=== PATIENT | male | born 1955 | race Caucasian/White ===

== ENCOUNTER 2016-08-24 11:14 | Emergency (ER) | payer BC ==
[2016-08-24] MEDS ORDERED: Sodium Chloride 0.9% 10 ML Syringe FLUSH PRN (11:58)
--- NOTE | 2016-08-24 12:04 | EDM.PDOC ---
ED HPI GENERAL MEDICAL PROBLEM - General Chief Complaint: Neurological Problem Stated Complaint: WEAKNESS/CAN'T WALK Time Seen by Provider: 08/24/16 11:39 Source of Information: Reports: Patient History Limitations: Reports: No Limitations - History of Present Illness INITIAL COMMENTS - FREE TEXT/NARRATIVE: 61-year-old male presents for evaluation and treatment of weakness and difficulty walking. Patient reports that symptoms started last night. He currently complains of weakness, difficulty walking and malaise. He denies any falls, syncope, lightheadedness, dizziness, chest pain, chest quotations, shortness of breath, abdominal pain, fevers, earaches or pains, sinus pain or pressure, headaches or cough. Patient has past medical history of a CVA in October of 2012. He has deficits on the left side and chronic numbness and tingling from his previous stroke. He has not noticed any changes from his baseline. No numbness and tingling that is worse than normal. Patient is also concerned about muscle spasms. These have been going on for several years. He states that he has tried muscle relaxers but quit taking them as feeling made him drowsy. He states that the muscle spasms often occur when he is out doing things. States that nothing is found that will relieve muscle spasms this time and rest. - Related Data Allergies Allergy/AdvReac Type Severity Reaction Status Date / Time No Known Allergies Allergy Verified 08/24/16 11:26 Home Meds: Home Meds Allopurinol [Zyloprim] 100 mg PO DAILY 08/24/16 [History] Citalopram Hydrobromide [Celexa] 20 mg PO DAILY 08/24/16 [History] Clopidogrel [Plavix] 75 mg PO DAILY 08/24/16 [History] Docusate Sodium [Colace] 100 mg PO BEDTIME 08/24/16 [History] LORazepam [Ativan] 0.5 mg PO Q6HR #10 tablet 08/24/16 [Rx] Losartan [Cozaar] 50 mg PO DAILY 08/24/16 [History] [place]-3 Fatty Acids [Fish Oil] 1 tab PO TID 08/24/16 [History] Simvastatin [Zocor] 40 mg PO BEDTIME 08/24/16 [History] Warfarin [Coumadin] 5 mg PO DAILY #4 tablet 08/24/16 [Rx] amLODIPine [Norvasc] 2.5 mg PO DAILY 08/24/16 [History] traZODone HCl [Trazodone HCl] 100 mg PO BEDTIME 08/24/16 [History] Past Medical History Cardiovascular History: Reports: Hypertension Neurological History: Reports: Other (See Below) Other Neuro History: stroke - Past Surgical History HEENT Surgical History: Reports: Tonsillectomy Musculoskeletal Surgical History: Reports: Other (See Below) Other Musculoskeletal Surgeries/Procedures:: cyst on back removed Social & Family History - Tobacco Use Smoking Status *Q: Never Smoker - Caffeine Use Caffeine Use: Reports: None - Recreational Drug Use Recreational Drug Use: No ED ROS GENERAL - Review of Systems Review Of Systems: See Below Constitutional: Reports: Malaise, Weakness. Denies: Fever HEENT: Denies: Ear Pain, Sinus Problem, Throat Pain Respiratory: Denies: Shortness of Breath, Cough Cardiovascular: Denies: Chest Pain, Edema, Syncope GI/Abdominal: Denies: Abdominal Pain, Diarrhea, Hematochezia, Melena, Nausea, Vomiting : Reports: No Symptoms. Denies: Dysuria Musculoskeletal: Reports: Muscle Stiffness (muscle spasms) Neurological: Reports: Numbness (chronic, no changes), Pre-Existing Deficit ( left sided weakness from CVA in May 2012), Tingling (chronic, no changes), Difficulty Walking. Denies: Dizziness, Headache ED EXAM, NEURO - Physical Exam Exam: See Below Exam Limited By: No Limitations General Appearance: Alert, WD/WN, No Apparent Distress Eye Exam: Bilateral Eye: PERRL Ears: Normal External Exam, Normal Canal, Hearing Grossly Normal, Normal TMs Nose: Normal Inspection Throat/Mouth: Normal Inspection, Normal Lips, Normal Voice, No Airway Compromise Neck: Normal Inspection Respiratory/Chest: No Respiratory Distress, Lungs Clear, Normal Breath Sounds Cardiovascular: Normal Peripheral Pulses, No Murmur, Irregularly Irregular GI/Abdominal: Soft, Non-Tender Neurological: Alert, Normal Mood/Affect, Normal Dorsiflexion, CN II-XII Intact, Normal Plantar Flexion, Abnormal Finger to Nose (left sided due to previous CVA) , Difficulty Walking, Other (abnormal pronator drift on left, previous CVA). No : Straight Leg Raise (L), Straight Leg Raise (R) Psychiatric: Normal Affect, Normal Mood Skin Exam: Warm, Dry, Normal Color EKG INTERPRETATION EKG Date: 08/24/16 Time: 12:00 Rhythm: a-fib Rate (beats/min): 70 [place]: normal P-wave: present QRS: normal ST-T: normal QT: normal EKG Interpretation Comments: a.fib with a rate in the 70s. Reviewed by myself and Dr. Prince. Course - Vital Signs Last Recorded V/S: Last Vital Signs Temp 36.8 C 08/24/16 11:21 Pulse 68 08/24/16 15:45 Resp 18 08/24/16 15:45 BP 164/104 H 08/24/16 15:45 Pulse Ox 98 08/24/16 15:45 Orthostatic Blood Pressure [ 149/112 Standing] Orthostatic Blood Pressure [ 160/94 Sitting] Orthostatic Blood Pressure [ 148/76 Supine] - Orders/Labs/Meds Orders: Active Orders 24 hr Category Date Time Status Cardiac Monitoring [RC] . DIRECTED Care 08/24/16 11:58 Active EKG 12 Lead [EKG Documentation Completion] [RC] STAT Care 08/24/16 11:58 Active Orthostatic Vital Signs [RC] ASDIRECTED Care 08/24/16 11:58 Active Peripheral IV Care [RC] . DIRECTED Care 08/24/16 11:58 Active Peripheral IV Insertion Adult [OM.PC] Routine Oth 08/24/16 11:58 Ordered Labs: Laboratory Tests 08/24/16 08/24/16 08/24/16 Range/Units 12:07 12:07 12:07 WBC 5.36 (4.23-9.07) K/mm3 RBC 4.77 (4.63-6.08) M/mm3 Hgb 14.6 (13.7-17.5) gm/L Hct 43.9 (40.1-51.0) % MCV 92.0 (79.0-92.2) fl MCH 30.6 (25.7-32.2) pg MCHC 33.3 (32.2-35.5) g/dl RDW Std Deviation 44.0 H (35.1-43.9) fL Plt Count 169 (163-337) K/mm3 MPV 9.2 L (9.4-12.3) fl Neut % (Auto) 81.4 H (34.0-67.9) % Lymph % (Auto) 9.9 L (21.8-53.1) % [place] % (Auto) 7.5 (5.3-12.2) % Eos % (Auto) 0.4 L (0.8-7.0) Baso % (Auto) 0.4 (0.1-1.2) % Neut # (Auto) 4.37 (1.78-5.38) K/mm3 Lymph # (Auto) 0.53 L (1.32-3.57) K/mm3 [place] # (Auto) 0.40 (0.30-0.82) K/mm3 Eos # (Auto) 0.02 L (0.04-0.54) K/mm3 Baso # (Auto) 0.02 (0.01-0.08) K/mm3 Manual Slide Review Normal smear PT (8.0-13.0) SECONDS INR APTT 26 (22-36) SECONDS Sodium 141 (136-145) mEq/L Potassium 4.6 (3.5-5.1) mEq/L Chloride 105 (98-107) mEq/L Carbon Dioxide 24 (21-32) mEq/L Anion Gap 16.6 H (5-15) BUN 32 H (7-18) mg/dL Creatinine 1.9 H (0.7-1.3) mg/dL Est Cr Clr Drug Dosing 44.25 mL/min Estimated GFR (MDRD) 36 (>60) mL/min BUN/Creatinine Ratio 16.8 (14-18) Glucose 112 (80-115) mg/dL Calcium 9.3 (8.5-10.1) mg/dL Magnesium 1.9 (1.8-2.4) mg/dl Total Bilirubin 0.6 (0.2-1.0) mg/dL AST 18 (15-37) U/L ALT 25 (16-63) U/L Alkaline Phosphatase 96 (46-116) U/L Total Protein 7.8 (6.4-8.2) g/dl Albumin 3.8 (3.4-5.0) g/dl Globulin 4.0 gm/dL Albumin/Globulin Ratio 1.0 (1-2) TSH 3rd Generation 3.468 (0.358-3.74) uIU/mL 08/24/16 Range/Units 12:07 WBC (4.23-9.07) K/mm3 RBC (4.63-6.08) M/mm3 Hgb (13.7-17.5) gm/L Hct (40.1-51.0) % MCV (79.0-92.2) fl MCH (25.7-32.2) pg MCHC (32.2-35.5) g/dl RDW Std Deviation (35.1-43.9) fL Plt Count (163-337) K/mm3 MPV (9.4-12.3) fl Neut % (Auto) (34.0-67.9) % Lymph % (Auto) (21.8-53.1) % [place] % (Auto) (5.3-12.2) % Eos % (Auto) (0.8-7.0) Baso % (Auto) (0.1-1.2) % Neut # (Auto) (1.78-5.38) K/mm3 Lymph # (Auto) (1.32-3.57) K/mm3 [place] # (Auto) (0.30-0.82) K/mm3 Eos # (Auto) (0.04-0.54) K/mm3 Baso # (Auto) (0.01-0.08) K/mm3 Manual Slide Review PT 11.1 (8.0-13.0) SECONDS INR 1.02 APTT (22-36) SECONDS Sodium (136-145) mEq/L Potassium (3.5-5.1) mEq/L Chloride (98-107) mEq/L Carbon Dioxide (21-32) mEq/L Anion Gap (5-15) BUN (7-18) mg/dL Creatinine (0.7-1.3) mg/dL Est Cr Clr Drug Dosing mL/min Estimated GFR (MDRD) (>60) mL/min BUN/Creatinine Ratio (14-18) Glucose (80-115) mg/dL Calcium (8.5-10.1) mg/dL Magnesium (1.8-2.4) mg/dl Total Bilirubin (0.2-1.0) mg/dL AST (15-37) U/L ALT (16-63) U/L Alkaline Phosphatase (46-116) U/L Total Protein (6.4-8.2) g/dl Albumin (3.4-5.0) g/dl Globulin gm/dL Albumin/Globulin Ratio (1-2) TSH 3rd Generation (0.358-3.74) uIU/mL Meds: Medications Discontinued Medications Generic Name Dose Route Start Last Admin Trade Name Valentine PRN Reason Stop Dose Admin Sodium Chloride 1,000 mls @ 999 mls/hr 08/24/16 14:00 08/24/16 14:14 Normal Saline IV 08/24/16 15:00 999 mls/hr ONETIME ONE Administration Lorazepam 0.5 mg 08/24/16 12:52 08/24/16 13:16 Ativan IVPUSH 08/24/16 12:53 0.5 mg ONETIME ONE Administration Sodium Chloride 10 ml 08/24/16 11:58 08/24/16 12:09 Saline Flush FLUSH 10 ml ASDIRECTED PRN Administration Keep Vein Open Warfarin Sodium 5 mg 08/24/16 15:42 08/24/16 15:48 Coumadin PO 08/24/16 15:43 5 mg ONETIME ONE Administration - Radiology Interpretation Free Text/Narrative:: chest 1 view of the chest impression per Dr. Corbett: 1. Incidental findings. Nothing acute is identified on portable chest x-ray. Head CT without contrast impression per Dr. Corbett : 1. Senescent change as described above. Nothing acute is appreciated on noncontrast head Ct exam. - Re-Assessments/Exams Free Text/Narrative Re-Assessment/Exam: 08/24/16 15:05 I spoke with the patient's PCP Dr. Frost regarding the patient. Recommended finding out his CHADS2 score and anticoagulant based off that. Recommend stopping the plavix. Vandervoort muscle spasms treatment with ativan appropriate. Patient's CHADS2 score is 3 indicating the need for anticoagulation. Discussed with Dr. Prince. Will start coumadin 5mg PO tabs and have him check INR on Monday. Did not feel Labs have returned. WBC is 5.36, hgb is 14.6 and plts are 169 sodium is 141, potassium is 4.6 and chloride is 105. Anion gap is 16.6. Creatinine is 1.9. Glucose is 112. TSH is 3.468 08/24/16 15:45 Pt is 11.1, INR is 1.02 PTT is 26 Reports muscle spasms have improved after atvian administration. The patient normally uses a cane at home. He was able to get up and walk with a walker around the ER safely. He has a shuffling gait. Gave cuomadin 5mg tab in ER. Will discharge home. Discharge instructions as documented. Departure - Departure Time of Disposition: 15:42 Disposition: Home, Self-Care 01 Condition: fair Clinical Impression: Atrial fibrillation, Muscle spasm - Discharge Information Prescriptions: LORazepam [Ativan] 0.5 mg PO Q6HR #10 tablet Warfarin [Coumadin] 5 mg PO DAILY #4 tablet Instructions: Muscle Cramps and Spasms, Warfarin: What You Need to Know, Atrial Fibrillation, [id number] Referrals: Farhat Head MD [Primary Care Provider] - Forms: ED Department Discharge Additional Instructions: Stop the plavix. Start coumadin 1 5mg tab PO daily - have your INR checked Monday and receive further dosing and refills from Dr. Frost Ativan 0.5mg 1 tab PO every 6 hours prn muscle spams. Rest. Follow-up with Dr. Frost Monday. Please return to the ER should your symptoms change or worsen. - My Orders Last 24 Hours: My Active Orders 08/24/16 11:58 Cardiac Monitoring [RC] . DIRECTED EKG 12 Lead [EKG Documentation Completion] [RC] STAT Orthostatic Vital Signs [RC] ASDIRECTED Peripheral IV Care [RC] . DIRECTED Peripheral IV Insertion Adult [OM.PC] Routine - Assessment/Plan Last 24 Hours: My Active Orders 08/24/16 11:58 Cardiac Monitoring [RC] . DIRECTED EKG 12 Lead [EKG Documentation Completion] [RC] STAT Orthostatic Vital Signs [RC] ASDIRECTED Peripheral IV Care [RC] . DIRECTED Peripheral IV Insertion Adult [OM.PC] Routine
--- NOTE | 2016-08-24 12:37 | CT ---
Head CT Technique: Multiple axial sections through the brain were obtained. Intravenous contrast was not utilized. Comparison: No previous intracranial imaging. Findings: Ventricles along with basal cisterns and sulci over the convexities are mildly prominent. Old lacunar infarct is noted within the left basal ganglia. Diminished density is noted within the basal ganglia, periventricular white matter and subcortical white matter which is compatible with small vessel ischemic demyelination change. There are likely several small areas of old white matter infarcts also present. Atherosclerotic calcification is seen within the carotid siphon and within the vertebral vessels. No intracranial hemorrhage is seen. No midline shift or mass effect is seen. Bone window settings were reviewed which shows no discrete calvarial abnormality. Visualized sinuses are clear. Impression: 1. Senescent change as described above. Nothing acute is appreciated on noncontrast head CT exam. Diagnostic code #2
--- NOTE | 2016-08-24 12:41 | CR ---
Chest: Portable view of the chest was obtained. Comparison: No previous chest x-ray. Heart size at the upper limits of normal. Tortuous thoracic aorta is seen. Minimal atelectasis is noted within the right mid and lower lung. Lungs otherwise are clear. Bony structures are grossly intact. Impression: 1. Incidental findings. Nothing acute is identified on portable chest x-ray. Diagnostic code #2
[2016-08-24] MEDS ORDERED: LORazepam 2 MG/ML MDV IVPUSH ONE (12:52)
[2016-08-24] MEDS ORDERED: Sodium Chloride 0.9% 1,000 ML IV ONE (14:00)
[2016-08-24] MEDS ORDERED: Warfarin 5 MG Tab PO ONE (15:42)
[2016-08-24 16:57] VITALS: BP 164/104
== END 2016-08-24 16:05 | disposition home or self-care (01) ==
LOC: JD.ED 11:14
DX: I48.91 Unspecified atrial fibrillation (principal); M62.838 Other muscle spasm; I10 Essential (primary) hypertension; Z98.890 Other specified postprocedural states; Z79.01 Long term (current) use of anticoagulants; Z79.02 Long term (current) use of antithrombotics/antiplatelets; Z79.899 Other long term (current) drug therapy; Z86.73 Personal history of transient ischemic attack (TIA), and cerebral infarction without residual deficits
CPT/HCPCS: 36415; 70450; 71010; 80053; 83735; 84443; 85025; 85610; 85730; 93005; 96361; 96374; 99285; A9270; J2060; J7040; J7050; 99284

== ENCOUNTER 2016-08-25 11:10 | Emergency (ER) | payer BC ==
[2016-08-25 11:38] VITALS: BP 152/94
--- NOTE | 2016-08-25 12:29 | EDM.PDOC ---
ED HPI GENERAL MEDICAL PROBLEM - General Chief Complaint: Neuro Symptoms/Deficits Stated Complaint: WEAKNESS NOT BETTER Time Seen by Provider: 08/25/16 11:23 - History of Present Illness INITIAL COMMENTS - FREE TEXT/NARRATIVE: 61-year-old male comes in with continued weakness of his lower extremities. When asked in more detail he describes this as more of a "tightness when he tries to stand or walk. He has had this for a few days. He was evaluated here in the ED yesterday for that. He was found to be an atrophic fibrillation which appeared to be acute onset. See that record for more details of that visit. Nothing has really changed today. He just is concerned that when he does try to stand and walk his legs tighten up making it "more difficult to walk than usual ". He does have history of prior CVA affecting left side of his body about 4 years ago. There's been no recent fall or injury. He is not having chest pain nausea vomiting or diarrhea. - Related Data Allergies Allergy/AdvReac Type Severity Reaction Status Date / Time No Known Allergies Allergy Verified 08/24/16 11:26 Home Meds: Home Meds Allopurinol [Zyloprim] 100 mg PO DAILY 08/24/16 [History] Citalopram Hydrobromide [Celexa] 20 mg PO DAILY 08/24/16 [History] Clopidogrel [Plavix] 75 mg PO DAILY 08/24/16 [History] Docusate Sodium [Colace] 100 mg PO BEDTIME 08/24/16 [History] LORazepam [Ativan] 0.5 mg PO Q6HR #10 tablet 08/24/16 [Rx] Losartan [Cozaar] 50 mg PO DAILY 08/24/16 [History] [place]-3 Fatty Acids [Fish Oil] 1 tab PO TID 08/24/16 [History] Simvastatin [Zocor] 40 mg PO BEDTIME 08/24/16 [History] Warfarin [Coumadin] 5 mg PO DAILY #4 tablet 08/24/16 [Rx] amLODIPine [Norvasc] 2.5 mg PO DAILY 08/24/16 [History] traZODone HCl [Trazodone HCl] 100 mg PO BEDTIME 08/24/16 [History] LORazepam [Ativan] 0.5 mg PO Q6H #60 tablet 08/25/16 [Rx] Warfarin [Coumadin] 5 mg PO DAILY #14 tablet 08/25/16 [Rx] Past Medical History Cardiovascular History: Reports: Hypertension Neurological History: Reports: Other (See Below) Other Neuro History: stroke in 2013 - Past Surgical History HEENT Surgical History: Reports: Tonsillectomy Musculoskeletal Surgical History: Reports: Other (See Below) Other Musculoskeletal Surgeries/Procedures:: cyst on back removed Social & Family History - Family History Cardiac: Reports: [place] Oncologic: Reports: Colon, Liver - Tobacco Use Smoking Status *Q: Never Smoker Second Hand Smoke Exposure: No - Caffeine Use Caffeine Use: Reports: None - Recreational Drug Use Recreational Drug Use: No ED ROS GENERAL - Review of Systems Review Of Systems: See Below Constitutional: Denies: Fever, Chills, Diaphoresis HEENT: Denies: Throat Pain, Vertigo Respiratory: Denies: Shortness of Breath Cardiovascular: Denies: Chest Pain GI/Abdominal: Denies: Abdominal Pain, Nausea, Vomiting Musculoskeletal: Reports: Muscle Stiffness (Primarily lower legs when he tries to walk). Denies: Neck Pain, Shoulder Pain Skin: Reports: No Symptoms Neurological: Reports: Difficulty Walking, Weakness (Generalized), Gait Disturbance ED EXAM, NEURO - Physical Exam Exam: See Below General Appearance: Alert Eye Exam: Bilateral Eye: PERRL Throat/Mouth: Normal Inspection, Normal Oropharynx Head Exam: Atraumatic. No: Facial Swelling Neck: Supple Respiratory/Chest: No Respiratory Distress, Lungs Clear, Normal Breath Sounds Cardiovascular: Regular Rate, Rhythm GI/Abdominal: Soft, Non-Tender Neurological: Alert, Oriented x 3, Other (Patient does have slight weakness and ataxia left hand and arm compared to the right with finger to nose testing which is chronic from previous stroke, there is no discernible weakness of the lower extremities, sensation intact for upper and lower extremities, no facial droop) Extremities: Normal Inspection, Normal Range of Motion Skin Exam: Warm, Dry, Normal Color Course - Vital Signs Last Recorded V/S: Last Vital Signs Temp 99.1 F 08/25/16 11:24 Pulse 73 08/25/16 11:24 Resp 22 H 08/25/16 11:24 BP 152/94 H 08/25/16 11:24 Pulse Ox 97 08/25/16 11:24 Departure - Departure Time of Disposition: 12:26 Disposition: Home, Self-Care 01 Condition: fair Clinical Impression: Weakness, Dehydration, Renal insufficiency, Gait difficulty Atrial fibrillation Qualifiers: Atrial fibrillation type: unspecified Qualified Code(s): I48.91 - Unspecified atrial fibrillation - Discharge Information Prescriptions: LORazepam [Ativan] 0.5 mg PO Q6H #60 tablet Warfarin [Coumadin] 5 mg PO DAILY #14 tablet Instructions: Weakness, [id number] Referrals: Farhat Head MD [Primary Care Provider] - Forms: ED Department Discharge Additional Instructions: Try harder drink more water to maintain hydration as best you can, continue Ativan 0.5 mg 3-4 times daily as needed for muscle spasm and tightness, continue Coumadin 5 mg daily for now, [facility] INR checked Monday at the clinic as planned, see Dr. Frost in about 2 weeks as planned, return to ED as needed
== END 2016-08-25 12:54 | disposition home or self-care (01) ==
LOC: JD.ED 11:10
DX: E86.0 Dehydration (principal); N28.9 Disorder of kidney and ureter, unspecified; R26.9 Unspecified abnormalities of gait and mobility; I48.91 Unspecified atrial fibrillation; I10 Essential (primary) hypertension; Z98.890 Other specified postprocedural states; Z79.01 Long term (current) use of anticoagulants; Z79.899 Other long term (current) drug therapy; Z79.02 Long term (current) use of antithrombotics/antiplatelets; Z86.73 Personal history of transient ischemic attack (TIA), and cerebral infarction without residual deficits
CPT/HCPCS: 99283; 99284

== ENCOUNTER 2016-08-27 10:38 | Emergency (ER) | payer BC ==
[2016-08-27] MEDS ORDERED: Sodium Chloride 0.9% 10 ML Syringe FLUSH PRN (10:47)
[2016-08-27] MEDS ORDERED: Sodium Chloride 0.9% 1,000 ML IV SCH (11:00)
--- NOTE | 2016-08-27 12:41 | EDM.PDOC ---
ED HPI GENERAL MEDICAL PROBLEM - General Chief Complaint: Neuro Symptoms/Deficits Stated Complaint: [facility] Time Seen by Provider: 08/27/16 10:46 Source of Information: Reports: Patient, EMS History Limitations: Reports: No Limitations - History of Present Illness INITIAL COMMENTS - FREE TEXT/NARRATIVE: The patient presents with lower leg weakness and cramping. He has a history of stroke a few years ago that has affected the left side of his body. For a few days he has had cramps in his legs that will not let him move. He has no fever , chills, cough, headache, chest pain, shortness of breath, abdominal pain, nausea or vomiting. This is his 3rd evaluation in the ER over the past 4 days. He had a complete stroke work up on the and he was examined again a day later. Today he came in by ambulance. He was found to have new onset A-fib a couple days ago and was put on coumadin and also ativan for the muscle cramps. That has not been helping. Onset: Gradual Duration: Day(s): Location: Reports: Lower Extremity, Left, Lower Extremity, Right Quality: Reports: Other (cramping) Severity: Moderate Improves with: Reports: None Worsens with: Reports: None Associated Symptoms: Denies: Chest Pain, Diaphoresis, Headaches, Nausea/Vomiting , Shortness of Breath - Related Data Allergies Allergy/AdvReac Type Severity Reaction Status Date / Time No Known Allergies Allergy Verified 08/24/16 11:26 Home Meds: Home Meds Allopurinol [Zyloprim] 100 mg PO DAILY 08/24/16 [History] Citalopram Hydrobromide [Celexa] 20 mg PO DAILY 08/24/16 [History] Clopidogrel [Plavix] 75 mg PO DAILY 08/24/16 [History] Docusate Sodium [Colace] 100 mg PO BEDTIME 08/24/16 [History] LORazepam [Ativan] 0.5 mg PO Q6HR #10 tablet 08/24/16 [Rx] Losartan [Cozaar] 50 mg PO DAILY 08/24/16 [History] [place]-3 Fatty Acids [Fish Oil] 1 tab PO TID 08/24/16 [History] Simvastatin [Zocor] 40 mg PO BEDTIME 08/24/16 [History] Warfarin [Coumadin] 5 mg PO DAILY #4 tablet 08/24/16 [Rx] amLODIPine [Norvasc] 2.5 mg PO DAILY 08/24/16 [History] traZODone HCl [Trazodone HCl] 100 mg PO BEDTIME 08/24/16 [History] LORazepam [Ativan] 0.5 mg PO Q6H #60 tablet 08/25/16 [Rx] Warfarin [Coumadin] 5 mg PO DAILY #14 tablet 08/25/16 [Rx] Past Medical History Cardiovascular History: Reports: Hypertension Respiratory History: Reports: Asthma Genitourinary History: Reports: Chronic Renal Insuffiency Neurological History: Reports: CVA, Other (See Below) Other Neuro History: stroke in 2012 Hematologic History: Reports: Blood Transfusion(s) - Past Surgical History HEENT Surgical History: Reports: Cataract Surgery, Tonsillectomy Musculoskeletal Surgical History: Reports: Other (See Below) Other Musculoskeletal Surgeries/Procedures:: cyst on back removed Social & Family History - Family History Family Medical History: Noncontributory Cardiac: Reports: ME Oncologic: Reports: Colon, Liver - Tobacco Use Smoking Status *Q: Never Smoker Second Hand Smoke Exposure: No - Caffeine Use Caffeine Use: Reports: None - Recreational Drug Use Recreational Drug Use: No ED ROS GENERAL - Review of Systems Review Of Systems: See Below Constitutional: Reports: No Symptoms HEENT: Reports: No Symptoms Respiratory: Reports: No Symptoms Cardiovascular: Reports: No Symptoms Endocrine: Reports: No Symptoms GI/Abdominal: Reports: No Symptoms : Reports: No Symptoms Musculoskeletal: Reports: Leg Pain Skin: Reports: No Symptoms Neurological: Reports: No Symptoms ED EXAM, NEURO - Physical Exam Exam: See Below Exam Limited By: No Limitations General Appearance: Alert, No Apparent Distress Ears: Normal External Exam Nose: Normal Inspection Head Exam: Atraumatic, Normocephalic Neck: Normal Inspection Respiratory/Chest: No Respiratory Distress, Lungs Clear, Normal Breath Sounds Cardiovascular: Regular Rate, Rhythm, No Edema, No Murmur GI/Abdominal: Soft, Non-Tender, No Organomegaly, No Mass Neurological: Alert, Oriented x 3, Other (Mild to moderate weakness to his left arm and leg with some decreased sensation. That is chronic for him.) EKG INTERPRETATION EKG Date: 08/27/16 Time: 10:46 Rhythm: a-fib Rate (beats/min): 69 [place]: normal QRS: normal ST-T: normal QT: normal Course - Vital Signs Last Recorded V/S: Last Vital Signs Temp 99.5 F 08/27/16 10:44 Pulse 73 08/27/16 10:44 Resp 18 08/27/16 10:44 BP 170/88 H 08/27/16 10:44 Pulse Ox 97 08/27/16 10:44 - Orders/Labs/Meds Orders: Active Orders 24 hr Category Date Time Status Cardiac Monitoring [RC] . DIRECTED Care 08/27/16 10:47 Active EKG Documentation Completion [RC] STAT Care 08/27/16 10:48 Active Peripheral IV Care [RC] . DIRECTED Care 08/27/16 10:48 Active Head wo Cont [CT] Stat Exams 08/27/16 13:28 Taken Sodium Chloride 0.9% [Normal Saline] 1,000 ml Med 08/27/16 11:00 Active IV ASDIRECTED Sodium Chloride 0.9% [Saline Flush] Med 08/27/16 10:47 Active 10 ml FLUSH ASDIRECTED PRN Peripheral IV Insertion Adult [OM.PC] Stat Oth 08/27/16 10:47 Ordered Medication Orders Sodium Chloride (Normal Saline) 1,000 mls @ 125 mls/hr IV ASDIRECTED ILYA Last Admin: 08/27/16 11:06 Dose: 125 mls/hr Sodium Chloride (Saline Flush) 10 ml FLUSH ASDIRECTED PRN PRN Reason: Keep Vein Open Last Admin: 08/27/16 11:06 Dose: 10 ml Labs: Laboratory Tests 08/27/16 08/27/16 08/27/16 Range/Units 10:40 10:51 10:51 WBC 5.25 (4.23-9.07) K/mm3 RBC 4.52 L (4.63-6.08) M/mm3 Hgb 14.1 (13.7-17.5) gm/L Hct 41.0 (40.1-51.0) % MCV 90.7 (79.0-92.2) fl MCH 31.2 (25.7-32.2) pg MCHC 34.4 (32.2-35.5) g/dl RDW Std Deviation 42.5 (35.1-43.9) fL Plt Count 164 (163-337) K/mm3 MPV 8.9 L (9.4-12.3) fl Neut % (Auto) 81.3 H (34.0-67.9) % Lymph % (Auto) 9.5 L (21.8-53.1) % Patrick % (Auto) 8.0 (5.3-12.2) % Eos % (Auto) 0.6 L (0.8-7.0) Baso % (Auto) 0.6 (0.1-1.2) % Neut # (Auto) 4.27 (1.78-5.38) K/mm3 Lymph # (Auto) 0.50 L (1.32-3.57) K/mm3 Patrick # (Auto) 0.42 (0.30-0.82) K/mm3 Eos # (Auto) 0.03 L (0.04-0.54) K/mm3 Baso # (Auto) 0.03 (0.01-0.08) K/mm3 Manual Slide Review Normal smear ESR 12 (0-15) mm/hr PT (8.0-13.0) SECONDS INR Sodium 137 (136-145) mEq/L Potassium 4.3 (3.5-5.1) mEq/L Chloride 103 (98-107) mEq/L Carbon Dioxide 22 (21-32) mEq/L Anion Gap 16.3 H (5-15) BUN 27 H (7-18) mg/dL Creatinine 1.8 H (0.7-1.3) mg/dL Est Cr Clr Drug Dosing 49.47 mL/min Estimated GFR (MDRD) 38 (>60) mL/min BUN/Creatinine Ratio 15.0 (14-18) Glucose 124 H (80-115) mg/dL Calcium 8.8 (8.5-10.1) mg/dL Total Bilirubin 0.5 (0.2-1.0) mg/dL AST 23 (15-37) U/L ALT 31 (16-63) U/L Alkaline Phosphatase 95 (46-116) U/L Creatine Kinase 189 (39-308) U/L CK-MB (CK-2) 2.8 (0-3.6) ng/ml Troponin I (0.00-0.056) ng/mL C-Reactive Protein < 0.2 (<1.0) mg/dL Total Protein 7.5 (6.4-8.2) g/dl Albumin 3.6 (3.4-5.0) g/dl Globulin 3.9 gm/dL Albumin/Globulin Ratio 0.9 L (1-2) 08/27/16 08/27/16 Range/Units 10:51 12:00 WBC (4.23-9.07) K/mm3 RBC (4.63-6.08) M/mm3 Hgb (13.7-17.5) gm/L Hct (40.1-51.0) % MCV (79.0-92.2) fl MCH (25.7-32.2) pg MCHC (32.2-35.5) g/dl RDW Std Deviation (35.1-43.9) fL Plt Count (163-337) K/mm3 MPV (9.4-12.3) fl Neut % (Auto) (34.0-67.9) % Lymph % (Auto) (21.8-53.1) % Patrick % (Auto) (5.3-12.2) % Eos % (Auto) (0.8-7.0) Baso % (Auto) (0.1-1.2) % Neut # (Auto) (1.78-5.38) K/mm3 Lymph # (Auto) (1.32-3.57) K/mm3 Patrick # (Auto) (0.30-0.82) K/mm3 Eos # (Auto) (0.04-0.54) K/mm3 Baso # (Auto) (0.01-0.08) K/mm3 Manual Slide Review ESR (0-15) mm/hr PT 14.8 H (8.0-13.0) SECONDS INR 1.33 Sodium (136-145) mEq/L Potassium (3.5-5.1) mEq/L Chloride (98-107) mEq/L Carbon Dioxide (21-32) mEq/L Anion Gap (5-15) BUN (7-18) mg/dL Creatinine (0.7-1.3) mg/dL Est Cr Clr Drug Dosing mL/min Estimated GFR (MDRD) (>60) mL/min BUN/Creatinine Ratio (14-18) Glucose (80-115) mg/dL Calcium (8.5-10.1) mg/dL Total Bilirubin (0.2-1.0) mg/dL AST (15-37) U/L ALT (16-63) U/L Alkaline Phosphatase (46-116) U/L Creatine Kinase (39-308) U/L CK-MB (CK-2) (0-3.6) ng/ml Troponin I < 0.017 (0.00-0.056) ng/mL C-Reactive Protein (<1.0) mg/dL Total Protein (6.4-8.2) g/dl Albumin (3.4-5.0) g/dl Globulin gm/dL Albumin/Globulin Ratio (1-2) Meds: Medications Generic Name Dose Route Start Last Admin Trade Name Freq PRN Reason Stop Dose Admin Sodium Chloride 1,000 mls @ 125 mls/hr 08/27/16 11:00 08/27/16 11:06 Normal Saline IV 125 mls/hr ASDIRECTED ILYA Administration Sodium Chloride 10 ml 08/27/16 10:47 08/27/16 11:06 Saline Flush FLUSH 10 ml ASDIRECTED PRN Administration Keep Vein Open Discontinued Medications Generic Name Dose Route Start Last Admin Trade Name Freq PRN Reason Stop Dose Admin Carbidopa/Levodopa 1 tab 08/27/16 14:10 08/27/16 14:18 Sinemet 25-100 Mg PO 08/27/16 14:11 1 tab ONETIME ONE Administration - Re-Assessments/Exams Free Text/Narrative Re-Assessment/Exam: 08/27/16 12:41 I ordered an IV saline lock, EKG, and labs. 08/27/16 12:42 His EKG shows A-fib with no acute changes. His CBC looks good. His creatinine is elevated at 1.8. His troponin is negative. His CRP and sed rate are negative. 08/27/16 14:[address] Chang his primary care doctor and he remembers the patient had some contracture issues and he wanted to have him go for botox. The tremor is a new thing and the rigidity. I then asked in more detail how long this has been going on. He says since about April he has been having some trouble and for the past 4 days it is much worse. He says he has had a tremor in both arms but worse in the left. He also said the rigidity in his legs were present but not this bad. I was concerned this may be parkinsons. I talked with our hospitalist here and she wanted me to talk with the neurologist organizational consultant in [place]. I talked with Dr Clark at [facility] in [place] and she said this could be parkinson's but it could also be a new stroke or vascular parkinsons. She recommended giving sinimet 25mg/100mg. That may help and it would not hurt. She recommended more of a work up like MRI. Parkinson's is more of a diagnosis done on exam but I will have to rule out other possibilities. I called Dr Leo my hospitalist. She was not comfortable admitting him at this time because we cannot get an MRI until Monday. I called [facility] back and talked with the hospitalist Dr Metcalf and she accepted the patient. Departure - Departure Time of Disposition: 15:20 Disposition: DC/Tfer to Acute Hospital 02 Condition: fair Clinical Impression: Renal insufficiency, Muscle rigidity Atrial fibrillation Qualifiers: Atrial fibrillation type: unspecified Qualified Code(s): I48.91 - Unspecified atrial fibrillation - Discharge Information Forms: ED Department Discharge - My Orders Last 24 Hours: My Active Orders 08/27/16 10:47 Cardiac Monitoring [RC] . DIRECTED Sodium Chloride 0.9% [Saline Flush] 10 ml FLUSH ASDIRECTED PRN Peripheral IV Insertion Adult [OM.PC] Stat 08/27/16 10:48 EKG Documentation Completion [RC] STAT Peripheral IV Care [RC] . DIRECTED 08/27/16 11:00 Sodium Chloride 0.9% [Normal Saline] 1,000 ml IV ASDIRECTED 08/27/16 13:28 Head wo Cont [CT] Stat - Assessment/Plan Last 24 Hours: My Active Orders 08/27/16 10:47 Cardiac Monitoring [RC] . DIRECTED Sodium Chloride 0.9% [Saline Flush] 10 ml FLUSH ASDIRECTED PRN Peripheral IV Insertion Adult [OM.PC] Stat 08/27/16 10:48 EKG Documentation Completion [RC] STAT Peripheral IV Care [RC] . DIRECTED 08/27/16 11:00 Sodium Chloride 0.9% [Normal Saline] 1,000 ml IV ASDIRECTED 08/27/16 13:28 Head wo Cont [CT] Stat
[2016-08-27] MEDS ORDERED: Carbidopa/Levodopa 25-100 MG Tab PO ONE (14:10)
[2016-08-27 16:47] VITALS: BP 156/94
--- NOTE | 2016-08-29 07:18 | CT ---
Head CT Technique: Multiple axial sections through the brain were obtained. Intravenous contrast was not utilized. Comparison: Previous head CT study of 08/24/16. Findings: Ventricles along with basal cisterns and sulci over the convexities are mildly prominent. Diffuse diminished density is noted within portions of the basal ganglia, periventricular white matter and subcortical white matter which is compatible with small vessel ischemic demyelination change. Old lacunar infarct is noted within the left basal ganglia. Several small white matter infarcts are also seen mostly on the right side. No evidence of intracranial hemorrhage. No midline shift or mass effect is seen. Atherosclerotic change is noted within the carotid siphon and within the vertebral vessel. Bone window settings were reviewed which show the visualized sinuses to appear clear. No calvarial abnormality is seen. Impression: 1. Senescent change as described above. No acute intracranial abnormality is identified. No significant change is appreciated from prior head CT exam. Diagnostic code #2 I agree with preliminary report issued by [employer] ([facility] report finalized on 08/27/16, 3:06 PM Central Time)
== END 2016-08-27 16:10 ==
LOC: JD.ED 10:38
DX: N28.9 Disorder of kidney and ureter, unspecified (principal); R29.898 Other symptoms and signs involving the musculoskeletal system; I48.91 Unspecified atrial fibrillation; I12.9 Hypertensive chronic kidney disease with stage 1 through stage 4 chronic kidney disease, or unspecified chronic kidney disease; N18.9 Chronic kidney disease, unspecified; Z79.01 Long term (current) use of anticoagulants; Z79.899 Other long term (current) drug therapy; Z98.49 Cataract extraction status, unspecified eye; Z98.890 Other specified postprocedural states; Z86.73 Personal history of transient ischemic attack (TIA), and cerebral infarction without residual deficits
CPT/HCPCS: 36415; 70450; 80053; 82550; 82553; 84484; 85025; 85610; 85652; 86140; 93005; 96360; 96361; 99285; A9270; J7040; J7050; 99284

== ENCOUNTER 2017-03-22 10:32 | Inpatient (IN) | payer BC ==
[~2017-03-22 10:32] MED LIST: Sodium Chloride 0.9% 500 ML IV ONE
--- NOTE | 2017-03-22 10:44 | EDM.PDOC ---
ED HPI GENERAL MEDICAL PROBLEM - General Chief Complaint: Neuro Symptoms/Deficits Stated Complaint: STROKE SYMPTOMS Time Seen by Provider: 03/22/17 10:39 Source of Information: Reports: Patient History Limitations: Reports: No Limitations - History of Present Illness INITIAL COMMENTS - FREE TEXT/NARRATIVE: 62-year-old male presents the ED with increased left-sided weakness. He recognized a difference from his norm when he awoke at 5:00 this morning. Patient is at a previous CVA affecting the left side primarily his arm but also left leg weakness. This morning when he got up he found that his left leg seemed to be much weaker than normal and making him feel much more offkilter and off balance. Hard to appreciate any difference in the left upper extremity as he has limited range of motion of his fingers wrist etc. since the last stroke in 2012. Patient is in atrial fibrillation and is on Coumadin long-term. Last PT/INR was checked 2 weeks ago with no changes in doseage made. He denies any headache nausea or vomiting. Denies any change in his vision or speech. No recent falls or closed head injuries. Onset: Today Onset Date: 03/22/17 Onset Time: 05:00 (Recognized problems walking this morning when he got up at 5: 00. Increased weakness left leg and much more off balance than normal.) Duration: Hour(s): Location: Reports: Upper Extremity, Left, Lower Extremity, Left (Mild increased weakness in the left upper extremity much more aware of left lower extremity weakness.) Quality: Reports: Other Severity: Moderate (Weakness with some numbness and tingling) Improves with: Reports: None Worsens with: Reports: None Context: Reports: Other (Awoke with increased leg weakness and difficulty walking at 5:00 this morning.). Denies: Activity, Exercise, Lifting, Sick Contact, Trauma Associated Symptoms: Reports: Malaise, Weakness (2. His left leg.). 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.) - Related Data Allergies Allergy/AdvReac Type Severity Reaction Status Date / Time No Known Allergies Allergy Verified 03/22/17 10:37 Home Meds: Home Meds Allopurinol [Zyloprim] 100 mg PO DAILY 08/24/16 [History] Citalopram Hydrobromide [Celexa] 20 mg PO DAILY 08/24/16 [History] Docusate Sodium [Colace] 100 mg PO BEDTIME 08/24/16 [History] Losartan [Cozaar] 50 mg PO DAILY 08/24/16 [History] Simvastatin [Zocor] 40 mg PO BEDTIME 08/24/16 [History] amLODIPine [Norvasc] 2.5 mg PO DAILY 08/24/16 [History] traZODone HCl [Trazodone HCl] 100 mg PO BEDTIME 08/24/16 [History] Aspirin [Ecotrin] 162 mg PO DAILY 03/22/17 [History] Baclofen 10 mg PO BID 03/22/17 [History] Fish Oil/[place]-3 Fatty Acids [Fish Oil 1,000 MG] 1 tab PO TID 03/22/17 [History] Hydrocodone/Acetaminophen [Hydrocodon-Acetaminophn 10-325] 1 tab PO Q6HR PRN [History] LORazepam [Ativan] 0.5 mg PO Q6H PRN 03/22/17 [History] Warfarin [Coumadin] 5 mg PO MOFR 03/22/17 [History] Warfarin [Coumadin] 7.5 mg PO SUTUWETHSA 03/22/17 [History] hydrALAZINE [Apresoline] 25 mg PO TID 03/22/17 [History] Past Medical History Cardiovascular History: Reports: Hypertension Respiratory History: Reports: Asthma Genitourinary History: Reports: Chronic Renal Insuffiency Musculoskeletal History: Reports: Gout Neurological History: Reports: CVA, Other (See Below) Other Neuro History: stroke in 2013 Hematologic History: Reports: Blood Transfusion(s) - Past Surgical History HEENT Surgical History: Reports: Cataract Surgery, Tonsillectomy Musculoskeletal Surgical History: Reports: Other (See Below) Other Musculoskeletal Surgeries/Procedures:: cyst on back removed Social & Family History - Family History Family Medical History: Noncontributory Cardiac: Reports: [place] Oncologic: Reports: Colon, Liver - Tobacco Use Smoking Status *Q: Never Smoker Second Hand Smoke Exposure: No - Caffeine Use Caffeine Use: Reports: None - Recreational Drug Use Recreational Drug Use: No - Living Situation & Occupation Living situation: Reports: Single Occupation: Disabled ED ROS GENERAL - Review of Systems Review Of Systems: See Below Constitutional: Reports: Malaise, Weakness, Fatigue (Left lower extremity left arm). Denies: Fever, Chills, Night Sweats, Diaphoresis, Decreased Appetite, Weight Loss HEENT: Reports: No Symptoms Respiratory: Reports: No Symptoms Cardiovascular: Reports: Palpitations. Denies: No Symptoms, Chest Pain, Blood Pressure Problem, Claudication, Dyspnea on Exertion, Edema, Lightheadedness, Orthopnea Endocrine: Reports: Fatigue (Intermittently due to being atrial fibrillation.) GI/Abdominal: Reports: Constipation : Reports: Frequency Musculoskeletal: Reports: Arm Pain (Occasional left arm pain.) Skin: Reports: No Symptoms Neurological: Reports: Paresthesia (Increased numbness and tingling in his left lower extremity since awakening at 5:00 this morning.), Difficulty Walking, Weakness (He has a left hemiparesis post CVA from 2012. He has worse symptoms today involving the left leg and perhaps a little bit in his left arm.), Gait Disturbance (Increased difficulty walking today because of left leg weakness.) Psychiatric: Reports: No Symptoms Hematologic/Lymphatic: Reports: No Symptoms Immunologic: Reports: No Symptoms ED EXAM, NEURO - Physical Exam Exam: See Below Exam Limited By: No Limitations General Appearance: Alert, WD/WN, No Apparent Distress Eye Exam: Bilateral Eye: Normal Inspection, PERRL Throat/Mouth: Normal Inspection, Normal Lips, Other Head Exam: Atraumatic (Speech is normal.), Normocephalic Neck: Normal Inspection, Supple, Non-Tender, Full Range of Motion. No: Carotid Bruit, Lymphadenopathy (L), Lymphadenopathy (R) Respiratory/Chest: No Respiratory Distress, Lungs Clear, Normal Breath Sounds, No Accessory Muscle Use, Chest Non-Tender. No: Respiratory Distress Cardiovascular: Regular Rate, Rhythm, No Edema, No Gallop, No JVD, No Murmur, No Rub GI/Abdominal: Normal Bowel Sounds, Soft, Non-Tender, No Organomegaly Neurological: Alert, Normal Mood/Affect, Oriented x 3, Difficulty Walking, Other (Patient has obvious weakness in the left upper extremity graded as 1-2 out of 5. Left leg is graded as 2 out of 5. He is unable to plantar flex against my hand at all on the left side. He has absence of reflexes in). No: Normal Plantar Flexion, Normal Gait, Normal Reflexes, Straight Leg Raise (L) DTR: 0: Achilles (R), Achilles (L), 1+: Patella (R), Patella (L) Extremities: Non-Tender, No Pedal Edema. No: Normal Range of Motion (Decreased range of motion of the left upper extremity. He has inability to fully extend at the elbow and some mild flexion contractures of the shoulder as well.), Pedal Edema Psychiatric: Normal Affect, Normal Mood Skin Exam: Warm, Dry, Intact, Normal Color, No Rash EKG INTERPRETATION EKG Date: 03/22/17 Time: 10:45 Rhythm: Other (Regular rhythm with inverted P waves indicating an ectopic atrial rhythm.) Rate (Beats/Min): 66 Smilax: Other (Smilax is 0 meaning horizontal heart.) P-Wave: Variable (Inverted for the most part indicating ectopic origin.) QRS: Normal ST-T: Other (There is a delayed repolarization pattern.) QT: Prolonged (QT is markedly prolonged at greater than 600. Abnormal ECG) Course - Vital Signs Last Recorded V/S: Last Vital Signs Temp 36.9 C 03/22/17 10:37 Pulse 68 03/22/17 10:37 Resp 18 03/22/17 10:37 BP 144/88 H 03/22/17 10:37 Pulse Ox 96 03/22/17 10:37 - Orders/Labs/Meds Orders: Active Orders 24 hr Category Date Time Status EKG Documentation Completion [RC] STAT Care 03/22/17 10:40 Active Peripheral IV Care [RC] . DIRECTED Care 03/22/17 12:09 Active Brain wo Cont [MR] Stat Exams 03/22/17 12:18 Ordered Sodium Chloride 0.9% [Saline Flush] Med 03/22/17 12:09 Active 10 ml FLUSH ASDIRECTED PRN Peripheral IV Insertion Adult [OM.PC] Stat Oth 03/22/17 12:09 Ordered Medication Orders Sodium Chloride (Saline Flush) 10 ml FLUSH ASDIRECTED PRN PRN Reason: Keep Vein Open Labs: Laboratory Tests 03/22/17 03/22/17 03/22/17 Range/Units 10:45 10:45 10:45 WBC 5.80 (4.23-9.07) K/mm3 RBC 3.76 L (4.63-6.08) M/mm3 Hgb 11.6 L (13.7-17.5) gm/L Hct 36.1 L (40.1-51.0) % MCV 96.0 H (79.0-92.2) fl MCH 30.9 (25.7-32.2) pg MCHC 32.1 L (32.2-35.5) g/dl RDW Std Deviation 46.4 H (35.1-43.9) fL Plt Count 124 L (163-337) K/mm3 MPV 9.1 L (9.4-12.3) fl Neutrophils % (Manual) 79 H (40-60) % Band Neutrophils % 7 (0-10) % Lymphocytes % (Manual) 13 L (20-40) % Atypical Lymphs % 0 % Monocytes % (Manual) 1 L (2-10) % Eosinophils % (Manual) 0 L (0.8-7.0) % Basophils % (Manual) 0 L (0.2-1.2) Platelet Estimate Decreased Hypochromasia 1+ slight RBC Morph Comment Not Reportable PT 14.7 H (8.0-13.0) SECONDS INR 1.32 Sodium 144 (136-145) mEq/L Potassium 4.5 (3.5-5.1) mEq/L Chloride 110 H (98-107) mEq/L Carbon Dioxide 23 (21-32) mEq/L Anion Gap 15.5 H (5-15) BUN 33 H (7-18) mg/dL Creatinine 2.0 H (0.7-1.3) mg/dL Est Cr Clr Drug Dosing 41.49 mL/min Estimated GFR (MDRD) 34 (>60) mL/min BUN/Creatinine Ratio 16.5 (14-18) Glucose 104 (80-115) mg/dL POC Glucose (80-115) mg/dL Calcium 9.2 (8.5-10.1) mg/dL Magnesium 1.9 (1.8-2.4) mg/dl Total Bilirubin 0.6 (0.2-1.0) mg/dL AST 22 (15-37) U/L ALT 31 (16-63) U/L Alkaline Phosphatase 67 (46-116) U/L Troponin I < 0.017 (0.00-0.056) ng/mL C-Reactive Protein 1.4 H* (<1.0) mg/dL NT-Pro-B Natriuret Pep 3924 H (0-125) pg/mL Total Protein 7.4 (6.4-8.2) g/dl Albumin 3.7 (3.4-5.0) g/dl Globulin 3.7 gm/dL Albumin/Globulin Ratio 1.0 (1-2) 03/22/ Range/Units 10:47 WBC (4.23-9.07) K/mm3 RBC (4.63-6.08) M/mm3 Hgb (13.7-17.5) gm/L Hct (40.1-51.0) % MCV (79.0-92.2) fl MCH (25.7-32.2) pg MCHC (32.2-35.5) g/dl RDW Std Deviation (35.1-43.9) fL Plt Count (163-337) K/mm3 MPV (9.4-12.3) fl Neutrophils % (Manual) (40-60) % Band Neutrophils % (0-10) % Lymphocytes % (Manual) (20-40) % Atypical Lymphs % % Monocytes % (Manual) (2-10) % Eosinophils % (Manual) (0.8-7.0) % Basophils % (Manual) (0.2-1.2) Platelet Estimate Hypochromasia RBC Morph Comment PT (8.0-13.0) SECONDS INR Sodium (136-145) mEq/L Potassium (3.5-5.1) mEq/L Chloride (98-107) mEq/L Carbon Dioxide (21-32) mEq/L Anion Gap (5-15) BUN (7-18) mg/dL Creatinine (0.7-1.3) mg/dL Est Cr Clr Drug Dosing mL/min Estimated GFR (MDRD) (>60) mL/min BUN/Creatinine Ratio (14-18) Glucose (80-115) mg/dL POC Glucose 92 (80-115) mg/dL Calcium (8.5-10.1) mg/dL Magnesium (1.8-2.4) mg/dl Total Bilirubin (0.2-1.0) mg/dL AST (15-37) U/L ALT (16-63) U/L Alkaline Phosphatase (46-116) U/L Troponin I (0.00-0.056) ng/mL C-Reactive Protein (<1.0) mg/dL NT-Pro-B Natriuret Pep (0-125) pg/mL Total Protein (6.4-8.2) g/dl Albumin (3.4-5.0) g/dl Globulin gm/dL Albumin/Globulin Ratio (1-2) Meds: Medications Generic Name Dose Route Start Last Admin Trade Name Freq PRN Reason Stop Dose Admin Sodium Chloride 10 ml 03/22/17 12:09 Saline Flush FLUSH ASDIRECTED PRN Keep Vein Open Discontinued Medications Generic Name Dose Route Start Last Admin Trade Name Freq PRN Reason Stop Dose Admin Enoxaparin Sodium 80 mg 03/22/17 12:10 Lovenox SUBCUT 03/22/17 12:11 ONETIME ONE Furosemide 40 mg 03/22/17 12:09 Lasix IVPUSH 03/22/17 12:10 NOW ONE - Radiology Interpretation Free Text/Narrative:: 62-year-old male presents to the ED with increased left-sided weakness particularly noted in his left lower extremity since awakening at 5:00 this morning. Patient had previous left-sided CVA in 2012 affecting both his arm and leg. He just appreciates that there is increased weakness particularly in his left leg today which is disrupting his balance much more than normal and his ability to walk. Denies any change in visual acuity. Difficult to say that there is no change in left arm mobility as it is quite significantly impaired from the initial stroke. Patient is a history of atrial fibrillation and is on both Coumadin and Plavix. Therefore risk of the intracranial bleed. Plan CT head to be done immediately with than routine labs to be performed. He is outside of the therapeutic window for thrombolytics. - Re-Assessments/Exams Free Text/Narrative Re-Assessment/Exam: 03/22/17 11:03 CT of the brain reveals slightly dilated lateral ventricles with mild encephalomalacia of the anterior horns of the ventricles. There is no acute intracranial hemorrhage. Old white matter infarct noted on the right side which is stable from previous CT exam. There are old lacunar infarcts in the right basal ganglia as well. Diffuse small vessel ischemic changes noted within the periventricular white matter bilaterally.. Will await radiologist's report. 03/22/17 11:16 radiologist agrees with no new findings of the mentioned above. Chest x-ray reveals moderate cardiomegaly with diffuse mild vascular congestion pattern. 03/22/17 11:48 White count is 5.80 with 79% neutrophils and 7% bands. Hemoglobin is 11.6 hematocrit is 36.1. Lytic on 124,000. PT is 14.7 with a subtherapeutic INR 1.32. Sodium is 144 potassium is 4.5 chloride is 110 bicarbonate is 23. And a gap is 15.5. BUN is 33. Creatinine is 2.0. EGFR is only 34 i.e. stage III chronic kidney disease. Glucose is 104 calcium 9.2 magnesium 1.9. Bilirubin 0.6 AST 22 ALT 31. Troponin I is less than 0.017. C- reactive protein is 1.4. BNP is 3924. With normal being up to 125 in our lab. Therefore his subtherapeutic INR may well be contributing to recurrent thrombus causing further stroke symptoms. Also exhibiting signs and symptoms of worsening congestive heart failure. 03/22/17 11:50 discuss case with communications technician neurologist at [facility] in [place] and he suggested bridge therapy with Lovenox until we get his Coumadin therapeutic again to prevent a further stroke from occurring. Obviously an MRI of the brain would be very useful to identify that he's had another acute event. I will therefore give him Lovenox 1 mg/kg subcutaneous at this time. This will be 80 mg. We'll also be giving him his first dose of Lasix 40 mg IV due to congestive heart failure identified in the lab work. I will put in an order for MRI. Discussed with on-call hospitalist -- Dr. Bates and patient tentatively will be admitted to the [facility] floor on telemetry for observation status at this time until we can define for sure that he's had a new onset CVA. Departure - Departure Time of Disposition: 12:55 Disposition: Refer to Observation Condition: Fair Clinical Impression: Subtherapeutic international normalized ratio (INR), Chronic atrial flutter, Chronic renal insufficiency, stage III (moderate) CVA (cerebral vascular accident) Qualifiers: CVA mechanism: thrombosis Precerebral and cerebral artery: middle cerebral artery Laterality of affected vessel: right Qualified Code(s): I63.311 - Cerebral infarction due to thrombosis of right middle cerebral artery Congestive heart failure Qualifiers: Congestive heart failure type: unspecified congestive heart failure type Congestive heart failure chronicity: acute on chronic Qualified Code(s): I50.9 - Heart failure, unspecified - Discharge Information Referrals: Farhat Head MD [Primary Care Provider] - Forms: ED Department Discharge - My Orders Last 24 Hours: My Active Orders 03/22/17 10:40 EKG Documentation Completion [RC] STAT 03/22/17 12:09 Peripheral IV Care [RC] . DIRECTED Sodium Chloride 0.9% [Saline Flush] 10 ml FLUSH ASDIRECTED PRN Peripheral IV Insertion Adult [OM.PC] Stat 03/22/17 12:18 Brain wo Cont [MR] Stat - Assessment/Plan Last 24 Hours: My Active Orders 03/22/17 10:40 EKG Documentation Completion [RC] STAT 03/22/17 12:09 Peripheral IV Care [RC] . DIRECTED Sodium Chloride 0.9% [Saline Flush] 10 ml FLUSH ASDIRECTED PRN Peripheral IV Insertion Adult [OM.PC] Stat 03/22/17 12:18 Brain wo Cont [MR] Stat
--- NOTE | 2017-03-22 11:06 | CT ---
Head CT Technique: Multiple axial sections through the brain were obtained. Intravenous contrast was not utilized. Comparison: Prior head CT exam of 08/27/16. Findings: Ventricles along with basal cisterns and sulci over the convexities are mildly prominent. Diffuse diminished density is noted within the periventricular white matter compatible with small vessel ischemic demyelination change. Old white matter infarct is noted on the right side which is stable from previous exam. Old lacunar infarcts are noted within the basal ganglia. No other abnormal parenchymal densities are seen. No evidence of intracranial hemorrhage. No midline shift or mass effect is seen. Atherosclerotic calcification is seen within the carotid siphon. Atherosclerotic calcification is noted within the left vertebral vessel. Visualized sinuses are clear. No acute calvarial abnormality is seen. Impression: 1. Senescent change as noted above. No acute abnormality is identified on noncontrast head CT study. Diagnostic code #2
--- NOTE | 2017-03-22 11:35 | CR ---
Chest: Portable view of the chest was obtained. Comparison: Prior chest x-ray of 08/24/16. Heart size appears somewhat prominent but is accentuated from portable technique. Tortuous thoracic aorta is seen. Lungs are clear. Bony structures are grossly intact. Impression: 1. Nothing acute is identified on portable chest x-ray. Diagnostic code #1
[2017-03-22] MEDS ORDERED: Furosemide 40 MG/4 ML VIAL IVPUSH ONE (12:09)
[2017-03-22] MEDS ORDERED: Sodium Chloride 0.9% 10 ML Syringe FLUSH PRN (12:09)
[2017-03-22] MEDS ORDERED: Enoxaparin 80 MG/0.8 ML Syringe SUBCUT ONE (12:10)
--- NOTE | 2017-03-22 12:21 | PCM.HP ---
<Boaz Nj T - Last Filed: 03/22/17 12:17> H&P History of Present Illness - General Date of Service: 03/22/17 Admit Problem/Dx: Follow Up - Related Data Allergies/Adverse Reactions: Allergies Allergy/AdvReac Type Severity Reaction Status Date / Time No Known Allergies Allergy Verified 03/22/17 10:37 Home Medications: Home Meds Allopurinol [Zyloprim] 100 mg PO DAILY 08/24/16 [History] Citalopram Hydrobromide [Celexa] 20 mg PO DAILY 08/24/16 [History] Docusate Sodium [Colace] 100 mg PO BEDTIME 08/24/16 [History] Losartan [Cozaar] 50 mg PO DAILY 08/24/16 [History] amLODIPine [Norvasc] 2.5 mg PO DAILY 08/24/16 [History] traZODone HCl [Trazodone HCl] 100 mg PO BEDTIME 08/24/16 [History] Aspirin [Ecotrin] 162 mg PO DAILY 03/22/17 [History] Baclofen 20 mg PO QID 03/22/17 [History] Fish Oil/[place]-3 Fatty Acids [Fish Oil 1,000 MG] 1 tab PO TID 03/22/17 [History] LORazepam [Ativan] 0.5 mg PO Q6H PRN 03/22/17 [History] Rosuvastatin [Crestor] 40 mg PO DAILY 03/22/17 [History] Warfarin [Coumadin] 5 mg PO MOFR 03/22/17 [History] Warfarin [Coumadin] 7.5 mg PO SUTUWETHSA 03/22/17 [History] hydrALAZINE [Apresoline] 25 mg PO TID 03/22/17 [History] Past Medical History Cardiovascular History: Reports: Hypertension Respiratory History: Reports: Asthma Genitourinary History: Reports: Chronic Renal Insuffiency Musculoskeletal History: Reports: Gout Neurological History: Reports: CVA, Other (See Below) Other Neuro History: stroke in 2013 Endocrine/Metabolic History: Reports: Diabetes, Type II Hematologic History: Reports: Blood Transfusion(s) - Past Surgical History HEENT Surgical History: Reports: Cataract Surgery, Tonsillectomy Musculoskeletal Surgical History: Reports: Other (See Below) Other Musculoskeletal Surgeries/Procedures:: cyst on back removed Social & Family History - Family History Family Medical History: Noncontributory Cardiac: Reports: OR Oncologic: Reports: Colon, Liver - Tobacco Use Smoking Status *Q: Never Smoker Used Tobacco, but Quit: Yes Month Tobacco Last Used: 1 Second Hand Smoke Exposure: No - Caffeine Use Caffeine Use: Reports: None - Recreational Drug Use Recreational Drug Use: No - Living Situation & Occupation Living situation: Reports: Single Occupation: Disabled Exam - Vital Signs Vital Signs: Last Vital Signs Temp 36.9 C 03/22/17 10:37 Pulse 68 03/22/17 10:37 Resp 18 03/22/17 10:37 BP 144/88 H 03/22/17 10:37 Pulse Ox 96 03/22/17 10:37 Weight: 173 lb - Patient Data Lab Results Last 24 hrs: Laboratory Results - last 24 hr 03/22/17 03/22/17 03/22/17 Range/Units 10:45 10:45 10:45 WBC 5.80 (4.23-9.07) K/mm3 RBC 3.76 L (4.63-6.08) M/mm3 Hgb 11.6 L (13.7-17.5) gm/L Hct 36.1 L (40.1-51.0) % MCV 96.0 H (79.0-92.2) fl MCH 30.9 (25.7-32.2) pg MCHC 32.1 L (32.2-35.5) g/dl RDW Std Deviation 46.4 H (35.1-43.9) fL Plt Count 124 L (163-337) K/mm3 MPV 9.1 L (9.4-12.3) fl Neutrophils % (Manual) 79 H (40-60) % Band Neutrophils % 7 (0-10) % Lymphocytes % (Manual) 13 L (20-40) % Atypical Lymphs % 0 % Monocytes % (Manual) 1 L (2-10) % Eosinophils % (Manual) 0 L (0.8-7.0) % Basophils % (Manual) 0 L (0.2-1.2) Platelet Estimate Decreased Hypochromasia 1+ slight RBC Morph Comment Not Reportable PT 14.7 H (8.0-13.0) SECONDS INR 1.32 Sodium 144 (136-145) mEq/L Potassium 4.5 (3.5-5.1) mEq/L Chloride 110 H (98-107) mEq/L Carbon Dioxide 23 (21-32) mEq/L Anion Gap 15.5 H (5-15) BUN 33 H (7-18) mg/dL Creatinine 2.0 H (0.7-1.3) mg/dL Est Cr Clr Drug Dosing 41.49 mL/min Estimated GFR (MDRD) 34 (>60) mL/min BUN/Creatinine Ratio 16.5 (14-18) Glucose 104 (80-115) mg/dL POC Glucose (80-115) mg/dL Calcium 9.2 (8.5-10.1) mg/dL Magnesium 1.9 (1.8-2.4) mg/dl Total Bilirubin 0.6 (0.2-1.0) mg/dL AST 22 (15-37) U/L ALT 31 (16-63) U/L Alkaline Phosphatase 67 (46-116) U/L Troponin I < 0.017 (0.00-0.056) ng/mL C-Reactive Protein 1.4 H* (<1.0) mg/dL NT-Pro-B Natriuret Pep 3924 H (0-125) pg/mL Total Protein 7.4 (6.4-8.2) g/dl Albumin 3.7 (3.4-5.0) g/dl Globulin 3.7 gm/dL Albumin/Globulin Ratio 1.0 (1-2) 03/22/17 Range/Units 10:47 WBC (4.23-9.07) K/mm3 RBC (4.63-6.08) M/mm3 Hgb (13.7-17.5) gm/L Hct (40.1-51.0) % MCV (79.0-92.2) fl MCH (25.7-32.2) pg MCHC (32.2-35.5) g/dl RDW Std Deviation (35.1-43.9) fL Plt Count (163-337) K/mm3 MPV (9.4-12.3) fl Neutrophils % (Manual) (40-60) % Band Neutrophils % (0-10) % Lymphocytes % (Manual) (20-40) % Atypical Lymphs % % Monocytes % (Manual) (2-10) % Eosinophils % (Manual) (0.8-7.0) % Basophils % (Manual) (0.2-1.2) Platelet Estimate Hypochromasia RBC Morph Comment PT (8.0-13.0) SECONDS INR Sodium (136-145) mEq/L Potassium (3.5-5.1) mEq/L Chloride (98-107) mEq/L Carbon Dioxide (21-32) mEq/L Anion Gap (5-15) BUN (7-18) mg/dL Creatinine (0.7-1.3) mg/dL Est Cr Clr Drug Dosing mL/min Estimated GFR (MDRD) (>60) mL/min BUN/Creatinine Ratio (14-18) Glucose (80-115) mg/dL POC Glucose 92 (80-115) mg/dL Calcium (8.5-10.1) mg/dL Magnesium (1.8-2.4) mg/dl Total Bilirubin (0.2-1.0) mg/dL AST (15-37) U/L ALT (16-63) U/L Alkaline Phosphatase (46-116) U/L Troponin I (0.00-0.056) ng/mL C-Reactive Protein (<1.0) mg/dL NT-Pro-B Natriuret Pep (0-125) pg/mL Total Protein (6.4-8.2) g/dl Albumin (3.4-5.0) g/dl Globulin gm/dL Albumin/Globulin Ratio (1-2) Result Diagrams: 03/22/17 10:45 03/22/17 10:45 *Q Meaningful Use (ADM) - VTE *Q VTE Criteria *Q: - Stroke *Q Stroke Criteria *Q: - AMI *Q AMI Criteria *Q: Orders Last 24hrs: Active Orders 24 hr Category Date Time Status EKG Documentation Completion [RC] STAT Care 03/22/17 10:40 Active Peripheral IV Care [RC] . DIRECTED Care 03/22/17 12:09 Active Sodium Chloride 0.9% [Saline Flush] Med 03/22/17 12:09 Active 10 ml FLUSH ASDIRECTED PRN Peripheral IV Insertion Adult [OM.PC] Stat Oth 03/22/17 12:09 Ordered Medication Orders Sodium Chloride (Saline Flush) 10 ml FLUSH ASDIRECTED PRN PRN Reason: Keep Vein Open <Booke,Eddi - Last Filed: 03/22/17 22:51> H&P History of Present Illness - General Admit Problem/Dx: Admission Diagnosis/Problem Admission Diagnosis/Problem CVA, Cerebrovascular accident Source of Information: Patient, Old Records, Provider, RN, RN Notes Reviewed History Limitations: Reports: No Limitations - History of Present Illness Initial Comments - Free Text/Narative: Juan Jose Layton is a 62 yo male who presented to our ED today with increasing left- sided weakness. He normally has some deficit in his arm and also left leg due to prior CVA. He noticed a change from his norm when he awoke at 5 AM this morning. He reports being more off balance today with worsening left leg weakness. He really has limited range of motion in his fingers wrist etc. due to prior stroke in 2012. His history of A. fib and is on Coumadin long-term. Last PT/INR was 2 weeks prior and there was no medication changes. Denies any headache, nausea, or vomiting. Eyes any change in vision or speech. No recent falls or closed head injuries. In the ED temp was 36.9 Celsius. Pulse 68. Respiration 18. BP was slightly elevated at 144/88. Pulse ox 96%. Labs were obtained: WBC normal at 5.8. Hemoglobin low at 11.6. Hematocrit low at 36.1. He is macrocytic. Platelet lower 124,000. Neutrophils elevated at 79%. He does have 7% band neutrophils. PT is 14.7. INR 1.32. Sodium 144. Potassium 4.5. Chloride high at 110. Carbon dioxide 23 anion gap was high at 15.5. BUN 33. Creatinine high at 2.0. EGFR 34. Glucose 104. Calcium 9.2. Magnesium 1.9. Bilirubin 0.6. AST is 22 ALT is 31 and alkaline phosphatase 67. Troponin was negative at less than 0.017. CRP is slightly elevated at 1.4. BNP is high at 3924. Protein was 7.4. Albumin 3.7. Glucose was checked and found to be 92. CT of the brain was obtained and revealed slightly dilated lateral ventricles with mild encephalomalacia of the anterior horns of the ventricles. Old white matter infarct noted on the right side which is stable from previous CT exam. Old lacunar infarcts in the right basal ganglia as well as. Diffuse small vessel ischemic changes noted within the periventricular white matter bilaterally. Chest x-ray reveals moderate cardiomegaly with diffuse mild vascular congestion pattern. ED provider did contact the on-call neurologist at [facility] and he suggested bridge therapy with Lovenox until we get his Coumadin therapeutic again to prevent further strokes occurring. His given 1 mg/kg or 80 mg of Lovenox subcutaneous. His given 40 mg IV Lasix as well. He was sent for an MRI. 12-lead EKG is obtained and interpreted by the ED provider. Rhythm is regular with Chavez P waves indicating an ectopic atrial rhythm at 66 bpm. There is a delayed repolarization pattern. QT is markedly prolonged at greater than 600. 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 fib, essential hypertension, cervical disc disorder with myelopathy of the cervicothoracic region, gout, HLD, bilateral carotid artery disease, chronic renal impairment- stage III, anxiety, depression, social phobia with difficulty leaving house, and mitral valve sclerosis. He is a former smoker. He is subsequently admitted to the medical floor on observation status with telemetry. He is a full code. His PCP is Dr. Chang at [facility] here in [place] H&P Review of Systems - Review of Systems: Review Of Systems: See Below Free Text/Narrative: In to see Juan Jose after he returns from MRI. He still reports left-sided weakness. As noted he does have prior deficit from previous CVA. I went over his test results up to this point. His MRI looked good, however as noted by Dr. Corbett it is "difficult to exclude an aneurysm at the origin of the middle cerebral artery on the left side. MR angiogram would be needed to exclude or confirm." I discussed this with the patient and he would like an MRA. Reports receiving contrast in the past while hospitalized with his prior MRA. He reports his kidney function with similar than to how it is now and he fared very well. I did advise the patient that this could worsen his kidney function even more and we had to use caution as his BNP is elevated and appears he may have some heart failure. Discussed this with Dr. Nj and he suggested 250 mL bolus before and after MRA. His carotid ultrasound did show some blockage, which was also noted in prior [place] reports. I discussed the plan of care with the patient and he agrees to this treatment plan. He is still reporting some increased weakness to his left side, however does appear his leg weakness may have improved. General: Reports: Weakness (left arm and leg ). Denies: Chills, Malaise, Fatigue, Night Sweats, Diaphoresis HEENT: Reports: No Symptoms. Denies: Ear Pain, Eye Pain, Headaches, Rhinitis, Post Nasal Drip, Sore Throat, Vertigo, Visual Changes Pulmonary: Reports: No Symptoms. Denies: Shortness of Breath, Wheezing, Pleuritic Chest Pain, Cough, Sputum Cardiovascular: Reports: Palpitations (Occasionally - chronic from A-fib ). Denies: Chest Pain, Dyspnea on Exertion, Edema, Lightheadedness, Syncope Gastrointestinal: Reports: Constipation. Denies: Abdominal Pain, Anorexia, Black Stool, Bloody Stool, Diarrhea, Nausea, Vomiting Genitourinary: Denies: Dysuria, Frequency, Burning, Pain, Urgency Musculoskeletal: Reports: Arm Pain (infrequent left arm pain and stiffness ). Denies: Neck Pain, Shoulder Pain, Back Pain Skin: Reports: No Symptoms Psychiatric: Reports: No Symptoms Neurological: Reports: Numbness (left arm since this am ), Pre-Existing Deficit (left sided hemiparesis), Tingling (left arm since this am), Difficulty Walking (worse today due to left leg weakness ), Weakness (chronic left arm and leg weakness - feels worse today ), Gait Disturbance, Other. Denies: Confusion, Dizziness, Headache, Trouble Speaking, Change in Speech Hematologic/Lymphatic: Reports: No Symptoms Immunologic: Reports: No Symptoms Exam - Exam Exam: See Below - Vital Signs Vital Signs: Last Vital Signs Temp 98.4 F 03/22/17 13:22 Pulse 60 03/22/17 13:22 Resp 22 H 03/22/17 13:22 BP 163/90 H 03/22/17 13:22 Pulse Ox 98 03/22/17 13:22 - Exam Quality Assessment: DVT Prophylaxis General: Alert, Oriented, Cooperative. No: Mild Distress HEENT: Conjunctiva Clear, EACs Clear, EOMI, Hearing Intact, Mucosa Moist & [place] , Nares Patent, Normal Nasal Septum, Posterior Pharynx Clear, PERRLA Neck: Supple, Trachea Midline. No: JVD, Thyromegaly Lungs: Clear to Auscultation, Normal Respiratory Effort Cardiovascular: Regular Rate, Regular Rhythm. No: Systolic Murmur, Diastolic Murmur GI/Abdominal Exam: Normal Bowel Sounds, Soft, Non-Tender, No Organomegaly, No Distention, No Abnormal Bruit, No Mass, Pelvis Stable (Male) Exam: Deferred Rectal (Males) Exam: Normal Exam, Normal Rectal Tone, Prostate Normal Back Exam: Normal Inspection, Full Range of Motion Extremities: Normal Range of Motion, Non-Tender, No Pedal Edema, Normal Capillary Refill, Limited Range of Motion (left arm and leg ) Peripheral Pulses: 3+: Radial (L), Radial (R), Posterior Tibial (L), Posterior Tibial (R), Dorsalis Pedis (L), Dorsalis Pedis (R) Skin: Warm, Dry, Intact Neurological: Cranial Nerves Intact, Normal Speech, Normal Tone, Sensation Intact, Abnormal Gait. No: Strength Equal Bilateral (diminished left candy bar attendant strenght. Equal plantar and dorsiflexion strength. Equal and strong hip strenght ) Neuro Extensive - Mental Status: Alert, Oriented x3, Normal Mood/Affect, Normal Cognition, Memory Intact Neuro Extensive - Motor, Sensory, Reflexes: CN II-XII Intact, Abnormal Gait, Hemeplagia (L) (chronic from prior CVA). No: Ataxia, Tongue Deviation (L), Tongue Deviation (R), Receptive Aphasia, Expressive Aphasia, Total Aphasia, Facial palsy (L), Facial Palsy (R), Facial Palsy w Forehead, Facial Palsy wo Forehead, Hemeplagia (R), Abnormal Sensation, Abnormal Light Touch Psychiatric: Alert, Normal Affect, Normal Mood - Patient Data Result Diagrams: 03/22/17 10:45 03/22/17 10:45 *Q Meaningful Use (ADM) - VTE *Q VTE Criteria *Q: - Stroke *Q Stroke Criteria *Q: - AMI *Q AMI Criteria *Q: - Problem List (1) CVA (cerebral vascular accident) SNOMED Code(s): 598876862 ICD Code: I63.9 - CEREBRAL INFARCTION, UNSPECIFIED Status: Acute Priority : High Current Visit: Yes Qualifiers: CVA mechanism: unspecified Qualified Code(s): I63.9 - Cerebral infarction, unspecified (2) Chronic atrial flutter SNOMED Code(s): 670247836 ICD Code: I48.92 - UNSPECIFIED ATRIAL FLUTTER Status: Chronic Priority: Medium Current Visit: Yes (3) Chronic renal insufficiency, stage III (moderate) SNOMED Code(s): 049191677 ICD Code: N18.3 - CHRONIC KIDNEY DISEASE, STAGE 3 (MODERATE) Status: Chronic Priority: Medium Current Visit: Yes (4) Congestive heart failure SNOMED Code(s): 86114336 ICD Code: I50.9 - HEART FAILURE, UNSPECIFIED Status: Acute Priority: Medium Current Visit: Yes Qualifiers: Congestive heart failure type: unspecified congestive heart failure type Congestive heart failure chronicity: acute Qualified Code(s): I50.9 - Heart failure, unspecified (5) Subtherapeutic international normalized ratio (INR) SNOMED Code(s): 983970571 ICD Code: R79.1 - ABNORMAL COAGULATION PROFILE Status: Acute Priority: High Current Visit: Yes (6) Gait difficulty SNOMED Code(s): 74378536 ICD Code: R26.9 - UNSPECIFIED ABNORMALITIES OF GAIT AND MOBILITY Status: Chronic Priority: Medium Current Visit: Yes (7) Muscle rigidity SNOMED Code(s): 86217240 ICD Code: R29.898 - OTH SYMPTOMS AND SIGNS INVOLVING THE MUSCULOSKELETAL SYSTEM Status: Chronic Priority: Medium Current Visit: Yes Problem List Initiated/Reviewed/Updated: Yes Orders Last 24hrs: Active Orders 24 hr Category Date Time Status RT Aerosol Therapy [RC] ASDIRECTED Care 03/22/17 13:20 Active Telemetry Monitoring [Cardiac Monitoring] [RC] . Care 03/22/17 13:39 Active DIRECTED Consult to Case Management [CONS] Routine Cons 03/22/17 13:22 Active Consult to Building Admin [CONS] Routine Cons 03/22/17 13:22 Active Consult to Spiritual Care [CONS] Routine Cons 03/22/17 13:29 Active OT Evaluation and Treatment [CONS] Routine Cons 03/22/17 13:22 Active PT Evaluation and Treatment [CONS] Routine Cons 03/22/17 13:22 Active Carotid Comp [US] Routine Exams 03/22/17 13:41 Ordered Echo Comp wo Cont [US] Urgent Exams 03/22/17 13:40 Ordered BASIC METABOLIC PANEL,BMP [CHEM] AM Lab 03/23/17 05:11 Ordered BASIC METABOLIC PANEL,BMP [CHEM] AM Lab 03/24/17 05:11 Ordered BASIC METABOLIC PANEL,BMP [CHEM] AM Lab 03/25/17 05:11 Ordered CBC WITH AUTO DIFF [HEME] AM Lab 03/23/17 05:11 Ordered LIPID PANEL [CHEM] Routine Lab 03/23/17 05:11 Ordered MAGNESIUM [CHEM] AM Lab 03/23/17 05:11 Ordered MAGNESIUM [CHEM] AM Lab 03/24/17 05:11 Ordered MAGNESIUM [CHEM] AM Lab 03/25/17 05:11 Ordered Acetaminophen [Tylenol] Med 03/22/17 13:08 Active 650 mg PO Q4H PRN Acetaminophen/HYDROcodone [[place] 325-5 MG] Med 03/22/17 13:08 Active 1 tab PO Q4H PRN Albuterol/Ipratropium [DuoNeb 3.0-0.5 MG/3 ML] Med 03/22/17 13:08 Active 3 ml NEB Q4H PRN Allopurinol [Zyloprim] Med 03/23/17 09:00 Active 100 mg PO DAILY Aspirin [Halfprin] Med 03/23/17 09:00 Active 162 mg PO DAILY Baclofen [Lioresal] Med 03/22/17 21:00 Active 10 mg PO BID Bisacodyl [Dulcolax] Med 03/22/17 13:08 Active 5 mg PO DAILY PRN Citalopram [Celexa] Med 03/23/17 09:00 Active 20 mg PO DAILY Docusate Sodium [Colace] Med 03/22/17 21:00 Active 100 mg PO BEDTIME Docusate Sodium [Colace] Med 03/22/17 13:08 Active 100 mg PO BID PRN Docusate Sodium/Sennosides [Senna Plus] Med 03/22/17 13:08 Active 1 tab PO BID PRN Fish Oil/[place]-3 Fatty Acids [Fish Oil] Med 03/22/17 21:00 Active 1 gm PO TID HYDROmorphone [Dilaudid] Med 03/22/17 13:08 Active 0.25 mg IVPUSH Q2H PRN LORazepam [Ativan] Med 03/22/17 13:35 Active 0.5 mg PO Q6H PRN LORazepam [Ativan] Med 03/22/17 13:08 Active 1 mg IV Q6H PRN Losartan [Cozaar] Med 03/23/17 09:00 Active 50 mg PO DAILY Ondansetron [Zofran] Med 03/22/17 13:08 Active 4 mg IV Q6H PRN Polyethylene Glycol 3350 [MiraLAX] Med 03/22/17 13:08 Active 17 gm PO DAILY PRN Promethazine [Phenergan] 12.5 mg Med 03/22/17 13:08 Active Sodium Chloride 0.9% [Normal Saline] 50 ml IV Q6H Simvastatin [Zocor] Med 03/22/17 21:00 Active 40 mg PO BEDTIME Temazepam [Restoril] Med 03/22/17 13:08 Active 7.5 mg PO BEDTIME PRN Warfarin [Coumadin] Med 03/24/17 18:00 Active 5 mg PO MoFr Warfarin [Coumadin] Med 03/22/17 18:00 Active 7.5 mg PO SUTUWETHSA amLODIPine [Norvasc] Med 03/23/17 09:00 Active 2.5 mg PO DAILY hydrALAZINE [Apresoline] Med 03/22/17 15:00 Active 25 mg PO TID traZODone Med 03/22/17 21:00 Active 100 mg PO BEDTIME Medication Orders Acetaminophen (Tylenol) 650 mg PO Q4H PRN PRN Reason: Pain (Mild 1-3)/fever Hydrocodone Bitart/Acetaminophen ([place] 325-5 Mg) 1 tab PO Q4H PRN PRN Reason: Pain (moderate 4-6) Albuterol/Ipratropium (Duoneb 3.0-0.5 Mg/3 Ml) 3 ml NEB Q4H PRN PRN Reason: Shortness Of Breath/wheezing Allopurinol (Zyloprim) 100 mg PO DAILY [facility] Amlodipine Besylate (Norvasc) 2.5 mg PO DAILY [facility] Aspirin (Halfprin) 162 mg PO DAILY [facility] Baclofen (Lioresal) 10 mg PO BID [facility] Bisacodyl (Dulcolax) 5 mg PO DAILY PRN PRN Reason: Constipation Citalopram Hydrobromide (Celexa) 20 mg PO DAILY [facility] Docusate Sodium (Colace) 100 mg PO BID PRN PRN Reason: Constipation Docusate Sodium (Colace) 100 mg PO BEDTIME [facility] Enoxaparin Sodium (Lovenox) 80 mg SUBCUT BID [facility] Fish Oil (Fish Oil) 1 gm PO TID [facility] Hydralazine HCl (Apresoline) 25 mg PO TID [facility] Hydromorphone HCl (Dilaudid) 0.25 mg IVPUSH Q2H PRN PRN Reason: Pain (severe 7-10) Promethazine HCl 12.5 mg/ (Sodium Chloride) 50.5 mls @ 100 mls/hr IV Q6H PRN PRN Reason: Nausea/Vomiting Sodium Chloride (Normal Saline) 1,000 mls @ 50 mls/hr IV ASDIRECTED ILYA Lorazepam (Ativan) 1 mg IV Q6H PRN PRN Reason: Anxiety Lorazepam (Ativan) 0.5 mg PO Q6H PRN PRN Reason: Anxiety Losartan Potassium (Cozaar) 50 mg PO DAILY [facility] Ondansetron HCl (Zofran) 4 mg IV Q6H PRN PRN Reason: Nausea/Vomiting Polyethylene Glycol (Miralax) 17 gm PO DAILY PRN PRN Reason: Constipation Senna/Docusate Sodium (Senna Plus) 1 tab PO BID PRN PRN Reason: Constipation Simvastatin (Zocor) 40 mg PO BEDTIME [facility] Sodium Chloride (Saline Flush) 10 ml FLUSH ASDIRECTED PRN PRN Reason: Keep Vein Open Temazepam (Restoril) 7.5 mg PO BEDTIME PRN PRN Reason: Sleep Trazodone HCl (Trazodone) 100 mg PO BEDTIME [facility] Warfarin Sodium (Coumadin) 7.5 mg PO SUTUWETHSA ILYA Warfarin Sodium (Coumadin) 5 mg PO MoFr [facility] Assessment/Plan Comment:: I/P: CVA -Hx/o CVA in 2012 with remaining left sided hemiparesis -Woke up this morning (03/22/17) with worsening left sided weakness and decreased balance -Denies vision changes, hearing changes, headache, nausea, vomiting, difficulty swallowing or difficulty speaking -Risk factors: Hx/o CVA, HLD, HTN, atrial fibrillation, subtheraputic INR in ED -ED provider reports unable to plantar flex on left side - resolved on floor -INR 1.32 -UA negative -CT scan on 03/22/[address] Corbett, radiologist -Senescent changes. No acute abnormality identified on noncontrast CT study -MRI obtained 03/22/[address] Corbett - Senescent changes. No acute diffusion abnormality - Old lacunar infarcts within the basal ganglia - Scattered areas of increased signal seen within the cerebellum as well as basal ganglia and periventricular white matter and subcortical white matter compatible with areas of ischemic demyelinaiton change - Difficult to exclude an aneurysm at the origin of the middle cerebral artery on the left side. MR angiogram would be needed to exclude or confirm -Carotid artery ultrasound obtained 03/22/[address] Corbett -Moderate amount of plaque within both distal common carotid arteries as well as carotid bulb and proximal internal carotid artery -Velocity measurements within both internal carotid arteries correspond to stenosis in the range of 1-49% -Velocity measurements within the left external carotid artery corresponds to stenosis greater than 50% -MRA ordered for 03/23/17 -Discussed MRI results with patient and he requests MRA. He is aware of risks and benefits up to and including worsening renal failure/CHF. -Creatinine 2.0 -eGFR 34 -fluids tonight as ordered -250ml fluid bolus before and after MRA -Hold Losartan today until after MRA -Lipid panel ordered (on statin already-continue) -Echo ordered for 03/23/17 -PT/OT -Neuro checks BID Subtheraputic INR -PT 14.7 -INR 1.32 -[place] PCP notes previous difficulty maintaining therapeutic INR and need for novel anticoagulant -Reports discussing this with patient and patent was going to make decision after talking to pharmacist -Continue home warfarin dosing and add 5mg warfarin PO on Monday and Monday -Lovenox as ordered -Monitor INR -Recommend NOAC for better INR control after discharge CKD - Stage III -Appears to be near baseline -Prior visits report creatinine of 1.8 and 1.9 -Fluids with care - avoid worsening of CHF -As above to plan for MRA CHF -Appears to be newer onset as prior PCP notes do not mention this -Echo ordered for 03/23/17 -Pro-BNP 3924 in ED -40 mg lasix given in ED -On ARB already - held until after MRA -Diuresis after MRA -Fluids with caution -Sodium restriction Urine Retention -Bladder scan reveals >800ml urine in bladder -Unable to void -Reports history of difficulty with urination during hospitalizations - straight cathed in the past multiple times -Hx/o extreme pain during catheter placement -KEEGAN negative on floor - reports recent KEEGAN by PCP with no concerns -No history of prostate problems, rectal pain, erection problems, dysuria, nocturia, or incontinence. Reports increased urinary frequency. -[place] catheter placed with good return -UA negative -Medication review for possible offending medications -Will need urology consult after discharge Chronic: HTN - stable Asthma Gout Prior CVA in 2013 with remaining left sided hemiparesis Social phobias with difficulty leaving house Anxiety Depression Spasticity A-fib - stable Cervical disc disorder with myelpathy of cervicothoracic region Plan: Admit to medical floor - observation status with telemetry CM/SW for discharge planning PT/OT Other orders as indicated above Routine AM labs Home medications as ordered GI prophylaxis: Protonix PE/DVT prophylaxis: Warfarin, Monitor INR, Lovenox, ambulation Code status: DNR/DNI; His PCP is Dr. Chang at [facility] here in [place].
[2017-03-22] MEDS ORDERED: Sodium Chloride 0.9% 1,000 ML IV SCH (13:00)
[2017-03-22] MEDS ORDERED: Bisacodyl 5 MG Tab PO PRN (13:08)
[2017-03-22] MEDS ORDERED: HYDROmorphone 0.5 MG/0.5 ML Syringe IVPUSH PRN (13:08)
[2017-03-22] MEDS ORDERED: Docusate Sodium 100 MG Cap PO PRN (13:08)
[2017-03-22] MEDS ORDERED: Acetaminophen/HYDROcodone 325-5 MG Tab PO PRN (13:08)
[2017-03-22] MEDS ORDERED: Pantoprazole 40 MG Vial IVPUSH ONE (13:08)
[2017-03-22] MEDS ORDERED: Promethazine 12.5 MG in Sodium Chloride 0.9% 50 ML IV PRN (13:08)
[2017-03-22] MEDS ORDERED: Albuterol/Ipratropium 3.0-0.5 MG/3 ML Neb Soln NEB PRN (13:08)
[2017-03-22] MEDS ORDERED: Temazepam 7.5 MG Cap PO PRN (13:08)
[2017-03-22] MEDS ORDERED: Acetaminophen 325 MG Tab PO PRN (13:08)
[2017-03-22] MEDS ORDERED: LORazepam 2 MG/ML MDV IV PRN (13:08)
[2017-03-22] MEDS ORDERED: Polyethylene Glycol 3350 Powder 17 GM Packet PO PRN (13:08)
[2017-03-22] MEDS ORDERED: Ondansetron 4 MG/2 ML SDV IV PRN (13:08)
[2017-03-22] MEDS ORDERED: Non-Formulary Medication 1 Each (Hydrocodone/Acetaminophen 1 TAB) PO PRN (13:35)
[2017-03-22] MEDS ORDERED: LORazepam 0.5 MG Tab PO PRN (13:35)
[2017-03-22] MEDS: hydrALAZINE 25 MG Tab PO SCH ×2 (14:45→22:15)
--- NOTE | 2017-03-22 14:51 | MR ---
MRI brain Technique: T1 sagittal; T2, T2 FLAIR, T1 and diffusion axial; T1 FLAIR coronal images were obtained. Comparison: Prior head CT study performed earlier on the same day (10:43 AM). Findings: Ventricles along with basal cisterns and sulci with convexities are mildly prominent. Normal signal void is seen within the major cerebral arteries within the skull base. Scattered areas of increased signal seen within the cerebellum as well as basal ganglia and periventricular white matter and subcortical white matter compatible with areas of ischemic demyelination change. No acute diffusion abnormalities are appreciated. No midline shift or mass effect is seen. Old lacunar infarcts are noted within the basal ganglia. Dolichoectasia noted of the carotid siphon. Difficult to completely exclude an aneurysm near the middle cerebral origin on the left side. Impression: 1. Senescent change as noted above. No acute diffusion abnormalities are seen. 2. Difficult to exclude an aneurysm at the origin of the middle cerebral artery on the left side. MR angiogram would be needed to exclude or confirm. Diagnostic code #2
--- NOTE | 2017-03-22 16:35 | US ---
Carotid ultrasound: Duplex and color flow imaging was obtained of the carotid arteries. Comparison: No previous carotid imaging. Mild to moderate amount of plaque identified within both distal common carotid arteries as well as carotid bulb and proximal internal carotid artery. Plaque appears heterogeneous and calcified with irregular surface margins. Velocity measurements Right side: CCA has a peak systolic velocity of 1.05 m/s. ICA has a peak systolic velocity of 0.67 m/s and peak end-diastolic velocity of 0.16 m/s. ECA has a peak systolic velocity of 1.03 m/s. Vertebral artery has a peak systolic velocity of 0.32 m/s. ICA/CCA ratio is 1.5 Left side: CCA has a peak systolic velocity of 0.88 m/s. ICA has a peak systolic velocity of 1.43 m/s and peak end-diastolic velocity of 0.19 m/s. ECA has a peak systolic velocity of 2.30 m/s. Vertebral artery has a peak systolic velocity of 0.45 m/s. ICA/CCA ratio is 1.6. Impression: 1. Moderate amount of plaque as noted above. 2. Velocity measurements within both internal carotid arteries correspond to stenosis in the range of 1-49%. 3. Velocity measurement within the left external carotid artery corresponds to stenosis greater than 50%. Diagnostic code #3
[2017-03-22] MEDS ORDERED: Lidocaine 4% Top Soln 50 ML Bottle MUCMEM ONE (17:00)
[2017-03-22] MEDS ORDERED: HYDROmorphone 0.5 MG/0.5 ML Syringe IVPUSH ONE (17:05)
[2017-03-22] MEDS ORDERED: Lidocaine 2% Jelly 10 ML Urojet MUCMEM ONE (17:10)
[2017-03-22] MEDS ORDERED: Warfarin 7.5 MG Tab PO SCH (18:00)
[2017-03-22] MEDS ORDERED: Simvastatin 40 MG Tab PO SCH (21:00)
[2017-03-22] MEDS ORDERED: Enoxaparin 80 MG/0.8 ML Syringe SUBCUT SCH (21:00)
[2017-03-22] MEDS: Docusate Sodium 100 MG Cap PO SCH (22:13)
[2017-03-22] MEDS: traZODone 50 MG Tab PO SCH (22:14)
[2017-03-22] MEDS: Fish Oil/Omega-3 Fatty Acids 1 Gm Cap PO SCH (22:14)
[2017-03-22] MEDS: Baclofen 10 MG Tab PO SCH (22:15)
[2017-03-22] MEDS: Rosuvastatin 10 MG Tab PO SCH (22:15)
[2017-03-23] MEDS ORDERED: Sodium Chloride 0.9% 500 ML IV ONE (07:30)
--- NOTE | 2017-03-23 08:18 | PCM.PN ---
- General Info Date of Service: 03/23/17 Admission Dx/Problem (Free Text): Admission Diagnosis/Problem Admission Diagnosis/Problem CVA, Cerebrovascular accident Subjective Update: Follow up Functional Status: Reports: Pain Controlled, Tolerating Diet, Ambulating, Urinating - Review of Systems General: Reports: Weakness. Denies: Fever, Malaise, Chills HEENT: Reports: No Symptoms Pulmonary: Denies: Shortness of Breath Cardiovascular: Denies: Chest Pain Gastrointestinal: Denies: Abdominal Pain, Nausea, Vomiting Genitourinary: Reports: Retention Musculoskeletal: Reports: No Symptoms Skin: Reports: No Symptoms Neurological: Reports: Pre-Existing Deficit, Difficulty Walking, Weakness, Gait Disturbance. Denies: Confusion, Dizziness, Numbness, Seizure, Syncope, Tingling , Tremors, Trouble Speaking Psychiatric: Denies: Depression, Mood Lability, Anxiety, Agitation, Hallucinations Systems Review Comment:: No significant overnight or acute issues. He seems to be doing just fine. He still has some weakness. His INR is at 1.69 and ProBNP slightly went up to 4322. - Patient Data Vitals - Most Recent: Last Vital Signs Temp 37.6 C 03/23/17 07:32 Pulse 55 L 03/23/17 07:32 Resp 18 03/23/17 07:32 BP 137/88 03/23/17 07:32 Pulse Ox 97 03/23/17 07:32 Weight - Most Recent: 85.003 kg I&O - Last 24 Hours: Intake & Output 03/22/17 03/23/17 03/23/17 22:59 06:59 14:59 Intake Total 307 2414 Output Total 0077 Balance 307 -2312 Lab Results Last 24 Hours: Laboratory Results - last 24 hr 03/22/17 03/23/17 03/23/17 Range/Units 19:45 06:00 06:00 WBC 4.29 (4.23-9.07) K/mm3 RBC 3.47 L (4.63-6.08) M/mm3 Hgb 10.9 L (13.7-17.5) gm/L Hct 33.4 L (40.1-51.0) % MCV 96.3 H (79.0-92.2) fl MCH 31.4 (25.7-32.2) pg MCHC 32.6 (32.2-35.5) g/dl RDW Std Deviation 44.8 H (35.1-43.9) fL Plt Count 101 L (163-337) K/mm3 MPV 9.2 L (9.4-12.3) fl Neut % (Auto) 73.8 H (34.0-67.9) % Lymph % (Auto) 13.1 L (21.8-53.1) % [place] % (Auto) 11.7 (5.3-12.2) % Eos % (Auto) 0.9 (0.8-7.0) Baso % (Auto) 0.5 (0.1-1.2) % Neut # (Auto) 3.17 (1.78-5.38) K/mm3 Lymph # (Auto) 0.56 L (1.32-3.57) K/mm3 [place] # (Auto) 0.50 (0.30-0.82) K/mm3 Eos # (Auto) 0.04 (0.04-0.54) K/mm3 Baso # (Auto) 0.02 (0.01-0.08) K/mm3 PT (8.0-13.0) SECONDS INR Sodium 140 (136-145) mEq/L Potassium 4.5 (3.5-5.1) mEq/L Chloride 105 (98-107) mEq/L Carbon Dioxide 26 (21-32) mEq/L Anion Gap 13.5 (5-15) BUN 30 H (7-18) mg/dL Creatinine 1.6 H (0.7-1.3) mg/dL Est Cr Clr Drug Dosing 51.87 mL/min Estimated GFR (MDRD) 44 (>60) mL/min BUN/Creatinine Ratio 18.8 H (14-18) Glucose 74 L (80-115) mg/dL Calcium 8.5 (8.5-10.1) mg/dL Magnesium 1.8 (1.8-2.4) mg/dl Triglycerides 50 (<150) mg/dL Cholesterol 95 (<200) mg/dL LDL Cholesterol Direct 32 (<100) mg/dL HDL Cholesterol 57.0 (40-59) mg/dL Urine Color Yellow (Yellow) Urine Appearance Clear (Clear) Urine pH 6.5 (5.0-8.0) Ur Specific [place] 1.025 (1.005-1.030) Urine Protein 2+ H (Negative) Urine Glucose (UA) Negative (Negative) Urine Ketones Negative (Negative) Urine Occult Blood Negative (Negative) Urine Nitrite Negative (Negative) Urine Bilirubin Negative (Negative) Urine Urobilinogen 0.2 (0.2-1.0) Ur Leukocyte Esterase Negative (Negative) Urine RBC 0-5 (0-5) /hpf Urine WBC 0-5 (0-5) /hpf Ur Epithelial Cells 0-5 (0-5) /hpf Urine Bacteria Rare (FEW) /hpf Urine Mucus Not seen (FEW) /hpf 03/23/17 Range/Units 06:00 WBC (4.23-9.07) K/mm3 RBC (4.63-6.08) M/mm3 Hgb (13.7-17.5) gm/L Hct (40.1-51.0) % MCV (79.0-92.2) fl MCH (25.7-32.2) pg MCHC (32.2-35.5) g/dl RDW Std Deviation (35.1-43.9) fL Plt Count (163-337) K/mm3 MPV (9.4-12.3) fl Neut % (Auto) (34.0-67.9) % Lymph % (Auto) (21.8-53.1) % [place] % (Auto) (5.3-12.2) % Eos % (Auto) (0.8-7.0) Baso % (Auto) (0.1-1.2) % Neut # (Auto) (1.78-5.38) K/mm3 Lymph # (Auto) (1.32-3.57) K/mm3 [place] # (Auto) (0.30-0.82) K/mm3 Eos # (Auto) (0.04-0.54) K/mm3 Baso # (Auto) (0.01-0.08) K/mm3 PT 19.0 H (8.0-13.0) SECONDS INR 1.69 Sodium (136-145) mEq/L Potassium (3.5-5.1) mEq/L Chloride (98-107) mEq/L Carbon Dioxide (21-32) mEq/L Anion Gap (5-15) BUN (7-18) mg/dL Creatinine (0.7-1.3) mg/dL Est Cr Clr Drug Dosing mL/min Estimated GFR (MDRD) (>60) mL/min BUN/Creatinine Ratio (14-18) Glucose (80-115) mg/dL Calcium (8.5-10.1) mg/dL Magnesium (1.8-2.4) mg/dl Triglycerides (<150) mg/dL Cholesterol (<200) mg/dL LDL Cholesterol Direct (<100) mg/dL HDL Cholesterol (40-59) mg/dL Urine Color (Yellow) Urine Appearance (Clear) Urine pH (5.0-8.0) Ur Specific [place] (1.005-1.030) Urine Protein (Negative) Urine Glucose (UA) (Negative) Urine Ketones (Negative) Urine Occult Blood (Negative) Urine Nitrite (Negative) Urine Bilirubin (Negative) Urine Urobilinogen (0.2-1.0) Ur Leukocyte Esterase (Negative) Urine RBC (0-5) /hpf Urine WBC (0-5) /hpf Ur Epithelial Cells (0-5) /hpf Urine Bacteria (FEW) /hpf Urine Mucus (FEW) /hpf Med Orders - Current: Current Medications Acetaminophen (Tylenol) 650 mg PO Q4H PRN PRN Reason: Pain (Mild 1-3)/fever Hydrocodone Bitart/Acetaminophen ([place] 325-5 Mg) 1 tab PO Q4H PRN PRN Reason: Pain (moderate 4-6) Albuterol/Ipratropium (Duoneb 3.0-0.5 Mg/3 Ml) 3 ml NEB Q4H PRN PRN Reason: Shortness Of Breath/wheezing Allopurinol (Zyloprim) 100 mg PO DAILY [facility] Amlodipine Besylate (Norvasc) 2.5 mg PO DAILY [facility] Aspirin (Halfprin) 162 mg PO DAILY [facility] Baclofen (Lioresal) 10 mg PO BID [facility] Last Admin: 03/22/17 22:15 Dose: 10 mg Bisacodyl (Dulcolax) 5 mg PO DAILY PRN PRN Reason: Constipation Citalopram Hydrobromide (Celexa) 20 mg PO DAILY [facility] Docusate Sodium (Colace) 100 mg PO BID PRN PRN Reason: Constipation Docusate Sodium (Colace) 100 mg PO BEDTIME [facility] Last Admin: 03/22/17 22:13 Dose: 100 mg Enoxaparin Sodium (Lovenox) 80 mg SUBCUT BID [facility] Fish Oil (Fish Oil) 1 gm PO TID [facility] Last Admin: 03/22/17 22:14 Dose: 1 gm Hydralazine HCl (Apresoline) 25 mg PO TID [facility] Last Admin: 03/22/17 22:15 Dose: 25 mg Hydromorphone HCl (Dilaudid) 0.25 mg IVPUSH Q2H PRN PRN Reason: Pain (severe 7-10) Promethazine HCl 12.5 mg/ (Sodium Chloride) 50.5 mls @ 100 mls/hr IV Q6H PRN PRN Reason: Nausea/Vomiting Sodium Chloride (Normal Saline) 1,000 mls @ 50 mls/hr IV ASDIRECTED [facility] Last Admin: 03/22/17 14:53 Dose: 50 mls/hr Lorazepam (Ativan) 1 mg IV Q6H PRN PRN Reason: Anxiety Lorazepam (Ativan) 0.5 mg PO Q6H PRN PRN Reason: Anxiety Losartan Potassium (Cozaar) 50 mg PO DAILY [facility] Ondansetron HCl (Zofran) 4 mg IV Q6H PRN PRN Reason: Nausea/Vomiting Polyethylene Glycol (Miralax) 17 gm PO DAILY PRN PRN Reason: Constipation Rosuvastatin Calcium (Crestor) 40 mg PO BEDTIME [facility] Last Admin: 03/22/17 22:15 Dose: 40 mg Senna/Docusate Sodium (Senna Plus) 1 tab PO BID PRN PRN Reason: Constipation Sodium Chloride (Saline Flush) 10 ml FLUSH ASDIRECTED PRN PRN Reason: Keep Vein Open Temazepam (Restoril) 7.5 mg PO BEDTIME PRN PRN Reason: Sleep Trazodone HCl (Trazodone) 100 mg PO BEDTIME [facility] Last Admin: 03/22/17 22:14 Dose: 100 mg Warfarin Sodium (Coumadin) 7.5 mg PO SUTUWETHSA [facility] Last Admin: 03/22/17 18:43 Dose: 7.5 mg Warfarin Sodium (Coumadin) 5 mg PO MoFr [facility] Discontinued Medications Enoxaparin Sodium (Lovenox) 80 mg SUBCUT ONETIME ONE Stop: 03/22/17 12:11 Last Admin: 03/22/17 14:34 Dose: Not Given Enoxaparin Sodium (Lovenox) 80 mg SUBCUT BID ILYA Furosemide (Lasix) 40 mg IVPUSH NOW ONE Stop: 03/22/17 12:10 Last Admin: 03/22/17 14:39 Dose: Not Given Hydromorphone HCl (Dilaudid) 0.5 mg IVPUSH ONETIME ONE Stop: 03/22/17 17:06 Last Admin: 03/22/17 17:20 Dose: 0.5 mg Sodium Chloride (Normal Saline) 500 mls @ 999 mls/hr IV ONETIME ONE Stop: 03/23/17 08:00 Last Admin: 03/23/17 08:03 Dose: 999 mls/hr Lidocaine HCl (Xylocaine 2% Jelly) 10 ml MUCMEM ONETIME ONE Stop: 03/22/17 17:11 Last Admin: 03/22/17 17:33 Dose: 10 ml Non-Formulary Medication (Hydrocodone/Acetaminophen) 1 tab PO Q6HR PRN PRN Reason: Pain Non-Formulary Medication (Warfarin [Coumadin]) 5 mg PO MOFR ILYA Pantoprazole Sodium (Protonix Iv) 40 mg IVPUSH ONETIME ONE Stop: 03/22/17 13:09 Last Admin: 03/22/17 14:40 Dose: 40 mg Rosuvastatin Calcium (Crestor) 40 mg PO DAILY ILYA Simvastatin (Zocor) 40 mg PO BEDTIME ILYA Last Admin: 03/22/17 21:42 Dose: Not Given - Exam General: Alert, Oriented, Cooperative, No Acute Distress HEENT: Pupils Equal, Pupils Reactive, EOMI, Mucous Membr. Moist/[place] Neck: Supple, Trachea Midline, No JVD, No Thyromegaly Lungs: Clear to Auscultation, Normal Respiratory Effort Cardiovascular: Regular Rate, Regular Rhythm GI/Abdominal Exam: Normal Bowel Sounds, Soft, Non-Tender, No Organomegaly, No Distention, No Abnormal Bruit, No Mass, Pelvis Stable (Male) Exam: Other (indwelling maldonado catheter) Back Exam: Normal Inspection, Decreased Range of Motion Extremities: Normal Inspection, Normal Range of Motion, Non-Tender, No Pedal Edema, Normal Capillary Refill Peripheral Pulses: 2+: Dorsalis Pedis (L), Dorsalis Pedis (R) Skin: Warm, Dry, Intact Neurological: No New Focal Deficit, Other (right sided weakness). No: Normal Gait Psy/Mental Status: Alert, Normal Mood. No: Normal Affect - Problem List Review Problem List Initiated/Reviewed/Updated: Yes - My Orders Last 24 Hours: My Active Orders 03/22/17 13:08 Acetaminophen [Tylenol] 650 mg PO Q4H PRN Acetaminophen/HYDROcodone [[place] 325-5 MG] 1 tab PO Q4H PRN Albuterol/Ipratropium [DuoNeb 3.0-0.5 MG/3 ML] 3 ml NEB Q4H PRN Bisacodyl [Dulcolax] 5 mg PO DAILY PRN Docusate Sodium [Colace] 100 mg PO BID PRN Docusate Sodium/Sennosides [Senna Plus] 1 tab PO BID PRN HYDROmorphone [Dilaudid] 0.25 mg IVPUSH Q2H PRN LORazepam [Ativan] 1 mg IV Q6H PRN Ondansetron [Zofran] 4 mg IV Q6H PRN Polyethylene Glycol 3350 [MiraLAX] 17 gm PO DAILY PRN Promethazine [Phenergan] 12.5 mg Sodium Chloride 0.9% [Normal Saline] 50 ml IV Q6H Temazepam [Restoril] 7.5 mg PO BEDTIME PRN 03/22/17 13:20 RT Aerosol Therapy [RC] ASDIRECTED 03/22/17 13:22 Consult to Case Management [CONS] Routine Consult to Roll Scale Worker [CONS] Routine OT Evaluation and Treatment [CONS] Routine PT Evaluation and Treatment [CONS] Routine 03/22/17 13:29 Consult to Spiritual Care [CONS] Routine 03/22/17 13:35 LORazepam [Ativan] 0.5 mg PO Q6H PRN 03/22/17 13:39 Telemetry Monitoring [Cardiac Monitoring] [RC] . DIRECTED 03/22/17 15:00 hydrALAZINE [Apresoline] 25 mg PO TID 03/22/17 17:15 Insert Maldonado Catheter [Insert Urinary Catheter] [OM.PC] Stat 03/22/17 17:16 Urinary Catheter Assessment [RC] 03/22/17 18:00 Warfarin [Coumadin] 7.5 mg PO SUTUWETHSA 03/22/17 19:47 Resuscitation Status Routine 03/22/17 21:00 Baclofen [Lioresal] 10 mg PO BID Docusate Sodium [Colace] 100 mg PO BEDTIME Fish Oil/[place]-3 Fatty Acids [Fish Oil] 1 gm PO TID traZODone 100 mg PO BEDTIME 03/23/17 09:00 Allopurinol [Zyloprim] 100 mg PO DAILY Aspirin [Halfprin] 162 mg PO DAILY Citalopram [Celexa] 20 mg PO DAILY Enoxaparin [Lovenox] 80 mg SUBCUT BID Losartan [Cozaar] 50 mg PO DAILY amLODIPine [Norvasc] 2.5 mg PO DAILY 03/23/17 13:40 Echo Comp wo Cont [US] Urgent 03/24/17 05:11 BASIC METABOLIC PANEL,BMP [CHEM] AM MAGNESIUM [CHEM] AM 03/24/17 18:00 Warfarin [Coumadin] 5 mg PO MoFr 03/25/17 05:11 BASIC METABOLIC PANEL,BMP [CHEM] AM MAGNESIUM [CHEM] AM - Plan Plan:: I/P: CVA -Hx/o CVA in 2012 with remaining left sided hemiparesis -Woke up this morning (03/22/17) with worsening left sided weakness and decreased balance -Denies vision changes, hearing changes, headache, nausea, vomiting, difficulty swallowing or difficulty speaking -Risk factors: Hx/o CVA, HLD, HTN, atrial fibrillation, subtheraputic INR in ED -ED provider reports unable to plantar flex on left side - resolved on floor -INR 1.32--> now 1.69 -UA negative -CT scan on 03/22/[address] Corbett, radiologist -Senescent changes. No acute abnormality identified on noncontrast CT study -MRI obtained 03/22/[address] Corbett - Senescent changes. No acute diffusion abnormality - Old lacunar infarcts within the basal ganglia - Scattered areas of increased signal seen within the cerebellum as well as basal ganglia and periventricular white matter and subcortical white matter compatible with areas of ischemic demyelinaiton change - Difficult to exclude an aneurysm at the origin of the middle cerebral artery on the left side. MR angiogram would be needed to exclude or confirm -Carotid artery ultrasound obtained 03/22/[address] Corbett -Moderate amount of plaque within both distal common carotid arteries as well as carotid bulb and proximal internal carotid artery -Velocity measurements within both internal carotid arteries correspond to stenosis in the range of 1-49% -Velocity measurements within the left external carotid artery corresponds to stenosis greater than 50% -MRA ordered for 03/23/17 -Discussed MRI results with patient and he requests MRA. He is aware of risks and benefits up to and including worsening renal failure/CHF. -Creatinine 2.0 -eGFR 34 -Fluids tonight as ordered -250ml fluid bolus before and after MRA -Hold Losartan today until after MRA -Lipid panel ordered (on statin already-continue); normal levels -Echo ordered for 03/23/17-completed, awaiting final report -Continue PT/OT -D/c Neuro checks BID - MRA and Echo reports are pending Subtheraputic INR -PT 14.7 -INR 1.32--> 1.69 -[place] PCP notes previous difficulty maintaining therapeutic INR and need for novel anticoagulant -Reports discussing this with patient and patent was going to make decision after talking to pharmacist -Continue home warfarin dosing and add 5mg warfarin PO on Monday and Monday -Lovenox as ordered to bridge warfarin -Monitor INR -Patient now wants xarelto for anticoagulation; he report no financial concerns with it (i.e. co-pays) CKD - Stage III, Unchanged -Appears to be near baseline -Prior visits report creatinine of 1.8 and 1.9; now 1.6 -Fluids with care - avoid worsening of CHF -As above to plan for MRA CHF -Appears to be newer onset as prior PCP notes do not mention this -Echo ordered for 03/23/17; pending report -Pro-BNP 3924 in ED--> 4322 -40 mg lasix given in ED -On ARB already - held until after MRA -Diuresis after MRA -Fluids with caution -Sodium restriction Urine Retention -Bladder scan reveals >800ml urine in bladder -Unable to void -Reports history of difficulty with urination during hospitalizations - straight cathed in the past multiple times -Hx/o extreme pain during catheter placement -KEEGAN negative on floor - reports recent KEEGAN by PCP with no concerns -No history of prostate problems, rectal pain, erection problems, dysuria, nocturia, or incontinence. Reports increased urinary frequency. 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 Chang at [facility] here in [place].
[2017-03-23] MEDS ORDERED: Rosuvastatin 10 MG Tab PO SCH (09:00)
[2017-03-23] MEDS ORDERED: Enoxaparin 80 MG/0.8 ML Syringe SUBCUT SCH (09:00)
[2017-03-23] MEDS ORDERED: Losartan 100 MG Tab PO SCH (09:00)
[2017-03-23] MEDS: Citalopram 20 MG Tab PO SCH (10:27)
[2017-03-23] MEDS: amLODIPine 5 MG Tab PO SCH (10:28)
[2017-03-23] MEDS: Aspirin 81 MG Tab.EC PO SCH (10:28)
[2017-03-23] MEDS: Baclofen 10 MG Tab PO SCH ×2 (10:28→22:38)
[2017-03-23] MEDS: Fish Oil/Omega-3 Fatty Acids 1 Gm Cap PO SCH ×3 (10:28→22:36)
[2017-03-23] MEDS: Allopurinol 100 MG Tab PO SCH (10:28)
[2017-03-23] MEDS: hydrALAZINE 25 MG Tab PO SCH ×3 (10:29→22:36)
[2017-03-23] MEDS: Docusate Sodium 100 MG Cap PO SCH (22:37)
[2017-03-23] MEDS: Rivaroxaban 10 MG Tab PO SCH (22:37)
[2017-03-23] MEDS: Rosuvastatin 10 MG Tab PO SCH (22:37)
[2017-03-23] MEDS: traZODone 50 MG Tab PO SCH (22:38)
--- NOTE | 2017-03-24 07:51 | PCM.PN ---
- General Info Date of Service: 03/24/17 Admission Dx/Problem (Free Text): Admission Diagnosis/Problem Admission Diagnosis/Problem CVA, Cerebrovascular accident Subjective Update: Follow up Functional Status: Reports: Pain Controlled, Tolerating Diet, Ambulating, Urinating. Denies: New Symptoms - Review of Systems General: Reports: Weakness. Denies: Fever, Fatigue, Malaise, Chills HEENT: Reports: No Symptoms Pulmonary: Denies: Shortness of Breath Cardiovascular: Denies: Chest Pain Gastrointestinal: Denies: Abdominal Pain, Nausea, Vomiting Genitourinary: Reports: Retention Musculoskeletal: Reports: No Symptoms Skin: Denies: Cyanosis, Pallor, Diaphoresis Neurological: Reports: Weakness, Gait Disturbance. Denies: Confusion, Difficulty Walking Psychiatric: Denies: Depression, Mood Lability, Anxiety, Agitation, Hallucinations Systems Review Comment:: No overnight or acute issues. He is doing relatively well. He has no new complaints. - Patient Data Vitals - Most Recent: Last Vital Signs Temp 37.0 C 03/24/17 03:50 Pulse 55 L 03/24/17 03:50 Resp 18 03/24/17 03:50 BP 139/85 03/24/17 03:44 Pulse Ox 99 03/24/17 03:50 Weight - Most Recent: 80.467 kg I&O - Last 24 Hours: Intake & Output 03/23/17 03/24/17 03/24/17 22:59 06:59 14:59 Intake Total 900 800 Output Total 1550 3300 Balance -650 -2500 Imaging Impressions - Last 24 Hours: MRA report reads no aneurysm or focal stenosis is seen. Lab Results Last 24 Hours: Laboratory Results - last 24 hr 03/24/17 Range/Units 06:30 Sodium 141 (136-145) mEq/L Potassium 4.5 (3.5-5.1) mEq/L Chloride 105 (98-107) mEq/L Carbon Dioxide 25 (21-32) mEq/L Anion Gap 15.5 H (5-15) BUN 29 H (7-18) mg/dL Creatinine 1.6 H (0.7-1.3) mg/dL Est Cr Clr Drug Dosing 51.87 mL/min Estimated GFR (MDRD) 44 (>60) mL/min BUN/Creatinine Ratio 18.1 H (14-18) Glucose 83 (80-115) mg/dL Calcium 9.1 (8.5-10.1) mg/dL Magnesium 1.9 (1.8-2.4) mg/dl Med Orders - Current: Current Medications Acetaminophen (Tylenol) 650 mg PO Q4H PRN PRN Reason: Pain (Mild 1-3)/fever Hydrocodone Bitart/Acetaminophen ([place] 325-5 Mg) 1 tab PO Q4H PRN PRN Reason: Pain (moderate 4-6) Albuterol/Ipratropium (Duoneb 3.0-0.5 Mg/3 Ml) 3 ml NEB Q4H PRN PRN Reason: Shortness Of Breath/wheezing Allopurinol (Zyloprim) 100 mg PO DAILY [facility] Last Admin: 03/23/17 10:28 Dose: 100 mg Amlodipine Besylate (Norvasc) 2.5 mg PO DAILY [facility] Last Admin: 03/23/17 10:28 Dose: 2.5 mg Aspirin (Halfprin) 162 mg PO DAILY [facility] Last Admin: 03/23/17 10:28 Dose: 162 mg Baclofen (Lioresal) 10 mg PO BID [facility] Last Admin: 03/23/17 22:38 Dose: 10 mg Bisacodyl (Dulcolax) 5 mg PO DAILY PRN PRN Reason: Constipation Citalopram Hydrobromide (Celexa) 20 mg PO DAILY [facility] Last Admin: 03/23/17 10:27 Dose: 20 mg Docusate Sodium (Colace) 100 mg PO BID PRN PRN Reason: Constipation Docusate Sodium (Colace) 100 mg PO BEDTIME [facility] Last Admin: 03/23/17 22:37 Dose: 100 mg Fish Oil (Fish Oil) 1 gm PO TID [facility] Last Admin: 03/23/17 22:36 Dose: 1 gm Hydralazine HCl (Apresoline) 25 mg PO TID [facility] Last Admin: 03/23/17 22:36 Dose: 25 mg Hydromorphone HCl (Dilaudid) 0.25 mg IVPUSH Q2H PRN PRN Reason: Pain (severe 7-10) Promethazine HCl 12.5 mg/ (Sodium Chloride) 50.5 mls @ 100 mls/hr IV Q6H PRN PRN Reason: Nausea/Vomiting Lorazepam (Ativan) 1 mg IV Q6H PRN PRN Reason: Anxiety Lorazepam (Ativan) 0.5 mg PO Q6H PRN PRN Reason: Anxiety Losartan Potassium (Cozaar) 50 mg PO DAILY [facility] Ondansetron HCl (Zofran) 4 mg IV Q6H PRN PRN Reason: Nausea/Vomiting Polyethylene Glycol (Miralax) 17 gm PO DAILY PRN PRN Reason: Constipation Rivaroxaban (Xarelto) 20 mg PO WITHDINNER [facility] Last Admin: 03/23/17 22:37 Dose: 20 mg Rosuvastatin Calcium (Crestor) 40 mg PO BEDTIME [facility] Last Admin: 03/23/17 22:37 Dose: 40 mg Senna/Docusate Sodium (Senna Plus) 1 tab PO BID PRN PRN Reason: Constipation Sodium Chloride (Saline Flush) 10 ml FLUSH ASDIRECTED PRN PRN Reason: Keep Vein Open Temazepam (Restoril) 7.5 mg PO BEDTIME PRN PRN Reason: Sleep Trazodone HCl (Trazodone) 100 mg PO BEDTIME [facility] Last Admin: 03/23/17 22:38 Dose: 100 mg Discontinued Medications Enoxaparin Sodium (Lovenox) 80 mg SUBCUT ONETIME ONE Stop: 03/22/17 12:11 Last Admin: 03/22/17 14:34 Dose: Not Given Enoxaparin Sodium (Lovenox) 80 mg SUBCUT BID [facility] Enoxaparin Sodium (Lovenox) 80 mg SUBCUT BID [facility] Last Admin: 03/23/17 10:27 Dose: 80 mg Furosemide (Lasix) 40 mg IVPUSH NOW ONE Stop: 03/22/17 12:10 Last Admin: 03/22/17 14:39 Dose: Not Given Hydromorphone HCl (Dilaudid) 0.5 mg IVPUSH ONETIME ONE Stop: 03/22/17 17:06 Last Admin: 03/22/17 17:20 Dose: 0.5 mg Sodium Chloride (Normal Saline) 1,000 mls @ 50 mls/hr IV ASDIRECTED [facility] Last Admin: 03/22/17 14:53 Dose: 50 mls/hr Sodium Chloride (Normal Saline) 500 mls @ 999 mls/hr IV ONETIME ONE Stop: 03/23/17 08:00 Last Admin: 03/23/17 08:03 Dose: 999 mls/hr Lidocaine HCl (Xylocaine 2% Jelly) 10 ml MUCMEM ONETIME ONE Stop: 03/22/17 17:11 Last Admin: 03/22/17 17:33 Dose: 10 ml Non-Formulary Medication (Hydrocodone/Acetaminophen) 1 tab PO Q6HR PRN PRN Reason: Pain Non-Formulary Medication (Warfarin [Coumadin]) 5 mg PO MOFR [facility] Pantoprazole Sodium (Protonix Iv) 40 mg IVPUSH ONETIME ONE Stop: 03/22/17 13:09 Last Admin: 03/22/17 14:40 Dose: 40 mg Rosuvastatin Calcium (Crestor) 40 mg PO DAILY [facility] Simvastatin (Zocor) 40 mg PO BEDTIME [facility] Last Admin: 03/22/17 21:42 Dose: Not Given Warfarin Sodium (Coumadin) 7.5 mg PO SUTUWETHSA [facility] Last Admin: 03/22/17 18:43 Dose: 7.5 mg Warfarin Sodium (Coumadin) 5 mg PO MoFr [facility] - Exam General: Alert, Oriented, Cooperative, No Acute Distress HEENT: Pupils Equal, Pupils Reactive, EOMI, Mucous Membr. Moist/[place] Neck: Supple, Trachea Midline, No JVD Lungs: Clear to Auscultation, Normal Respiratory Effort Cardiovascular: Regular Rate, Regular Rhythm GI/Abdominal Exam: Normal Bowel Sounds, Soft, Non-Tender, No Organomegaly, No Distention, No Abnormal Bruit (Male) Exam: Deferred Back Exam: Normal Inspection, Decreased Range of Motion Extremities: Normal Inspection, Normal Range of Motion, Non-Tender, No Pedal Edema, Normal Capillary Refill Peripheral Pulses: 2+: Dorsalis Pedis (L), Dorsalis Pedis (R) Skin: Warm, Dry, Intact Neurological: No New Focal Deficit, Other (left sided weakness). No: Normal Gait Psy/Mental Status: Alert, Normal Affect, Normal Mood - Problem List Review Problem List Initiated/Reviewed/Updated: Yes - My Orders Last 24 Hours: My Active Orders 03/23/17 21:00 Rivaroxaban [Xarelto] 20 mg PO WITHDINNER - Plan Plan:: I/P: CVA -Hx/o CVA in 2012 with remaining left sided hemiparesis -Woke up this morning (03/22/17) with worsening left sided weakness and decreased balance -Denies vision changes, hearing changes, headache, nausea, vomiting, difficulty swallowing or difficulty speaking -Risk factors: Hx/o CVA, HLD, HTN, atrial fibrillation, subtheraputic INR in ED -ED provider reports unable to plantar flex on left side - resolved on floor -INR 1.32--> now 1.69 -UA negative -CT scan on 03/22/[address] Corbett, radiologist -Senescent changes. No acute abnormality identified on noncontrast CT study -MRI obtained 03/22/[address] Corbett - Senescent changes. No acute diffusion abnormality - Old lacunar infarcts within the basal ganglia - Scattered areas of increased signal seen within the cerebellum as well as basal ganglia and periventricular white matter and subcortical white matter compatible with areas of ischemic demyelinaiton change - Difficult to exclude an aneurysm at the origin of the middle cerebral artery on the left side. MR angiogram would be needed to exclude or confirm -Carotid artery ultrasound obtained 03/22/[address] Corbett -Moderate amount of plaque within both distal common carotid arteries as well as carotid bulb and proximal internal carotid artery -Velocity measurements within both internal carotid arteries correspond to stenosis in the range of 1-49% -Velocity measurements within the left external carotid artery corresponds to stenosis greater than 50% -MRA ordered for 03/23/17 -Discussed MRI results with patient and he requests MRA. He is aware of risks and benefits up to and including worsening renal failure/CHF. -Creatinine 2.0; eGFR 34 -Fluids ordered -250ml fluid bolus before and after MRA -Held Losartan today until after MRA -Lipid panel ordered (on statin already-continue); normal levels -Echo ordered for 03/23/17-completed, shows significant changes from report taken in 2015 -Continue PT/OT -MRA report reads no aneurysm or focal stenosis S/p Subtheraputic INR -PT 14.7 -INR 1.32--> 1.69 -[place] PCP notes previous difficulty maintaining therapeutic INR and need for novel anticoagulant -Reports discussing this with patient and patent was going to make decision after talking to pharmacist -Continue home warfarin dosing and add 5mg warfarin PO on Monday and Monday -Patient now wants xarelto for anticoagulation; he report no financial concerns with it (i.e. co-pays) -He is now on xarelto CKD - Stage III, Unchanged -Appears to be near baseline -Prior visits report creatinine of 1.8 and 1.9; now 1.6 -Fluids with care - avoid worsening of CHF -As above to plan for MRA CHF, Stable -Appears to be newer onset as prior PCP notes do not mention this -Echo ordered for 03/23/17; pending report -Pro-BNP 3924 in ED--> 4322 -40 mg lasix given in ED -On ARB already - held until after MRA -Diuresis after MRA -Fluids with caution -Sodium restriction Urine Retention -Bladder scan reveals >800ml urine in bladder -Unable to void -Reports history of difficulty with urination during hospitalizations - straight cathed in the past multiple times -Hx/o extreme pain during catheter placement -KEEGAN negative on floor - reports recent KEEGAN by PCP with no concerns -No history of prostate problems, rectal pain, erection problems, dysuria, nocturia, or incontinence. Reports increased urinary frequency. 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 Chang at [facility] here in [place]
[2017-03-24] MEDS: amLODIPine 5 MG Tab PO SCH (09:18)
[2017-03-24] MEDS: hydrALAZINE 25 MG Tab PO SCH ×3 (09:19→20:16)
[2017-03-24] MEDS: Fish Oil/Omega-3 Fatty Acids 1 Gm Cap PO SCH ×3 (09:19→20:16)
[2017-03-24] MEDS: Aspirin 81 MG Tab.EC PO SCH (09:21)
[2017-03-24] MEDS: Baclofen 10 MG Tab PO SCH (09:21)
[2017-03-24] MEDS: Citalopram 20 MG Tab PO SCH (09:21)
--- NOTE | 2017-03-24 10:43 | MR ---
MR angiogram of brain Technique: MR angiogram study was obtained through the [place] [facility] [place]. Multiple MIP images were obtained in multiple projections. Comparison: No prior vascular study within the brain. Findings: Dolichoectasia is identified within the carotid arteries. Dominant left vertebral artery is seen. These findings are incidental. Patent left posterior communicating artery is seen. Absent right posterior communicating artery is seen which is a normal variant. No aneurysm is identified. No focal stenosis is seen. Impression: 1. Incidental findings. No aneurysm or focal stenosis is seen. Diagnostic code #2 I agree with preliminary report issued by [facility] ([facility] report finalized on 03/23/17, 10:57 AM Central Time)
[2017-03-24] MEDS: Allopurinol 100 MG Tab PO SCH (10:58)
[2017-03-24] MEDS ORDERED: Non-Formulary Medication 1 Each (Warfarin [Coumadin] 5 MG) PO SCH (14:19)
[2017-03-24] MEDS: Rivaroxaban 10 MG Tab PO SCH (17:21)
[2017-03-24] MEDS ORDERED: Warfarin 5 MG Tab PO SCH (18:00)
[2017-03-24] MEDS: Docusate Sodium 100 MG Cap PO SCH (20:16)
[2017-03-24] MEDS: Rosuvastatin 10 MG Tab PO SCH (20:17)
[2017-03-24] MEDS ORDERED: Baclofen 10 MG Tab PO SCH (21:00)
[2017-03-24] MEDS ORDERED: Hydrochlorothiazide 25 MG Tab PO SCH (21:00)
[2017-03-24] MEDS: traZODone 50 MG Tab PO SCH (21:59)
--- NOTE | 2017-03-24 22:45 | PCM.DCSUM1 ---
Discharge Summary - Hospital Course Brief History: Juan Jose Layton is a 62 yo male with past medical hx/o HTN, Asthma, CKD, Gout, Paroxysmal Atrial Fibrillation on Warfarin, HLD, CVA with Residual Left Sided Weakness, DM2, and Hypothyroidism who comes in to ED with increasing left-sided weakness. He was admitted for stroke management. - Discharge Data Discharge Date: 03/25/17 Discharge Disposition: Home, Self-Care 01 Condition: Good - Discharge Diagnosis/Problem(s) (1) CVA (cerebral vascular accident) SNOMED Code(s): 410873186 ICD Code: I63.9 - CEREBRAL INFARCTION, UNSPECIFIED Status: Acute Priority : High Current Visit: Yes Qualifiers: CVA mechanism: unspecified Qualified Code(s): I63.9 - Cerebral infarction, unspecified (2) Urinary retention SNOMED Code(s): 020667286 ICD Code: R33.9 - RETENTION OF URINE, UNSPECIFIED Status: Acute Current Visit: Yes (3) Chronic renal insufficiency, stage III (moderate) SNOMED Code(s): 186910630 ICD Code: N18.3 - CHRONIC KIDNEY DISEASE, STAGE 3 (MODERATE) Status: Chronic Priority: Medium Current Visit: Yes (4) Atrial fibrillation SNOMED Code(s): 00102305 ICD Code: I48.91 - UNSPECIFIED ATRIAL FIBRILLATION Status: Chronic Current Visit: No Qualifiers: Atrial fibrillation type: paroxysmal Qualified Code(s): I48.0 - Paroxysmal atrial fibrillation (5) Subtherapeutic international normalized ratio (INR) SNOMED Code(s): 408957436 ICD Code: R79.1 - ABNORMAL COAGULATION PROFILE Status: Resolved Priority : High Current Visit: Yes - Patient Summary/Data Operative Procedure(s) Performed: None Complications: None Consults: None Labs Pending at D/C: None Recommended Follow-up Testing/Procedures: None Planned Operative Procedure(s) after DC: None Hospital Course: Patient was primarily admitted for medical management of stroke. He carried a past medical hx/o past stroke with residual left sided deficits. His risk factors include HLD, HTN, PAF and DM2. All basic work up showed no acute abnormal findings. His Head CT scan and MRA showed no acute abnormal findings. His 2D echo showed no significant changes form his previous study back in 2014. His duplex carotid ultrasound however showed moderate atherosclerosis. His lipid panel was within normal limits. His HR was fairly controlled throughout admission. His hospital course was uncomplicated. He did have a mild congestive heart failure but after he was diuresed, he improved immediately. Patient was stable upon discharge. He was transferred for acute rehab in [place] for further treatment. He was advised to follow up with his PCP a week after rehab. We recommned for him to see a neurologist after discharge. The patient expressed understanding and in agreement with the plans as discussed above. All questions were answered. Patient left here via ground for transportation to [place], [place]. He was admitted for further treatment under the services of Dr. Brown, attending. - Patient Instructions Diet: Heart Healthy Diet, Usual Diet as Tolerated Activity: As Tolerated Driving: Do Not Drive Showering/Bathing: May Shower Notify Provider of: Fever, Increased Pain, Nausea and/or Vomiting Other/Special Instructions: - Plase take new medications as directed. - Resume home medications except warfarin. - Continue activity as per acute rehab. - Recommend you see a neurologist for further eval. - Follow up wiht your doctor in 1 weeks. - Call your doctor for any questions or concerns after discharge - Discharge Plan Prescriptions/Med Rec: Rivaroxaban [Xarelto] 20 mg PO DAILY #30 tablet Tamsulosin [Flomax] 0.4 mg PO BIDPC #60 cap.er Home Medications: Home Meds Allopurinol [Zyloprim] 100 mg PO DAILY 08/24/16 [History] Citalopram Hydrobromide [Celexa] 20 mg PO DAILY 08/24/16 [History] Docusate Sodium [Colace] 100 mg PO BEDTIME 08/24/16 [History] Losartan [Cozaar] 50 mg PO DAILY 08/24/16 [History] amLODIPine [Norvasc] 2.5 mg PO DAILY 08/24/16 [History] traZODone HCl [Trazodone HCl] 100 mg PO BEDTIME 08/24/16 [History] Aspirin [Ecotrin] 162 mg PO DAILY 03/22/17 [History] Fish Oil/[place]-3 Fatty Acids [Fish Oil 1,000 MG] 1 tab PO TID 03/22/17 [History] LORazepam [Ativan] 0.5 mg PO Q6H PRN 03/22/17 [History] Rosuvastatin [Crestor] 40 mg PO DAILY 03/22/17 [History] hydrALAZINE [Apresoline] 25 mg PO TID 03/22/17 [History] Baclofen 20 mg PO QID 03/24/17 [History] Rivaroxaban [Xarelto] 20 mg PO DAILY #30 tablet 03/24/17 [Rx] Tamsulosin [Flomax] 0.4 mg PO BIDPC #60 cap.er 03/24/17 [Rx] Patient Handouts: Maldonado Catheter Care, Adult, Maldonado Catheter Care, Adult, Easy- to-Read Referrals: Farhat Head MD [Primary Care Provider] - - Discharge Summary/Plan Comment DC Time >30 min.: Yes (45 mins) Discharge Summary/Plan Comment: Discharge to Acute Rehab in [place], [place] under the services of Dr. Rodger Ewing, attending. - General Info Date of Service: 03/25/17 Admission Dx/Problem (Free Text: Admission Diagnosis/Problem Admission Diagnosis/Problem CVA, Cerebrovascular accident Subjective Update: Follow up Functional Status: Reports: Pain Controlled, Tolerating Diet, Ambulating, Urinating. Denies: New Symptoms - Review of Systems General: Reports: Weakness. Denies: Fever, Fatigue, Malaise, Chills HEENT: Reports: No Symptoms Pulmonary: Denies: Shortness of Breath Cardiovascular: Denies: Chest Pain Gastrointestinal: Denies: Abdominal Pain, Nausea, Vomiting Genitourinary: Reports: No Symptoms Musculoskeletal: Reports: No Symptoms Skin: Denies: Cyanosis, Pallor, Diaphoresis, Rash Neurological: Reports: Weakness, Gait Disturbance. Denies: Confusion, Difficulty Walking Psychiatric: Denies: Confusion, Depression, Agitation, Suicidal Ideation Systems Review Comment: No overnight or acute issues. He was doing relatively well. He had no new complaints. - Patient Data Vitals - Most Recent: Last Vital Signs Temp 37.6 C 03/24/17 20:14 Pulse 62 03/24/17 20:14 Resp 20 03/24/17 20:14 BP 126/79 03/24/17 20:16 Pulse Ox 97 03/24/17 20:14 Weight - Most Recent: 80.467 kg I&O - Last 24 hours: Intake & Output 03/24/17 03/24/17 03/24/17 06:59 14:59 22:59 Intake Total 800 240 780 Output Total 3306 7114 Balance -2500 240 -896 Lab Results - Last 24 hrs: Laboratory Results - last 24 hr 03/24/17 03/24/17 Range/Units 06:30 16:00 Sodium 141 (136-145) mEq/L Potassium 4.5 (3.5-5.1) mEq/L Chloride 105 (98-107) mEq/L Carbon Dioxide 25 (21-32) mEq/L Anion Gap 15.5 H (5-15) BUN 29 H (7-18) mg/dL Creatinine 1.6 H (0.7-1.3) mg/dL Est Cr Clr Drug Dosing 51.87 mL/min Estimated GFR (MDRD) 44 (>60) mL/min BUN/Creatinine Ratio 18.1 H (14-18) Glucose 83 (80-115) mg/dL Calcium 9.1 (8.5-10.1) mg/dL Magnesium 1.9 (1.8-2.4) mg/dl MRSA (PCR) Negative Med Orders - Current: Current Medications Acetaminophen (Tylenol) 650 mg PO Q4H PRN PRN Reason: Pain (Mild 1-3)/fever Hydrocodone Bitart/Acetaminophen ([place] 325-5 Mg) 1 tab PO Q4H PRN PRN Reason: Pain (moderate 4-6) Albuterol/Ipratropium (Duoneb 3.0-0.5 Mg/3 Ml) 3 ml NEB Q4H PRN PRN Reason: Shortness Of Breath/wheezing Allopurinol (Zyloprim) 100 mg PO DAILY [facility] Last Admin: 03/24/17 10:58 Dose: 100 mg Amlodipine Besylate (Norvasc) 2.5 mg PO DAILY [facility] Last Admin: 03/24/17 09:18 Dose: 2.5 mg Aspirin (Halfprin) 162 mg PO DAILY [facility] Last Admin: 03/24/17 09:21 Dose: 162 mg Baclofen (Lioresal) 20 mg PO QID [facility] Last Admin: 03/24/17 20:17 Dose: 20 mg Bisacodyl (Dulcolax) 5 mg PO DAILY PRN PRN Reason: Constipation Last Admin: 03/24/17 09:21 Dose: 5 mg Citalopram Hydrobromide (Celexa) 20 mg PO DAILY [facility] Last Admin: 03/24/17 09:21 Dose: 20 mg Docusate Sodium (Colace) 100 mg PO BID PRN PRN Reason: Constipation Docusate Sodium (Colace) 100 mg PO BEDTIME [facility] Last Admin: 03/24/17 20:16 Dose: 100 mg Fish Oil (Fish Oil) 1 gm PO TID [facility] Last Admin: 03/24/17 20:16 Dose: 1 gm Hydralazine HCl (Apresoline) 25 mg PO TID [facility] Last Admin: 03/24/17 20:16 Dose: 25 mg Hydrochlorothiazide (Hydrochlorothiazide) 25 mg PO BEDTIME [facility] Last Admin: 03/24/17 20:16 Dose: 25 mg Hydromorphone HCl (Dilaudid) 0.25 mg IVPUSH Q2H PRN PRN Reason: Pain (severe 7-10) Promethazine HCl 12.5 mg/ (Sodium Chloride) 50.5 mls @ 100 mls/hr IV Q6H PRN PRN Reason: Nausea/Vomiting Lorazepam (Ativan) 1 mg IV Q6H PRN PRN Reason: Anxiety Lorazepam (Ativan) 0.5 mg PO Q6H PRN PRN Reason: Anxiety Losartan Potassium (Cozaar) 50 mg PO DAILY [facility] Last Admin: 03/24/17 09:19 Dose: 50 mg Ondansetron HCl (Zofran) 4 mg IV Q6H PRN PRN Reason: Nausea/Vomiting Last Admin: 03/24/17 15:50 Dose: 4 mg Polyethylene Glycol (Miralax) 17 gm PO DAILY PRN PRN Reason: Constipation Rivaroxaban (Xarelto) 20 mg PO WITHDINNER [facility] Last Admin: 03/24/17 17:21 Dose: 20 mg Rosuvastatin Calcium (Crestor) 40 mg PO BEDTIME [facility] Last Admin: 03/24/17 20:17 Dose: 40 mg Senna/Docusate Sodium (Senna Plus) 1 tab PO BID PRN PRN Reason: Constipation Sodium Chloride (Saline Flush) 10 ml FLUSH ASDIRECTED PRN PRN Reason: Keep Vein Open Temazepam (Restoril) 7.5 mg PO BEDTIME PRN PRN Reason: Sleep Trazodone HCl (Trazodone) 100 mg PO BEDTIME [facility] Last Admin: 03/24/17 21:59 Dose: 100 mg Discontinued Medications Baclofen (Lioresal) 10 mg PO BID [facility] Last Admin: 03/24/17 09:21 Dose: 10 mg Enoxaparin Sodium (Lovenox) 80 mg SUBCUT ONETIME ONE Stop: 03/22/17 12:11 Last Admin: 03/22/17 14:34 Dose: Not Given Enoxaparin Sodium (Lovenox) 80 mg SUBCUT BID [facility] Enoxaparin Sodium (Lovenox) 80 mg SUBCUT BID [facility] Last Admin: 03/23/17 10:27 Dose: 80 mg Furosemide (Lasix) 40 mg IVPUSH NOW ONE Stop: 03/22/17 12:10 Last Admin: 03/22/17 14:39 Dose: Not Given Hydromorphone HCl (Dilaudid) 0.5 mg IVPUSH ONETIME ONE Stop: 03/22/17 17:06 Last Admin: 03/22/17 17:20 Dose: 0.5 mg Sodium Chloride (Normal Saline) 1,000 mls @ 50 mls/hr IV ASDIRECTED [facility] Last Admin: 03/22/17 14:53 Dose: 50 mls/hr Sodium Chloride (Normal Saline) 500 mls @ 999 mls/hr IV ONETIME ONE Stop: 03/23/17 08:00 Last Admin: 03/23/17 08:03 Dose: 999 mls/hr Lidocaine HCl (Xylocaine 2% Jelly) 10 ml MUCMEM ONETIME ONE Stop: 03/22/17 17:11 Last Admin: 03/22/17 17:33 Dose: 10 ml Non-Formulary Medication (Hydrocodone/Acetaminophen) 1 tab PO Q6HR PRN PRN Reason: Pain Non-Formulary Medication (Warfarin [Coumadin]) 5 mg PO MOFR [facility] Pantoprazole Sodium (Protonix Iv) 40 mg IVPUSH ONETIME ONE Stop: 03/22/17 13:09 Last Admin: 03/22/17 14:40 Dose: 40 mg Rosuvastatin Calcium (Crestor) 40 mg PO DAILY [facility] Simvastatin (Zocor) 40 mg PO BEDTIME [facility] Last Admin: 03/22/17 21:42 Dose: Not Given Warfarin Sodium (Coumadin) 7.5 mg PO SUTUWETHSA [facility] Last Admin: 03/22/17 18:43 Dose: 7.5 mg Warfarin Sodium (Coumadin) 5 mg PO MoFr ILYA - Exam General: Reports: Alert, Oriented, Cooperative, No Acute Distress HEENT: Reports: Pupils Equal, Pupils Reactive, EOMI, Mucous Membr. Moist/[place] Neck: Reports: Supple, Trachea Midline, No JVD Lungs: Reports: Clear to Auscultation, Normal Respiratory Effort Cardiovascular: Reports: Regular Rate, Regular Rhythm GI/Abdominal Exam: Normal Bowel Sounds, Soft, Non-Tender, No Organomegaly, No Distention, No Abnormal Bruit, No Mass (Male) Exam: Other (indwelling maldonado catheter) Rectal (Males) Exam: Deferred Back Exam: Reports: Normal Inspection, Decreased Range of Motion Extremities: Normal Inspection, Normal Range of Motion, Non-Tender, No Pedal Edema, Normal Capillary Refill Skin: Reports: Warm, Dry, Intact Neurological: Reports: No New Focal Deficit. Denies: Normal Gait Psy/Mental Status: Reports: Alert, Normal Affect, Normal Mood *Q Meaningful Use (DIS) - VTE *Q VTE Criteria *Q: - Stroke *Q Stroke Criteria *Q: - AMI *Q AMI Criteria *Q:
[2017-03-25 06:42] VITALS: BP 121/71
== END 2017-03-25 07:12 | disposition home or self-care (01) | DRG 45 ==
LOC: JD.ED 10:32 → JD.MS 12:55 → OBSVTOIN 03-23 10:18
PROVIDERS: ADMIT Internal Medicine; ATTEND Internal Medicine
DX: I63.9 Cerebral infarction, unspecified (principal); I50.9 Heart failure, unspecified; I48.2 Chronic atrial fibrillation; I13.0 Hypertensive heart and chronic kidney disease with heart failure and stage 1 through stage 4 chronic kidney disease, or unspecified chronic kidney disease; N18.3 Chronic kidney disease, stage 3 (moderate); J45.909 Unspecified asthma, uncomplicated; M10.9 Gout, unspecified; Z79.01 Long term (current) use of anticoagulants; Z79.82 Long term (current) use of aspirin; Z79.899 Other long term (current) drug therapy; R79.1 Abnormal coagulation profile; R33.9 Retention of urine, unspecified; I69.354 Hemiplegia and hemiparesis following cerebral infarction affecting left non-dominant side; F41.9 Anxiety disorder, unspecified; F32.9 Major depressive disorder, single episode, unspecified; R32 Unspecified urinary incontinence; Z66 Do not resuscitate
CPT/HCPCS: 36415; 51702; 70450; 70450-26; 70544; 70544-26; 70551; 70551-26; 71010; 71010-26; 80048; 80053; 80061; 81001; 82962; 83735; 83880; 84484; 85025; 85610; 86140; 87641; 93005; 93010; 93306; 93880; 93880-26; 96361; 96372; 96374; 96375; 97110-GO; 97110-GP; 97116-GP; 97162-GP; 97165-GO; 97166-GO; 97530-GO; 99284-25; 99285-25; A9270-GY; C9113; G0378; J1170; J1650; J2405; J7040

== ENCOUNTER 2017-04-02 02:38 | Emergency (ER) | payer BC ==
[2017-04-02 02:42] VITALS: BP 147/90
[2017-04-02] MEDS ORDERED: Meclizine 12.5 MG Tab PO ONE (03:11)
--- NOTE | 2017-04-02 03:22 | EDM.PDOC ---
ED HPI GENERAL MEDICAL PROBLEM - General Chief Complaint: Neurological Problem Stated Complaint: AMBULANCE Time Seen by Provider: 04/02/17 02:42 Source of Information: Reports: Patient History Limitations: Reports: No Limitations - History of Present Illness INITIAL COMMENTS - FREE TEXT/NARRATIVE: This is a 62-year-old male. He has a history of a CVA back in 2012 and he uses a walker. Apparently 10 days ago he had an episode of mild dizziness but incoordination seemed to resolve after a couple of hours he may put him in the hospital to observe him. He comes back tonight stating since this morning he's been having dizziness more like vertigo and some imbalance when he tries to use his walker even though he has been getting around at home. He states that this is completely different than the CVA that he had years ago and the episode he had 10 days ago. He does state he feels very dry in the mouth and he has been drinking a lot of fluids even though he seems to be eating okay. Because of these persistent symptoms he comes to the ER early this morning. He denies any fever or chills no cough no congestion no ear pain no neck pain no chest pain no shortness of breath no cough no nausea vomiting diarrhea no difficulty in urination and noted difficulty in defecation. He says he is generally weak in his arms and legs and that really has not changed and he doesn't think he is having a stroke but he is not certain what's going on. - Related Data Allergies Allergy/AdvReac Type Severity Reaction Status Date / Time No Known Allergies Allergy Verified 04/02/17 02:42 Home Meds: Home Meds Allopurinol [Zyloprim] 100 mg PO DAILY 08/24/16 [History] Citalopram Hydrobromide [Celexa] 20 mg PO DAILY 08/24/16 [History] Docusate Sodium [Colace] 100 mg PO BEDTIME 08/24/16 [History] Losartan [Cozaar] 50 mg PO DAILY 08/24/16 [History] amLODIPine [Norvasc] 2.5 mg PO DAILY 08/24/16 [History] traZODone HCl [Trazodone HCl] 100 mg PO BEDTIME 08/24/16 [History] Aspirin [Ecotrin] 81 mg PO DAILY 03/22/17 [History] Fish Oil/Tiger-3 Fatty Acids [Fish Oil 1,000 MG] 1 tab PO DAILY 03/22/17 [ History] LORazepam [Ativan] 1 mg PO TID 03/22/17 [History] Rosuvastatin [Crestor] 20 mg PO DAILY 03/22/17 [History] hydrALAZINE [Apresoline] 25 mg PO TID 03/22/17 [History] Baclofen 10 mg PO BID 03/24/17 [History] Rivaroxaban [Xarelto] 20 mg PO DAILY #30 tablet 03/24/17 [Rx] Meclizine [Antivert] 25 mg PO TID PRN #12 tablet 04/02/17 [Rx] Past Medical History HEENT History: Reports: Cataract Cardiovascular History: Reports: Afib, High Cholesterol, Hypertension Respiratory History: Reports: Asthma Gastrointestinal History: Reports: Other (See Below) Other Gastrointestinal History: recent issues with constipation Genitourinary History: Reports: Chronic Renal Insuffiency Musculoskeletal History: Reports: None Neurological History: Reports: CVA, Other (See Below) Other Neuro History: stroke in 2012 Psychiatric History: Reports: Anxiety, Depression Endocrine/Metabolic History: Reports: Diabetes, Type II Hematologic History: Reports: Blood Transfusion(s) Immunologic History: Reports: None Dermatologic History: Reports: None - Infectious Disease History Infectious Disease History: Reports: Measles - Past Surgical History HEENT Surgical History: Reports: Cataract Surgery, Tonsillectomy Cardiovascular Surgical History: Reports: None Respiratory Surgical History: Reports: None GI Surgical History: Reports: Hernia, Abdominal, Other (See Below) Other GI Surgeries/Procedures: sx when born Male Surgical History: Reports: None Neurological Surgical History: Reports: Other (See Below) Other Neurological Surgeries/Procedures: cyst removed on spine;sx to go through spinal canal to clean out cervical spinal stenosis Musculoskeletal Surgical History: Reports: Other (See Below) Other Musculoskeletal Surgeries/Procedures:: cyst on back removed Dermatological Surgical History: Reports: None Social & Family History - Family History Family Medical History: Noncontributory Cardiac: Reports: [place] Oncologic: Reports: Colon, Liver - Tobacco Use Smoking Status *Q: Never Smoker Years of Tobacco use: 2 Used Tobacco, but Quit: Yes Month Tobacco Last Used: quit 1979 Second Hand Smoke Exposure: No - Caffeine Use Caffeine Use: Reports: None - Alcohol Use Number of Drinks Per Day: 1 - Recreational Drug Use Recreational Drug Use: No - Living Situation & Occupation Living situation: Reports: Single Occupation: Disabled ED ROS GENERAL - Review of Systems Review Of Systems: See Below Constitutional: Reports: Weakness. Denies: Fever, Chills HEENT: Reports: No Symptoms Respiratory: Reports: No Symptoms Cardiovascular: Reports: Other (History of of atrial fibrillation) Endocrine: Reports: No Symptoms GI/Abdominal: Reports: No Symptoms : Reports: No Symptoms Musculoskeletal: Reports: Other (History of generalized weakness) Skin: Reports: No Symptoms Neurological: Reports: Dizziness, Difficulty Walking, Weakness. Denies: Headache, Numbness, Tingling Psychiatric: Reports: No Symptoms Hematologic/Lymphatic: Reports: No Symptoms ED EXAM, NEURO - Physical Exam Exam: See Below Exam Limited By: No Limitations General Appearance: Alert, WD/WN, No Apparent Distress Eye Exam: Bilateral Eye: Normal Inspection (There is no nystagmus noted, the dizziness does not appear to increase with head movement, he does not indicate lightheadedness it's more of a spinning), PERRL Ears: Normal External Exam, Normal Canal, Normal TMs Nose: Normal Inspection Throat/Mouth: Normal Inspection, Normal Lips, Normal Voice, No Airway Compromise Head Exam: Normocephalic Neck: Supple Respiratory/Chest: No Respiratory Distress, Lungs Clear, Normal Breath Sounds Cardiovascular: Regular Rate, Rhythm, No Murmur, Other (The EKG was suggestive got atrial fibrillation but a very slow rate at 60 however you listen to when it sounds very regular) GI/Abdominal: Soft, Non-Tender. No: Guarding, Rebound Neurological: Alert, Normal Mood/Affect, Oriented x 3, Other (He has generalized weakness of his lower extremities and upper extremities, he has difficulty in walking so he uses a walker, he denies any new symptoms or weakness of his extremities today) Extremities: Normal Inspection, Other (He seems to have good motion of his upper extremities he just generally weak) Psychiatric: Normal Affect, Normal Mood Skin Exam: Warm, Dry EKG INTERPRETATION EKG Date: 04/02/17 Time: 03:10 EKG Interpretation Comments: EKG shows a very slow atrial fibrillation, rate of about 60, no acute ST or T- wave changes noted no ischemia noted. Course - Vital Signs Last Recorded V/S: Last Vital Signs Temp 97.6 F 04/02/17 02:40 Pulse 59 L 04/02/17 02:40 Resp 19 04/02/17 02:40 BP 147/90 H 04/02/17 02:40 Pulse Ox 96 04/02/17 02:40 - Orders/Labs/Meds Orders: Active Orders 24 hr Category Date Time Status EKG Documentation Completion [RC] ASDIRECTED Care 04/02/17 02:44 Active Head wo Cont [CT] Stat Exams 04/02/17 03:10 Taken Sodium Chloride 0.9% [Normal Saline] 1,000 ml Med 04/02/17 03:30 Active IV ASDIRECTED EKG 12 Lead [EK] Stat Ther 04/02/17 02:44 Ordered Medication Orders Sodium Chloride (Normal Saline) 1,000 mls @ 1,000 mls/hr IV ASDIRECTED ILYA Last Admin: 04/02/17 03:22 Dose: 1,000 mls/hr Labs: Laboratory Tests 04/02/17 04/02/17 04/02/17 Range/Units 02:38 02:38 06:00 WBC 4.75 (4.23-9.07) K/mm3 RBC 3.46 L (4.63-6.08) M/mm3 Hgb 10.7 L (13.7-17.5) gm/L Hct 32.8 L (40.1-51.0) % MCV 94.8 H (79.0-92.2) fl MCH 30.9 (25.7-32.2) pg MCHC 32.6 (32.2-35.5) g/dl RDW Std Deviation 44.0 H (35.1-43.9) fL Plt Count 215 (163-337) K/mm3 MPV 8.8 L (9.4-12.3) fl Neutrophils % (Manual) 75 H (40-60) % Band Neutrophils % 0 (0-10) % Lymphocytes % (Manual) 12 L (20-40) % Atypical Lymphs % 2 % Monocytes % (Manual) 7 (2-10) % Eosinophils % (Manual) 2 (0.8-7.0) % Basophils % (Manual) 1 (0.2-1.2) Myelocytes % 1 Platelet Estimate Adequate Plt Morphology Comment Normal Poikilocytosis 1+ slight Anisocytosis 1+ slight Microcytosis 1+ slight Macrocytosis 1+ slight Tear Drop Cells 1+ slight Ovalocytes 1+ slight RBC Morph Comment Abnormal Sodium 144 (136-145) mEq/L Potassium 4.3 (3.5-5.1) mEq/L Chloride 110 H (98-107) mEq/L Carbon Dioxide 25 (21-32) mEq/L Anion Gap 13.3 (5-15) BUN 33 H (7-18) mg/dL Creatinine 1.8 H (0.7-1.3) mg/dL Est Cr Clr Drug Dosing 46.10 mL/min Estimated GFR (MDRD) 38 (>60) mL/min BUN/Creatinine Ratio 18.3 H (14-18) Glucose 121 H (80-115) mg/dL Calcium 9.4 (8.5-10.1) mg/dL Total Bilirubin 0.4 (0.2-1.0) mg/dL AST 26 (15-37) U/L ALT 38 (16-63) U/L Alkaline Phosphatase 73 (46-116) U/L Troponin I < 0.017 (0.00-0.056) ng/mL Total Protein 7.0 (6.4-8.2) g/dl Albumin 3.3 L (3.4-5.0) g/dl Globulin 3.7 gm/dL Albumin/Globulin Ratio 0.9 L (1-2) Urine Color Yellow (Yellow) Urine Appearance Clear (Clear) Urine pH 6.0 (5.0-8.0) Ur Specific Lucas 1.025 (1.005-1.030) Urine Protein 2+ H (Negative) Urine Glucose (UA) Negative (Negative) Urine Ketones Negative (Negative) Urine Occult Blood Trace-intact H (Negative) Urine Nitrite Positive H (Negative) Urine Bilirubin Negative (Negative) Urine Urobilinogen 0.2 (0.2-1.0) Ur Leukocyte Esterase Negative (Negative) Urine RBC 0-5 (0-5) /hpf Urine WBC 10-20 H (0-5) /hpf Ur Epithelial Cells 0-5 (0-5) /hpf Amorphous Sediment Moderate H (NOT SEEN) /hpf Urine Bacteria Few (FEW) /hpf Hyaline Casts 0-5 (0-5) /lpf Urine Mucus Few (FEW) /hpf Meds: Medications Generic Name Dose Route Start Last Admin Trade Name Freq PRN Reason Stop Dose Admin Sodium Chloride 1,000 mls @ 1,000 mls/hr 04/02/17 03:30 04/02/17 03:22 Normal Saline IV 1,000 mls/hr ASDIRECTED ILYA Administration Discontinued Medications Generic Name Dose Route Start Last Admin Trade Name Valentine PRN Reason Stop Dose Admin Lidocaine 4 ml 04/02/17 05:47 04/02/17 06:06 Lta 360 Kit Top Soln TOP 04/02/17 05:48 Not Given ONETIME ONE Lidocaine HCl 5 ml 04/02/17 05:51 04/02/17 06:05 Xylocaine 2% Jelly TOP 04/02/17 05:52 5 ml ONETIME ONE Administration Lidocaine HCl Confirm 04/02/17 05:55 04/02/17 06:05 Xylocaine 2% Jelly Administered 04/02/17 05:56 Not Given Dose 10 ml .ROUTE .STK-MED ONE Lorazepam 0.5 mg 04/02/17 04:01 04/02/17 04:06 Ativan IVPUSH 04/02/17 04:02 0.5 mg ONETIME ONE Administration Meclizine HCl 25 mg 04/02/17 03:11 04/02/17 03:18 Antivert PO 04/02/17 03:12 25 mg ONETIME ONE Administration - Radiology Interpretation Free Text/Narrative:: CT scan does not show any acute intra-cortical infarct no acute intracranial hemorrhage or mass effect he does have some chronic changes noted microvascular ischemic changes noted. - Re-Assessments/Exams Free Text/Narrative Re-Assessment/Exam: 04/02/17 05:34 I spoke to the patient regarding his CT scan results. 04/02/17 05:35 During his stay here after we gave him 0.5 of Ativan to ease up his anxiety we did note that at times his heart rate would drop down in the 30s but then go back up into the 50s and 60s. When I talked to the patient about this he states this is normal for him and he doesn't have a problem with it even though he knows it drops in the 30s as well. 04/02/17 06:45 Patient indicated he needed to go to the bathroom as an urinate was unable to. He has an appointment with urologist this week because of these problems he has been on Flomax but is not seemed to help. We did a bladder scan in the ER and she had 700 mL of urine. Therefore we placed a Chapin catheter and did a urinalysis. The urinalysis appeared to be fairly normal although he did have positive nitrites though very few bacteria. We'll leave the Chapin catheter in and provide a leg bag for him and he's felt comfortable going home with it and when he follows up with the urologist they will take care of the leg bag for him in the Chapin catheter. 04/02/17 06:49 We have a walker for the patient and we walked him around the ER and he seemed to do just fine and felt comfortable Departure - Departure Time of Disposition: 06:46 Disposition: Home, Self-Care 01 Condition: Fair Clinical Impression: Vertigo, Generalized anxiety disorder, Urinary retention, Encounter for Chapin catheter replacement, Mild dehydration - Discharge Information Prescriptions: Meclizine [Antivert] 25 mg PO TID PRN #12 tablet PRN Reason: Dizziness Instructions: Dehydration, Adult, [id number] Referrals: Farhat Head MD [Primary Care Provider] - Forms: ED Department Discharge Additional Instructions: He careful home with the dizziness, continue to drink lots of fluids to stay well hydrated, use your walker at home like you normally do, follow Chapin catheter care as per the nurse's instructions, when you see the urologist this week have him take care of the Chapin catheter, return to the ER if needed - My Orders Last 24 Hours: My Active Orders 04/02/17 02:44 EKG Documentation Completion [RC] ASDIRECTED EKG 12 Lead [EK] Stat 04/02/17 03:10 Head wo Cont [CT] Stat 04/02/17 03:30 Sodium Chloride 0.9% [Normal Saline] 1,000 ml IV ASDIRECTED - Assessment/Plan Last 24 Hours: My Active Orders 04/02/17 02:44 EKG Documentation Completion [RC] ASDIRECTED EKG 12 Lead [EK] Stat 04/02/17 03:10 Head wo Cont [CT] Stat 04/02/17 03:30 Sodium Chloride 0.9% [Normal Saline] 1,000 ml IV ASDIRECTED
[2017-04-02] MEDS ORDERED: Sodium Chloride 0.9% 1,000 ML IV SCH (03:30)
[2017-04-02] MEDS ORDERED: LORazepam 2 MG/ML SDV IVPUSH ONE (04:01)
[2017-04-02] MEDS ORDERED: Lidocaine 4% Top Soln LTA 4 ML SYRINGE TOP ONE (05:47)
[2017-04-02] MEDS ORDERED: Lidocaine 2% Jelly 5 ML Tube TOP ONE (05:51)
[2017-04-02] MEDS ORDERED: Lidocaine 2% Jelly 10 ML Urojet ONE (05:55)
--- NOTE | 2017-04-02 12:53 | CT ---
Head CT Technique: Multiple axial sections through the brain were obtained. Intravenous contrast was not utilized. Comparison: Prior head CT study of 03/22/17 and MRI brain of 03/22/17. Findings: Ventricles along with basal cisterns and sulci over the convexities are mildly prominent. Diminished density noted within the periventricular and subcortical white matter compatible with small vessel ischemic demyelination change. Diminished density also noted within portions of the basal ganglia compatible with small vessel ischemic demyelination change and old lacunar infarct. No acute hemorrhage is seen. No midline shift or mass effect is seen. Bone window settings were reviewed which show atherosclerotic change within the left vertebral vessel and within the carotid siphon. No acute calvarial abnormality is identified. Visualized sinuses are clear. Impression: 1. Senescent change as noted above. No acute intracranial abnormality is appreciated. Diagnostic code #2 I agree with preliminary report issued by [facility] ([facility] preliminary report dictated on 04/02/17, 4:54 AM Central Time)
== END 2017-04-02 08:49 | disposition home or self-care (01) ==
LOC: JD.ED 02:38
DX: F41.1 Generalized anxiety disorder (principal); E86.0 Dehydration; R33.9 Retention of urine, unspecified; E78.00 Pure hypercholesterolemia, unspecified; I10 Essential (primary) hypertension; E11.9 Type 2 diabetes mellitus without complications; Z79.899 Other long term (current) drug therapy; Z79.82 Long term (current) use of aspirin; Z86.73 Personal history of transient ischemic attack (TIA), and cerebral infarction without residual deficits; Z46.6 Encounter for fitting and adjustment of urinary device
CPT/HCPCS: 36415; 51702; 51798; 70450; 80053; 81001; 84484; 85025; 93005; 96361; 96374; 99285; A9270; J2060; J7040; 93010; 99284

== ENCOUNTER 2017-04-12 19:54 | Inpatient (IN) | payer BC, OTHER ==
[2017-04-12] MEDS ORDERED: Sodium Chloride 0.9% 10 ML Syringe FLUSH PRN (20:13)
[2017-04-12] MEDS ORDERED: Sodium Chloride 0.9% 1,000 ML IV SCH (20:15)
--- NOTE | 2017-04-12 20:57 | EDM.PDOC ---
ED HPI GENERAL MEDICAL PROBLEM - General Chief Complaint: Fever Stated Complaint: EDUARDO AMB Time Seen by Provider: 04/12/17 20:08 Source of Information: Reports: Patient, EMS History Limitations: Reports: No Limitations - History of Present Illness INITIAL COMMENTS - FREE TEXT/NARRATIVE: The patient fell on the floor this afternoon. He said he got week and fell. He did hit the back of his head but he had no LOC. He denies a headache. He is on xarelto for chronic A-fib. 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 He uses a cane and a walker to get around. He could not get off of the floor. He called for help and a neighbor came to help. He has no headache or neck pain. He has no chest pain or shortness of breath. He has no abdominal pain but he did vomit when EMS came to get him and they gave him zofran 4mg through the IV they started. 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 - Related Data Allergies Allergy/AdvReac Type Severity Reaction Status Date / Time No Known Allergies Allergy Verified 04/02/17 02:42 Home Meds: Home Meds Allopurinol [Zyloprim] 100 mg PO DAILY 08/24/16 [History] Citalopram Hydrobromide [Celexa] 20 mg PO DAILY 08/24/16 [History] Docusate Sodium [Colace] 100 mg PO BEDTIME 08/24/16 [History] Losartan [Cozaar] 50 mg PO DAILY 08/24/16 [History] traZODone HCl [Trazodone HCl] 100 mg PO BEDTIME 08/24/16 [History] Aspirin [Ecotrin] 81 mg PO DAILY 03/22/17 [History] Fish Oil/[place]-3 Fatty Acids [Fish Oil 1,000 MG] 1,000 mg PO DAILY 03/22/17 [ History] LORazepam [Ativan] 1 mg PO TID PRN 03/22/17 [History] Baclofen 10 mg PO BID 12/29/17 [History] Bethanechol [Urecholine] 25 mg PO TID 04/12/17 [History] Meclizine [Antivert] 0 mg PO ASDIRECTED PRN 04/12/17 [History] Rivaroxaban [Xarelto] 0 mg PO DAILY 04/12/17 [History] Rosuvastatin [Crestor] 20 mg PO DAILY 04/12/17 [History] Tamsulosin [Flomax] 0.4 mg PO DAILY 04/12/17 [History] amLODIPine Besylate [Norvasc] 2.5 mg PO DAILY 04/12/17 [History] Past Medical History HEENT History: Reports: Cataract Cardiovascular History: Reports: Afib, High Cholesterol, Hypertension Respiratory History: Reports: Asthma Gastrointestinal History: Reports: Other (See Below) Other Gastrointestinal History: recent issues with constipation Genitourinary History: Reports: Chronic Renal Insuffiency, Retention, Urinary Other Genitourinary History: cath removed about 1 week ago- Musculoskeletal History: Reports: None Neurological History: Reports: CVA, Other (See Below) Other Neuro History: stroke in 2012 Psychiatric History: Reports: Anxiety, Depression Endocrine/Metabolic History: Reports: Diabetes, Type II Hematologic History: Reports: Blood Transfusion(s) Immunologic History: Reports: None Dermatologic History: Reports: None - Infectious Disease History Infectious Disease History: Reports: Measles - Past Surgical History HEENT Surgical History: Reports: Cataract Surgery, Tonsillectomy Cardiovascular Surgical History: Reports: None Respiratory Surgical History: Reports: None GI Surgical History: Reports: Hernia, Abdominal, Other (See Below) Other GI Surgeries/Procedures: sx when born Male Surgical History: Reports: None Neurological Surgical History: Reports: Other (See Below) Other Neurological Surgeries/Procedures: cyst removed on spine;sx to go through spinal canal to clean out cervical spinal stenosis Musculoskeletal Surgical History: Reports: Other (See Below) Other Musculoskeletal Surgeries/Procedures:: cyst on back removed Dermatological Surgical History: Reports: None Social & Family History - Family History Family Medical History: Noncontributory Cardiac: Reports: [place] Oncologic: Reports: Colon, Liver - Tobacco Use Smoking Status *Q: Unknown Ever Smoked Years of Tobacco use: 2 Used Tobacco, but Quit: Yes Month Tobacco Last Used: quit 1979 Second Hand Smoke Exposure: No - Caffeine Use Caffeine Use: Reports: Coffee - Alcohol Use Number of Drinks Per Day: 1 - Recreational Drug Use Recreational Drug Use: No - Living Situation & Occupation Living situation: Reports: Single Occupation: Disabled ED ROS GENERAL - Review of Systems Review Of Systems: See Below Constitutional: Reports: Weakness. Denies: Fever, Chills HEENT: Reports: No Symptoms Respiratory: Reports: No Symptoms Cardiovascular: Reports: No Symptoms Endocrine: Reports: No Symptoms GI/Abdominal: Reports: Nausea, Vomiting. Denies: Abdominal Pain : Reports: No Symptoms Musculoskeletal: Reports: No Symptoms Skin: Reports: No Symptoms Neurological: Reports: Weakness (Left arm and leg) ED EXAM, SEPSIS - Physical Exam Exam: See Below Exam Limited By: No Limitations General Appearance: Alert, No Apparent Distress Ears: Normal External Exam Nose: Normal Inspection Head: Atraumatic, Normocephalic Neck: Normal Inspection Respiratory/Chest: No Respiratory Distress, Lungs Clear, Normal Breath Sounds Cardiovascular: Regular Rate, Rhythm, No Edema, No Murmur GI/Abdominal Exam: Soft, Non-Tender, No Organomegaly, No Mass Back: Normal Inspection Extremities: Other (Contusion to the left forearm) Neurological: Other (Severe weakness to the left arm and mild to moderate weakness to the left leg.) EKG INTERPRETATION EKG Date: 04/12/17 Time: 20:26 Rhythm: A-Fib Rate (Beats/Min): 67 [place]: Normal QRS: Normal ST-T: Normal QT: Normal Course - Vital Signs Last Recorded V/S: Last Vital Signs Temp 99.7 F 04/12/17 19:58 Pulse 76 04/12/17 19:58 Resp 20 04/12/17 19:58 BP 124/84 04/12/17 19:58 Pulse Ox 92 L 04/12/17 19:58 - Orders/Labs/Meds Orders: Active Orders 24 hr Category Date Time Status Forearm 2V Lt [CR] Stat Exams 04/12/17 20:14 Taken Head wo Cont [CT] Stat Exams 04/12/17 20:14 Taken UA W/MICROSCOPIC [URIN] Stat Lab 04/12/17 21:00 Uncollected Sodium Chloride 0.9% [Normal Saline] 1,000 ml Med 04/12/17 20:15 Active IV .BOLUS Sodium Chloride 0.9% [Saline Flush] Med 04/12/17 20:13 Active 10 ml FLUSH ASDIRECTED PRN Peripheral IV Insertion Adult [OM.PC] Stat Oth 04/12/17 20:13 Ordered Medication Orders Acetaminophen (Tylenol) 650 mg PO Q4H PRN PRN Reason: Pain (Mild 1-3)/fever Albuterol/Ipratropium (Duoneb 3.0-0.5 Mg/3 Ml) 3 ml NEB Q4H PRN PRN Reason: Shortness Of Breath/wheezing Bisacodyl (Dulcolax) 5 mg PO DAILY PRN PRN Reason: Constipation Docusate Sodium (Colace) 100 mg PO BID PRN PRN Reason: Constipation Hydralazine HCl (Apresoline) 10 mg IVPUSH Q6H PRN PRN Reason: Hypertension Sodium Chloride (Normal Saline) 1,000 mls @ 1,000 mls/hr IV .BOLUS [facility] Last Admin: 04/12/17 20:24 Dose: 1,000 mls/hr Influenza Virus Vaccine (Flulaval Quad [id number]) 60 mcg IM .ONCE ONE Stop: 04/13/17 10:01 Magnesium Sulfate (Pharmacy To Dose - Magnesium Replacement) 1 dose .XX ASDIRECTED [facility] Metoprolol Tartrate (Lopressor) 5 mg IVPUSH Q4H PRN PRN Reason: Tachycardia Ondansetron HCl (Zofran Odt) 4 mg PO Q6H PRN PRN Reason: nausea, able to take PO Ondansetron HCl (Zofran) 4 mg IV Q6H PRN PRN Reason: Nausea/Vomiting Polyethylene Glycol (Miralax) 17 gm PO DAILY PRN PRN Reason: Constipation Potassium Chloride (Pharmacy To Dose - Potassium Replacement) 1 dose .XX ASDIRECTED [facility] Senna/Docusate Sodium (Senna Plus) 1 tab PO BID PRN PRN Reason: Constipation Sodium Chloride (Saline Flush) 10 ml FLUSH ASDIRECTED PRN PRN Reason: Keep Vein Open Last Admin: 04/12/17 20:25 Dose: 10 ml Labs: Laboratory Tests 04/12/17 04/12/17 Range/Units 20:25 20:25 WBC 4.01 L (4.23-9.07) K/mm3 RBC 3.01 L (4.63-6.08) M/mm3 Hgb 9.3 L (13.7-17.5) gm/L Hct 28.0 L (40.1-51.0) % MCV 93.0 H (79.0-92.2) fl MCH 30.9 (25.7-32.2) pg MCHC 33.2 (32.2-35.5) g/dl RDW Std Deviation 42.4 (35.1-43.9) fL Plt Count 118 L (163-337) K/mm3 MPV 8.3 L (9.4-12.3) fl Neut % (Auto) 84.9 H (34.0-67.9) % Lymph % (Auto) 3.2 L (21.8-53.1) % Granite % (Auto) 11.5 (5.3-12.2) % Eos % (Auto) 0 L (0.8-7.0) Baso % (Auto) 0.2 (0.1-1.2) % Neut # (Auto) 3.40 (1.78-5.38) K/mm3 Lymph # (Auto) 0.13 L (1.32-3.57) K/mm3 Granite # (Auto) 0.46 (0.30-0.82) K/mm3 Eos # (Auto) 0.00 L (0.04-0.54) K/mm3 Baso # (Auto) 0.01 (0.01-0.08) K/mm3 Manual Slide Review Abnormal smear Sodium 133 L (136-145) mEq/L Potassium 4.7 (3.5-5.1) mEq/L Chloride 101 (98-107) mEq/L Carbon Dioxide 20 L (21-32) mEq/L Anion Gap 16.7 H (5-15) BUN 29 H (7-18) mg/dL Creatinine 1.8 H (0.7-1.3) mg/dL Est Cr Clr Drug Dosing 46.08 mL/min Estimated GFR (MDRD) 38 (>60) mL/min BUN/Creatinine Ratio 16.1 (14-18) Glucose 111 (80-115) mg/dL Calcium 8.6 (8.5-10.1) mg/dL Total Bilirubin 0.4 (0.2-1.0) mg/dL AST 36 (15-37) U/L ALT 40 (16-63) U/L Alkaline Phosphatase 65 (46-116) U/L Troponin I 0.035 (0.00-0.056) ng/mL Total Protein 6.6 (6.4-8.2) g/dl Albumin 3.1 L (3.4-5.0) g/dl Globulin 3.5 gm/dL Albumin/Globulin Ratio 0.9 L (1-2) Meds: Medications Generic Name Dose Route Start Last Admin Trade Name Freq PRN Reason Stop Dose Admin Acetaminophen 650 mg 04/12/17 22:46 Tylenol PO Q4H PRN Pain (Mild 1-3)/fever Albuterol/Ipratropium 3 ml 04/12/17 22:46 Duoneb 3.0-0.5 Mg/3 Ml NEB Q4H PRN Shortness Of Breath/wheezing Bisacodyl 5 mg 04/12/17 22:46 Dulcolax PO DAILY PRN Constipation Docusate Sodium 100 mg 04/12/17 22:46 Colace PO BID PRN Constipation Hydralazine HCl 10 mg 04/12/17 22:50 Apresoline IVPUSH Q6H PRN Hypertension Sodium Chloride 1,000 mls @ 1,000 mls/hr 04/12/17 20:15 04/12/17 20:24 Normal Saline IV 1,000 mls/hr .BOLUS [facility] Administration Influenza Virus Vaccine 60 mcg 04/13/17 10:00 Flulaval Quad [id number] IM 04/13/17 10:01 .ONCE ONE Magnesium Sulfate 1 dose 04/12/17 23:00 Pharmacy To Dose - Magnesium Replacement .XX ASDIRECTED [facility] Metoprolol Tartrate 5 mg 04/12/17 22:50 Lopressor IVPUSH Q4H PRN Tachycardia Ondansetron HCl 4 mg 04/12/17 22:46 Zofran Odt PO Q6H PRN nausea, able to take PO Ondansetron HCl 4 mg 04/12/17 22:46 Zofran IV Q6H PRN Nausea/Vomiting Polyethylene Glycol 17 gm 04/12/17 22:46 Miralax PO DAILY PRN Constipation Potassium Chloride 1 dose 04/12/17 23:00 Pharmacy To Dose - Potassium Replacement .XX ASDIRECTED [facility] Senna/Docusate Sodium 1 tab 04/12/17 22:46 Senna Plus PO BID PRN Constipation Sodium Chloride 10 ml 04/12/17 20:13 04/12/17 20:25 Saline Flush FLUSH 10 ml ASDIRECTED PRN Administration Keep Vein Open Discontinued Medications Generic Name Dose Route Start Last Admin Trade Name Freq PRN Reason Stop Dose Admin Influenza Virus Vaccine 1 each 04/12/17 23:44 Pharmacy To Dose - Influenza Vaccine IM 04/12/17 23:45 ONETIME ONE - Re-Assessments/Exams Free Text/Narrative Re-Assessment/Exam: 04/13/17 00:05 I ordered an IV NS 1L bolus, EKG, CT of his head and labs. His EKG shows A-fib with no acute changes. The CT of his head shows acute subdural hematoma layering along the falx cerebri measuring 1mm in maximal thickness. His WBC was low at 4.01. His Hgb was low at 9.3. His platelets were low at 118. His Na was low at 133. His creatinine was elevated at 1.8. His troponin was negative. I feel he needs to be admitted. I called Dr Nj and he agreed to the admission. Departure - Departure Time of Disposition: 00:10 Disposition: Admitted As Inpatient 65 Condition: Fair Clinical Impression: Subdural hematoma, History of CVA (cerebrovascular accident), Mild dehydration Fall Qualifiers: Encounter type: initial encounter Qualified Code(s): W19.XXXA - Unspecified fall, initial encounter - Discharge Information - My Orders Last 24 Hours: My Active Orders 04/12/17 20:13 Sodium Chloride 0.9% [Saline Flush] 10 ml FLUSH ASDIRECTED PRN Peripheral IV Insertion Adult [OM.PC] Stat 04/12/17 20:14 Forearm 2V Lt [CR] Stat Head wo Cont [CT] Stat 04/12/17 20:15 Sodium Chloride 0.9% [Normal Saline] 1,000 ml IV .BOLUS 04/12/17 21:00 UA W/MICROSCOPIC [URIN] Stat - Assessment/Plan Last 24 Hours: My Active Orders 04/12/17 20:13 Sodium Chloride 0.9% [Saline Flush] 10 ml FLUSH ASDIRECTED PRN Peripheral IV Insertion Adult [OM.PC] Stat 04/12/17 20:14 Forearm 2V Lt [CR] Stat Head wo Cont [CT] Stat 04/12/17 20:15 Sodium Chloride 0.9% [Normal Saline] 1,000 ml IV .BOLUS 04/12/17 21:00 UA W/MICROSCOPIC [URIN] Stat
[2017-04-12] MEDS ORDERED: Polyethylene Glycol 3350 Powder 17 GM Packet PO PRN (22:46)
[2017-04-12] MEDS ORDERED: Albuterol/Ipratropium 3.0-0.5 MG/3 ML Neb Soln NEB PRN (22:46)
[2017-04-12] MEDS ORDERED: Metoprolol Tartrate 5 MG/5 ML SDV IVPUSH PRN (22:50)
[2017-04-12] MEDS ORDERED: hydrALAZINE 20 MG/ML SDV IVPUSH PRN (22:50)
--- NOTE | 2017-04-12 22:54 | PCM.HP ---
H&P History of Present Illness - General Date of Service: 04/12/17 Admit Problem/Dx: Admission Diagnosis/Problem Admission Diagnosis/Problem Subdural hematoma Source of Information: Patient, Old Records, Provider, RN, RN Notes Reviewed, Other (friend ) History Limitations: Reports: No Limitations - History of Present Illness Initial Comments - Free Text/Narative: Juan Jose Layton is a 62 yo male, who is well-known to the service, who presents to our ED today after a fall. He reportedly got weak and fell, hitting the back of his head on the ground but denies loss of consciousness. He denies a headache. He is on Xarelto for chronic A. fib and has a history of CVA with left-sided arm weakness. He does use a cane and walker to get around. He cannot get off the floor and called neighbor to come help. He denies neck pain , chest pain, shortness of breath, and abdominal pain. He did vomit when EMS came to pick him up and they gave him Zofran 4 mg through IV. On ED arrival temp is 99.7. Pulse 76. Respirations 20. BP 124/84. Pulse ox 92%. 12-lead EKG was obtained which shows atrial fibrillation. There is very minimal ST elevation in the anterior leads. Labs are obtained: 30 mL 4.01. Hemoglobin low at 9.3. Hematocrit 28.0. He is macrocytic. Pulses are low 118, 000. Neutrophil is her elevated at 84.9%. Sodium was low at 133. Potassium normal at 4.7. Chloride 101. From an accident low at 20. Anion gap high at 16.7. BUN 29. Creatinine 1.8. EGFR is 38. Glucose is 111. Calcium 8.6. Total bilirubin 0.4. AST is 36, ALT 40, alkaline phosphatase 65. Troponin was negative at 0.035. Albumin was low 1.3. UA is pending. CT is obtained and interpreted by Christian as "acute subdural hematoma layering along the falx cerebri measuring 1 mm in maximal thickness. Age-related involutional changes and chronic microvascular ischemic disease are noted. Chronic infarct involving the inferior right cerebellum. Chronic infarct involving the right varma radiata extending into the basal ganglia. No evidence for acute transcortical infarct. No mass effect or midline shift. No acute intraparenchymal hemorrhage. The basal cisterns are patent. He is given a 1 L fluid bolus. 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 fib, essential hypertension, cervical disc disorder with myelopathy of the cervicothoracic region, gout, HLD, bilateral carotid artery disease, chronic renal impairment- stage III, anxiety, depression, social phobia with difficulty leaving house, urinary retention with catheter removal 1 week ago, anemia, and mitral valve sclerosis. He is a former smoker. His subsequent admitted to the medical floor. He is a DNR\\DNI. His PCP is Dr. Frost at [facility] in [place]. - Related Data Allergies/Adverse Reactions: Allergies Allergy/AdvReac Type Severity Reaction Status Date / Time No Known Allergies Allergy Verified 04/02/17 02:42 Home Medications: Home Meds Allopurinol [Zyloprim] 100 mg PO DAILY 08/24/16 [History] Citalopram Hydrobromide [Celexa] 20 mg PO DAILY 08/24/16 [History] Docusate Sodium [Colace] 100 mg PO BEDTIME 08/24/16 [History] Losartan [Cozaar] 50 mg PO DAILY 08/24/16 [History] traZODone HCl [Trazodone HCl] 100 mg PO BEDTIME 08/24/16 [History] Aspirin [Ecotrin] 81 mg PO DAILY 03/22/17 [History] Fish Oil/[place]-3 Fatty Acids [Fish Oil 1,000 MG] 1,000 mg PO DAILY 03/22/17 [ History] LORazepam [Ativan] 1 mg PO TID PRN 03/22/17 [History] Baclofen 10 mg PO BID 03/24/17 [History] Bethanechol [Urecholine] 25 mg PO TID 04/12/17 [History] Meclizine [Antivert] 0 mg PO ASDIRECTED PRN 04/12/17 [History] Rivaroxaban [Xarelto] 0 mg PO DAILY 04/12/17 [History] Rosuvastatin [Crestor] 20 mg PO DAILY 04/12/17 [History] Tamsulosin [Flomax] 0.4 mg PO DAILY 04/12/17 [History] amLODIPine Besylate [Norvasc] 2.5 mg PO DAILY 04/12/17 [History] Past Medical History HEENT History: Reports: Cataract Cardiovascular History: Reports: Afib, High Cholesterol, Hypertension Respiratory History: Reports: Asthma Gastrointestinal History: Reports: Other (See Below) Other Gastrointestinal History: recent issues with constipation Genitourinary History: Reports: Chronic Renal Insuffiency, Retention, Urinary Other Genitourinary History: cath removed about 1 week ago- Musculoskeletal History: Reports: None Neurological History: Reports: CVA, Other (See Below) Other Neuro History: stroke in 2012 Psychiatric History: Reports: Anxiety, Depression Endocrine/Metabolic History: Reports: Diabetes, Type II Hematologic History: Reports: Blood Transfusion(s) Immunologic History: Reports: None Dermatologic History: Reports: None - Infectious Disease History Infectious Disease History: Reports: Measles - Past Surgical History HEENT Surgical History: Reports: Cataract Surgery, Tonsillectomy Cardiovascular Surgical History: Reports: None Respiratory Surgical History: Reports: None GI Surgical History: Reports: Hernia, Abdominal, Other (See Below) Other GI Surgeries/Procedures: sx when born Male Surgical History: Reports: None Neurological Surgical History: Reports: Other (See Below) Other Neurological Surgeries/Procedures: cyst removed on spine;sx to go through spinal canal to clean out cervical spinal stenosis Musculoskeletal Surgical History: Reports: Other (See Below) Other Musculoskeletal Surgeries/Procedures:: cyst on back removed Dermatological Surgical History: Reports: None Social & Family History - Family History Family Medical History: Noncontributory Cardiac: Reports: MS Oncologic: Reports: Colon, Liver - Tobacco Use Smoking Status *Q: Unknown Ever Smoked Years of Tobacco use: 2 Used Tobacco, but Quit: Yes Month Tobacco Last Used: quit 1979 Second Hand Smoke Exposure: No - Caffeine Use Caffeine Use: Reports: Coffee - Alcohol Use Number of Drinks Per Day: 1 - Recreational Drug Use Recreational Drug Use: No - Living Situation & Occupation Living situation: Reports: Single Occupation: Disabled H&P Review of Systems - Review of Systems: Review Of Systems: See Below General: Reports: Weakness. Denies: Fever, Chills, Malaise, Fatigue, Night Sweats, Diaphoresis HEENT: Reports: No Symptoms. Denies: Dysphasia, Ear Pain, Eye Pain, Glasses, Rhinitis, Sore Throat, Vertigo Pulmonary: Reports: No Symptoms. Denies: Shortness of Breath, Wheezing, Pleuritic Chest Pain, Cough, Sputum Cardiovascular: Reports: Lightheadedness. Denies: Chest Pain, Palpitations, Dyspnea on Exertion, Edema Gastrointestinal: Reports: Constipation (chronic ), Vomiting (on ambulance arrival, none in ED ). Denies: Abdominal Pain, Diarrhea, Hematemesis, Hematochezia, Melena, Nausea Genitourinary: Reports: No Symptoms. Denies: Dysuria, Frequency, Burning, Pain , Urgency Musculoskeletal: Reports: No Symptoms, Arm Pain (left elbow with some ecchymosis ). Denies: Neck Pain, Shoulder Pain Skin: Reports: No Symptoms Psychiatric: Reports: No Symptoms Neurological: Reports: Dizziness, Pre-Existing Deficit (left sided weakness, spasticity ), Difficulty Walking, Weakness, Gait Disturbance. Denies: Confusion , Numbness, Tingling, Trouble Speaking, Change in Speech Hematologic/Lymphatic: Reports: No Symptoms Immunologic: Reports: No Symptoms Exam - Exam Exam: See Below - Vital Signs Vital Signs: Last Vital Signs Temp 99.7 F 04/12/17 19:58 Pulse 76 04/12/17 19:58 Resp 20 04/12/17 19:58 BP 124/84 04/12/17 19:58 Pulse Ox 92 L 04/12/17 19:58 Weight: 171 lb - Exam General: Alert, Oriented, Cooperative. No: Mild Distress HEENT: PERRLA, Hearing Intact, Mucosa Moist & [place], Nares Patent, Normal Nasal Septum, Posterior Pharynx Clear, Conjunctiva Clear, EOMI, EACs Clear, TMs Clear Neck: Supple, Trachea Midline. No: JVD, Thyromegaly Lungs: Clear to Auscultation, Normal Respiratory Effort Cardiovascular: Regular Rate, Irregular Rhythm GI/Abdominal Exam: Normal Bowel Sounds, Soft, Non-Tender, No Organomegaly, No Distention, No Abnormal Bruit, No Mass, Pelvis Stable (Male) Exam: Deferred Rectal (Males) Exam: Deferred Back Exam: Normal Inspection, Full Range of Motion Extremities: Normal Inspection, Normal Range of Motion, Non-Tender, No Pedal Edema, Normal Capillary Refill Peripheral Pulses: 2+: Radial (L), Radial (R), Posterior Tibial (L), Posterior Tibial (R), Dorsalis Pedis (L), Dorsalis Pedis (R) Skin: Warm, Dry, Intact, Ecchymosis (left elbow ) Neurological: Cranial Nerves Intact (grossly), Normal Speech, Sensation Intact. No: Strength Equal Bilateral (chronic left sided weakness ) Neuro Extensive - Mental Status: Alert, Oriented x3, Normal Mood/Affect, Normal Cognition, Memory Intact Neuro Extensive - Motor, Sensory, Reflexes: CN II-XII Intact (grossly ), Abnormal Gait. No: Tongue Deviation (L), Tongue Deviation (R), Receptive Aphasia, Expressive Aphasia, Total Aphasia, Facial palsy (L), Facial Palsy (R) Psychiatric: Alert, Normal Affect, Anxious - Patient Data Result Diagrams: 04/12/17 20:25 04/12/17 20:25 *Q Meaningful Use (ADM) - VTE *Q VTE Criteria *Q: - Stroke *Q Stroke Criteria *Q: - AMI *Q AMI Criteria *Q: - Problem List (1) Subdural hematoma SNOMED Code(s): 98036142 ICD Code: I62.00 - NONTRAUMATIC SUBDURAL HEMORRHAGE, UNSPECIFIED Status: Acute Priority: High Current Visit: Yes (2) Anemia SNOMED Code(s): 030136390 ICD Code: D64.9 - ANEMIA, UNSPECIFIED Status: Acute Priority: Medium Current Visit: Yes Qualifiers: Anemia type: iron deficiency Iron deficiency anemia type: unspecified iron deficiency Qualified Code(s): D50.9 - Iron deficiency anemia, unspecified (3) History of CVA (cerebrovascular accident) SNOMED Code(s): 944005320 ICD Code: Z86.73 - PRSNL HX OF TIA (TIA), AND CEREB INFRC W/O RESID DEFICITS Status: Chronic Priority: Medium Current Visit: Yes (4) Atrial fibrillation SNOMED Code(s): 93573073 ICD Code: I48.91 - UNSPECIFIED ATRIAL FIBRILLATION Status: Chronic Priority: Medium Current Visit: Yes Qualifiers: Atrial fibrillation type: paroxysmal Qualified Code(s): I48.0 - Paroxysmal atrial fibrillation (5) Congestive heart failure SNOMED Code(s): 56775950 ICD Code: I50.9 - HEART FAILURE, UNSPECIFIED Status: Chronic Priority: Medium Current Visit: No Qualifiers: Congestive heart failure type: unspecified congestive heart failure type Congestive heart failure chronicity: chronic Qualified Code(s): I50.9 - Heart failure, unspecified (6) Generalized anxiety disorder SNOMED Code(s): 62918875 ICD Code: F41.1 - GENERALIZED ANXIETY DISORDER Status: Chronic Priority: Medium Current Visit: Yes (7) Weakness SNOMED Code(s): 98727461 ICD Code: R53.1 - WEAKNESS Status: Acute Priority: Medium Current Visit : Yes (8) Chronic renal insufficiency, stage III (moderate) SNOMED Code(s): 389819387 ICD Code: N18.3 - CHRONIC KIDNEY DISEASE, STAGE 3 (MODERATE) Status: Chronic Priority: Medium Current Visit: No (9) Gait difficulty SNOMED Code(s): 21362379 ICD Code: R26.9 - UNSPECIFIED ABNORMALITIES OF GAIT AND MOBILITY Status: Chronic Priority: Medium Current Visit: No Problem List Initiated/Reviewed/Updated: Yes Orders Last 24hrs: Active Orders 24 hr Category Date Time Status Admission Status [Patient Status] [ADT] Routine ADT 04/12/17 22:44 Active Ambulate [RC] PER UNIT ROUTINE Care 04/12/17 22:46 Active Antiembolic Devices [RC] PER UNIT ROUTINE Care 04/12/17 22:47 Active Cardiac Monitoring [RC] CONTINUOUS Care 04/12/17 22:46 Active Height and Weight [RC] DAILY Care 04/12/17 22:46 Active Intake and Output [RC] QSHIFT Care 04/12/17 22:46 Active Neuro Check [RC] BID Care 04/12/17 22:49 Active Oxygen Therapy [RC] PRN Care 04/12/17 22:46 Active Pulse Oximetry [RC] PRN Care 04/12/17 22:46 Active RT Aerosol Therapy [RC] ASDIRECTED Care 04/12/17 22:47 Active Up With Assistance [RC] ASDIRECTED Care 04/12/17 22:46 Active VTE/DVT Education [RC] PER UNIT ROUTINE Care 04/12/17 22:46 Active Vital Signs [RC] Q4H Care 04/12/17 22:46 Active Consult to Case Management [CONS] Routine Cons 04/12/17 22:46 Active Consult to Dado Operator [CONS] Routine Cons 04/12/17 22:46 Active OT Evaluation and Treatment [CONS] Routine Cons 04/12/17 22:46 Active PT Evaluation and Treatment [CONS] Routine Cons 04/12/17 22:46 Active BASIC METABOLIC PANEL,BMP [CHEM] AM Lab 04/13/17 05:11 Ordered BASIC METABOLIC PANEL,BMP [CHEM] AM Lab 04/14/17 05:11 Ordered BASIC METABOLIC PANEL,BMP [CHEM] AM Lab 04/15/17 05:11 Ordered BASIC METABOLIC PANEL,BMP [CHEM] AM Lab 04/16/17 05:11 Ordered CBC WITH AUTO DIFF [HEME] AM Lab 04/13/17 05:11 Ordered CBC WITH AUTO DIFF [HEME] AM Lab 04/14/17 05:11 Ordered CBC WITH AUTO DIFF [HEME] AM Lab 04/15/17 05:11 Ordered CBC WITH AUTO DIFF [HEME] AM Lab 04/16/17 05:11 Ordered MAGNESIUM [CHEM] AM Lab 04/13/17 05:11 Ordered MAGNESIUM [CHEM] AM Lab 04/14/17 05:11 Ordered MAGNESIUM [CHEM] AM Lab 04/15/17 05:11 Ordered MAGNESIUM [CHEM] AM Lab 04/16/17 05:11 Ordered Acetaminophen [Tylenol] Med 04/12/17 22:46 Active 650 mg PO Q4H PRN Albuterol/Ipratropium [DuoNeb 3.0-0.5 MG/3 ML] Med 04/12/17 22:46 Active 3 ml NEB Q4H PRN Bisacodyl [Dulcolax] Med 04/12/17 22:46 Active 5 mg PO DAILY PRN Docusate Sodium [Colace] Med 04/12/17 22:46 Active 100 mg PO BID PRN Docusate Sodium/Sennosides [Senna Plus] Med 04/12/17 22:46 Active 1 tab PO BID PRN Magnesium Rep Pharmacy to Dose [Pharmacy to Dose - Med 04/12/17 23:00 Ordered Magnesium Replacement] 1 dose .XX ASDIRECTED Metoprolol Tartrate [Lopressor] Med 04/12/17 22:50 Ordered 5 mg IVPUSH Q4H PRN Ondansetron [Zofran ODT] Med 04/12/17 22:46 Active 4 mg PO Q6H PRN Ondansetron [Zofran] Med 04/12/17 22:46 Active 4 mg IV Q6H PRN Polyethylene Glycol 3350 [MiraLAX] Med 04/12/17 22:46 Active 17 gm PO DAILY PRN Potassium Rep Pharmacy to Dose [Pharmacy to Dose - Med 04/12/17 23:00 Ordered Potassium Replacement] 1 dose .XX ASDIRECTED hydrALAZINE [Apresoline] Med 04/12/17 22:50 Ordered 10 mg IVPUSH Q6H PRN Antiembolic Hose [OM.PC] Per Unit Routine Oth 04/12/17 22:46 Ordered Precautions [COMM] Routine Oth 04/12/17 22:49 Ordered Resuscitation Status Routine Resus Stat 04/12/17 22:46 Ordered Medication Orders Acetaminophen (Tylenol) 650 mg PO Q4H PRN PRN Reason: Pain (Mild 1-3)/fever Albuterol/Ipratropium (Duoneb 3.0-0.5 Mg/3 Ml) 3 ml NEB Q4H PRN PRN Reason: Shortness Of Breath/wheezing Bisacodyl (Dulcolax) 5 mg PO DAILY PRN PRN Reason: Constipation Docusate Sodium (Colace) 100 mg PO BID PRN PRN Reason: Constipation Hydralazine HCl (Apresoline) 10 mg IVPUSH Q6H PRN PRN Reason: Hypertension Sodium Chloride (Normal Saline) 1,000 mls @ 1,000 mls/hr IV .[facility] Last Admin: 04/12/17 20:24 Dose: 1,000 mls/hr Magnesium Sulfate (Pharmacy To Dose - Magnesium Replacement) 1 dose .XX ASDIRECTED [facility] Metoprolol Tartrate (Lopressor) 5 mg IVPUSH Q4H PRN PRN Reason: Tachycardia Ondansetron HCl (Zofran Odt) 4 mg PO Q6H PRN PRN Reason: nausea, able to take PO Ondansetron HCl (Zofran) 4 mg IV Q6H PRN PRN Reason: Nausea/Vomiting Polyethylene Glycol (Miralax) 17 gm PO DAILY PRN PRN Reason: Constipation Potassium Chloride (Pharmacy To Dose - Potassium Replacement) 1 dose .XX ASDIRECTED [facility] Senna/Docusate Sodium (Senna Plus) 1 tab PO BID PRN PRN Reason: Constipation Sodium Chloride (Saline Flush) 10 ml FLUSH ASDIRECTED PRN PRN Reason: Keep Vein Open Last Admin: 04/12/17 20:25 Dose: 10 ml Assessment/Plan Comment:: I/P: Acute: Subdural hematoma -Fell today hitting head -Vomited on EMS arrival, Denies nausea, headache, or blurred vison -C/o dizzyness and worsening weakness -Risk factors: Unsteady gait, on ASA and xarelto -CT on 04/12/16 - Layering along falx cerebri measuring 1mm maximal thickness -Repeat CT scan in 48 hrs -Neuro checks -Hold blood thinners for now -Monitor Generalized weakness -Acute on chronic -Likely contributed to fall as above -Chronic left sided spasticity and weakness -UA ordered -PT/OT -Has had difficulty with ADLs at home -Friend who assists him would like him placed -Was sent to rehabilitation after last hospitalization for 6 days in [place] -He is receptive to SNF placement or assisted living Questionable polypharmacy -Both patient and friend are concerned with recent lethargy and weakness -He has been placed on several new medications -Obtain accurate list of medications from pharmacy in AM -Pharmacy to review -Recommended f/u with PCP for overall health management Renal insufficienty -Acute on chronic (stage III) -BUN 29, creatinine 1.8, EGFR 38 -Appears worse than baseline -1L bolus given in ED -Fluids as needed -Monitor Anemia -Was anemic at last visit, slightly worse now -Hemoglobin 9.3, hematocrit 28.0 -No hematochezia, melena, hematocrit emesis, obvious bleeding -Monitor Chronic: A-fib HLD HTN [place] Constipation Heart Failure Stage III renal insufficiency Anxiety Depression CVA in 2013 Urinary retention - catheter removed 1 week ago Plan: Admit to medical floor on telemetry CM/SW for discharge planning; possible placement PT/OT Other orders as indicated above DVT/PE prophylaxis: PRAFUL hose and ambulation - hold blood thinners due to subdural bleed Home medications as ordered Routine AM labs Code status: DNR/DNI; PCP: Dr. Frost at [facility] here in [place]
[2017-04-13] MEDS ORDERED: Temazepam 15 MG Cap PO ONE (00:43)
[2017-04-13] MEDS ORDERED: LORazepam 2 MG/ML SDV IVPUSH ONE (00:44)
[2017-04-13] MEDS ORDERED: Temazepam 7.5 MG Cap PO ONE (01:08)
[2017-04-13] MEDS: Acetaminophen 325 MG Tab PO PRN ×2 (04:21→15:29)
--- NOTE | 2017-04-13 07:29 | CR ---
Left forearm: Two views of the left forearm were obtained. Comparison: No previous study. Vascular calcification is seen. No acute fracture or other bony abnormality is identified. Impression: 1. Incidental findings. No acute abnormality is appreciated on two-view left forearm study. Diagnostic code #2
--- NOTE | 2017-04-13 07:29 | CT ---
Head CT Technique: Multiple axial sections through the brain were obtained. Intravenous contrast was not utilized. Comparison: Prior head CT study of 04/02/17. Findings: Ventricles along with basal cisterns and sulci over the convexities are mildly prominent. Diminished density noted within portions of the periventricular and subcortical white matter compatible with small vessel ischemic demyelination change and small old areas of white matter infarct. Similar findings are noted within the basal ganglia. Atherosclerotic calcification is seen within the left vertebral vessel and carotid siphon. Very minimal thickening is seen along the interhemispheric falx compatible with a very minimal subdural hematoma with thickness of around 1-2 mm. No other intracranial hemorrhage is seen. Bone window settings were reviewed which show minimal mucosal thickening within the ethmoid sinuses which is incidental. No acute calvarial abnormality is identified. Impression: 1. Minimal thickening of the interhemispheric falx compatible with very minimal subdural hematoma measuring 1-2 mm in thickness. This is an interval change from previous study. 2. Senescent change as described above. No additional intracranial hemorrhage is seen. Diagnostic code #3 Agree with preliminary report issued by [facility] ([facility] preliminary report dictated on 04/12/17, 10:08 PM Central Time)
--- NOTE | 2017-04-13 08:12 | PCM.PN ---
- General Info Date of Service: 04/13/17 Admission Dx/Problem (Free Text): Admission Diagnosis/Problem Admission Diagnosis/Problem Subdural hematoma Subjective Update: Follow Up Functional Status: Reports: Pain Controlled, Tolerating Diet, Urinating. Denies : New Symptoms - Review of Systems General: Reports: Weakness. Denies: Fever, Chills HEENT: Reports: No Symptoms Pulmonary: Denies: Hemoptysis Gastrointestinal: Denies: Abdominal Pain, Difficulty Swallowing, Nausea Genitourinary: Reports: No Symptoms Musculoskeletal: Reports: No Symptoms Skin: Denies: Jaundice, Mottled, Pallor, Diaphoresis Neurological: Reports: Weakness. Denies: Confusion, Difficulty Walking, Gait Disturbance Psychiatric: Reports: Anxiety. Denies: Depression, Mood Lability, Agitation, Hallucinations Systems Review Comment:: Patient had a very rough night. He was anxious, restless and exhibiting involuntary movements (flailing arms/legs). These kept him up mostly at night. His nurse reports repeated calls overnight requesting something to "knock him out" but refused to take restoril along with low dose ativan for sleep initiation and maintenance. This morning he reports of visual hallucinations. He sees spiders each time he closes his eyes. Patient is comfortable in bed and in no acute distress. He admits no suicidal ideation. His vitals are stable. - Patient Data Vitals - Most Recent: Last Vital Signs Temp 37.1 C 04/13/17 03:24 Pulse 111 H 04/13/17 03:24 Resp 18 04/13/17 03:24 BP 117/68 04/13/17 03:24 Pulse Ox 95 04/13/17 03:24 Weight - Most Recent: 87.271 kg I&O - Last 24 Hours: Intake & Output 04/12/17 04/13/17 04/13/17 22:59 06:59 14:59 Intake Total 50 Balance 50 Lab Results Last 24 Hours: Laboratory Results - last 24 hr 04/13/17 04/13/17 Range/Units 06:00 06:00 WBC 2.16 L* (4.23-9.07) K/mm3 RBC 3.01 L (4.63-6.08) M/mm3 Hgb 9.0 L (13.7-17.5) gm/L Hct 28.2 L (40.1-51.0) % MCV 93.7 H (79.0-92.2) fl MCH 29.9 (25.7-32.2) pg MCHC 31.9 L (32.2-35.5) g/dl RDW Std Deviation 43.2 (35.1-43.9) fL Plt Count 111 L (163-337) K/mm3 MPV 9.5 (9.4-12.3) fl Neut % (Auto) 72.6 H (34.0-67.9) % Lymph % (Auto) 10.2 L (21.8-53.1) % [place] % (Auto) 16.2 H (5.3-12.2) % Eos % (Auto) 0.5 L (0.8-7.0) Baso % (Auto) 0.5 (0.1-1.2) % Neut # (Auto) 1.57 L (1.78-5.38) K/mm3 Lymph # (Auto) 0.22 L (1.32-3.57) K/mm3 [place] # (Auto) 0.35 (0.30-0.82) K/mm3 Eos # (Auto) 0.01 L (0.04-0.54) K/mm3 Baso # (Auto) 0.01 (0.01-0.08) K/mm3 Manual Slide Review Abnormal smear Sodium 135 L (136-145) mEq/L Potassium 4.7 (3.5-5.1) mEq/L Chloride 103 (98-107) mEq/L Carbon Dioxide 23 (21-32) mEq/L Anion Gap 13.7 (5-15) BUN 27 H (7-18) mg/dL Creatinine 1.8 H (0.7-1.3) mg/dL Est Cr Clr Drug Dosing 46.10 mL/min Estimated GFR (MDRD) 38 (>60) mL/min BUN/Creatinine Ratio 15.0 (14-18) Glucose 81 (80-115) mg/dL Calcium 8.9 (8.5-10.1) mg/dL Magnesium 2.1 (1.8-2.4) mg/dl Med Orders - Current: Current Medications Acetaminophen (Tylenol) 650 mg PO Q4H PRN PRN Reason: Pain (Mild 1-3)/fever Last Admin: 04/13/17 04:21 Dose: 650 mg Albuterol/Ipratropium (Duoneb 3.0-0.5 Mg/3 Ml) 3 ml NEB Q4H PRN PRN Reason: Shortness Of Breath/wheezing Bisacodyl (Dulcolax) 5 mg PO DAILY PRN PRN Reason: Constipation Docusate Sodium (Colace) 100 mg PO BID PRN PRN Reason: Constipation Hydralazine HCl (Apresoline) 10 mg IVPUSH Q6H PRN PRN Reason: Hypertension Influenza Virus Vaccine (Flulaval Quad [id number]) 60 mcg IM .ONCE ONE Stop: 04/13/17 10:01 Magnesium Sulfate (Pharmacy To Dose - Magnesium Replacement) 0 dose .XX ASDIRECTED PRN PRN Reason: RX TO WATCH MAG LEVELS Metoprolol Tartrate (Lopressor) 5 mg IVPUSH Q4H PRN PRN Reason: Tachycardia Ondansetron HCl (Zofran Odt) 4 mg PO Q6H PRN PRN Reason: nausea, able to take PO Ondansetron HCl (Zofran) 4 mg IV Q6H PRN PRN Reason: Nausea/Vomiting Polyethylene Glycol (Miralax) 17 gm PO DAILY PRN PRN Reason: Constipation Potassium Chloride (Pharmacy To Dose - Potassium Replacement) 0 dose .XX ASDIRECTED PRN PRN Reason: RX TO WATCH K LEVELS Senna/Docusate Sodium (Senna Plus) 1 tab PO BID PRN PRN Reason: Constipation Sodium Chloride (Saline Flush) 10 ml FLUSH ASDIRECTED PRN PRN Reason: Keep Vein Open Last Admin: 04/12/17 20:25 Dose: 10 ml Discontinued Medications Sodium Chloride (Normal Saline) 1,000 mls @ 1,000 mls/hr IV .BOLUS ILYA Last Admin: 04/12/17 20:24 Dose: 1,000 mls/hr Influenza Virus Vaccine (Pharmacy To Dose - Influenza Vaccine) 1 each IM ONETIME ONE Stop: 04/12/17 23:45 Lorazepam (Ativan) 0.5 mg IVPUSH ONETIME ONE Stop: 04/13/17 00:45 Last Admin: 04/13/17 01:01 Dose: 0.5 mg Temazepam (Restoril) 7.5 mg PO ONETIME ONE Stop: 04/13/17 00:44 Last Admin: 04/13/17 01:11 Dose: Not Given Temazepam (Restoril) 7.5 mg PO ONETIME ONE Stop: 04/13/17 01:09 Last Admin: 04/13/17 04:22 Dose: Not Given - Exam General: Alert, Oriented, Cooperative, No Acute Distress HEENT: Pupils Equal, Pupils Reactive, EOMI, Mucous Membr. Moist/[place] Neck: Supple, Trachea Midline Lungs: Clear to Auscultation, Normal Respiratory Effort Cardiovascular: Irregular Rhythm GI/Abdominal Exam: Normal Bowel Sounds, Soft, Non-Tender, No Organomegaly, No Distention, No Abnormal Bruit, No Mass (Male) Exam: Deferred Back Exam: Normal Inspection, Decreased Range of Motion Extremities: Normal Inspection, Normal Range of Motion, Non-Tender, No Pedal Edema, Normal Capillary Refill Peripheral Pulses: 2+: Dorsalis Pedis (L), Dorsalis Pedis (R) Skin: Warm, Dry, Intact Neurological: No New Focal Deficit, Other (Baseline left sided weakness). No: Normal Gait Psy/Mental Status: Alert, Normal Affect, Normal Mood. No: Anxious, Agitated, Suicidal Ideation, Withdrawal Symptoms - Problem List Review Problem List Initiated/Reviewed/Updated: Yes - My Orders Last 24 Hours: My Active Orders 04/13/17 10:00 FLU Vacc [id number](6MOS UP)/PF [Flulaval Quad [id number]] 60 mcg IM .ONCE ONE - Plan Plan:: I/P: Acute: Subdural Hematoma, Stable -Fell today hitting head -Vomited on EMS arrival, Denies nausea, headache, or blurred vison -C/o dizzyness and worsening weakness -Risk factors: Unsteady Gait, on Blood thinners (on ASA and xarelto), Multiple Sedating and Anti-cholinergic drugs -Home Meds as noted on ED notes: Trazodone 100 mg po Daily, Ativan 1 mg po TID PRN , Antivert ? mg po PRN, and Baclofen 10 mg po BID (All meds cause memory impairment or affect level of alertness); Bethanichol recently added to his regimen (has anti-cholinergic effects) -CT on 04/12/16 - Layering along falx cerebri measuring 1mm maximal thickness -Repeat CT scan Monday -Routine Neuro checks -Hold blood thinners for now; may restart after repeat CT scan -Continue to monitor Generalized Weakness -Acute on chronic -Likely contributed to fall as above -Chronic left sided spasticity and weakness -UA negative -Continue PT/OT -Has had difficulty with ADLs at home -Friend who assists him would like him placed -Was sent to rehabilitation after last hospitalization for 6 days in [place] -He is receptive to SNF placement or assisted living Polypharmacy -Both patient and friend are concerned with recent lethargy and weakness -He has been placed on several new medications -Obtain accurate list of medications from pharmacy in AM -Pharmacy to review -Recommended f/u with PCP for overall health management Anemia -Was anemic at last visit, slightly worse now -Hemoglobin 9.3, hematocrit 28.0; baseline Hgb level is 10 -No hematochezia, melena, hematocrit emesis, obvious bleeding -Monitor Depression with Visual Hallucinations -Acute on Chronic -He takes Celexa 20 mg po daily -His symptom is aggravated by his current situational status; he felt like nobody is willing to help him figure out his complaints -Patient was informed on his last visit to see a Neurology in [place] but it never happened. -Dr Vallecillo consult for further eval Chronic: A-fib HR slow RVR HLD HTN Asthma Constipation Heart Failure Stage III renal insufficiency Anxiety Depression CVA in 2013 Urinary retention - catheter removed 1 week ago Plan: He is other frey clinically stable Continue current treatment Continue PT/OT Routine AM labs High Fall Risk Precautions Other orders as indicated above DVT/PE prophylaxis: PRAFUL hose and ambulation - hold blood thinners due to subdural bleed Code status: DNR/DNI; PCP: Dr. Chang at [facility] here in [facility] consult for d/c placement Spoke to him personally with charge nurse on beside. We offered NH placement for now until he's seen and further evaluation by a Neurology for his recurrent weakness associated with dizziness/vertigo +/-visuall hallucination.
[2017-04-13] MEDS: Ondansetron 4 MG Tab.DIS PO PRN (08:59)
[2017-04-13] MEDS ORDERED: FLU Vacc QS 2017-18 (6mos UP)/PF 60 MCG/0.5 ML Syringe IM ONE (10:00)
[2017-04-13] MEDS ORDERED: Metoprolol Tartrate 5 MG/5 ML SDV IVPUSH PRN (12:56)
[2017-04-13] MEDS: Baclofen 10 MG Tab PO SCH ×3 (13:23→21:02)
[2017-04-13] MEDS: traZODone 50 MG Tab PO SCH (21:03)
[2017-04-13] MEDS: Tamsulosin 0.4 MG Cap.ER PO SCH (21:21)
[2017-04-14] MEDS: Ferrous Sulfate 325 MG Tab PO SCH (09:00)
[2017-04-14] MEDS: Baclofen 10 MG Tab PO SCH ×4 (09:00→20:30)
[2017-04-14] MEDS: Allopurinol 100 MG Tab PO SCH (09:00)
[2017-04-14] MEDS: Multivitamins,Therapeutic Tab PO SCH (09:00)
[2017-04-14] MEDS: Tamsulosin 0.4 MG Cap.ER PO SCH ×2 (09:00→20:32)
[2017-04-14] MEDS: Citalopram 20 MG Tab PO SCH (09:00)
[2017-04-14] MEDS ORDERED: Losartan 100 MG Tab PO SCH (09:00)
[2017-04-14] MEDS: Cholecalciferol (Vitamin D3) 1,000 Unit Tab PO SCH (09:00)
[2017-04-14] MEDS: risperiDONE 0.5 MG Tab PO SCH ×2 (09:00→20:31)
[2017-04-14] MEDS ORDERED: amLODIPine 2.5 MG Tab PO SCH (09:00)
[2017-04-14] MEDS: Fish Oil/Omega-3 Fatty Acids 1 Gm Cap PO SCH (09:01)
[2017-04-14] MEDS: Rosuvastatin 10 MG Tab PO SCH (09:01)
[2017-04-14] MEDS: Acetaminophen 325 MG Tab PO PRN (09:58)
--- NOTE | 2017-04-14 10:47 | CR ---
Chest: Two views of the chest were obtained. Comparison: Previous chest x-ray of 03/22/17. Heart size appears within normal limits. Tortuous thoracic aorta is seen. No definite abnormal densities are seen within the lungs. Bony structures appear within normal limits for the patient's age. Air-filled bowel is seen interposed between liver and diaphragm which is a normal variant. Impression: 1. Nothing acute is seen on two-view chest x-ray. Diagnostic code #2
[2017-04-14] MEDS ORDERED: Sodium Chloride 0.9% 250 ML ONE (13:29)
[2017-04-14] MEDS ORDERED: Sodium Chloride 0.9% 250 ML IV ONE (13:31)
--- NOTE | 2017-04-14 14:38 | CONS ---
CONSULTING PHYSICIAN: Ihsan Vallecillo MD DATE OF CONSULTATION: 04/14/2017 This is a 60-minute inpatient clinical event. IDENTIFICATION: The patient is a 62-year-old male who was admitted to the [facility] in [place], [place] on 04/12/2017. He is seen for psychiatric evaluation. CHIEF COMPLAINT: "I fell down, was dizzy, and I could not get up again, and the ambulance had to come get me." HISTORY OF PRESENT ILLNESS: The patient is a 62-year-old male who reports that he has been struggling with CVA episodes over the past 5 years. He states that "I had a stroke back in 2012" and I had been doing well until 2017, when he had an episode of dizziness and weakness back in August of 2016, then he had been doing well and then most recently he became very weak and dizzy, and had to come to the hospital. On admission, workup is revealing a small bleed or infarct, according to staff report. The patient is being assessed now because staff does report he has a history of anxiety, depression, and social phobia. For his part, the patient is stating that "they put me on Celexa and trazodone after my first stroke back in 2012." He states that he was not really depressed. They just did "as a matter of routine" and he cannot really tell whether the medications made a difference in his mood because "I have never really been depressed." He does not report any anxiety. He states that one thing that the medication has definitely helped him was in particular trazodone "I cannot sleep without it." He states the trazodone "put me out" in a positive way. He would like to continue the Celexa and the trazodone medications going forward now. He states he is a little worried about things, but just about the uncertainty of his situation, but again he does states prior to his admission, his mood have been good, he has been working out, and staying active in the community. He states the main issue now is he has been experiencing some visual hallucinations. He has had a few episodes in the unit since he came in and he also notes "I am dizzy," quite a bit of the time noting "the room just seems like it keeps spinning around." He denies any olfactory, tactile, or auditory hallucinations. He denies any paranoia. He would not mind he having slept and that help get rid of the visual hallucinosis and the dizziness if possible. He states he has been drinking a lot of water since they discontinued the IV and that might be making him more dizzy now because he states in the community "I do tend to stay up on drinking water" during the day. He denies any illicit substance use or excessive alcohol use complicating his clinical picture. He does have a history of high cholesterol that runs in his family. MEDICATIONS: At the time of admission: 1. Celexa 20 mg q. day. 2. Trazodone 100 mg at bedtime, which have been continued in the unit. ALLERGIES: No known drug allergies. PAST MEDICAL HISTORY: 1. Status post stroke in 2012. 2. Status post CVA in August of 2016. 3. History of atrial fibrillation. 4. History of high cholesterol. 5. History of hypertension. 6. History of gout. REVIEW OF SYSTEMS: Aside from neurological, cardiovascular, immune, and endocrine, all other major organ systems are negative at this point in time for acute difficulties or complications. FAMILY PSYCHIATRIC AND CD HISTORY: Essentially negative. The patient denies any previous psychiatric hospitalizations or chemical dependency treatment. He reports no previous suicide attempts, self-injurious behaviors, or eating disorder history. He is a nontobacco user. He states he has not had any prior psychiatric medications except for the Celexa and trazodone he is taking now, and his outpatient primary care provider, Dr. Farhat Head, and manages his Celexa and trazodone. SOCIAL HISTORY: The patient was born and raised in [place], [place]. 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 He has never been , not involved in any current relationships. He does not have any children. He lives by himself in [place], [place] after moving to [place] from the [place] area "after my first stroke" being near the medical resources. The patient denies any prior service or any current legal difficulties. He is Restorationist in terms of his chela formation. He enjoys working out when he is able to. MENTAL STATUS EXAM: The patient is a 62-year-old white male in no apparent distress. Speech is of regular rate and rhythm. The patient is cognitively oriented. Psychomotor activity is within normal limits. There are no abnormal motor movements or tics observed. Gait and station are not observed. This patient is bedbound during the course of the consult. Mood is frustrated and "a little worried." Affect is cooperative overall for the purposes of the inpatient consult. There is no behavioral or stated evidence of acute suicidal or homicidal ideation. Thought content is significant for some visual hallucinosis. Thought processes are significant for some racing thoughts and ruminations, but are organized overall. There are no acute manic symptoms, loose associations evident. Judgment and insight are unimpaired at this point in time. Motivation for help is good. VITAL SIGNS: 127/72, 69, 18, and 98.4 degrees. IMPRESSION: [place] I. 1. Psychosis, not otherwise specified, F29. 2. Depression, not otherwise specified, F32.9. 3. Anxiety disorder, not otherwise specified, F410.9. 4. Rule out major depressive disorder. [place] II: None. [place] III: 1. Status post cerebrovascular accident with this being second episode within the past year. 2. Status post stroke in 2012. 3. History of high cholesterol. 4. History of atrial fibrillation. 5. History of hypertension. 6. History of gout. [place] IV: Severe. [place] V: 50 to 55. PLAN: 1. Pastoral guidance. 2. Recommend beginning a trial of Risperdal 0.5 mg at bedtime to help with eliminating patient's visual hallucinosis and dizziness. 3. Continue Celexa 20 mg q. day for symptoms of depression. 4. Continue trazodone 100 mg at bedtime for symptoms of depression and sleep initiation and maintenance. 5. The patient is instructed to maintain good hydration status. 6. Other medications as dosed and prescribed by the patient's primary inpatient medical treatment team. 7. We will continue follow up with the patient on an as-needed basis while he remains in the inpatient medical unit. 8. We will follow up with the patient or sooner if any complications in the interim. 9. The patient apprised of the benefits and side effects of his newly initiated and adjusted psychiatric medication regimen. He acknowledges understanding of these facts and he had no further questions by the end of the interview session. 10.Crisis plan is in place. ISAEL /[id number]
--- NOTE | 2017-04-14 15:41 | PCM.PN ---
- General Info Date of Service: 04/14/17 Functional Status: Reports: Pain Controlled - Review of Systems General: Reports: Weakness HEENT: Reports: No Symptoms Pulmonary: Reports: No Symptoms Cardiovascular: Reports: No Symptoms Gastrointestinal: Reports: No Symptoms Genitourinary: Reports: No Symptoms Musculoskeletal: Reports: No Symptoms Skin: Reports: No Symptoms Neurological: Reports: Dizziness Psychiatric: Reports: Depression - Patient Data Vitals - Most Recent: Last Vital Signs Temp 37.8 C 04/14/17 13:04 Pulse 60 04/14/17 13:04 Resp 20 04/14/17 13:04 BP 82/48 L 04/14/17 13:04 Pulse Ox 95 04/14/17 13:04 Weight - Most Recent: 87.271 kg I&O - Last 24 Hours: Intake & Output 04/14/17 04/14/17 04/14/17 06:59 14:59 22:59 Intake Total 200 240 Output Total 1550 Balance -1350 240 Lab Results Last 24 Hours: Laboratory Results - last 24 hr 04/14/17 04/14/17 04/14/17 Range/Units 06:10 06:10 10:32 WBC 3.38 L (4.23-9.07) K/mm3 RBC 3.23 L (4.63-6.08) M/mm3 Hgb 9.8 L (13.7-17.5) gm/L Hct 30.4 L (40.1-51.0) % MCV 94.1 H (79.0-92.2) fl MCH 30.3 (25.7-32.2) pg MCHC 32.2 (32.2-35.5) g/dl RDW Std Deviation 44.7 H (35.1-43.9) fL Plt Count 113 L (163-337) K/mm3 MPV 9.3 L (9.4-12.3) fl Neut % (Auto) 79.9 H (34.0-67.9) % Lymph % (Auto) 8.3 L (21.8-53.1) % [place] % (Auto) 10.9 (5.3-12.2) % Eos % (Auto) 0.3 L (0.8-7.0) Baso % (Auto) 0.3 (0.1-1.2) % Neut # (Auto) 2.70 (1.78-5.38) K/mm3 Lymph # (Auto) 0.28 L (1.32-3.57) K/mm3 [place] # (Auto) 0.37 (0.30-0.82) K/mm3 Eos # (Auto) 0.01 L (0.04-0.54) K/mm3 Baso # (Auto) 0.01 (0.01-0.08) K/mm3 Manual Slide Review Abnormal smear Sodium 138 (136-145) mEq/L Potassium 4.7 (3.5-5.1) mEq/L Chloride 106 (98-107) mEq/L Carbon Dioxide 22 (21-32) mEq/L Anion Gap 14.7 (5-15) BUN 30 H (7-18) mg/dL Creatinine 1.7 H (0.7-1.3) mg/dL Est Cr Clr Drug Dosing 48.82 mL/min Estimated GFR (MDRD) 41 (>60) mL/min BUN/Creatinine Ratio 17.6 (14-18) Glucose 77 L (80-115) mg/dL Lactic Acid 1.6 (0.4-2.0) mmol/L Calcium 8.6 (8.5-10.1) mg/dL Magnesium 1.9 (1.8-2.4) mg/dl Med Orders - Current: Current Medications Acetaminophen (Tylenol) 650 mg PO Q4H PRN PRN Reason: Pain (Mild 1-3)/fever Last Admin: 04/14/17 09:58 Dose: 650 mg Albuterol/Ipratropium (Duoneb 3.0-0.5 Mg/3 Ml) 3 ml NEB Q4H PRN PRN Reason: Shortness Of Breath/wheezing Allopurinol (Zyloprim) 100 mg PO DAILY [facility] Last Admin: 04/14/17 09:00 Dose: 100 mg Amlodipine Besylate (Norvasc) 2.5 mg PO DAILY [facility] Last Admin: 04/14/17 09:00 Dose: 2.5 mg Baclofen (Lioresal) 30 mg PO QID [facility] Last Admin: 04/14/17 13:39 Dose: 30 mg Bethanechol Chloride (Urecholine) 25 mg PO TID [facility] Last Admin: 04/14/17 15:08 Dose: 25 mg Bisacodyl (Dulcolax) 5 mg PO DAILY PRN PRN Reason: Constipation Cholecalciferol (Vitamin D3) 1,000 units PO DAILY [facility] Last Admin: 04/14/17 09:00 Dose: 1,000 units Citalopram Hydrobromide (Celexa) 20 mg PO DAILY [facility] Last Admin: 04/14/17 09:00 Dose: 20 mg Docusate Sodium (Colace) 100 mg PO BID PRN PRN Reason: Constipation Ferrous Sulfate (Ferrous Sulfate) 325 mg PO DAILY [facility] Last Admin: 04/14/17 09:00 Dose: 325 mg Fish Oil (Fish Oil) 1 gm PO DAILY [facility] Last Admin: 04/14/17 09:01 Dose: 1 gm Hydralazine HCl (Apresoline) 10 mg IVPUSH Q6H PRN PRN Reason: Hypertension Last Admin: 04/13/17 12:08 Dose: 10 mg Hydralazine HCl (Apresoline) 20 mg IVPUSH Q4H PRN PRN Reason: Hypertension Lorazepam (Ativan) 0.5 mg IVPUSH Q4H PRN; Protocol PRN Reason: Anxiety Losartan Potassium (Cozaar) 50 mg PO DAILY [facility] Last Admin: 04/14/17 09:01 Dose: 50 mg Metoprolol Tartrate (Lopressor) 5 mg IVPUSH Q4H PRN PRN Reason: Tachycardia Metoprolol Tartrate (Lopressor) 5 mg IVPUSH Q4H PRN PRN Reason: Tachycardia Multivitamins (Thera) 1 each PO DAILY [facility] Last Admin: 04/14/17 09:00 Dose: 1 each Ondansetron HCl (Zofran Odt) 4 mg PO Q6H PRN PRN Reason: nausea, able to take PO Last Admin: 04/13/17 08:59 Dose: 4 mg Ondansetron HCl (Zofran) 4 mg IV Q6H PRN PRN Reason: Nausea/Vomiting Polyethylene Glycol (Miralax) 17 gm PO DAILY PRN PRN Reason: Constipation Risperidone (Risperidal) 0.5 mg PO BEDTIME [facility] Last Admin: 04/14/17 09:00 Dose: 0.5 mg Rosuvastatin Calcium (Crestor) 40 mg PO DAILY [facility] Last Admin: 04/14/17 09:01 Dose: 40 mg Senna/Docusate Sodium (Senna Plus) 1 tab PO BID PRN PRN Reason: Constipation Sodium Chloride (Saline Flush) 10 ml FLUSH ASDIRECTED PRN PRN Reason: Keep Vein Open Last Admin: 04/12/17 20:25 Dose: 10 ml Tamsulosin HCl (Flomax) 0.4 mg PO BID [facility] Last Admin: 04/14/17 09:00 Dose: 0.4 mg Trazodone HCl (Trazodone) 100 mg PO BEDTIME [facility] Last Admin: 04/13/17 21:03 Dose: 100 mg Discontinued Medications Sodium Chloride (Normal Saline) 1,000 mls @ 1,000 mls/hr IV .BOLUS [facility] Last Admin: 04/12/17 20:24 Dose: 1,000 mls/hr Sodium Chloride (Normal Saline) 250 mls @ 999 mls/hr IV ONETIME ONE Stop: 04/14/17 13:46 Last Admin: 04/14/17 13:38 Dose: 999 mls/hr Sodium Chloride (Normal Saline) Confirm Administered Dose 250 mls @ as directed .ROUTE .STK-MED ONE Stop: 04/14/17 13:30 Last Admin: 04/14/17 13:38 Dose: Not Given Influenza Virus Vaccine (Pharmacy To Dose - Influenza Vaccine) 1 each IM ONETIME ONE Stop: 04/12/17 23:45 Influenza Virus Vaccine (Flulaval Quad [id number]) 60 mcg IM .ONCE ONE Stop: 04/13/17 10:01 Lorazepam (Ativan) 0.5 mg IVPUSH ONETIME ONE Stop: 04/13/17 00:45 Last Admin: 04/13/17 01:01 Dose: 0.5 mg Magnesium Sulfate (Pharmacy To Dose - Magnesium Replacement) 0 dose .XX ASDIRECTED PRN PRN Reason: RX TO WATCH MAG LEVELS Magnesium Sulfate (Pharmacy To Dose - Magnesium Replacement) 1 dose .XX ASDIRECTED [facility] Potassium Chloride (Pharmacy To Dose - Potassium Replacement) 0 dose .XX ASDIRECTED PRN PRN Reason: RX TO WATCH K LEVELS Potassium Chloride (Pharmacy To Dose - Potassium Replacement) 1 dose .XX ASDIRECTED [facility] Temazepam (Restoril) 7.5 mg PO ONETIME ONE Stop: 04/13/17 00:44 Last Admin: 04/13/17 01:11 Dose: Not Given Temazepam (Restoril) 7.5 mg PO ONETIME ONE Stop: 04/13/17 01:09 Last Admin: 04/13/17 04:22 Dose: Not Given - Exam Quality Assessment: DVT Prophylaxis General: Alert, Oriented, No Acute Distress HEENT: Pupils Equal, Pupils Reactive, EOMI Neck: Supple, Trachea Midline Lungs: Normal Respiratory Effort Cardiovascular: Regular Rate GI/Abdominal Exam: Normal Bowel Sounds, Soft, Non-Tender, No Organomegaly, No Distention (Male) Exam: Deferred Back Exam: Normal Inspection Extremities: Normal Inspection Skin: Warm Neurological: No New Focal Deficit Psy/Mental Status: Alert - Problem List Review Problem List Initiated/Reviewed/Updated: Yes - Plan Plan:: I/P: Acute: Subdural Hematoma, Stable -Fell today hitting head -Vomited on EMS arrival, Denies nausea, headache, or blurred vison -C/o dizzyness and worsening weakness -Risk factors: Unsteady Gait, on Blood thinners (on ASA and xarelto), Multiple Sedating and Anti-cholinergic drugs -Home Meds as noted on ED notes: Trazodone 100 mg po Daily, Ativan 1 mg po TID PRN , Antivert ? mg po PRN, and Baclofen 10 mg po BID (All meds cause memory impairment or affect level of alertness); Bethanichol recently added to his regimen (has anti-cholinergic effects) -CT on 04/12/16 - Layering along falx cerebri measuring 1mm maximal thickness -Repeat CT scan Monday AM -Routine Neuro checks -Hold blood thinners for now; may restart after repeat CT scan -Continue to monitor Generalized Weakness -Acute on chronic -Likely contributed to fall as above -Chronic left sided spasticity and weakness -UA negative -Continue PT/OT -Has had difficulty with ADLs at home -Friend who assists him would like him placed -Was sent to rehabilitation after last hospitalization for 6 days in [place] -He is receptive to SNF placement or assisted living Polypharmacy -Both patient and friend are concerned with recent lethargy and weakness -He has been placed on several new medications -Obtain accurate list of medications from pharmacy in AM -Pharmacy to review -Recommended f/u with PCP for overall health management Anemia -Was anemic at last visit, slightly worse now -Hemoglobin 9.3, hematocrit 28.0; baseline Hgb level is 10 -No hematochezia, melena, hematocrit emesis, obvious bleeding -Monitor Depression -Acute on Chronic -He takes Celexa 20 mg po daily -His symptom is aggravated by his current situational status; he felt like nobody is willing to help him figure out his complaints -Patient was informed on his last visit to see a Neurology in [place] but it never happened. Psychosis, NOS -start risperdal 0.5 mg daily Insomnia-Trazadone, home dose Anxiety-Ativan IV prn Subdural hematoma s/p fall; Xarelto for A Fib currently held Urinary retention, follow PV residual Chronic: A-fib HR slow RVR HLD HTN Asthma Constipation Heart Failure Stage III renal insufficiency Anxiety Depression CVA in 2013 Urinary retention - catheter removed 1 week ago Plan: He is other frey clinically stable Continue current treatment Continue PT/OT Routine AM labs High Fall Risk Precautions Other orders as indicated above DVT/PE prophylaxis: PRAFUL hose and ambulation -consider SCds Repeat CT of head w/o contrast Code status: DNR/DNI; PCP: Dr. Chang at [facility] here in [facility] consult for d/c placement Spoke to him personally with charge nurse on beside. We offered NH placement for now until he's seen and further evaluation by a Neurology for his recurrent weakness associated with dizziness/vertigo +/-visuall hallucination. LOS>96 hours with resolving subdural hematoma with AMS resolving slowly
[2017-04-14] MEDS: traZODone 50 MG Tab PO SCH (20:24)
[2017-04-15] MEDS: Ondansetron 4 MG Tab.DIS PO PRN ×2 (02:45→22:51)
[2017-04-15] MEDS: Ferrous Sulfate 325 MG Tab PO SCH (10:12)
[2017-04-15] MEDS: Baclofen 10 MG Tab PO SCH ×4 (10:12→21:38)
[2017-04-15] MEDS: Fish Oil/Omega-3 Fatty Acids 1 Gm Cap PO SCH (10:12)
[2017-04-15] MEDS: Tamsulosin 0.4 MG Cap.ER PO SCH ×2 (10:12→21:35)
[2017-04-15] MEDS: Cholecalciferol (Vitamin D3) 1,000 Unit Tab PO SCH (10:13)
[2017-04-15] MEDS: Multivitamins,Therapeutic Tab PO SCH (10:14)
[2017-04-15] MEDS: Allopurinol 100 MG Tab PO SCH (10:14)
[2017-04-15] MEDS: Docusate Sodium 100 MG Cap PO PRN (10:14)
[2017-04-15] MEDS: Citalopram 20 MG Tab PO SCH (10:14)
[2017-04-15] MEDS: Rosuvastatin 10 MG Tab PO SCH ×2 (10:16→21:30)
--- NOTE | 2017-04-15 10:58 | CT ---
Head CT Technique: Multiple axial sections through the brain were obtained. Intravenous contrast was not utilized. Comparison: Prior head CT exam of 04/12/17. Findings: Previously noted small subdural hematoma along the interhemispheric falx has diminished in prominence. No new areas of intracranial hemorrhage are seen. Ventricles along with basal cisterns and sulci over convexities are mildly prominent. Diminished density is noted within portions of this periventricular white matter and subcortical white matter as well as portions of the basal ganglia compatible with small vessel ischemic demyelination change. Old area of white matter infarct noted within the right basal ganglia extending into the varma radiata. No other abnormal parenchymal densities are seen. Atherosclerotic calcification is seen within the vertebral vessels and within the carotid siphon. Bone window settings were reviewed which shows no acute calvarial abnormality. Minimal mucosal thickening is noted within the ethmoid sinuses which is felt to be incidental. Impression: 1. Almost complete resolution of previously small subdural hematoma along the interhemispheric falx. 2. Stable senescent change as noted above. Nothing acute is seen. Diagnostic code #2
[2017-04-15] MEDS ORDERED: cefTRIAXone 2 GM in Sodium Chloride 0.9% 100 ML IV SCH (12:00)
[2017-04-15] MEDS: Losartan 100 MG Tab PO SCH (12:01)
[2017-04-15] MEDS: LORazepam 2 MG/ML SDV IVPUSH PRN ×2 (12:02→23:12)
[2017-04-15] MEDS ORDERED: Dextrose 5%-0.9% NaCl 1,000 ML IV SCH (14:15)
[2017-04-15] MEDS ORDERED: Lidocaine 2% Jelly 10 ML Urojet MUCMEM ONE ×2 (14:26→14:56)
--- NOTE | 2017-04-15 14:49 | PCM.PN ---
- General Info Date of Service: 04/15/17 Functional Status: Reports: Tolerating Diet, Ambulating, Urinating - Review of Systems General: Reports: Malaise HEENT: Reports: No Symptoms Pulmonary: Reports: No Symptoms Cardiovascular: Reports: No Symptoms Gastrointestinal: Reports: No Symptoms Genitourinary: Reports: No Symptoms Musculoskeletal: Reports: No Symptoms Skin: Reports: No Symptoms Neurological: Reports: No Symptoms Psychiatric: Reports: No Symptoms - Patient Data Vitals - Most Recent: Last Vital Signs Temp 36.4 C 04/15/17 12:03 Pulse 73 04/15/17 12:03 Resp 16 04/15/17 12:03 BP 121/75 04/15/17 12:01 Pulse Ox 97 04/15/17 12:03 Weight - Most Recent: 87.271 kg I&O - Last 24 Hours: Intake & Output 04/14/17 04/15/17 04/15/17 22:59 06:59 14:59 Intake Total 1180 50 Output Total 850 1150 Balance 330 -1100 Lab Results Last 24 Hours: Laboratory Results - last 24 hr 04/15/17 04/15/17 04/15/17 Range/Units 05:00 06:25 06:25 WBC 2.26 L* (4.23-9.07) K/mm3 RBC 3.17 L (4.63-6.08) M/mm3 Hgb 9.6 L (13.7-17.5) gm/L Hct 30.2 L (40.1-51.0) % MCV 95.3 H (79.0-92.2) fl MCH 30.3 (25.7-32.2) pg MCHC 31.8 L (32.2-35.5) g/dl RDW Std Deviation 46.0 H (35.1-43.9) fL Plt Count 91 L (163-337) K/mm3 MPV 9.3 L (9.4-12.3) fl Neut % (Auto) 77.0 H (34.0-67.9) % Lymph % (Auto) 14.2 L (21.8-53.1) % [place] % (Auto) 8.4 (5.3-12.2) % Eos % (Auto) 0.4 L (0.8-7.0) Baso % (Auto) 0.0 L (0.1-1.2) % Neut # (Auto) 1.74 L (1.78-5.38) K/mm3 Lymph # (Auto) 0.32 L (1.32-3.57) K/mm3 [place] # (Auto) 0.19 L (0.30-0.82) K/mm3 Eos # (Auto) 0.01 L (0.04-0.54) K/mm3 Baso # (Auto) 0.00 L (0.01-0.08) K/mm3 Manual Slide Review Abnormal smear Sodium 141 (136-145) mEq/L Potassium 4.6 (3.5-5.1) mEq/L Chloride 109 H (98-107) mEq/L Carbon Dioxide 25 (21-32) mEq/L Anion Gap 11.6 (5-15) BUN 37 H (7-18) mg/dL Creatinine 1.8 H (0.7-1.3) mg/dL Est Cr Clr Drug Dosing 46.10 mL/min Estimated GFR (MDRD) 38 (>60) mL/min BUN/Creatinine Ratio 20.6 H (14-18) Glucose 99 (80-115) mg/dL Calcium 8.4 L (8.5-10.1) mg/dL Magnesium 2.1 (1.8-2.4) mg/dl Urine Color Yellow (Yellow) Urine Appearance Slt cloudy H (Clear) Urine pH 6.0 (5.0-8.0) Ur Specific [place] 1.025 (1.005-1.030) Urine Protein 2+ H (Negative) Urine Glucose (UA) Negative (Negative) Urine Ketones Negative (Negative) Urine Occult Blood 1+ H (Negative) Urine Nitrite Positive H (Negative) Urine Bilirubin Negative (Negative) Urine Urobilinogen 0.2 (0.2-1.0) Ur Leukocyte Esterase Negative (Negative) Urine RBC 0-5 (0-5) /hpf Urine WBC 0-5 (0-5) /hpf Ur Epithelial Cells Not seen (0-5) /hpf Urine Bacteria Few (FEW) /hpf Urine Mucus Not seen (FEW) /hpf Gino Results Last 24 Hours: Microbiology 04/15/17 12:10 Influenza Type A Antigen Screen - Final Nasopharyngeal Swab - Nare, Left Positive Influenza A Ag Influenza Type B Antigen Screen - Final NEGATIVE INFLUENZA B VIRUS AG 04/14/17 10:32 Aerobic Blood Culture - Preliminary Blood - Venous NO GROWTH AFTER 1 DAY Anaerobic Blood Culture - Preliminary NO GROWTH AFTER 1 DAY 04/14/17 10:32 Aerobic Blood Culture - Preliminary Blood - Venous - Lab Draw NO GROWTH AFTER 1 DAY Anaerobic Blood Culture - Preliminary NO GROWTH AFTER 1 DAY Med Orders - Current: Current Medications Acetaminophen (Tylenol) 650 mg PO Q4H PRN PRN Reason: Pain (Mild 1-3)/fever Last Admin: 04/14/17 09:58 Dose: 650 mg Albuterol/Ipratropium (Duoneb 3.0-0.5 Mg/3 Ml) 3 ml NEB Q4H PRN PRN Reason: Shortness Of Breath/wheezing Allopurinol (Zyloprim) 100 mg PO DAILY [facility] Last Admin: 04/15/17 10:14 Dose: 100 mg Amlodipine Besylate (Norvasc) 2.5 mg PO BEDTIME [facility] Baclofen (Lioresal) 30 mg PO QID [facility] Last Admin: 04/15/17 12:41 Dose: 30 mg Bethanechol Chloride (Urecholine) 25 mg PO TID [facility] Last Admin: 04/15/17 10:13 Dose: 25 mg Bisacodyl (Dulcolax) 5 mg PO DAILY PRN PRN Reason: Constipation Cholecalciferol (Vitamin D3) 1,000 units PO DAILY [facility] Last Admin: 04/15/17 10:13 Dose: 1,000 units Citalopram Hydrobromide (Celexa) 20 mg PO DAILY [facility] Last Admin: 04/15/17 10:14 Dose: 20 mg Docusate Sodium (Colace) 100 mg PO BID PRN PRN Reason: Constipation Last Admin: 04/15/17 10:14 Dose: 100 mg Ferrous Sulfate (Ferrous Sulfate) 325 mg PO DAILY [facility] Last Admin: 04/15/17 10:12 Dose: 325 mg Fish Oil (Fish Oil) 1 gm PO DAILY [facility] Last Admin: 04/15/17 10:12 Dose: 1 gm Hydralazine HCl (Apresoline) 10 mg IVPUSH Q6H PRN PRN Reason: Hypertension Last Admin: 04/13/17 12:08 Dose: 10 mg Hydralazine HCl (Apresoline) 20 mg IVPUSH Q4H PRN PRN Reason: Hypertension Ceftriaxone Sodium 2 gm/ (Dextrose/Water) 100 mls @ 200 mls/hr IV Q24H [facility] Last Admin: 04/15/17 12:41 Dose: 200 mls/hr Dextrose/Sodium Chloride (Dextrose 5%-Normal Saline) 1,000 mls @ 100 mls/hr IV ASDIRECTED [facility] Lorazepam (Ativan) 0.5 mg IVPUSH Q4H PRN; Protocol PRN Reason: Anxiety Last Admin: 04/15/17 12:02 Dose: 0.5 mg Losartan Potassium (Cozaar) 50 mg PO DAILY@1200 [facility] Last Admin: 04/15/17 12:01 Dose: 50 mg Metoprolol Tartrate (Lopressor) 5 mg IVPUSH Q4H PRN PRN Reason: Tachycardia Metoprolol Tartrate (Lopressor) 5 mg IVPUSH Q4H PRN PRN Reason: Tachycardia Multivitamins (Thera) 1 each PO DAILY [facility] Last Admin: 04/15/17 10:14 Dose: 1 each Ondansetron HCl (Zofran Odt) 4 mg PO Q6H PRN PRN Reason: nausea, able to take PO Last Admin: 04/15/17 02:45 Dose: 4 mg Ondansetron HCl (Zofran) 4 mg IV Q6H PRN PRN Reason: Nausea/Vomiting Oseltamivir Phosphate (Tamiflu) 30 mg PO DAILY [facility] Polyethylene Glycol (Miralax) 17 gm PO DAILY PRN PRN Reason: Constipation Risperidone (Risperidal) 0.5 mg PO DAILY@1900 [facility] Rosuvastatin Calcium (Crestor) 40 mg PO BEDTIME [facility] Senna/Docusate Sodium (Senna Plus) 1 tab PO BID PRN PRN Reason: Constipation Sodium Chloride (Saline Flush) 10 ml FLUSH ASDIRECTED PRN PRN Reason: Keep Vein Open Last Admin: 04/12/17 20:25 Dose: 10 ml Tamsulosin HCl (Flomax) 0.4 mg PO BID [facility] Last Admin: 04/15/17 10:12 Dose: 0.4 mg Trazodone HCl (Trazodone) 100 mg PO BEDTIME [facility] Last Admin: 04/14/17 20:24 Dose: 100 mg Discontinued Medications Amlodipine Besylate (Norvasc) 2.5 mg PO DAILY [facility] Last Admin: 04/14/17 09:00 Dose: 2.5 mg Sodium Chloride (Normal Saline) 1,000 mls @ 1,000 mls/hr IV .BOLUS [facility] Last Admin: 04/12/17 20:24 Dose: 1,000 mls/hr Sodium Chloride (Normal Saline) 250 mls @ 999 mls/hr IV ONETIME ONE Stop: 04/14/17 13:46 Last Admin: 04/14/17 13:38 Dose: 999 mls/hr Sodium Chloride (Normal Saline) Confirm Administered Dose 250 mls @ as directed .ROUTE .STK-MED ONE Stop: 04/14/17 13:30 Last Admin: 04/14/17 13:38 Dose: Not Given Ceftriaxone Sodium 2 gm/ (Sodium Chloride) 100 mls @ 200 mls/hr IV Q24H [facility] Influenza Virus Vaccine (Pharmacy To Dose - Influenza Vaccine) 1 each IM ONETIME ONE Stop: 04/12/17 23:45 Influenza Virus Vaccine (Flulaval Quad [id number]) 60 mcg IM .ONCE ONE Stop: 04/13/17 10:01 Lidocaine HCl (Xylocaine 2% Jelly) 10 ml MUCMEM STAT ONE Stop: 04/15/17 14:27 Lorazepam (Ativan) 0.5 mg IVPUSH ONETIME ONE Stop: 04/13/17 00:45 Last Admin: 04/13/17 01:01 Dose: 0.5 mg Losartan Potassium (Cozaar) 50 mg PO DAILY [facility] Last Admin: 04/14/17 09:01 Dose: 50 mg Magnesium Sulfate (Pharmacy To Dose - Magnesium Replacement) 0 dose .XX ASDIRECTED PRN PRN Reason: RX TO WATCH MAG LEVELS Magnesium Sulfate (Pharmacy To Dose - Magnesium Replacement) 1 dose .XX ASDIRECTED [facility] Potassium Chloride (Pharmacy To Dose - Potassium Replacement) 0 dose .XX ASDIRECTED PRN PRN Reason: RX TO WATCH K LEVELS Potassium Chloride (Pharmacy To Dose - Potassium Replacement) 1 dose .XX ASDIRECTED [facility] Risperidone (Risperidal) 0.5 mg PO BEDTIME [facility] Last Admin: 04/14/17 20:31 Dose: 0.5 mg Risperidone (Risperidal) 0.25 mg PO DAILY@1900 [facility] Rosuvastatin Calcium (Crestor) 40 mg PO DAILY [facility] Last Admin: 04/15/17 10:16 Dose: Not Given Temazepam (Restoril) 7.5 mg PO ONETIME ONE Stop: 04/13/17 00:44 Last Admin: 04/13/17 01:11 Dose: Not Given Temazepam (Restoril) 7.5 mg PO ONETIME ONE Stop: 04/13/17 01:09 Last Admin: 04/13/17 04:22 Dose: Not Given - Exam Quality Assessment: Supplemental Oxygen, DVT Prophylaxis General: Alert, Oriented, No Acute Distress HEENT: Pupils Equal, Pupils Reactive, EOMI Neck: Trachea Midline, No JVD Lungs: Normal Respiratory Effort Cardiovascular: Regular Rate, Regular Rhythm GI/Abdominal Exam: Normal Bowel Sounds, Soft, Non-Tender, No Organomegaly, No Distention (Male) Exam: Deferred Back Exam: Normal Inspection Extremities: Normal Inspection Skin: Warm Neurological: No New Focal Deficit Psy/Mental Status: Alert, Anxious - Problem List Review Problem List Initiated/Reviewed/Updated: Yes - My Orders Last 24 Hours: My Active Orders 04/15/17 05:20 Bladder Scan [RC] ONETIME 04/15/17 11:05 Communication Order [RC] QSHIFT 04/15/17 12:00 Losartan [Cozaar] 50 mg PO DAILY@1200 cefTRIAXone [Rocephin] 2 gm Dextrose 5% in Water 100 ml IV Q24H 04/15/17 14:15 Dextrose 5%-0.9% NaCl [Dextrose 5%-Normal Saline] 1,000 ml IV ASDIRECTED Oseltamivir [Tamiflu] 30 mg PO DAILY 04/15/17 18:00 MYCOPLASMA PNEUMONIAE IGM AB [CHEM] Routine 04/15/17 19:00 risperiDONE [RisperiDAL] 0.5 mg PO DAILY@1900 04/15/17 21:00 amLODIPine [Norvasc] 2.5 mg PO BEDTIME 04/16/17 05:00 CRP [C-REACTIVE PROTEIN] [CHEM] DAILY FOLIC ACID [CHEM] Routine RAPID PLASMA REAGIN,RPR [CHEM] Routine TSH [CHEM] Routine VITAMIN B12 [CHEM] Routine 04/17/17 05:00 CRP [C-REACTIVE PROTEIN] [CHEM] DAILY 04/18/17 05:00 CRP [C-REACTIVE PROTEIN] [CHEM] DAILY 04/19/17 05:00 CRP [C-REACTIVE PROTEIN] [CHEM] DAILY - Plan Plan:: I/P: Acute: Subdural Hematoma, Stable -Fell today hitting head -Vomited on EMS arrival, Denies nausea, headache, or blurred vison -C/o dizzyness and worsening weakness -Risk factors: Unsteady Gait, on Blood thinners (on ASA and xarelto), Multiple Sedating and Anti-cholinergic drugs -Home Meds as noted on ED notes: Trazodone 100 mg po Daily, Ativan 1 mg po TID PRN , Antivert ? mg po PRN, and Baclofen 10 mg po BID (All meds cause memory impairment or affect level of alertness); Bethanichol recently added to his regimen (has anti-cholinergic effects) -CT on 04/12/16 - Layering along falx cerebri measuring 1mm maximal thickness -Repeat CT scan Monday AM -Routine Neuro checks -Hold blood thinners for now; may restart after repeat CT scan -Continue to monitor AUTI started on Rocephin Influenza A positive started on Tamiflu AUTI--Rocephin Leukopenia--->query infectious cause cf result Generalized Weakness -Acute on chronic -Likely contributed to fall as above -Chronic left sided spasticity and weakness -UA negative -Continue PT/OT -Has had difficulty with ADLs at home -Friend who assists him would like him placed -Was sent to rehabilitation after last hospitalization for 6 days in [place] -He is receptive to SNF placement or assisted living Polypharmacy -Both patient and friend are concerned with recent lethargy and weakness -He has been placed on several new medications -Obtain accurate list of medications from pharmacy in AM -Pharmacy to review -Recommended f/u with PCP for overall health management Anemia -Was anemic at last visit, slightly worse now -Hemoglobin 9.3, hematocrit 28.0; baseline Hgb level is 10 -No hematochezia, melena, hematocrit emesis, obvious bleeding -Monitor Depression -Acute on Chronic -He takes Celexa 20 mg po daily -His symptom is aggravated by his current situational status; he felt like nobody is willing to help him figure out his complaints -Patient was informed on his last visit to see a Neurology in [place] but it never happened. Psychosis, NOS -start risperdal 0.5 mg daily Insomnia-Trazadone, home dose Anxiety-Ativan IV prn Subdural hematoma s/p fall; Xarelto for A Fib currently held Urinary retention, follow PV residual; unable to pass straight cath, will place maldonado Chronic: A-fib HR slow RVR HLD HTN Asthma Constipation Heart Failure Stage III renal insufficiency Anxiety Depression CVA in 2013 Plan: He is other frey clinically stable Continue current treatment Continue PT/OT Routine AM labs High Fall Risk Precautions Other orders as indicated above DVT/PE prophylaxis: PRAFUL hose and ambulation -consider SCds Repeat CT of head w/o contrast Code status: DNR/DNI; PCP: Dr. Chang at [facility] here in [facility] consult for d/c placement Spoke to him personally with charge nurse on beside. We offered NH placement for now until he's seen and further evaluation by a Neurology for his recurrent weakness associated with dizziness/vertigo +/-visuall hallucination. LOS>96 hours with resolving subdural hematoma with AMS resolving slowly
[2017-04-15] MEDS: Oseltamivir 30 MG Cap PO SCH (14:59)
[2017-04-15] MEDS: risperiDONE 0.5 MG Tab PO SCH (18:40)
[2017-04-15] MEDS ORDERED: risperiDONE 0.25 MG Tab PO SCH (19:00)
[2017-04-15] MEDS: amLODIPine 5 MG Tab PO SCH (21:36)
[2017-04-15] MEDS: traZODone 50 MG Tab PO SCH (21:36)
[2017-04-16] MEDS: LORazepam 2 MG/ML SDV IVPUSH PRN ×2 (01:25→05:26)
[2017-04-16] MEDS: Sodium Chloride 0.45% 1,000 ML IV SCH ×3 (01:34→23:40)
[2017-04-16] MEDS: Ondansetron 4 MG/2 ML SDV IV PRN ×2 (05:48→23:24)
[2017-04-16] MEDS ORDERED: Haloperidol Lactate 5 MG/ML SDV IM PRN (09:24)
--- NOTE | 2017-04-16 10:00 | CT ---
Head CT Technique: Multiple axial sections through the brain were obtained. Intravenous contrast was not utilized. Comparison: Prior head CT study of 04/15/17. Findings: Ventricles along with basal cisterns and sulci over the convexities are mildly prominent. No acute intracranial hemorrhage is seen. 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 Atherosclerotic calcification is seen within the carotid siphon and within the left vertebral vessel. Mild mucosal thickening is seen within the ethmoid sinuses which is stable. No acute calvarial abnormality is seen. Impression: 1. Stable head CT study. Nothing acute is appreciated on noncontrast head CT exam. Diagnostic code #2
[2017-04-16] MEDS: Citalopram 20 MG Tab PO SCH (12:11)
[2017-04-16] MEDS: Baclofen 10 MG Tab PO SCH ×4 (12:11→21:46)
[2017-04-16] MEDS: Tamsulosin 0.4 MG Cap.ER PO SCH ×2 (12:12→21:43)
[2017-04-16] MEDS: Multivitamins,Therapeutic Tab PO SCH (12:12)
[2017-04-16] MEDS: Oseltamivir 30 MG Cap PO SCH ×3 (12:12→21:42)
[2017-04-16] MEDS: Losartan 100 MG Tab PO SCH (12:12)
[2017-04-16] MEDS: Fish Oil/Omega-3 Fatty Acids 1 Gm Cap PO SCH (12:13)
[2017-04-16] MEDS: Cholecalciferol (Vitamin D3) 1,000 Unit Tab PO SCH (12:13)
[2017-04-16] MEDS: Allopurinol 100 MG Tab PO SCH (12:13)
[2017-04-16] MEDS: Ferrous Sulfate 325 MG Tab PO SCH (12:14)
[2017-04-16] MEDS ORDERED: Albuterol 0.083% 2.5 MG/3 ML Neb Soln NEB PRN (12:29)
--- NOTE | 2017-04-16 12:59 | PCM.PN ---
- General Info Date of Service: 04/16/17 Functional Status: Reports: Pain Controlled, Urinating - Review of Systems General: Reports: Weakness, Malaise HEENT: Reports: No Symptoms Pulmonary: Reports: No Symptoms Cardiovascular: Reports: No Symptoms Gastrointestinal: Reports: No Symptoms Genitourinary: Reports: No Symptoms Musculoskeletal: Reports: No Symptoms Skin: Reports: No Symptoms Neurological: Reports: No Symptoms Psychiatric: Reports: Other (agitation) - Patient Data Vitals - Most Recent: Last Vital Signs Temp 36.9 C 04/16/17 11:38 Pulse 63 04/16/17 11:38 Resp 17 04/16/17 11:38 BP 108/76 04/16/17 11:38 Pulse Ox 98 04/16/17 12:51 Weight - Most Recent: 86.364 kg I&O - Last 24 Hours: Intake & Output 04/15/17 04/16/17 04/16/17 22:59 06:59 14:59 Intake Total 1040 800 Output Total 1000 900 Balance 40 -100 Lab Results Last 24 Hours: Laboratory Results - last 24 hr 04/15/17 04/16/17 04/16/17 Range/Units 18:50 06:40 06:40 WBC 1.41 L* (4.23-9.07) K/mm3 RBC 2.86 L (4.63-6.08) M/mm3 Hgb 8.6 L (13.7-17.5) gm/L Hct 27.4 L (40.1-51.0) % MCV 95.8 H (79.0-92.2) fl MCH 30.1 (25.7-32.2) pg MCHC 31.4 L (32.2-35.5) g/dl RDW Std Deviation 45.2 H (35.1-43.9) fL Plt Count 107 L (163-337) K/mm3 MPV 9.4 (9.4-12.3) fl Neut % (Auto) 70.3 H (34.0-67.9) % Lymph % (Auto) 18.4 L (21.8-53.1) % [place] % (Auto) 8.5 (5.3-12.2) % Eos % (Auto) 2.8 (0.8-7.0) Baso % (Auto) 0.0 L (0.1-1.2) % Neut # (Auto) 0.99 L (1.78-5.38) K/mm3 Lymph # (Auto) 0.26 L (1.32-3.57) K/mm3 [place] # (Auto) 0.12 L (0.30-0.82) K/mm3 Eos # (Auto) 0.04 (0.04-0.54) K/mm3 Baso # (Auto) 0.00 L (0.01-0.08) K/mm3 Manual Slide Review Abnormal smear Sodium 142 (136-145) mEq/L Potassium 4.4 (3.5-5.1) mEq/L Chloride 111 H (98-107) mEq/L Carbon Dioxide 24 (21-32) mEq/L Anion Gap 11.4 (5-15) BUN 26 H (7-18) mg/dL Creatinine 1.5 H (0.7-1.3) mg/dL Est Cr Clr Drug Dosing 55.33 mL/min Estimated GFR (MDRD) 47 (>60) mL/min BUN/Creatinine Ratio 17.3 (14-18) Glucose 103 (80-115) mg/dL Calcium 8.2 L (8.5-10.1) mg/dL Magnesium 1.9 (1.8-2.4) mg/dl C-Reactive Protein (<1.0) mg/dL Triglycerides (<150) mg/dL Cholesterol (<200) mg/dL LDL Cholesterol Direct (<100) mg/dL HDL Cholesterol (40-59) mg/dL Vitamin B12 (193-986) pg/ml Folate (8.6-58.9) ng/mL TSH 3rd Generation (0.358-3.74) uIU/mL Mycoplasma pneumon IgM Negative (NEGATIVE) 04/16/17 04/16/17 Range/Units 06:40 06:40 WBC (4.23-9.07) K/mm3 RBC (4.63-6.08) M/mm3 Hgb (13.7-17.5) gm/L Hct (40.1-51.0) % MCV (79.0-92.2) fl MCH (25.7-32.2) pg MCHC (32.2-35.5) g/dl RDW Std Deviation (35.1-43.9) fL Plt Count (163-337) K/mm3 MPV (9.4-12.3) fl Neut % (Auto) (34.0-67.9) % Lymph % (Auto) (21.8-53.1) % [place] % (Auto) (5.3-12.2) % Eos % (Auto) (0.8-7.0) Baso % (Auto) (0.1-1.2) % Neut # (Auto) (1.78-5.38) K/mm3 Lymph # (Auto) (1.32-3.57) K/mm3 [place] # (Auto) (0.30-0.82) K/mm3 Eos # (Auto) (0.04-0.54) K/mm3 Baso # (Auto) (0.01-0.08) K/mm3 Manual Slide Review Sodium (136-145) mEq/L Potassium (3.5-5.1) mEq/L Chloride (98-107) mEq/L Carbon Dioxide (21-32) mEq/L Anion Gap (5-15) BUN (7-18) mg/dL Creatinine (0.7-1.3) mg/dL Est Cr Clr Drug Dosing mL/min Estimated GFR (MDRD) (>60) mL/min BUN/Creatinine Ratio (14-18) Glucose (80-115) mg/dL Calcium (8.5-10.1) mg/dL Magnesium (1.8-2.4) mg/dl C-Reactive Protein 3.7 H* (<1.0) mg/dL Triglycerides 38 (<150) mg/dL Cholesterol 72 (<200) mg/dL LDL Cholesterol Direct 21 (<100) mg/dL HDL Cholesterol 44.0 (40-59) mg/dL Vitamin B12 1391 H (193-986) pg/ml Folate 27.9 (8.6-58.9) ng/mL TSH 3rd Generation 2.804 (0.358-3.74) uIU/mL Mycoplasma pneumon IgM (NEGATIVE) Gino Results Last 24 Hours: Microbiology 04/14/17 10:32 Aerobic Blood Culture - Preliminary Blood - Venous NO GROWTH AFTER 2 DAYS Anaerobic Blood Culture - Preliminary NO GROWTH AFTER 2 DAYS 04/14/17 10:32 Aerobic Blood Culture - Preliminary Blood - Venous - Lab Draw NO GROWTH AFTER 2 DAYS Anaerobic Blood Culture - Preliminary NO GROWTH AFTER 2 DAYS 04/15/17 12:10 Influenza Type A Antigen Screen - Final Nasopharyngeal Swab - Nare, Left Positive Influenza A Ag Influenza Type B Antigen Screen - Final NEGATIVE INFLUENZA B VIRUS AG Med Orders - Current: Current Medications Acetaminophen (Tylenol) 650 mg PO Q4H PRN PRN Reason: Pain (Mild 1-3)/fever Last Admin: 04/14/17 09:58 Dose: 650 mg Albuterol (Proventil Neb Soln) 2.5 mg NEB Q4HRRT PRN PRN Reason: Wheezing/SOB Last Admin: 04/16/17 12:48 Dose: 2.5 mg Albuterol/Ipratropium (Duoneb 3.0-0.5 Mg/3 Ml) 3 ml NEB QIDRT [facility] Allopurinol (Zyloprim) 100 mg PO DAILY [facility] Last Admin: 04/16/17 12:13 Dose: Not Given Amlodipine Besylate (Norvasc) 2.5 mg PO BEDTIME [facility] Last Admin: 04/15/17 21:36 Dose: 2.5 mg Baclofen (Lioresal) 30 mg PO QID [facility] Last Admin: 04/16/17 12:27 Dose: Not Given Bethanechol Chloride (Urecholine) 25 mg PO TID [facility] Last Admin: 04/16/17 12:13 Dose: Not Given Bisacodyl (Dulcolax) 5 mg PO DAILY PRN PRN Reason: Constipation Cholecalciferol (Vitamin D3) 1,000 units PO DAILY [facility] Last Admin: 04/16/17 12:13 Dose: Not Given Citalopram Hydrobromide (Celexa) 20 mg PO DAILY [facility] Last Admin: 04/16/17 12:11 Dose: 20 mg Docusate Sodium (Colace) 100 mg PO BID PRN PRN Reason: Constipation Last Admin: 04/15/17 10:14 Dose: 100 mg Ferrous Sulfate (Ferrous Sulfate) 325 mg PO DAILY [facility] Last Admin: 04/16/17 12:14 Dose: Not Given Fish Oil (Fish Oil) 1 gm PO DAILY [facility] Last Admin: 04/16/17 12:13 Dose: Not Given Haloperidol Lactate (Haldol) 1 mg IM Q4H PRN PRN Reason: Anxiety Hydralazine HCl (Apresoline) 10 mg IVPUSH Q6H PRN PRN Reason: Hypertension Last Admin: 04/13/17 12:08 Dose: 10 mg Hydralazine HCl (Apresoline) 20 mg IVPUSH Q4H PRN PRN Reason: Hypertension Ceftriaxone Sodium 2 gm/ (Dextrose/Water) 100 mls @ 200 mls/hr IV Q24H [facility] Last Admin: 04/16/17 12:18 Dose: 200 mls/hr Sodium Chloride (Sodium Chloride 0.45%) 1,000 mls @ 100 mls/hr IV ASDIRECTED [facility] Last Admin: 04/16/17 12:17 Dose: 100 mls/hr Lorazepam (Ativan) 0.5 mg IVPUSH Q4H PRN PRN Reason: Anxiety Losartan Potassium (Cozaar) 50 mg PO DAILY@1200 [facility] Last Admin: 04/16/17 12:12 Dose: Not Given Metoprolol Tartrate (Lopressor) 5 mg IVPUSH Q4H PRN PRN Reason: Tachycardia Metoprolol Tartrate (Lopressor) 5 mg IVPUSH Q4H PRN PRN Reason: Tachycardia Multivitamins (Thera) 1 each PO DAILY [facility] Last Admin: 04/16/17 12:12 Dose: Not Given Ondansetron HCl (Zofran Odt) 4 mg PO Q6H PRN PRN Reason: nausea, able to take PO Last Admin: 04/15/17 22:51 Dose: 4 mg Ondansetron HCl (Zofran) 4 mg IV Q6H PRN PRN Reason: Nausea/Vomiting Last Admin: 04/16/17 05:48 Dose: 4 mg Oseltamivir Phosphate (Tamiflu) 30 mg PO BID [facility] Stop: 04/19/17 22:00 Last Admin: 04/16/17 12:12 Dose: 30 mg Polyethylene Glycol (Miralax) 17 gm PO DAILY PRN PRN Reason: Constipation Risperidone (Risperidal) 0.5 mg PO DAILY@1900 [facility] Last Admin: 04/15/17 18:40 Dose: 0.5 mg Rosuvastatin Calcium (Crestor) 40 mg PO BEDTIME [facility] Last Admin: 04/15/17 21:30 Dose: 40 mg Senna/Docusate Sodium (Senna Plus) 1 tab PO BID PRN PRN Reason: Constipation Last Admin: 04/15/17 16:24 Dose: 1 tab Sodium Chloride (Saline Flush) 10 ml FLUSH ASDIRECTED PRN PRN Reason: Keep Vein Open Last Admin: 04/12/17 20:25 Dose: 10 ml Tamsulosin HCl (Flomax) 0.4 mg PO BID [facility] Last Admin: 04/16/17 12:12 Dose: 0.4 mg Trazodone HCl (Trazodone) 100 mg PO BEDTIME [facility] Last Admin: 04/15/17 21:36 Dose: 100 mg Discontinued Medications Albuterol/Ipratropium (Duoneb 3.0-0.5 Mg/3 Ml) 3 ml NEB Q4H PRN PRN Reason: Shortness Of Breath/wheezing Last Admin: 04/16/17 01:01 Dose: 3 ml Amlodipine Besylate (Norvasc) 2.5 mg PO DAILY [facility] Last Admin: 04/14/17 09:00 Dose: 2.5 mg Sodium Chloride (Normal Saline) 1,000 mls @ 1,000 mls/hr IV .BOLUS [facility] Last Admin: 04/12/17 20:24 Dose: 1,000 mls/hr Sodium Chloride (Normal Saline) 250 mls @ 999 mls/hr IV ONETIME ONE Stop: 04/14/17 13:46 Last Admin: 04/14/17 13:38 Dose: 999 mls/hr Sodium Chloride (Normal Saline) Confirm Administered Dose 250 mls @ as directed .ROUTE .STK-MED ONE Stop: 04/14/17 13:30 Last Admin: 04/14/17 13:38 Dose: Not Given Ceftriaxone Sodium 2 gm/ (Sodium Chloride) 100 mls @ 200 mls/hr IV Q24H [facility] Dextrose/Sodium Chloride (Dextrose 5%-Normal Saline) 1,000 mls @ 100 mls/hr IV ASDIRECTED [facility] Last Admin: 04/15/17 15:18 Dose: 100 mls/hr Influenza Virus Vaccine (Pharmacy To Dose - Influenza Vaccine) 1 each IM ONETIME ONE Stop: 04/12/17 23:45 Influenza Virus Vaccine (Flulaval Quad [id number]) 60 mcg IM .ONCE ONE Stop: 04/13/17 10:01 Lidocaine HCl (Xylocaine 2% Jelly) 10 ml MUCMEM STAT ONE Stop: 04/15/17 14:27 Last Admin: 04/15/17 14:56 Dose: 10 ml Lidocaine HCl (Xylocaine 2% Jelly) 10 ml MUCMEM ONETIME ONE Stop: 04/15/17 14:57 Last Admin: 04/15/17 15:12 Dose: 10 ml Lorazepam (Ativan) 0.5 mg IVPUSH ONETIME ONE Stop: 04/13/17 00:45 Last Admin: 04/13/17 01:01 Dose: 0.5 mg Lorazepam (Ativan) 0.5 mg IVPUSH Q4H PRN; Protocol PRN Reason: Anxiety Last Admin: 04/15/17 23:12 Dose: 0.5 mg Lorazepam (Ativan) 1 mg IVPUSH Q4H PRN PRN Reason: Anxiety Last Admin: 04/16/17 05:26 Dose: 1 mg Losartan Potassium (Cozaar) 50 mg PO DAILY [facility] Last Admin: 04/14/17 09:01 Dose: 50 mg Magnesium Sulfate (Pharmacy To Dose - Magnesium Replacement) 0 dose .XX ASDIRECTED PRN PRN Reason: RX TO WATCH MAG LEVELS Magnesium Sulfate (Pharmacy To Dose - Magnesium Replacement) 1 dose .XX ASDIRECTED [facility] Oseltamivir Phosphate (Tamiflu) 30 mg PO DAILY [facility] Last Admin: 04/16/17 12:28 Dose: Not Given Potassium Chloride (Pharmacy To Dose - Potassium Replacement) 0 dose .XX ASDIRECTED PRN PRN Reason: RX TO WATCH K LEVELS Potassium Chloride (Pharmacy To Dose - Potassium Replacement) 1 dose .XX ASDIRECTED [facility] Risperidone (Risperidal) 0.5 mg PO BEDTIME [facility] Last Admin: 04/14/17 20:31 Dose: 0.5 mg Risperidone (Risperidal) 0.25 mg PO DAILY@1900 [facility] Rosuvastatin Calcium (Crestor) 40 mg PO DAILY [facility] Last Admin: 04/15/17 10:16 Dose: Not Given Temazepam (Restoril) 7.5 mg PO ONETIME ONE Stop: 04/13/17 00:44 Last Admin: 04/13/17 01:11 Dose: Not Given Temazepam (Restoril) 7.5 mg PO ONETIME ONE Stop: 04/13/17 01:09 Last Admin: 04/13/17 04:22 Dose: Not Given - Exam Quality Assessment: DVT Prophylaxis General: No Acute Distress, Sedated HEENT: Pupils Equal, Pupils Reactive, EOMI Neck: Trachea Midline, No JVD Lungs: Normal Respiratory Effort Cardiovascular: Regular Rate, Regular Rhythm GI/Abdominal Exam: Normal Bowel Sounds, Soft, Non-Tender, No Organomegaly, No Distention (Male) Exam: Deferred Back Exam: Normal Inspection Extremities: Normal Inspection, Normal Range of Motion, Non-Tender, No Pedal Edema Skin: Warm Neurological: No New Focal Deficit Psy/Mental Status: Labile Mood - Problem List Review Problem List Initiated/Reviewed/Updated: Yes - My Orders Last 24 Hours: My Active Orders 04/15/17 12:00 Losartan [Cozaar] 50 mg PO DAILY@1200 cefTRIAXone [Rocephin] 2 gm Dextrose 5% in Water 100 ml IV Q24H 04/15/17 15:00 Insert Maldonado Catheter [Insert Urinary Catheter] [OM.PC] Q24H 04/15/17 15:13 Urinary Catheter Assessment [RC] ASDIRECTED 04/15/17 19:00 Sodium Chloride 0.45% 1,000 ml IV ASDIRECTED risperiDONE [RisperiDAL] 0.5 mg PO DAILY@1900 04/15/17 21:00 amLODIPine [Norvasc] 2.5 mg PO BEDTIME 04/16/17 06:40 CRP [C-REACTIVE PROTEIN] [CHEM] DAILY LIPID PANEL [CHEM] Routine RAPID PLASMA REAGIN,RPR [CHEM] Routine TSH [CHEM] Routine 04/16/17 08:18 Consult to Speech Language Pathology [[employer]PERATOR Evaluation and Treatment] [CONS] Routine 04/16/17 08:21 Antiembolic Devices [RC] PER UNIT ROUTINE SCD [Sequential Compression Device] [OM.PC] Routine 04/16/17 09:02 Isolation [COMM] Routine 04/16/17 09:24 Haloperidol Lactate [Haldol] 1 mg IM Q4H PRN 04/16/17 09:45 Oseltamivir [Tamiflu] 30 mg PO BID 04/16/17 12:29 Albuterol [Proventil Neb Soln] 2.5 mg NEB Q4HRRT PRN 04/16/17 12:30 RT Aerosol Therapy [RC] ASDIRECTED 04/16/17 12:34 LORazepam [Ativan] 0.5 mg IVPUSH Q4H PRN 04/16/17 16:00 Albuterol/Ipratropium [DuoNeb 3.0-0.5 MG/3 ML] 3 ml NEB QIDRT 04/16/17 Lunch NPO Now [Nothing per Oral Now Diet] [DIET] NPO Now [Nothing per Oral Now Diet] [DIET] 04/17/17 05:00 CRP [C-REACTIVE PROTEIN] [CHEM] DAILY 04/17/17 09:00 CTA Neck W & W/O Contrast [Ang Neck] [CT] Routine 04/17/17 13:00 Echo Comp wo Cont [US] Routine 04/18/17 05:00 CRP [C-REACTIVE PROTEIN] [CHEM] DAILY 04/19/17 05:00 CRP [C-REACTIVE PROTEIN] [CHEM] DAILY - Plan Plan:: I/P: Acute: Subdural Hematoma, Stable -Fell today hitting head -Vomited on EMS arrival, Denies nausea, headache, or blurred vison -C/o dizzyness and worsening weakness -Risk factors: Unsteady Gait, on Blood thinners (on ASA and xarelto), Multiple Sedating and Anti-cholinergic drugs -Home Meds as noted on ED notes: Trazodone 100 mg po Daily, Ativan 1 mg po TID PRN , Antivert ? mg po PRN, and Baclofen 10 mg po BID (All meds cause memory impairment or affect level of alertness); Bethanichol recently added to his regimen (has anti-cholinergic effects) -CT on 04/12/16 - Layering along falx cerebri measuring 1mm maximal thickness -Repeat CT scan Monday -Routine Neuro checks -Hold blood thinners for now; may restart after repeat CT scan -Continue to monitor AUTI started on Rocephin stopped; started PCN G 4 million units Q 6 hours Influenza A positive started on Tamiflu Leukopenia--->1.76; will start reverse isolation; query: infection/BM/ medication Generalized Weakness -Acute on chronic -Likely contributed to fall as above -Chronic left sided spasticity and weakness -UA negative -Continue PT/OT -Has had difficulty with ADLs at home -Friend who assists him would like him placed -Was sent to rehabilitation after last hospitalization for 6 days in [place] -He is receptive to SNF placement or assisted living Polypharmacy -Both patient and friend are concerned with recent lethargy and weakness -He has been placed on several new medications -Obtain accurate list of medications from pharmacy in AM -Pharmacy to review -Recommended f/u with PCP for overall health management Anemia -Was anemic at last visit, slightly worse now -Hemoglobin 9.3, hematocrit 28.0; baseline Hgb level is 10 -No hematochezia, melena, hematocrit emesis, obvious bleeding -Monitor Depression -Acute on Chronic -He takes Celexa 20 mg po daily -His symptom is aggravated by his current situational status; he felt like nobody is willing to help him figure out his complaints -Patient was informed on his last visit to see a Neurology in [place] but it never happened. Psychosis, NOS -risperdal 0.5 mg daily Insomnia-Trazadone, home dose Anxiety-Ativan IV prn Subdural hematoma s/p fall; Xarelto for A Fib currently held Urinary retention, follow PV residual; unable to pass straight cath; placed maldonado Chronic: A-fib HR slow RVR HLD HTN Asthma Constipation Heart Failure Stage III renal insufficiency Anxiety Depression CVA in 2012 Plan: He is other frey clinically stable Continue current treatment Continue PT/OT Routine AM labs High Fall Risk Precautions Other orders as indicated above DVT/PE prophylaxis: PRAFUL myra and ambulation -consider SCds Repeat CT of head w/o contrast Code status: DNR/DNI; PCP: Dr. Chang at [facility] here in [facility] consult for d/c placement Spoke to him personally with charge nurse on beside. We offered NH placement for now until he's seen and further evaluation by a Neurology for his recurrent weakness associated with dizziness/vertigo +/-visuall hallucination. LOS>96 hours with resolving subdural hematoma with AMS resolving slowly
[2017-04-16] MEDS: Albuterol/Ipratropium 3.0-0.5 MG/3 ML Neb Soln NEB SCH ×2 (16:45→20:32)
[2017-04-16] MEDS: Bisacodyl 5 MG Tab PO PRN (18:36)
[2017-04-16] MEDS: risperiDONE 0.5 MG Tab PO SCH (18:36)
[2017-04-16] MEDS: traZODone 50 MG Tab PO SCH (21:39)
[2017-04-16] MEDS: amLODIPine 5 MG Tab PO SCH (21:40)
[2017-04-16] MEDS: Saccharomyces Boulardii (Probiotic) 250 MG Cap PO SCH (21:43)
[2017-04-16] MEDS: Rosuvastatin 10 MG Tab PO SCH (21:44)
[2017-04-16] MEDS: Penicillin G Potassium 5 MILLUNITS in Sodium Chloride 0.9% 100 ML IV SCH (21:50)
[2017-04-17] MEDS: Penicillin G Potassium 5 MILLUNITS in Sodium Chloride 0.9% 100 ML IV SCH ×2 (02:13→12:27)
[2017-04-17] MEDS: LORazepam 2 MG/ML SDV IVPUSH PRN ×3 (04:45→20:09)
[2017-04-17] MEDS: Albuterol/Ipratropium 3.0-0.5 MG/3 ML Neb Soln NEB SCH ×4 (06:23→20:26)
[2017-04-17] MEDS: Ferrous Sulfate 325 MG Tab PO SCH (08:51)
[2017-04-17] MEDS: Citalopram 20 MG Tab PO SCH (08:51)
[2017-04-17] MEDS: Fish Oil/Omega-3 Fatty Acids 1 Gm Cap PO SCH (08:52)
[2017-04-17] MEDS: Oseltamivir 30 MG Cap PO SCH ×2 (08:53→20:13)
[2017-04-17] MEDS: Tamsulosin 0.4 MG Cap.ER PO SCH ×2 (08:53→20:13)
[2017-04-17] MEDS: Saccharomyces Boulardii (Probiotic) 250 MG Cap PO SCH ×2 (08:53→20:12)
[2017-04-17] MEDS: Multivitamins,Therapeutic Tab PO SCH (08:54)
[2017-04-17] MEDS: Cholecalciferol (Vitamin D3) 1,000 Unit Tab PO SCH (08:54)
[2017-04-17] MEDS: Allopurinol 100 MG Tab PO SCH (08:54)
[2017-04-17] MEDS: Baclofen 10 MG Tab PO SCH ×4 (09:15→20:12)
[2017-04-17] MEDS: Losartan 100 MG Tab PO SCH (12:18)
[2017-04-17] MEDS: Penicillin G Potassium 5 MILLUNITS in Dextrose 5% in Water 100 ML IV SCH ×4 (12:18→17:38)
--- NOTE | 2017-04-17 18:30 | PCM.PN ---
- General Info Date of Service: 04/17/17 Subjective Update: Sedated but received Ativan for restlessness during the night. Rechecked and able to follow commands; however will follow with neuro checks; CT of head wo contrast, 2 exams showed improvement with decreased subdural hematoma Functional Status: Reports: Tolerating Diet (decreased intake until late afternoon.) - Review of Systems General: Reports: Weakness HEENT: Reports: No Symptoms Pulmonary: Reports: No Symptoms Cardiovascular: Reports: No Symptoms Gastrointestinal: Reports: No Symptoms Genitourinary: Reports: No Symptoms Musculoskeletal: Reports: No Symptoms Skin: Reports: No Symptoms Neurological: Reports: Weakness Psychiatric: Reports: Confusion - Patient Data Vitals - Most Recent: Last Vital Signs Temp 37.0 C 04/17/17 17:47 Pulse 72 04/17/17 17:47 Resp 16 04/17/17 17:47 BP 147/86 H 04/17/17 17:47 Pulse Ox 98 04/17/17 17:47 Weight - Most Recent: 86.364 kg I&O - Last 24 Hours: Intake & Output 04/17/17 04/17/17 04/17/17 06:59 14:59 22:59 Output Total 3300 3900 Balance -3300 -3900 Lab Results Last 24 Hours: Laboratory Results - last 24 hr 04/17/17 04/17/17 04/17/17 Range/Units 07:22 16:30 16:30 WBC 2.06 L* (4.23-9.07) K/mm3 RBC 3.44 L (4.63-6.08) M/mm3 Hgb 10.5 L (13.7-17.5) gm/L Hct 32.4 L (40.1-51.0) % MCV 94.2 H (79.0-92.2) fl MCH 30.5 (25.7-32.2) pg MCHC 32.4 (32.2-35.5) g/dl RDW Std Deviation 43.6 (35.1-43.9) fL Plt Count 119 L (163-337) K/mm3 MPV 9.1 L (9.4-12.3) fl Neut % (Auto) 71.3 H (34.0-67.9) % Lymph % (Auto) 15.5 L (21.8-53.1) % Robeson % (Auto) 11.7 (5.3-12.2) % Eos % (Auto) 1.0 (0.8-7.0) Baso % (Auto) 0.5 (0.1-1.2) % Neut # (Auto) 1.47 L (1.78-5.38) K/mm3 Lymph # (Auto) 0.32 L (1.32-3.57) K/mm3 Robeson # (Auto) 0.24 L (0.30-0.82) K/mm3 Eos # (Auto) 0.02 L (0.04-0.54) K/mm3 Baso # (Auto) 0.01 (0.01-0.08) K/mm3 Manual Slide Review Abnormal smear Sodium 145 (136-145) mEq/L Potassium 5.0 (3.5-5.1) mEq/L Chloride 109 H (98-107) mEq/L Carbon Dioxide 27 (21-32) mEq/L Anion Gap 14.0 (5-15) BUN 14 (7-18) mg/dL Creatinine 1.3 (0.7-1.3) mg/dL Est Cr Clr Drug Dosing 63.84 mL/min Estimated GFR (MDRD) 56 (>60) mL/min BUN/Creatinine Ratio 10.8 L (14-18) Glucose 98 (80-115) mg/dL Calcium 9.1 (8.5-10.1) mg/dL Magnesium 1.9 (1.8-2.4) mg/dl C-Reactive Protein 2.6 H* (<1.0) mg/dL Gino Results Last 24 Hours: Microbiology 04/15/17 05:00 Urine Culture - Preliminary Urine, Catheterized Gram Positive Cocci 04/14/17 10:32 Aerobic Blood Culture - Preliminary Blood - Venous NO GROWTH AFTER 3 DAYS Anaerobic Blood Culture - Preliminary NO GROWTH AFTER 3 DAYS 04/14/17 10:32 Aerobic Blood Culture - Preliminary Blood - Venous - Lab Draw NO GROWTH AFTER 3 DAYS Anaerobic Blood Culture - Preliminary NO GROWTH AFTER 3 DAYS 04/16/17 19:00 Group A Streptococcus Rapid Screen - Final Throat Positive Strep A Screen Med Orders - Current: Current Medications Acetaminophen (Tylenol) 650 mg PO Q4H PRN PRN Reason: Pain (Mild 1-3)/fever Last Admin: 04/14/17 09:58 Dose: 650 mg Albuterol (Proventil Neb Soln) 2.5 mg NEB Q4HRRT PRN PRN Reason: Wheezing/SOB Last Admin: 04/16/17 12:48 Dose: 2.5 mg Albuterol/Ipratropium (Duoneb 3.0-0.5 Mg/3 Ml) 3 ml NEB QIDRT [facility] Last Admin: 04/17/17 16:44 Dose: Not Given Allopurinol (Zyloprim) 100 mg PO DAILY [facility] Last Admin: 04/17/17 08:54 Dose: 100 mg Amlodipine Besylate (Norvasc) 2.5 mg PO BEDTIME [facility] Last Admin: 04/16/17 21:40 Dose: 2.5 mg Baclofen (Lioresal) 30 mg PO QID [facility] Last Admin: 04/17/17 17:38 Dose: 30 mg Bethanechol Chloride (Urecholine) 25 mg PO TID [facility] Last Admin: 04/17/17 17:37 Dose: 25 mg Bisacodyl (Dulcolax) 5 mg PO DAILY PRN PRN Reason: Constipation Last Admin: 04/16/17 18:36 Dose: 5 mg Cholecalciferol (Vitamin D3) 1,000 units PO DAILY [facility] Last Admin: 04/17/17 08:54 Dose: 1,000 units Citalopram Hydrobromide (Celexa) 20 mg PO DAILY [facility] Last Admin: 04/17/17 08:51 Dose: 20 mg Docusate Sodium (Colace) 100 mg PO BID PRN PRN Reason: Constipation Last Admin: 04/15/17 10:14 Dose: 100 mg Ferrous Sulfate (Ferrous Sulfate) 325 mg PO DAILY [facility] Last Admin: 04/17/17 08:51 Dose: 325 mg Fish Oil (Fish Oil) 1 gm PO DAILY [facility] Last Admin: 04/17/17 08:52 Dose: 1 gm Haloperidol Lactate (Haldol) 1 mg IM Q4H PRN PRN Reason: Anxiety Hydralazine HCl (Apresoline) 10 mg IVPUSH Q6H PRN PRN Reason: Hypertension Last Admin: 04/13/17 12:08 Dose: 10 mg Hydralazine HCl (Apresoline) 20 mg IVPUSH Q4H PRN PRN Reason: Hypertension Sodium Chloride (Sodium Chloride 0.45%) 1,000 mls @ 100 mls/hr IV ASDIRECTED [facility] Last Admin: 04/16/17 23:40 Dose: 100 mls/hr Penicillin G Potassium 5 (millunits/ Dextrose/Water) 100 mls @ 55 mls/hr IV Q6H [facility] Last Admin: 04/17/17 17:38 Dose: 55 mls/hr Lorazepam (Ativan) 0.5 mg IVPUSH Q4H PRN PRN Reason: Anxiety Last Admin: 04/17/17 12:22 Dose: 0.5 mg Losartan Potassium (Cozaar) 50 mg PO DAILY@1200 [facility] Last Admin: 04/17/17 12:18 Dose: 50 mg Metoprolol Tartrate (Lopressor) 5 mg IVPUSH Q4H PRN PRN Reason: Tachycardia Multivitamins (Thera) 1 each PO DAILY [facility] Last Admin: 04/17/17 08:54 Dose: 1 each Ondansetron HCl (Zofran Odt) 4 mg PO Q6H PRN PRN Reason: nausea, able to take PO Last Admin: 04/15/17 22:51 Dose: 4 mg Ondansetron HCl (Zofran) 4 mg IV Q6H PRN PRN Reason: Nausea/Vomiting Last Admin: 04/16/17 23:24 Dose: 4 mg Oseltamivir Phosphate (Tamiflu) 30 mg PO BID [facility] Stop: 04/19/17 22:00 Last Admin: 04/17/17 08:53 Dose: 30 mg Polyethylene Glycol (Miralax) 17 gm PO DAILY PRN PRN Reason: Constipation Risperidone (Risperidal) 0.5 mg PO DAILY@1900 [facility] Last Admin: 04/16/17 18:36 Dose: 0.5 mg Rosuvastatin Calcium (Crestor) 40 mg PO BEDTIME [facility] Last Admin: 04/16/17 21:44 Dose: 40 mg Saccharomyces Boulardii (Florastor) 250 mg PO BID [facility] Last Admin: 04/17/17 08:53 Dose: 250 mg Senna/Docusate Sodium (Senna Plus) 1 tab PO BID PRN PRN Reason: Constipation Last Admin: 04/15/17 16:24 Dose: 1 tab Sodium Chloride (Saline Flush) 10 ml FLUSH ASDIRECTED PRN PRN Reason: Keep Vein Open Last Admin: 04/12/17 20:25 Dose: 10 ml Tamsulosin HCl (Flomax) 0.4 mg PO BID [facility] Last Admin: 04/17/17 08:53 Dose: 0.4 mg Topiramate (Topamax) 25 mg PO BID [facility] Discontinued Medications Albuterol/Ipratropium (Duoneb 3.0-0.5 Mg/3 Ml) 3 ml NEB Q4H PRN PRN Reason: Shortness Of Breath/wheezing Last Admin: 04/16/17 01:01 Dose: 3 ml Amlodipine Besylate (Norvasc) 2.5 mg PO DAILY [facility] Last Admin: 04/14/17 09:00 Dose: 2.5 mg Sodium Chloride (Normal Saline) 1,000 mls @ 1,000 mls/hr IV .BOLUS [facility] Last Admin: 04/12/17 20:24 Dose: 1,000 mls/hr Sodium Chloride (Normal Saline) 250 mls @ 999 mls/hr IV ONETIME ONE Stop: 04/14/17 13:46 Last Admin: 04/14/17 13:38 Dose: 999 mls/hr Sodium Chloride (Normal Saline) Confirm Administered Dose 250 mls @ as directed .ROUTE .STK-MED ONE Stop: 04/14/17 13:30 Last Admin: 04/14/17 13:38 Dose: Not Given Ceftriaxone Sodium 2 gm/ (Sodium Chloride) 100 mls @ 200 mls/hr IV Q24H [facility] Ceftriaxone Sodium 2 gm/ (Dextrose/Water) 100 mls @ 200 mls/hr IV Q24H [facility] Last Admin: 04/16/17 12:18 Dose: 200 mls/hr Dextrose/Sodium Chloride (Dextrose 5%-Normal Saline) 1,000 mls @ 100 mls/hr IV ASDIRECTED [facility] Last Admin: 04/15/17 15:18 Dose: 100 mls/hr Penicillin G Potassium 5 (millunits/ Sodium Chloride) 100 mls @ 55 mls/hr IV Q6H [facility] Last Admin: 04/17/17 12:27 Dose: Not Given Influenza Virus Vaccine (Pharmacy To Dose - Influenza Vaccine) 1 each IM ONETIME ONE Stop: 04/12/17 23:45 Influenza Virus Vaccine (Flulaval Quad [id number]) 60 mcg IM .ONCE ONE Stop: 04/13/17 10:01 Lidocaine HCl (Xylocaine 2% Jelly) 10 ml MUCMEM STAT ONE Stop: 04/15/17 14:27 Last Admin: 04/15/17 14:56 Dose: 10 ml Lidocaine HCl (Xylocaine 2% Jelly) 10 ml MUCMEM ONETIME ONE Stop: 04/15/17 14:57 Last Admin: 04/15/17 15:12 Dose: 10 ml Lorazepam (Ativan) 0.5 mg IVPUSH ONETIME ONE Stop: 04/13/17 00:45 Last Admin: 04/13/17 01:01 Dose: 0.5 mg Lorazepam (Ativan) 0.5 mg IVPUSH Q4H PRN; Protocol PRN Reason: Anxiety Last Admin: 04/15/17 23:12 Dose: 0.5 mg Lorazepam (Ativan) 1 mg IVPUSH Q4H PRN PRN Reason: Anxiety Last Admin: 04/16/17 05:26 Dose: 1 mg Losartan Potassium (Cozaar) 50 mg PO DAILY [facility] Last Admin: 04/14/17 09:01 Dose: 50 mg Magnesium Sulfate (Pharmacy To Dose - Magnesium Replacement) 0 dose .XX ASDIRECTED PRN PRN Reason: RX TO WATCH MAG LEVELS Magnesium Sulfate (Pharmacy To Dose - Magnesium Replacement) 1 dose .XX ASDIRECTED [facility] Metoprolol Tartrate (Lopressor) 5 mg IVPUSH Q4H PRN PRN Reason: Tachycardia Oseltamivir Phosphate (Tamiflu) 30 mg PO DAILY [facility] Last Admin: 04/16/17 12:28 Dose: Not Given Potassium Chloride (Pharmacy To Dose - Potassium Replacement) 0 dose .XX ASDIRECTED PRN PRN Reason: RX TO WATCH K LEVELS Potassium Chloride (Pharmacy To Dose - Potassium Replacement) 1 dose .XX ASDIRECTED [facility] Risperidone (Risperidal) 0.5 mg PO BEDTIME [facility] Last Admin: 04/14/17 20:31 Dose: 0.5 mg Risperidone (Risperidal) 0.25 mg PO DAILY@1900 [facility] Rosuvastatin Calcium (Crestor) 40 mg PO DAILY [facility] Last Admin: 04/15/17 10:16 Dose: Not Given Temazepam (Restoril) 7.5 mg PO ONETIME ONE Stop: 04/13/17 00:44 Last Admin: 04/13/17 01:11 Dose: Not Given Temazepam (Restoril) 7.5 mg PO ONETIME ONE Stop: 04/13/17 01:09 Last Admin: 04/13/17 04:22 Dose: Not Given Trazodone HCl (Trazodone) 100 mg PO BEDTIME [facility] Last Admin: 04/16/17 21:39 Dose: 100 mg - Exam Quality Assessment: Supplemental Oxygen, DVT Prophylaxis (SCD) General: No Acute Distress, Lethargic HEENT: Pupils Equal, Pupils Reactive, EOMI Neck: Supple, Trachea Midline Lungs: Normal Respiratory Effort Cardiovascular: Regular Rate, Regular Rhythm GI/Abdominal Exam: Normal Bowel Sounds, Soft, Non-Tender, No Organomegaly, No Distention (Male) Exam: Deferred Back Exam: Normal Inspection Skin: Warm Neurological: Cranial Nerves Intact Psy/Mental Status: Other (lethargy) - Problem List Review Problem List Initiated/Reviewed/Updated: Yes - My Orders Last 24 Hours: My Active Orders 04/16/17 21:00 Saccharomyces Boulardii [Florastor] 250 mg PO BID 04/17/17 11:00 Penicillin G Potassium [Pfizerpen] 5 millunits Dextrose 5% in Water 100 ml IV Q6H 04/17/17 Dinner Heart Healthy Diet [DIET] 04/18/17 05:00 CRP [C-REACTIVE PROTEIN] [CHEM] DAILY 04/18/17 09:00 Ang Neck [CT] Routine 04/19/17 05:00 CRP [C-REACTIVE PROTEIN] [CHEM] DAILY - Plan Plan:: I/P: Acute: Subdural Hematoma, Stable -Fell today hitting head -Vomited on EMS arrival, Denies nausea, headache, or blurred vison -C/o dizzyness and worsening weakness -Risk factors: Unsteady Gait, on Blood thinners (on ASA and xarelto), Multiple Sedating and Anti-cholinergic drugs -Home Meds as noted on ED notes: Trazodone 100 mg po Daily, Ativan 1 mg po TID PRN , Antivert ? mg po PRN, and Baclofen 10 mg po BID (All meds cause memory impairment or affect level of alertness); Bethanichol recently added to his regimen (has anti-cholinergic effects) -CT on 04/12/16 - Layering along falx cerebri measuring 1mm maximal thickness -Repeat CT scan Monday -Routine Neuro checks -Hold blood thinners for now; may restart after repeat CT scan -Continue to monitor AUTI started on Rocephin stopped; started PCN G 4 million units Q 6 hours Rapid strep screen positive as above. Influenza A positive started on Tamiflu Leukopenia--->1.76; will start reverse isolation; query: infection/BM/ medication Generalized Weakness -Acute on chronic -Likely contributed to fall as above -Chronic left sided spasticity and weakness -UA negative -Continue PT/OT -Has had difficulty with ADLs at home -Friend who assists him would like him placed -Was sent to rehabilitation after last hospitalization for 6 days in [place] -He is receptive to SNF placement or assisted living Polypharmacy -Both patient and friend are concerned with recent lethargy and weakness -He has been placed on several new medications -Obtain accurate list of medications from pharmacy in AM -Pharmacy to review -Recommended f/u with PCP for overall health management Anemia -Was anemic at last visit, slightly worse now -Hemoglobin 9.3, hematocrit 28.0; baseline Hgb level is 10 -No hematochezia, melena, hematocrit emesis, obvious bleeding -Monitor Depression -Acute on Chronic -He takes Celexa 20 mg po daily -His symptom is aggravated by his current situational status; he felt like nobody is willing to help him figure out his complaints -Patient was informed on his last visit to see a Neurology in [place] but it never happened. Psychosis, NOS -risperdal 0.5 mg daily Insomnia-Trazadone, home dose Anxiety-Ativan IV prn Subdural hematoma s/p fall; Xarelto for A Fib currently held Urinary retention, follow PV residual; unable to pass straight cath, will place maldonado Chronic: A-fib HR slow RVR HLD HTN Asthma Constipation Heart Failure Stage III renal insufficiency Anxiety Depression CVA in 2012 Plan: Checked rapid Strep screen; received Rocephin for UTI prior to organism revealed as G pos cocci PCN G started Continue PT/OT as tolerated Routine AM labs High Fall Risk Precautions Other orders as indicated above DVT/PE prophylaxis: PRAFUL hose and ambulation -consider SCds Repeat CT of head w/o contrast-->improved Code status: DNR/DNI; PCP: Dr. Chang at [facility] here in [facility] consult for d/c placement LOS>96 hours with resolving subdural hematoma with AMS resolving slowly
[2017-04-17] MEDS: hydrALAZINE 20 MG/ML SDV IVPUSH PRN (19:31)
[2017-04-17] MEDS: risperiDONE 0.5 MG Tab PO SCH (19:31)
[2017-04-17] MEDS: Rosuvastatin 10 MG Tab PO SCH (20:12)
[2017-04-17] MEDS: amLODIPine 5 MG Tab PO SCH (20:12)
[2017-04-17] MEDS: Topiramate 25 MG Tab PO SCH (20:13)
[2017-04-18] MEDS: Penicillin G Potassium 5 MILLUNITS in Dextrose 5% in Water 100 ML IV SCH ×6 (00:49→11:16)
[2017-04-18] MEDS: Albuterol/Ipratropium 3.0-0.5 MG/3 ML Neb Soln NEB SCH ×4 (06:24→21:25)
[2017-04-18] MEDS: Docusate Sodium 100 MG Cap PO PRN (06:48)
[2017-04-18] MEDS: Bisacodyl 5 MG Tab PO PRN (06:48)
[2017-04-18] MEDS: Saccharomyces Boulardii (Probiotic) 250 MG Cap PO SCH ×2 (08:35→20:27)
[2017-04-18] MEDS: Oseltamivir 30 MG Cap PO SCH ×2 (08:36→20:27)
[2017-04-18] MEDS: Multivitamins,Therapeutic Tab PO SCH (08:36)
[2017-04-18] MEDS: Baclofen 10 MG Tab PO SCH ×4 (08:36→20:26)
[2017-04-18] MEDS: Topiramate 25 MG Tab PO SCH ×2 (08:36→20:27)
[2017-04-18] MEDS: Cholecalciferol (Vitamin D3) 1,000 Unit Tab PO SCH (08:36)
[2017-04-18] MEDS: Allopurinol 100 MG Tab PO SCH (08:36)
[2017-04-18] MEDS: Tamsulosin 0.4 MG Cap.ER PO SCH ×2 (08:36→20:27)
[2017-04-18] MEDS: Citalopram 20 MG Tab PO SCH (08:36)
[2017-04-18] MEDS: Fish Oil/Omega-3 Fatty Acids 1 Gm Cap PO SCH (08:36)
[2017-04-18] MEDS: Ferrous Sulfate 325 MG Tab PO SCH (08:36)
[2017-04-18] MEDS ORDERED: Magnesium Hydroxide 400 MG/5 ML Susp 30 ML Cup PO PRN (08:49)
[2017-04-18] MEDS: hydrALAZINE 20 MG/ML SDV IVPUSH PRN (09:03)
[2017-04-18] MEDS ORDERED: Iopamidol 755 Mg/ML 100 ML Bottle IVPUSH ONE (10:03)
[2017-04-18] MEDS ORDERED: Sodium Chloride 0.9% 10 ML Syringe FLUSH ONE (10:03)
[2017-04-18] MEDS ORDERED: Sodium Chloride 0.9% 100 ML IV SCH (10:15)
--- NOTE | 2017-04-18 11:57 | CT ---
CT angiogram of neck Technique: Multiple axial sections were obtained to the neck. Multiple MIPS images were obtained. Focal stenosis identified within the left carotid bulb at the origin of the internal and external carotid arteries. This stenosis measures around 67%. Stenosis also identified within the right carotid bulb measuring around 40%. Scattered calcified plaque is seen. Other portions of the common carotid artery appears normal. Focal stenosis noted within the distal right internal carotid artery near the carotid siphon. This stenosis is more difficult to measure but is felt to be fairly high-grade around 90%. Small left vertebral artery is seen with dominant right vertebral artery. No definite focal stenosis is seen. Impression: 1. Stenosis within both carotid bulbs involving the internal carotid arteries. High-grade stenosis felt to be present within the distal right internal carotid artery near the carotid siphon. 2. No focal stenosis within the vertebral vessels is seen. Note: Because of calcified plaque, difficult to get accurate stenosis estimates and MR angiogram could be obtained to confirm above findings. Diagnostic code #3
[2017-04-18] MEDS: LORazepam 2 MG/ML SDV IVPUSH PRN (12:04)
[2017-04-18] MEDS: Levofloxacin/Dextrose 5%-Water 500 MG in Premix Bag 1 BAG IV SCH (14:33)
[2017-04-18] MEDS: Ondansetron 4 MG Tab.DIS PO PRN (17:14)
[2017-04-18] MEDS: risperiDONE 0.5 MG Tab PO SCH (18:31)
[2017-04-18] MEDS: Rosuvastatin 10 MG Tab PO SCH (20:26)
[2017-04-18] MEDS: amLODIPine 5 MG Tab PO SCH (20:27)
[2017-04-19] MEDS: Albuterol/Ipratropium 3.0-0.5 MG/3 ML Neb Soln NEB SCH ×4 (05:37→20:04)
[2017-04-19] MEDS ORDERED: Bisacodyl 10 MG Supp RECTAL PRN (09:36)
[2017-04-19] MEDS: Baclofen 10 MG Tab PO SCH ×4 (10:35→22:06)
[2017-04-19] MEDS: Fish Oil/Omega-3 Fatty Acids 1 Gm Cap PO SCH (10:35)
[2017-04-19] MEDS: Tamsulosin 0.4 MG Cap.ER PO SCH ×2 (10:35→22:07)
[2017-04-19] MEDS: Ondansetron 4 MG Tab.DIS PO PRN (10:35)
[2017-04-19] MEDS: Saccharomyces Boulardii (Probiotic) 250 MG Cap PO SCH ×2 (10:36→22:07)
[2017-04-19] MEDS: Topiramate 25 MG Tab PO SCH ×2 (10:36→22:07)
[2017-04-19] MEDS: Citalopram 20 MG Tab PO SCH (10:36)
[2017-04-19] MEDS: Allopurinol 100 MG Tab PO SCH (10:36)
[2017-04-19] MEDS: Oseltamivir 30 MG Cap PO SCH ×2 (10:36→22:07)
[2017-04-19] MEDS: Multivitamins,Therapeutic Tab PO SCH (10:36)
[2017-04-19] MEDS: Cholecalciferol (Vitamin D3) 1,000 Unit Tab PO SCH (10:37)
[2017-04-19] MEDS: Ferrous Sulfate 325 MG Tab PO SCH (10:37)
[2017-04-19] MEDS: Levofloxacin/Dextrose 5%-Water 500 MG in Premix Bag 1 BAG IV SCH (14:06)
--- NOTE | 2017-04-19 15:10 | PCM.PN ---
- General Info Date of Service: 04/18/17 Subjective Update: Family meeting with brother Carlito and sister occurred; update on current health status. Discussed need for placement in SNF, swing bed was declined by [facility]. Case management provider was also present, Domonique Foley who was able to provide information and guidance regarding the placement process; total time spent 45 minutes with family. Functional Status: Reports: Tolerating Diet, Urinating - Review of Systems General: Reports: Weakness, Fatigue HEENT: Reports: No Symptoms Pulmonary: Reports: No Symptoms Cardiovascular: Reports: No Symptoms Gastrointestinal: Reports: No Symptoms Genitourinary: Reports: No Symptoms Musculoskeletal: Reports: No Symptoms Skin: Reports: No Symptoms Neurological: Reports: Dizziness Psychiatric: Reports: Depression - Patient Data Vitals - Most Recent: Last Vital Signs Temp 36.6 C 04/19/17 11:20 Pulse 69 04/19/17 11:20 Resp 19 04/19/17 11:20 BP 135/84 04/19/17 11:20 Pulse Ox 97 04/19/17 11:20 Weight - Most Recent: 81.873 kg I&O - Last 24 Hours: Intake & Output 04/19/17 04/19/17 04/19/17 06:59 14:59 22:59 Intake Total 700 Output Total 750 Balance -50 Lab Results Last 24 Hours: Laboratory Results - last 24 hr 04/16/17 04/19/17 Range/Units 06:40 05:00 C-Reactive Protein 1.2 H* (<1.0) mg/dL RPR Non-reactive (NONREACTIVE) Gino Results Last 24 Hours: Microbiology 04/14/17 10:32 Aerobic Blood Culture - Preliminary Blood - Venous NO GROWTH AFTER 5 DAYS Anaerobic Blood Culture - Preliminary NO GROWTH AFTER 5 DAYS 04/14/17 10:32 Aerobic Blood Culture - Preliminary Blood - Venous - Lab Draw NO GROWTH AFTER 5 DAYS Anaerobic Blood Culture - Preliminary NO GROWTH AFTER 5 DAYS 04/15/17 05:00 Urine Culture - Final Urine, Catheterized Staphylococcus Haemolyticus Med Orders - Current: Current Medications Acetaminophen (Tylenol) 650 mg PO Q4H PRN PRN Reason: Pain (Mild 1-3)/fever Last Admin: 04/14/17 09:58 Dose: 650 mg Albuterol (Proventil Neb Soln) 2.5 mg NEB Q4HRRT PRN PRN Reason: Wheezing/SOB Last Admin: 04/16/17 12:48 Dose: 2.5 mg Albuterol/Ipratropium (Duoneb 3.0-0.5 Mg/3 Ml) 3 ml NEB QIDRT [facility] Last Admin: 04/19/17 09:39 Dose: 3 ml Allopurinol (Zyloprim) 100 mg PO DAILY [facility] Last Admin: 04/19/17 10:36 Dose: 100 mg Amlodipine Besylate (Norvasc) 2.5 mg PO BEDTIME [facility] Last Admin: 04/18/17 20:27 Dose: 2.5 mg Baclofen (Lioresal) 30 mg PO QID [facility] Last Admin: 04/19/17 14:01 Dose: 30 mg Bethanechol Chloride (Urecholine) 25 mg PO TID [facility] Last Admin: 04/19/17 14:02 Dose: 25 mg Bisacodyl (Dulcolax) 5 mg PO DAILY PRN PRN Reason: Constipation Last Admin: 04/18/17 06:48 Dose: 5 mg Bisacodyl (Dulcolax) 10 mg RECTAL DAILY PRN PRN Reason: Constipation Cholecalciferol (Vitamin D3) 1,000 units PO DAILY [facility] Last Admin: 04/19/17 10:37 Dose: 1,000 units Citalopram Hydrobromide (Celexa) 20 mg PO DAILY [facility] Last Admin: 04/19/17 10:36 Dose: 20 mg Docusate Sodium (Colace) 100 mg PO BID PRN PRN Reason: Constipation Last Admin: 04/18/17 06:48 Dose: 100 mg Ferrous Sulfate (Ferrous Sulfate) 325 mg PO DAILY [facility] Last Admin: 04/19/17 10:37 Dose: 325 mg Fish Oil (Fish Oil) 1 gm PO DAILY [facility] Last Admin: 04/19/17 10:35 Dose: 1 gm Haloperidol Lactate (Haldol) 1 mg IM Q4H PRN PRN Reason: Anxiety Hydralazine HCl (Apresoline) 10 mg IVPUSH Q6H PRN PRN Reason: Hypertension Last Admin: 04/13/17 12:08 Dose: 10 mg Hydralazine HCl (Apresoline) 20 mg IVPUSH Q4H PRN PRN Reason: Hypertension Last Admin: 04/18/17 09:03 Dose: 20 mg Levofloxacin/Dextrose 500 mg/ (Premix) 100 mls @ 100 mls/hr IV Q24H [facility] Last Admin: 04/19/17 14:06 Dose: 100 mls/hr Lorazepam (Ativan) 0.5 mg IVPUSH Q4H PRN PRN Reason: Anxiety Last Admin: 04/18/17 12:04 Dose: 0.5 mg Losartan Potassium (Cozaar) 50 mg PO DAILY@1200 [facility] Last Admin: 04/17/17 12:18 Dose: 50 mg Magnesium Hydroxide (Milk Of Magnesia) 30 ml PO DAILY PRN PRN Reason: Constipation Last Admin: 04/18/17 09:02 Dose: 30 ml Metoprolol Tartrate (Lopressor) 5 mg IVPUSH Q4H PRN PRN Reason: Tachycardia Multivitamins (Thera) 1 each PO DAILY [facility] Last Admin: 04/19/17 10:36 Dose: 1 each Ondansetron HCl (Zofran Odt) 4 mg PO Q6H PRN PRN Reason: nausea, able to take PO Last Admin: 04/19/17 10:35 Dose: 4 mg Ondansetron HCl (Zofran) 4 mg IV Q6H PRN PRN Reason: Nausea/Vomiting Last Admin: 04/16/17 23:24 Dose: 4 mg Oseltamivir Phosphate (Tamiflu) 30 mg PO BID [facility] Stop: 04/19/17 22:00 Last Admin: 04/19/17 10:36 Dose: 30 mg Polyethylene Glycol (Miralax) 17 gm PO DAILY PRN PRN Reason: Constipation Risperidone (Risperidal) 0.5 mg PO DAILY@1900 [facility] Last Admin: 04/18/17 18:31 Dose: 0.5 mg Rosuvastatin Calcium (Crestor) 40 mg PO BEDTIME [facility] Last Admin: 04/18/17 20:26 Dose: 40 mg Saccharomyces Boulardii (Florastor) 250 mg PO BID [facility] Last Admin: 04/19/17 10:36 Dose: 250 mg Senna/Docusate Sodium (Senna Plus) 1 tab PO BID PRN PRN Reason: Constipation Last Admin: 04/15/17 16:24 Dose: 1 tab Sodium Chloride (Saline Flush) 10 ml FLUSH ASDIRECTED PRN PRN Reason: Keep Vein Open Last Admin: 04/12/17 20:25 Dose: 10 ml Tamsulosin HCl (Flomax) 0.4 mg PO BID [facility] Last Admin: 04/19/17 10:35 Dose: 0.4 mg Topiramate (Topamax) 25 mg PO BID [facility] Last Admin: 04/19/17 10:36 Dose: 25 mg Discontinued Medications Albuterol/Ipratropium (Duoneb 3.0-0.5 Mg/3 Ml) 3 ml NEB Q4H PRN PRN Reason: Shortness Of Breath/wheezing Last Admin: 04/16/17 01:01 Dose: 3 ml Amlodipine Besylate (Norvasc) 2.5 mg PO DAILY [facility] Last Admin: 04/14/17 09:00 Dose: 2.5 mg Sodium Chloride (Normal Saline) 1,000 mls @ 1,000 mls/hr IV .BOLUS [facility] Last Admin: 04/12/17 20:24 Dose: 1,000 mls/hr Sodium Chloride (Normal Saline) 250 mls @ 999 mls/hr IV ONETIME ONE Stop: 04/14/17 13:46 Last Admin: 04/14/17 13:38 Dose: 999 mls/hr Sodium Chloride (Normal Saline) Confirm Administered Dose 250 mls @ as directed .ROUTE .STK-MED ONE Stop: 04/14/17 13:30 Last Admin: 04/14/17 13:38 Dose: Not Given Ceftriaxone Sodium 2 gm/ (Sodium Chloride) 100 mls @ 200 mls/hr IV Q24H [facility] Ceftriaxone Sodium 2 gm/ (Dextrose/Water) 100 mls @ 200 mls/hr IV Q24H [facility] Last Admin: 04/16/17 12:18 Dose: 200 mls/hr Dextrose/Sodium Chloride (Dextrose 5%-Normal Saline) 1,000 mls @ 100 mls/hr IV ASDIRECTED [facility] Last Admin: 04/15/17 15:18 Dose: 100 mls/hr Sodium Chloride (Sodium Chloride 0.45%) 1,000 mls @ 100 mls/hr IV ASDIRECTED [facility] Last Admin: 04/16/17 23:40 Dose: 100 mls/hr Penicillin G Potassium 5 (millunits/ Sodium Chloride) 100 mls @ 55 mls/hr IV Q6H [facility] Last Admin: 04/17/17 12:27 Dose: Not Given Penicillin G Potassium 5 (millunits/ Dextrose/Water) 100 mls @ 55 mls/hr IV Q6H [facility] Last Admin: 04/18/17 11:16 Dose: 55 mls/hr Sodium Chloride (Normal Saline) 100 mls @ 60 mls/hr IV ASDIRECTED [facility] Stop: 04/18/17 12:00 Last Admin: 04/18/17 10:30 Dose: 60 mls/hr Influenza Virus Vaccine (Pharmacy To Dose - Influenza Vaccine) 1 each IM ONETIME ONE Stop: 04/12/17 23:45 Influenza Virus Vaccine (Flulaval Quad [id number]) 60 mcg IM .ONCE ONE Stop: 04/13/17 10:01 Iopamidol (Isovue-370 (76%)) 100 ml IVPUSH ONETIME ONE Stop: 04/18/17 10:04 Last Admin: 04/18/17 10:30 Dose: 100 ml Lidocaine HCl (Xylocaine 2% Jelly) 10 ml MUCMEM STAT ONE Stop: 04/15/17 14:27 Last Admin: 04/15/17 14:56 Dose: 10 ml Lidocaine HCl (Xylocaine 2% Jelly) 10 ml MUCMEM ONETIME ONE Stop: 04/15/17 14:57 Last Admin: 04/15/17 15:12 Dose: 10 ml Lorazepam (Ativan) 0.5 mg IVPUSH ONETIME ONE Stop: 04/13/17 00:45 Last Admin: 04/13/17 01:01 Dose: 0.5 mg Lorazepam (Ativan) 0.5 mg IVPUSH Q4H PRN; Protocol PRN Reason: Anxiety Last Admin: 04/15/17 23:12 Dose: 0.5 mg Lorazepam (Ativan) 1 mg IVPUSH Q4H PRN PRN Reason: Anxiety Last Admin: 04/16/17 05:26 Dose: 1 mg Losartan Potassium (Cozaar) 50 mg PO DAILY [facility] Last Admin: 04/14/17 09:01 Dose: 50 mg Magnesium Sulfate (Pharmacy To Dose - Magnesium Replacement) 0 dose .XX ASDIRECTED PRN PRN Reason: RX TO WATCH MAG LEVELS Magnesium Sulfate (Pharmacy To Dose - Magnesium Replacement) 1 dose .XX ASDIRECTED [facility] Metoprolol Tartrate (Lopressor) 5 mg IVPUSH Q4H PRN PRN Reason: Tachycardia Oseltamivir Phosphate (Tamiflu) 30 mg PO DAILY [facility] Last Admin: 04/16/17 12:28 Dose: Not Given Potassium Chloride (Pharmacy To Dose - Potassium Replacement) 0 dose .XX ASDIRECTED PRN PRN Reason: RX TO WATCH K LEVELS Potassium Chloride (Pharmacy To Dose - Potassium Replacement) 1 dose .XX ASDIRECTED [facility] Risperidone (Risperidal) 0.5 mg PO BEDTIME [facility] Last Admin: 04/14/17 20:31 Dose: 0.5 mg Risperidone (Risperidal) 0.25 mg PO DAILY@1900 [facility] Rosuvastatin Calcium (Crestor) 40 mg PO DAILY [facility] Last Admin: 04/15/17 10:16 Dose: Not Given Sodium Chloride (Saline Flush) 10 ml FLUSH ONETIME ONE Stop: 04/18/17 10:04 Last Admin: 04/18/17 10:30 Dose: 10 ml Temazepam (Restoril) 7.5 mg PO ONETIME ONE Stop: 04/13/17 00:44 Last Admin: 04/13/17 01:11 Dose: Not Given Temazepam (Restoril) 7.5 mg PO ONETIME ONE Stop: 04/13/17 01:09 Last Admin: 04/13/17 04:22 Dose: Not Given Trazodone HCl (Trazodone) 100 mg PO BEDTIME [facility] Last Admin: 04/16/17 21:39 Dose: 100 mg - Exam Quality Assessment: Supplemental Oxygen, DVT Prophylaxis General: Alert, Oriented, No Acute Distress HEENT: Pupils Equal, Pupils Reactive, EOMI Neck: Supple, Trachea Midline Lungs: Normal Respiratory Effort Cardiovascular: Regular Rate, Regular Rhythm GI/Abdominal Exam: Normal Bowel Sounds, Soft, Non-Tender, No Organomegaly, No Distention (Male) Exam: Deferred Back Exam: Normal Inspection Extremities: Normal Inspection Skin: Warm Neurological: No New Focal Deficit Psy/Mental Status: Alert - Problem List Review Problem List Initiated/Reviewed/Updated: Yes - My Orders Last 24 Hours: My Active Orders 04/19/17 09:36 Bisacodyl [Dulcolax] 10 mg RECTAL DAILY PRN - Plan Plan:: I/P: Acute: Subdural Hematoma, Stable -Fell today hitting head -Vomited on EMS arrival, Denies nausea, headache, or blurred vison -C/o dizzyness and worsening weakness -Risk factors: Unsteady Gait, on Blood thinners (on ASA and xarelto), Multiple Sedating and Anti-cholinergic drugs -Home Meds as noted on ED notes: Trazodone 100 mg po Daily, Ativan 1 mg po TID PRN , Antivert ? mg po PRN, and Baclofen 10 mg po BID (All meds cause memory impairment or affect level of alertness); Bethanichol recently added to his regimen (has anti-cholinergic effects) -CT on 04/12/16 - Layering along falx cerebri measuring 1mm maximal thickness -Repeat CT scan Monday -Routine Neuro checks -Hold blood thinners for now; may restart after repeat CT scan -Continue to monitor AUTI started on Rocephin Influenza A positive started on Tamiflu AUTI--Rocephin Leukopenia--->query infectious cause cf result Generalized Weakness -Acute on chronic -Likely contributed to fall as above -Chronic left sided spasticity and weakness -UA negative -Continue PT/OT -Has had difficulty with ADLs at home -Friend who assists him would like him placed -Was sent to rehabilitation after last hospitalization for 6 days in [place] -He is receptive to SNF placement or assisted living Polypharmacy -Both patient and friend are concerned with recent lethargy and weakness -He has been placed on several new medications -Obtain accurate list of medications from pharmacy in AM -Pharmacy to review -Recommended f/u with PCP for overall health management Anemia -Was anemic at last visit, slightly worse now -Hemoglobin 9.3, hematocrit 28.0; baseline Hgb level is 10 -No hematochezia, melena, hematocrit emesis, obvious bleeding -Monitor Depression -Acute on Chronic -He takes Celexa 20 mg po daily -His symptom is aggravated by his current situational status; he felt like nobody is willing to help him figure out his complaints -Patient was informed on his last visit to see a Neurology in [place] but it never happened. Psychosis, NOS -start risperdal 0.5 mg daily Insomnia-Trazadone, home dose Anxiety-Ativan IV prn Subdural hematoma s/p fall; Xarelto for A Fib currently held Urinary retention, follow PV residual; unable to pass straight cath, will place maldonado Chronic: A-fib HR slow RVR HLD HTN Asthma Constipation Heart Failure Stage III renal insufficiency Anxiety Depression CVA in 2012 Plan: He is other frey clinically stable Changed PCN to Levoquin based on sensitivity. Continue PT/OT Routine AM labs High Fall Risk Precautions Other orders as indicated above DVT/PE prophylaxis: PRAFUL hose and ambulation -consider SCds Repeat CT of head w/o contrast Code status: DNR/DNI; PCP: Dr. Chang at [facility] here in [facility] consult for d/c placement LOS>96 hours with resolving subdural hematoma with AMS resolving slowly; acute infectious process: viral/bacterial sources
--- NOTE | 2017-04-19 15:19 | PCM.PN ---
- General Info Date of Service: 04/19/17 Functional Status: Reports: Pain Controlled, Tolerating Diet, Urinating - Review of Systems General: Reports: Weakness HEENT: Reports: No Symptoms Pulmonary: Reports: No Symptoms Cardiovascular: Reports: No Symptoms Gastrointestinal: Reports: No Symptoms Genitourinary: Reports: No Symptoms Musculoskeletal: Reports: No Symptoms Skin: Reports: No Symptoms Neurological: Reports: No Symptoms Psychiatric: Reports: Depression - Patient Data Vitals - Most Recent: Last Vital Signs Temp 36.6 C 04/19/17 11:20 Pulse 69 04/19/17 11:20 Resp 19 04/19/17 11:20 BP 135/84 04/19/17 11:20 Pulse Ox 97 04/19/17 11:20 Weight - Most Recent: 81.873 kg I&O - Last 24 Hours: Intake & Output 04/19/17 04/19/17 04/19/17 06:59 14:59 22:59 Intake Total 700 Output Total 750 Balance -50 Lab Results Last 24 Hours: Laboratory Results - last 24 hr 04/16/17 04/19/17 Range/Units 06:40 05:00 C-Reactive Protein 1.2 H* (<1.0) mg/dL RPR Non-reactive (NONREACTIVE) Gino Results Last 24 Hours: Microbiology 04/14/17 10:32 Aerobic Blood Culture - Preliminary Blood - Venous NO GROWTH AFTER 5 DAYS Anaerobic Blood Culture - Preliminary NO GROWTH AFTER 5 DAYS 04/14/17 10:32 Aerobic Blood Culture - Preliminary Blood - Venous - Lab Draw NO GROWTH AFTER 5 DAYS Anaerobic Blood Culture - Preliminary NO GROWTH AFTER 5 DAYS 04/15/17 05:00 Urine Culture - Final Urine, Catheterized Staphylococcus Haemolyticus Med Orders - Current: Current Medications Acetaminophen (Tylenol) 650 mg PO Q4H PRN PRN Reason: Pain (Mild 1-3)/fever Last Admin: 04/14/17 09:58 Dose: 650 mg Albuterol (Proventil Neb Soln) 2.5 mg NEB Q4HRRT PRN PRN Reason: Wheezing/SOB Last Admin: 04/16/17 12:48 Dose: 2.5 mg Albuterol/Ipratropium (Duoneb 3.0-0.5 Mg/3 Ml) 3 ml NEB QIDRT ILYA Last Admin: 04/19/17 09:39 Dose: 3 ml Allopurinol (Zyloprim) 100 mg PO DAILY [facility] Last Admin: 04/19/17 10:36 Dose: 100 mg Amlodipine Besylate (Norvasc) 2.5 mg PO BEDTIME [facility] Last Admin: 04/18/17 20:27 Dose: 2.5 mg Baclofen (Lioresal) 30 mg PO QID [facility] Last Admin: 04/19/17 14:01 Dose: 30 mg Bethanechol Chloride (Urecholine) 25 mg PO TID [facility] Last Admin: 04/19/17 14:02 Dose: 25 mg Bisacodyl (Dulcolax) 5 mg PO DAILY PRN PRN Reason: Constipation Last Admin: 04/18/17 06:48 Dose: 5 mg Bisacodyl (Dulcolax) 10 mg RECTAL DAILY PRN PRN Reason: Constipation Cholecalciferol (Vitamin D3) 1,000 units PO DAILY [facility] Last Admin: 04/19/17 10:37 Dose: 1,000 units Citalopram Hydrobromide (Celexa) 20 mg PO DAILY [facility] Last Admin: 04/19/17 10:36 Dose: 20 mg Docusate Sodium (Colace) 100 mg PO BID PRN PRN Reason: Constipation Last Admin: 04/18/17 06:48 Dose: 100 mg Ferrous Sulfate (Ferrous Sulfate) 325 mg PO DAILY [facility] Last Admin: 04/19/17 10:37 Dose: 325 mg Fish Oil (Fish Oil) 1 gm PO DAILY [facility] Last Admin: 04/19/17 10:35 Dose: 1 gm Haloperidol Lactate (Haldol) 1 mg IM Q4H PRN PRN Reason: Anxiety Hydralazine HCl (Apresoline) 10 mg IVPUSH Q6H PRN PRN Reason: Hypertension Last Admin: 04/13/17 12:08 Dose: 10 mg Hydralazine HCl (Apresoline) 20 mg IVPUSH Q4H PRN PRN Reason: Hypertension Last Admin: 04/18/17 09:03 Dose: 20 mg Levofloxacin/Dextrose 500 mg/ (Premix) 100 mls @ 100 mls/hr IV Q24H [facility] Last Admin: 04/19/17 14:06 Dose: 100 mls/hr Lorazepam (Ativan) 0.5 mg IVPUSH Q4H PRN PRN Reason: Anxiety Last Admin: 04/18/17 12:04 Dose: 0.5 mg Losartan Potassium (Cozaar) 50 mg PO DAILY@1200 [facility] Last Admin: 04/17/17 12:18 Dose: 50 mg Magnesium Hydroxide (Milk Of Magnesia) 30 ml PO DAILY PRN PRN Reason: Constipation Last Admin: 04/18/17 09:02 Dose: 30 ml Metoprolol Tartrate (Lopressor) 5 mg IVPUSH Q4H PRN PRN Reason: Tachycardia Multivitamins (Thera) 1 each PO DAILY [facility] Last Admin: 04/19/17 10:36 Dose: 1 each Ondansetron HCl (Zofran Odt) 4 mg PO Q6H PRN PRN Reason: nausea, able to take PO Last Admin: 04/19/17 10:35 Dose: 4 mg Ondansetron HCl (Zofran) 4 mg IV Q6H PRN PRN Reason: Nausea/Vomiting Last Admin: 04/16/17 23:24 Dose: 4 mg Oseltamivir Phosphate (Tamiflu) 30 mg PO BID [facility] Stop: 04/19/17 22:00 Last Admin: 04/19/17 10:36 Dose: 30 mg Polyethylene Glycol (Miralax) 17 gm PO DAILY PRN PRN Reason: Constipation Risperidone (Risperidal) 0.5 mg PO DAILY@1900 [facility] Last Admin: 04/18/17 18:31 Dose: 0.5 mg Rosuvastatin Calcium (Crestor) 40 mg PO BEDTIME [facility] Last Admin: 04/18/17 20:26 Dose: 40 mg Saccharomyces Boulardii (Florastor) 250 mg PO BID [facility] Last Admin: 04/19/17 10:36 Dose: 250 mg Senna/Docusate Sodium (Senna Plus) 1 tab PO BID PRN PRN Reason: Constipation Last Admin: 04/15/17 16:24 Dose: 1 tab Sodium Chloride (Saline Flush) 10 ml FLUSH ASDIRECTED PRN PRN Reason: Keep Vein Open Last Admin: 04/12/17 20:25 Dose: 10 ml Tamsulosin HCl (Flomax) 0.4 mg PO BID [facility] Last Admin: 04/19/17 10:35 Dose: 0.4 mg Topiramate (Topamax) 25 mg PO BID [facility] Last Admin: 04/19/17 10:36 Dose: 25 mg Discontinued Medications Albuterol/Ipratropium (Duoneb 3.0-0.5 Mg/3 Ml) 3 ml NEB Q4H PRN PRN Reason: Shortness Of Breath/wheezing Last Admin: 04/16/17 01:01 Dose: 3 ml Amlodipine Besylate (Norvasc) 2.5 mg PO DAILY [facility] Last Admin: 04/14/17 09:00 Dose: 2.5 mg Sodium Chloride (Normal Saline) 1,000 mls @ 1,000 mls/hr IV .BOLUS [facility] Last Admin: 04/12/17 20:24 Dose: 1,000 mls/hr Sodium Chloride (Normal Saline) 250 mls @ 999 mls/hr IV ONETIME ONE Stop: 04/14/17 13:46 Last Admin: 04/14/17 13:38 Dose: 999 mls/hr Sodium Chloride (Normal Saline) Confirm Administered Dose 250 mls @ as directed .ROUTE .STK-MED ONE Stop: 04/14/17 13:30 Last Admin: 04/14/17 13:38 Dose: Not Given Ceftriaxone Sodium 2 gm/ (Sodium Chloride) 100 mls @ 200 mls/hr IV Q24H [facility] Ceftriaxone Sodium 2 gm/ (Dextrose/Water) 100 mls @ 200 mls/hr IV Q24H [facility] Last Admin: 04/16/17 12:18 Dose: 200 mls/hr Dextrose/Sodium Chloride (Dextrose 5%-Normal Saline) 1,000 mls @ 100 mls/hr IV ASDIRECTED [facility] Last Admin: 04/15/17 15:18 Dose: 100 mls/hr Sodium Chloride (Sodium Chloride 0.45%) 1,000 mls @ 100 mls/hr IV ASDIRECTED [facility] Last Admin: 04/16/17 23:40 Dose: 100 mls/hr Penicillin G Potassium 5 (millunits/ Sodium Chloride) 100 mls @ 55 mls/hr IV Q6H [facility] Last Admin: 04/17/17 12:27 Dose: Not Given Penicillin G Potassium 5 (millunits/ Dextrose/Water) 100 mls @ 55 mls/hr IV Q6H [facility] Last Admin: 04/18/17 11:16 Dose: 55 mls/hr Sodium Chloride (Normal Saline) 100 mls @ 60 mls/hr IV ASDIRECTED [facility] Stop: 04/18/17 12:00 Last Admin: 04/18/17 10:30 Dose: 60 mls/hr Influenza Virus Vaccine (Pharmacy To Dose - Influenza Vaccine) 1 each IM ONETIME ONE Stop: 04/12/17 23:45 Influenza Virus Vaccine (Flulaval Quad [id number]) 60 mcg IM .ONCE ONE Stop: 04/13/17 10:01 Iopamidol (Isovue-370 (76%)) 100 ml IVPUSH ONETIME ONE Stop: 04/18/17 10:04 Last Admin: 04/18/17 10:30 Dose: 100 ml Lidocaine HCl (Xylocaine 2% Jelly) 10 ml MUCMEM STAT ONE Stop: 04/15/17 14:27 Last Admin: 04/15/17 14:56 Dose: 10 ml Lidocaine HCl (Xylocaine 2% Jelly) 10 ml MUCMEM ONETIME ONE Stop: 04/15/17 14:57 Last Admin: 04/15/17 15:12 Dose: 10 ml Lorazepam (Ativan) 0.5 mg IVPUSH ONETIME ONE Stop: 04/13/17 00:45 Last Admin: 04/13/17 01:01 Dose: 0.5 mg Lorazepam (Ativan) 0.5 mg IVPUSH Q4H PRN; Protocol PRN Reason: Anxiety Last Admin: 04/15/17 23:12 Dose: 0.5 mg Lorazepam (Ativan) 1 mg IVPUSH Q4H PRN PRN Reason: Anxiety Last Admin: 04/16/17 05:26 Dose: 1 mg Losartan Potassium (Cozaar) 50 mg PO DAILY [facility] Last Admin: 04/14/17 09:01 Dose: 50 mg Magnesium Sulfate (Pharmacy To Dose - Magnesium Replacement) 0 dose .XX ASDIRECTED PRN PRN Reason: RX TO WATCH MAG LEVELS Magnesium Sulfate (Pharmacy To Dose - Magnesium Replacement) 1 dose .XX ASDIRECTED [facility] Metoprolol Tartrate (Lopressor) 5 mg IVPUSH Q4H PRN PRN Reason: Tachycardia Oseltamivir Phosphate (Tamiflu) 30 mg PO DAILY [facility] Last Admin: 04/16/17 12:28 Dose: Not Given Potassium Chloride (Pharmacy To Dose - Potassium Replacement) 0 dose .XX ASDIRECTED PRN PRN Reason: RX TO WATCH K LEVELS Potassium Chloride (Pharmacy To Dose - Potassium Replacement) 1 dose .XX ASDIRECTED [facility] Risperidone (Risperidal) 0.5 mg PO BEDTIME [facility] Last Admin: 04/14/17 20:31 Dose: 0.5 mg Risperidone (Risperidal) 0.25 mg PO DAILY@1900 [facility] Rosuvastatin Calcium (Crestor) 40 mg PO DAILY [facility] Last Admin: 04/15/17 10:16 Dose: Not Given Sodium Chloride (Saline Flush) 10 ml FLUSH ONETIME ONE Stop: 04/18/17 10:04 Last Admin: 04/18/17 10:30 Dose: 10 ml Temazepam (Restoril) 7.5 mg PO ONETIME ONE Stop: 04/13/17 00:44 Last Admin: 04/13/17 01:11 Dose: Not Given Temazepam (Restoril) 7.5 mg PO ONETIME ONE Stop: 04/13/17 01:09 Last Admin: 04/13/17 04:22 Dose: Not Given Trazodone HCl (Trazodone) 100 mg PO BEDTIME [facility] Last Admin: 04/16/17 21:39 Dose: 100 mg - Exam Quality Assessment: Supplemental Oxygen, DVT Prophylaxis General: Alert, Oriented, Cooperative, No Acute Distress HEENT: Pupils Equal, Pupils Reactive, EOMI Neck: Supple, Trachea Midline Lungs: Normal Respiratory Effort Cardiovascular: Regular Rate, Regular Rhythm GI/Abdominal Exam: Normal Bowel Sounds, Soft, Non-Tender, No Organomegaly, No Distention (Male) Exam: Deferred Back Exam: Normal Inspection Extremities: Normal Inspection, No Pedal Edema Skin: Warm Neurological: No New Focal Deficit Psy/Mental Status: Alert, Depressed - Problem List Review Problem List Initiated/Reviewed/Updated: Yes - My Orders Last 24 Hours: My Active Orders 04/19/17 09:36 Bisacodyl [Dulcolax] 10 mg RECTAL DAILY PRN - Plan Plan:: I/P: Acute: Subdural Hematoma, Stable -Fell today hitting head -Vomited on EMS arrival, Denies nausea, headache, or blurred vison -C/o dizzyness and worsening weakness -Risk factors: Unsteady Gait, on Blood thinners (on ASA and xarelto), Multiple Sedating and Anti-cholinergic drugs -Home Meds as noted on ED notes: Trazodone 100 mg po Daily, Ativan 1 mg po TID PRN , Antivert ? mg po PRN, and Baclofen 10 mg po BID (All meds cause memory impairment or affect level of alertness); Bethanichol recently added to his regimen (has anti-cholinergic effects) -CT on 04/12/16 - Layering along falx cerebri measuring 1mm maximal thickness -Repeat CT scan Monday AM -Routine Neuro checks -Hold blood thinners for now; may restart after repeat CT scan -Continue to monitor Abnormal CTA of neck with distal 90% blockage in the AFUA; will refer to int card or vas surgery as consult for possible CEA cf MOISE Influenza A positive started on Tamiflu AUTI--changed to Levoquin Leukopenia--->infectious cause, improving with current therapy. Generalized Weakness -Acute on chronic -Likely contributed to fall as above -Chronic left sided spasticity and weakness -UA negative -Continue PT/OT -Has had difficulty with ADLs at home -Friend who assists him would like him placed -Was sent to rehabilitation after last hospitalization for 6 days in [place] -He is receptive to SNF placement or assisted living *Polypharmacy -Both patient and friend are concerned with recent lethargy and weakness -Pharmacy to review -Recommended f/u with PCP for overall health management Anemia -Monitor Depression -Acute on Chronic -He takes Celexa 20 mg po daily -His symptom is aggravated by his current situational status; he felt like nobody is willing to help him figure out his complaints -Patient was informed on his last visit to see a Neurology in [place] but it never happened. Psychosis, NOS -start risperdal 0.5 mg daily Insomnia-Trazadone, home dose Anxiety-Ativan IV prn Subdural hematoma s/p fall; Xarelto for A Fib currently held Urinary retention, follow PV residual; unable to pass straight cath, will place maldonado Chronic: A-fib HR slow RVR HLD HTN Asthma Constipation Heart Failure Stage III renal insufficiency Anxiety Depression CVA in 2013 Plan: He is other frey clinically stable Changed PCN to Levoquin based on sensitivity. Continue PT/OT Routine AM labs High Fall Risk Precautions Other orders as indicated above DVT/PE prophylaxis: PRAFUL hose and ambulation -consider SCds Repeat CT of head w/o contrast Code status: DNR/DNI; PCP: Dr. Chang at [facility] here in [facility] consult for d/c placement LOS>96 hours with resolving subdural hematoma with AMS resolving slowly; acute infectious process: viral/bacterial sources Possible DC to [place], placement is pending
[2017-04-19] MEDS: risperiDONE 0.5 MG Tab PO SCH (18:01)
[2017-04-19] MEDS: Rosuvastatin 10 MG Tab PO SCH (22:06)
[2017-04-19] MEDS: amLODIPine 5 MG Tab PO SCH (22:08)
[2017-04-19] MEDS: LORazepam 2 MG/ML SDV IVPUSH PRN (22:08)
[2017-04-20] MEDS: LORazepam 2 MG/ML SDV IVPUSH PRN ×2 (02:34→22:02)
[2017-04-20] MEDS: Albuterol/Ipratropium 3.0-0.5 MG/3 ML Neb Soln NEB SCH ×4 (06:06→20:56)
[2017-04-20] MEDS: Citalopram 20 MG Tab PO SCH (09:03)
[2017-04-20] MEDS: Multivitamins,Therapeutic Tab PO SCH (09:03)
[2017-04-20] MEDS: Tamsulosin 0.4 MG Cap.ER PO SCH ×2 (09:03→20:13)
[2017-04-20] MEDS: Topiramate 25 MG Tab PO SCH ×2 (09:03→20:14)
[2017-04-20] MEDS: Cholecalciferol (Vitamin D3) 1,000 Unit Tab PO SCH (09:03)
[2017-04-20] MEDS: Ferrous Sulfate 325 MG Tab PO SCH (09:03)
[2017-04-20] MEDS: Allopurinol 100 MG Tab PO SCH (09:03)
[2017-04-20] MEDS: Fish Oil/Omega-3 Fatty Acids 1 Gm Cap PO SCH (09:04)
[2017-04-20] MEDS: Baclofen 10 MG Tab PO SCH ×4 (09:04→20:17)
[2017-04-20] MEDS: Saccharomyces Boulardii (Probiotic) 250 MG Cap PO SCH ×2 (09:05→22:02)
--- NOTE | 2017-04-20 11:44 | PCM.PN ---
- General Info Date of Service: 04/20/17 Functional Status: Reports: Pain Controlled, Tolerating Diet, Urinating - Review of Systems General: Reports: No Symptoms HEENT: Reports: No Symptoms Pulmonary: Reports: No Symptoms Cardiovascular: Reports: No Symptoms Gastrointestinal: Reports: No Symptoms Genitourinary: Reports: No Symptoms Musculoskeletal: Reports: No Symptoms Skin: Reports: No Symptoms Neurological: Reports: No Symptoms Psychiatric: Reports: No Symptoms - Patient Data Vitals - Most Recent: Last Vital Signs Temp 36.6 C 04/20/17 10:35 Pulse 78 04/20/17 10:35 Resp 14 04/20/17 10:35 BP 111/72 04/20/17 10:35 Pulse Ox 96 04/20/17 10:35 Weight - Most Recent: 81.873 kg I&O - Last 24 Hours: Intake & Output 04/19/17 04/20/17 04/20/17 22:59 06:59 14:59 Intake Total 720 200 180 Output Total 1200 1375 Balance -480 -1175 180 Lab Results Last 24 Hours: Laboratory Results - last 24 hr 04/16/17 Range/Units 06:40 RPR Non-reactive (NONREACTIVE) Gino Results Last 24 Hours: Microbiology 04/14/17 10:32 Aerobic Blood Culture - Preliminary Blood - Venous NO GROWTH AFTER 6 DAYS Anaerobic Blood Culture - Preliminary NO GROWTH AFTER 6 DAYS 04/14/17 10:32 Aerobic Blood Culture - Preliminary Blood - Venous - Lab Draw NO GROWTH AFTER 6 DAYS Anaerobic Blood Culture - Preliminary NO GROWTH AFTER 6 DAYS Med Orders - Current: Current Medications Acetaminophen (Tylenol) 650 mg PO Q4H PRN PRN Reason: Pain (Mild 1-3)/fever Last Admin: 04/14/17 09:58 Dose: 650 mg Albuterol (Proventil Neb Soln) 2.5 mg NEB Q4HRRT PRN PRN Reason: Wheezing/SOB Last Admin: 04/16/17 12:48 Dose: 2.5 mg Albuterol/Ipratropium (Duoneb 3.0-0.5 Mg/3 Ml) 3 ml NEB QIDRT ILYA Last Admin: 04/20/17 09:09 Dose: 3 ml Allopurinol (Zyloprim) 100 mg PO DAILY [facility] Last Admin: 04/20/17 09:03 Dose: 100 mg Amlodipine Besylate (Norvasc) 2.5 mg PO BEDTIME [facility] Last Admin: 04/19/17 22:08 Dose: 2.5 mg Baclofen (Lioresal) 30 mg PO QID [facility] Last Admin: 04/20/17 09:04 Dose: 30 mg Bethanechol Chloride (Urecholine) 25 mg PO TID [facility] Last Admin: 04/20/17 09:04 Dose: 25 mg Bisacodyl (Dulcolax) 5 mg PO DAILY PRN PRN Reason: Constipation Last Admin: 04/18/17 06:48 Dose: 5 mg Bisacodyl (Dulcolax) 10 mg RECTAL DAILY PRN PRN Reason: Constipation Last Admin: 04/19/17 10:30 Dose: 10 mg Cholecalciferol (Vitamin D3) 1,000 units PO DAILY [facility] Last Admin: 04/20/17 09:03 Dose: 1,000 units Citalopram Hydrobromide (Celexa) 20 mg PO DAILY [facility] Last Admin: 04/20/17 09:03 Dose: 20 mg Docusate Sodium (Colace) 100 mg PO BID PRN PRN Reason: Constipation Last Admin: 04/18/17 06:48 Dose: 100 mg Ferrous Sulfate (Ferrous Sulfate) 325 mg PO DAILY [facility] Last Admin: 04/20/17 09:03 Dose: 325 mg Fish Oil (Fish Oil) 1 gm PO DAILY [facility] Last Admin: 04/20/17 09:04 Dose: 1 gm Haloperidol Lactate (Haldol) 1 mg IM Q4H PRN PRN Reason: Anxiety Hydralazine HCl (Apresoline) 10 mg IVPUSH Q6H PRN PRN Reason: Hypertension Last Admin: 04/13/17 12:08 Dose: 10 mg Hydralazine HCl (Apresoline) 20 mg IVPUSH Q4H PRN PRN Reason: Hypertension Last Admin: 04/18/17 09:03 Dose: 20 mg Levofloxacin/Dextrose 500 mg/ (Premix) 100 mls @ 100 mls/hr IV Q24H [facility] Stop: 04/21/17 16:00 Last Admin: 04/19/17 14:06 Dose: 100 mls/hr Levofloxacin (Levaquin) 500 mg PO Q24H [facility] Lorazepam (Ativan) 0.5 mg IVPUSH Q4H PRN PRN Reason: Anxiety Last Admin: 04/20/17 02:34 Dose: 0.5 mg Losartan Potassium (Cozaar) 50 mg PO DAILY@1200 [facility] Last Admin: 04/17/17 12:18 Dose: 50 mg Magnesium Hydroxide (Milk Of Magnesia) 30 ml PO DAILY PRN PRN Reason: Constipation Last Admin: 04/18/17 09:02 Dose: 30 ml Metoprolol Tartrate (Lopressor) 5 mg IVPUSH Q4H PRN PRN Reason: Tachycardia Multivitamins (Thera) 1 each PO DAILY [facility] Last Admin: 04/20/17 09:03 Dose: 1 each Ondansetron HCl (Zofran Odt) 4 mg PO Q6H PRN PRN Reason: nausea, able to take PO Last Admin: 04/19/17 10:35 Dose: 4 mg Ondansetron HCl (Zofran) 4 mg IV Q6H PRN PRN Reason: Nausea/Vomiting Last Admin: 04/16/17 23:24 Dose: 4 mg Polyethylene Glycol (Miralax) 17 gm PO DAILY PRN PRN Reason: Constipation Risperidone (Risperidal) 0.5 mg PO DAILY@1900 [facility] Last Admin: 04/19/17 18:01 Dose: 0.5 mg Rosuvastatin Calcium (Crestor) 40 mg PO BEDTIME [facility] Last Admin: 04/19/17 22:06 Dose: 40 mg Saccharomyces Boulardii (Florastor) 250 mg PO BID [facility] Last Admin: 04/20/17 09:05 Dose: 250 mg Senna/Docusate Sodium (Senna Plus) 1 tab PO BID PRN PRN Reason: Constipation Last Admin: 04/15/17 16:24 Dose: 1 tab Sodium Chloride (Saline Flush) 10 ml FLUSH ASDIRECTED PRN PRN Reason: Keep Vein Open Last Admin: 04/12/17 20:25 Dose: 10 ml Tamsulosin HCl (Flomax) 0.4 mg PO BID [facility] Last Admin: 04/20/17 09:03 Dose: 0.4 mg Topiramate (Topamax) 25 mg PO BID [facility] Last Admin: 04/20/17 09:03 Dose: 25 mg Discontinued Medications Albuterol/Ipratropium (Duoneb 3.0-0.5 Mg/3 Ml) 3 ml NEB Q4H PRN PRN Reason: Shortness Of Breath/wheezing Last Admin: 04/16/17 01:01 Dose: 3 ml Amlodipine Besylate (Norvasc) 2.5 mg PO DAILY [facility] Last Admin: 04/14/17 09:00 Dose: 2.5 mg Sodium Chloride (Normal Saline) 1,000 mls @ 1,000 mls/hr IV .BOLUS [facility] Last Admin: 04/12/17 20:24 Dose: 1,000 mls/hr Sodium Chloride (Normal Saline) 250 mls @ 999 mls/hr IV ONETIME ONE Stop: 04/14/17 13:46 Last Admin: 04/14/17 13:38 Dose: 999 mls/hr Sodium Chloride (Normal Saline) Confirm Administered Dose 250 mls @ as directed .ROUTE .STK-MED ONE Stop: 04/14/17 13:30 Last Admin: 04/14/17 13:38 Dose: Not Given Ceftriaxone Sodium 2 gm/ (Sodium Chloride) 100 mls @ 200 mls/hr IV Q24H [facility] Ceftriaxone Sodium 2 gm/ (Dextrose/Water) 100 mls @ 200 mls/hr IV Q24H [facility] Last Admin: 04/16/17 12:18 Dose: 200 mls/hr Dextrose/Sodium Chloride (Dextrose 5%-Normal Saline) 1,000 mls @ 100 mls/hr IV ASDIRECTED [facility] Last Admin: 04/15/17 15:18 Dose: 100 mls/hr Sodium Chloride (Sodium Chloride 0.45%) 1,000 mls @ 100 mls/hr IV ASDIRECTED [facility] Last Admin: 04/16/17 23:40 Dose: 100 mls/hr Penicillin G Potassium 5 (millunits/ Sodium Chloride) 100 mls @ 55 mls/hr IV Q6H [facility] Last Admin: 04/17/17 12:27 Dose: Not Given Penicillin G Potassium 5 (millunits/ Dextrose/Water) 100 mls @ 55 mls/hr IV Q6H [facility] Last Admin: 04/18/17 11:16 Dose: 55 mls/hr Sodium Chloride (Normal Saline) 100 mls @ 60 mls/hr IV ASDIRECTED [facility] Stop: 04/18/17 12:00 Last Admin: 04/18/17 10:30 Dose: 60 mls/hr Influenza Virus Vaccine (Pharmacy To Dose - Influenza Vaccine) 1 each IM ONETIME ONE Stop: 04/12/17 23:45 Influenza Virus Vaccine (Flulaval Quad 2862-1122) 60 mcg IM .ONCE ONE Stop: 04/13/17 10:01 Iopamidol (Isovue-370 (76%)) 100 ml IVPUSH ONETIME ONE Stop: 04/18/17 10:04 Last Admin: 04/18/17 10:30 Dose: 100 ml Lidocaine HCl (Xylocaine 2% Jelly) 10 ml MUCMEM STAT ONE Stop: 04/15/17 14:27 Last Admin: 04/15/17 14:56 Dose: 10 ml Lidocaine HCl (Xylocaine 2% Jelly) 10 ml MUCMEM ONETIME ONE Stop: 04/15/17 14:57 Last Admin: 04/15/17 15:12 Dose: 10 ml Lorazepam (Ativan) 0.5 mg IVPUSH ONETIME ONE Stop: 04/13/17 00:45 Last Admin: 04/13/17 01:01 Dose: 0.5 mg Lorazepam (Ativan) 0.5 mg IVPUSH Q4H PRN; Protocol PRN Reason: Anxiety Last Admin: 04/15/17 23:12 Dose: 0.5 mg Lorazepam (Ativan) 1 mg IVPUSH Q4H PRN PRN Reason: Anxiety Last Admin: 04/16/17 05:26 Dose: 1 mg Losartan Potassium (Cozaar) 50 mg PO DAILY [facility] Last Admin: 04/14/17 09:01 Dose: 50 mg Magnesium Sulfate (Pharmacy To Dose - Magnesium Replacement) 0 dose .XX ASDIRECTED PRN PRN Reason: RX TO WATCH MAG LEVELS Magnesium Sulfate (Pharmacy To Dose - Magnesium Replacement) 1 dose .XX ASDIRECTED [facility] Metoprolol Tartrate (Lopressor) 5 mg IVPUSH Q4H PRN PRN Reason: Tachycardia Oseltamivir Phosphate (Tamiflu) 30 mg PO DAILY [facility] Last Admin: 04/16/17 12:28 Dose: Not Given Oseltamivir Phosphate (Tamiflu) 30 mg PO BID [facility] Stop: 04/19/17 22:00 Last Admin: 04/19/17 22:07 Dose: 30 mg Potassium Chloride (Pharmacy To Dose - Potassium Replacement) 0 dose .XX ASDIRECTED PRN PRN Reason: RX TO WATCH K LEVELS Potassium Chloride (Pharmacy To Dose - Potassium Replacement) 1 dose .XX ASDIRECTED [facility] Risperidone (Risperidal) 0.5 mg PO BEDTIME [facility] Last Admin: 04/14/17 20:31 Dose: 0.5 mg Risperidone (Risperidal) 0.25 mg PO DAILY@1900 [facility] Rosuvastatin Calcium (Crestor) 40 mg PO DAILY [facility] Last Admin: 04/15/17 10:16 Dose: Not Given Sodium Chloride (Saline Flush) 10 ml FLUSH ONETIME ONE Stop: 04/18/17 10:04 Last Admin: 04/18/17 10:30 Dose: 10 ml Temazepam (Restoril) 7.5 mg PO ONETIME ONE Stop: 04/13/17 00:44 Last Admin: 04/13/17 01:11 Dose: Not Given Temazepam (Restoril) 7.5 mg PO ONETIME ONE Stop: 04/13/17 01:09 Last Admin: 04/13/17 04:22 Dose: Not Given Trazodone HCl (Trazodone) 100 mg PO BEDTIME [facility] Last Admin: 04/16/17 21:39 Dose: 100 mg - Exam Quality Assessment: Supplemental Oxygen, Urine Catheter, DVT Prophylaxis General: Alert, Oriented HEENT: Pupils Equal, Pupils Reactive, EOMI Neck: Supple, Trachea Midline, No JVD Lungs: Normal Respiratory Effort GI/Abdominal Exam: Normal Bowel Sounds, Soft, Non-Tender, No Organomegaly, No Distention (Male) Exam: Deferred Back Exam: Normal Inspection Extremities: Normal Inspection Skin: Warm Neurological: No New Focal Deficit Psy/Mental Status: Alert, Normal Affect, Normal Mood - Problem List Review Problem List Initiated/Reviewed/Updated: Yes - My Orders Last 24 Hours: My Active Orders 04/20/17 13:00 BMP [BASIC METABOLIC PANEL,BMP] [CHEM] Routine CBC WITH AUTO DIFF [HEME] Routine CRP [C-REACTIVE PROTEIN] [CHEM] Routine MAGNESIUM [CHEM] Routine PRO B-TYPE NATRIUR PEPT,BNPPRO [CHEM] Routine 04/22/17 14:00 Levofloxacin [Levaquin] 500 mg PO Q24H - Plan Plan:: I/P: Acute: Subdural Hematoma, Stable -Fell today hitting head -Vomited on EMS arrival, Denies nausea, headache, or blurred vison -C/o dizzyness and worsening weakness -Risk factors: Unsteady Gait, on Blood thinners (on ASA and xarelto), Multiple Sedating and Anti-cholinergic drugs -Home Meds as noted on ED notes: Trazodone 100 mg po Daily, Ativan 1 mg po TID PRN , Antivert ? mg po PRN, and Baclofen 10 mg po BID (All meds cause memory impairment or affect level of alertness); Bethanichol recently added to his regimen (has anti-cholinergic effects) -CT on 04/12/16 - Layering along falx cerebri measuring 1mm maximal thickness -Repeat CT scan Monday -Routine Neuro checks -Hold blood thinners for now; may restart after repeat CT scan -Continue to monitor Abnormal CTA of neck with distal 90% blockage in the AFUA; will refer to int card or vas surgery as consult for possible CEA cf MOISE Influenza A positive started on Tamiflu-->completed AUTI--changed to Levoquin, start oral route ARF--will start hydration, LR at 100-->75, 12 hours. Leukopenia--->infectious cause, improving with current therapy. Generalized Weakness -Acute on chronic -Likely contributed to fall as above -Chronic left sided spasticity and weakness -UA negative -Continue PT/OT -Has had difficulty with ADLs at home -Friend who assists him would like him placed -Was sent to rehabilitation after last hospitalization for 6 days in [place] -He is receptive to SNF placement or assisted living *Polypharmacy -Both patient and friend are concerned with recent lethargy and weakness -Pharmacy to review -Recommended f/u with PCP for overall health management Anemia -Monitor Depression -Acute on Chronic -He takes Celexa 20 mg po daily -His symptom is aggravated by his current situational status; he felt like nobody is willing to help him figure out his complaints -Patient was informed on his last visit to see a Neurology in [place] but it never happened. Psychosis, NOS -start risperdal 0.5 mg daily-->stopped; topamax BID is better tolerated. Insomnia-Trazadone, home dose Anxiety-Ativan IV prn Subdural hematoma s/p fall; Xarelto for A Fib currently held Urinary retention, follow PV residual; unable to pass straight cath; maldonado Chronic: A-fib HR slow RVR HLD HTN Asthma Constipation Heart Failure Stage III renal insufficiency Anxiety Depression CVA in 2012 Plan: He is other frey clinically stable Changed PCN to Levoquin based on sensitivity. Continue PT/OT Routine AM labs High Fall Risk Precautions Other orders as indicated above DVT/PE prophylaxis: PRAFUL hose and ambulation -consider SCds Repeat CT of head w/o contrast Code status: DNR/DNI; PCP: Dr. Chang at [facility] here in [facility] consult for d/c placement LOS>96 hours with resolving subdural hematoma with AMS resolving slowly; acute infectious process: viral/bacterial sources Possible DC to [place], placement is pending
[2017-04-20] MEDS: Losartan 100 MG Tab PO SCH (12:54)
[2017-04-20] MEDS: Levofloxacin/Dextrose 5%-Water 500 MG in Premix Bag 1 BAG IV SCH (13:03)
[2017-04-20] MEDS: risperiDONE 0.5 MG Tab PO SCH (18:13)
[2017-04-20] MEDS ORDERED: Lactated Ringers 1,000 ML IV SCH (19:15)
[2017-04-20] MEDS: Temazepam 15 MG Cap PO PRN (20:13)
[2017-04-20] MEDS: amLODIPine 5 MG Tab PO SCH (20:15)
[2017-04-20] MEDS: Rosuvastatin 10 MG Tab PO SCH (20:18)
[2017-04-21] MEDS ORDERED: Lactated Ringers 1,000 ML IV SCH ×2 (00:16→13:00)
[2017-04-21] MEDS: Albuterol/Ipratropium 3.0-0.5 MG/3 ML Neb Soln NEB SCH ×2 (05:35→09:45)
[2017-04-21] MEDS: Ferrous Sulfate 325 MG Tab PO SCH (08:27)
[2017-04-21] MEDS: Multivitamins,Therapeutic Tab PO SCH (08:27)
[2017-04-21] MEDS: Fish Oil/Omega-3 Fatty Acids 1 Gm Cap PO SCH (08:27)
[2017-04-21] MEDS: Baclofen 10 MG Tab PO SCH ×4 (08:27→20:13)
[2017-04-21] MEDS: Tamsulosin 0.4 MG Cap.ER PO SCH ×2 (08:27→20:17)
[2017-04-21] MEDS: Allopurinol 100 MG Tab PO SCH (08:27)
[2017-04-21] MEDS: Saccharomyces Boulardii (Probiotic) 250 MG Cap PO SCH ×2 (08:27→20:13)
[2017-04-21] MEDS: Cholecalciferol (Vitamin D3) 1,000 Unit Tab PO SCH (08:27)
[2017-04-21] MEDS: Citalopram 20 MG Tab PO SCH (08:27)
[2017-04-21] MEDS: Topiramate 25 MG Tab PO SCH ×2 (08:27→20:15)
[2017-04-21] MEDS ORDERED: hydrALAZINE 20 MG/ML SDV IVPUSH PRN (12:00)
--- NOTE | 2017-04-21 12:47 | PCM.PN ---
- General Info Date of Service: 04/21/17 Functional Status: Reports: Pain Controlled, Tolerating Diet, Urinating - Review of Systems General: Reports: Weakness HEENT: Reports: No Symptoms Pulmonary: Reports: No Symptoms Cardiovascular: Reports: No Symptoms Gastrointestinal: Reports: No Symptoms Genitourinary: Reports: No Symptoms Musculoskeletal: Reports: No Symptoms Skin: Reports: No Symptoms Neurological: Reports: No Symptoms Psychiatric: Reports: No Symptoms - Patient Data Vitals - Most Recent: Last Vital Signs Temp 36.4 C 04/21/17 07:21 Pulse 66 04/21/17 07:21 Resp 16 04/21/17 07:21 BP 134/74 04/21/17 07:21 Pulse Ox 97 04/21/17 07:21 Weight - Most Recent: 81.511 kg I&O - Last 24 Hours: Intake & Output 04/20/17 04/21/17 04/21/17 22:59 06:59 14:59 Intake Total 420 300 120 Output Total 1125 1550 Balance -705 -1250 120 Lab Results Last 24 Hours: Laboratory Results - last 24 hr 04/20/17 04/20/17 04/21/17 Range/Units 13:20 13:20 06:30 WBC 3.36 L 3.59 L (4.23-9.07) K/mm3 RBC 3.58 L 3.52 L (4.63-6.08) M/mm3 Hgb 10.8 L 10.4 L (13.7-17.5) gm/L Hct 33.3 L 32.4 L (40.1-51.0) % MCV 93.0 H 92.0 (79.0-92.2) fl MCH 30.2 29.5 (25.7-32.2) pg MCHC 32.4 32.1 L (32.2-35.5) g/dl RDW Std Deviation 43.8 43.0 (35.1-43.9) fL Plt Count 162 L 160 L (163-337) K/mm3 MPV 8.9 L 8.8 L (9.4-12.3) fl Neut % (Auto) 69.0 H 68.9 H (34.0-67.9) % Lymph % (Auto) 14.3 L 13.9 L (21.8-53.1) % [place] % (Auto) 12.2 12.5 H (5.3-12.2) % Eos % (Auto) 2.1 3.6 (0.8-7.0) Baso % (Auto) 0.3 0.3 (0.1-1.2) % Neut # (Auto) 2.32 2.47 (1.78-5.38) K/mm3 Lymph # (Auto) 0.48 L 0.50 L (1.32-3.57) K/mm3 [place] # (Auto) 0.41 0.45 (0.30-0.82) K/mm3 Eos # (Auto) 0.07 0.13 (0.04-0.54) K/mm3 Baso # (Auto) 0.01 0.01 (0.01-0.08) K/mm3 Sodium 138 (136-145) mEq/L Potassium 4.7 (3.5-5.1) mEq/L Chloride 103 (98-107) mEq/L Carbon Dioxide 25 (21-32) mEq/L Anion Gap 14.7 (5-15) BUN 27 H (7-18) mg/dL Creatinine 2.1 H (0.7-1.3) mg/dL Est Cr Clr Drug Dosing 39.52 mL/min Estimated GFR (MDRD) 32 (>60) mL/min BUN/Creatinine Ratio 12.9 L (14-18) Glucose 140 H (80-115) mg/dL Calcium 9.4 (8.5-10.1) mg/dL Magnesium 2.3 (1.8-2.4) mg/dl C-Reactive Protein 0.3 (<1.0) mg/dL NT-Pro-B Natriuret Pep 1649 H (0-125) pg/mL 04/21/17 Range/Units 06:30 WBC (4.23-9.07) K/mm3 RBC (4.63-6.08) M/mm3 Hgb (13.7-17.5) gm/L Hct (40.1-51.0) % MCV (79.0-92.2) fl MCH (25.7-32.2) pg MCHC (32.2-35.5) g/dl RDW Std Deviation (35.1-43.9) fL Plt Count (163-337) K/mm3 MPV (9.4-12.3) fl Neut % (Auto) (34.0-67.9) % Lymph % (Auto) (21.8-53.1) % [place] % (Auto) (5.3-12.2) % Eos % (Auto) (0.8-7.0) Baso % (Auto) (0.1-1.2) % Neut # (Auto) (1.78-5.38) K/mm3 Lymph # (Auto) (1.32-3.57) K/mm3 [place] # (Auto) (0.30-0.82) K/mm3 Eos # (Auto) (0.04-0.54) K/mm3 Baso # (Auto) (0.01-0.08) K/mm3 Sodium 139 (136-145) mEq/L Potassium 4.1 (3.5-5.1) mEq/L Chloride 105 (98-107) mEq/L Carbon Dioxide 23 (21-32) mEq/L Anion Gap 15.1 H (5-15) BUN 24 H (7-18) mg/dL Creatinine 1.9 H (0.7-1.3) mg/dL Est Cr Clr Drug Dosing 43.68 mL/min Estimated GFR (MDRD) 36 (>60) mL/min BUN/Creatinine Ratio 12.6 L (14-18) Glucose 109 (80-115) mg/dL Calcium 9.1 (8.5-10.1) mg/dL Magnesium 2.3 (1.8-2.4) mg/dl C-Reactive Protein < 0.2 (<1.0) mg/dL NT-Pro-B Natriuret Pep (0-125) pg/mL Gino Results Last 24 Hours: Microbiology 04/14/17 10:32 Aerobic Blood Culture - Final Blood - Venous NO GROWTH AFTER 7 DAYS Anaerobic Blood Culture - Final NO GROWTH AFTER 7 DAYS 04/14/17 10:32 Aerobic Blood Culture - Final Blood - Venous - Lab Draw NO GROWTH AFTER 7 DAYS Anaerobic Blood Culture - Final NO GROWTH AFTER 7 DAYS Med Orders - Current: Current Medications Acetaminophen (Tylenol) 650 mg PO Q4H PRN PRN Reason: Pain (Mild 1-3)/fever Last Admin: 04/14/17 09:58 Dose: 650 mg Albuterol (Proventil Neb Soln) 2.5 mg NEB Q4HRRT PRN PRN Reason: Wheezing/SOB Last Admin: 04/16/17 12:48 Dose: 2.5 mg Albuterol/Ipratropium (Duoneb 3.0-0.5 Mg/3 Ml) 3 ml NEB QIDRT [facility] Last Admin: 04/21/17 09:45 Dose: Not Given Allopurinol (Zyloprim) 100 mg PO DAILY [facility] Last Admin: 04/21/17 08:27 Dose: 100 mg Amlodipine Besylate (Norvasc) 2.5 mg PO BEDTIME [facility] Last Admin: 04/20/17 20:15 Dose: 2.5 mg Baclofen (Lioresal) 30 mg PO QID [facility] Last Admin: 04/21/17 12:39 Dose: 30 mg Bethanechol Chloride (Urecholine) 25 mg PO TID [facility] Last Admin: 04/21/17 08:28 Dose: 25 mg Bisacodyl (Dulcolax) 5 mg PO DAILY PRN PRN Reason: Constipation Last Admin: 04/18/17 06:48 Dose: 5 mg Bisacodyl (Dulcolax) 10 mg RECTAL DAILY PRN PRN Reason: Constipation Last Admin: 04/19/17 10:30 Dose: 10 mg Cholecalciferol (Vitamin D3) 1,000 units PO DAILY [facility] Last Admin: 04/21/17 08:27 Dose: 1,000 units Citalopram Hydrobromide (Celexa) 20 mg PO DAILY [facility] Last Admin: 04/21/17 08:27 Dose: 20 mg Docusate Sodium (Colace) 100 mg PO BID PRN PRN Reason: Constipation Last Admin: 04/18/17 06:48 Dose: 100 mg Ferrous Sulfate (Ferrous Sulfate) 325 mg PO DAILY [facility] Last Admin: 04/21/17 08:27 Dose: 325 mg Fish Oil (Fish Oil) 1 gm PO DAILY [facility] Last Admin: 04/21/17 08:27 Dose: 1 gm Haloperidol Lactate (Haldol) 1 mg IM Q4H PRN PRN Reason: Anxiety Hydralazine HCl (Apresoline) 20 mg IVPUSH Q6H PRN PRN Reason: Hypertension Levofloxacin/Dextrose 500 mg/ (Premix) 100 mls @ 100 mls/hr IV Q24H [facility] Stop: 04/21/17 16:00 Last Admin: 04/20/17 13:03 Dose: 100 mls/hr Lactated Ringer's (Ringers, Lactated) 1,000 mls @ 100 mls/hr IV ASDIRECTED [facility] Stop: 04/21/17 21:00 Last Admin: 04/21/17 12:39 Dose: 100 mls/hr Levofloxacin (Levaquin) 500 mg PO Q24H [facility] Lorazepam (Ativan) 0.5 mg IVPUSH Q4H PRN PRN Reason: Anxiety Last Admin: 04/20/17 22:02 Dose: 0.5 mg Losartan Potassium (Cozaar) 50 mg PO DAILY@1200 [facility] Magnesium Hydroxide (Milk Of Magnesia) 30 ml PO DAILY PRN PRN Reason: Constipation Last Admin: 04/18/17 09:02 Dose: 30 ml Metoprolol Tartrate (Lopressor) 5 mg IVPUSH Q4H PRN PRN Reason: Tachycardia Multivitamins (Thera) 1 each PO DAILY [facility] Last Admin: 04/21/17 08:27 Dose: 1 each Ondansetron HCl (Zofran) 4 mg IV Q6H PRN PRN Reason: Nausea/Vomiting Last Admin: 04/16/17 23:24 Dose: 4 mg Polyethylene Glycol (Miralax) 17 gm PO DAILY PRN PRN Reason: Constipation Risperidone (Risperidal) 0.5 mg PO DAILY@1900 [facility] Last Admin: 04/20/17 18:13 Dose: 0.5 mg Rosuvastatin Calcium (Crestor) 40 mg PO BEDTIME [facility] Last Admin: 04/20/17 20:18 Dose: 40 mg Saccharomyces Boulardii (Florastor) 250 mg PO BID [facility] Last Admin: 04/21/17 08:27 Dose: 250 mg Senna/Docusate Sodium (Senna Plus) 1 tab PO BID PRN PRN Reason: Constipation Last Admin: 04/15/17 16:24 Dose: 1 tab Sodium Chloride (Saline Flush) 10 ml FLUSH ASDIRECTED PRN PRN Reason: Keep Vein Open Last Admin: 04/12/17 20:25 Dose: 10 ml Tamsulosin HCl (Flomax) 0.4 mg PO BID [facility] Last Admin: 04/21/17 08:27 Dose: 0.4 mg Temazepam (Restoril) 15 mg PO BEDTIME PRN PRN Reason: Sleep Last Admin: 04/20/17 20:13 Dose: 15 mg Topiramate (Topamax) 25 mg PO BID [facility] Last Admin: 04/21/17 08:27 Dose: 25 mg Discontinued Medications Albuterol/Ipratropium (Duoneb 3.0-0.5 Mg/3 Ml) 3 ml NEB Q4H PRN PRN Reason: Shortness Of Breath/wheezing Last Admin: 04/16/17 01:01 Dose: 3 ml Amlodipine Besylate (Norvasc) 2.5 mg PO DAILY [facility] Last Admin: 04/14/17 09:00 Dose: 2.5 mg Hydralazine HCl (Apresoline) 10 mg IVPUSH Q6H PRN PRN Reason: Hypertension Last Admin: 04/13/17 12:08 Dose: 10 mg Hydralazine HCl (Apresoline) 20 mg IVPUSH Q4H PRN PRN Reason: Hypertension Last Admin: 04/18/17 09:03 Dose: 20 mg Sodium Chloride (Normal Saline) 1,000 mls @ 1,000 mls/hr IV .BOLUS [facility] Last Admin: 04/12/17 20:24 Dose: 1,000 mls/hr Sodium Chloride (Normal Saline) 250 mls @ 999 mls/hr IV ONETIME ONE Stop: 04/14/17 13:46 Last Admin: 04/14/17 13:38 Dose: 999 mls/hr Sodium Chloride (Normal Saline) Confirm Administered Dose 250 mls @ as directed .ROUTE .STK-MED ONE Stop: 04/14/17 13:30 Last Admin: 04/14/17 13:38 Dose: Not Given Ceftriaxone Sodium 2 gm/ (Sodium Chloride) 100 mls @ 200 mls/hr IV Q24H [facility] Ceftriaxone Sodium 2 gm/ (Dextrose/Water) 100 mls @ 200 mls/hr IV Q24H [facility] Last Admin: 04/16/17 12:18 Dose: 200 mls/hr Dextrose/Sodium Chloride (Dextrose 5%-Normal Saline) 1,000 mls @ 100 mls/hr IV ASDIRECTED [facility] Last Admin: 04/15/17 15:18 Dose: 100 mls/hr Sodium Chloride (Sodium Chloride 0.45%) 1,000 mls @ 100 mls/hr IV ASDIRECTED [facility] Last Admin: 04/16/17 23:40 Dose: 100 mls/hr Penicillin G Potassium 5 (millunits/ Sodium Chloride) 100 mls @ 55 mls/hr IV Q6H [facility] Last Admin: 04/17/17 12:27 Dose: Not Given Penicillin G Potassium 5 (millunits/ Dextrose/Water) 100 mls @ 55 mls/hr IV Q6H [facility] Last Admin: 04/18/17 11:16 Dose: 55 mls/hr Sodium Chloride (Normal Saline) 100 mls @ 60 mls/hr IV ASDIRECTED [facility] Stop: 04/18/17 12:00 Last Admin: 04/18/17 10:30 Dose: 60 mls/hr Lactated Ringer's (Ringers, Lactated) 1,000 mls @ 100 mls/hr IV ASDIRECTED [facility] Stop: 04/21/17 00:15 Lactated Ringer's (Ringers, Lactated) 1,000 mls @ 75 [facility] Stop: 04/21/17 06:16 Influenza Virus Vaccine (Pharmacy To Dose - Influenza Vaccine) 1 each IM ONETIME ONE Stop: 04/12/17 23:45 Influenza Virus Vaccine (Flulaval Quad [id number]) 60 mcg IM .ONCE ONE Stop: 04/13/17 10:01 Iopamidol (Isovue-370 (76%)) 100 ml IVPUSH ONETIME ONE Stop: 04/18/17 10:04 Last Admin: 04/18/17 10:30 Dose: 100 ml Lidocaine HCl (Xylocaine 2% Jelly) 10 ml MUCMEM STAT ONE Stop: 04/15/17 14:27 Last Admin: 04/15/17 14:56 Dose: 10 ml Lidocaine HCl (Xylocaine 2% Jelly) 10 ml MUCMEM ONETIME ONE Stop: 04/15/17 14:57 Last Admin: 04/15/17 15:12 Dose: 10 ml Lorazepam (Ativan) 0.5 mg IVPUSH ONETIME ONE Stop: 04/13/17 00:45 Last Admin: 04/13/17 01:01 Dose: 0.5 mg Lorazepam (Ativan) 0.5 mg IVPUSH Q4H PRN; Protocol PRN Reason: Anxiety Last Admin: 04/15/17 23:12 Dose: 0.5 mg Lorazepam (Ativan) 1 mg IVPUSH Q4H PRN PRN Reason: Anxiety Last Admin: 04/16/17 05:26 Dose: 1 mg Losartan Potassium (Cozaar) 50 mg PO DAILY [facility] Last Admin: 04/14/17 09:01 Dose: 50 mg Losartan Potassium (Cozaar) 50 mg PO DAILY@1200 [facility] Last Admin: 04/20/17 12:54 Dose: 50 mg Magnesium Sulfate (Pharmacy To Dose - Magnesium Replacement) 0 dose .XX ASDIRECTED PRN PRN Reason: RX TO WATCH MAG LEVELS Magnesium Sulfate (Pharmacy To Dose - Magnesium Replacement) 1 dose .XX ASDIRECTED [facility] Metoprolol Tartrate (Lopressor) 5 mg IVPUSH Q4H PRN PRN Reason: Tachycardia Ondansetron HCl (Zofran Odt) 4 mg PO Q6H PRN PRN Reason: nausea, able to take PO Last Admin: 04/19/17 10:35 Dose: 4 mg Oseltamivir Phosphate (Tamiflu) 30 mg PO DAILY [facility] Last Admin: 04/16/17 12:28 Dose: Not Given Oseltamivir Phosphate (Tamiflu) 30 mg PO BID [facility] Stop: 04/19/17 22:00 Last Admin: 04/19/17 22:07 Dose: 30 mg Potassium Chloride (Pharmacy To Dose - Potassium Replacement) 0 dose .XX ASDIRECTED PRN PRN Reason: RX TO WATCH K LEVELS Potassium Chloride (Pharmacy To Dose - Potassium Replacement) 1 dose .XX ASDIRECTED [facility] Risperidone (Risperidal) 0.5 mg PO BEDTIME [facility] Last Admin: 04/14/17 20:31 Dose: 0.5 mg Risperidone (Risperidal) 0.25 mg PO DAILY@1900 [facility] Rosuvastatin Calcium (Crestor) 40 mg PO DAILY [facility] Last Admin: 04/15/17 10:16 Dose: Not Given Sodium Chloride (Saline Flush) 10 ml FLUSH ONETIME ONE Stop: 04/18/17 10:04 Last Admin: 04/18/17 10:30 Dose: 10 ml Temazepam (Restoril) 7.5 mg PO ONETIME ONE Stop: 04/13/17 00:44 Last Admin: 04/13/17 01:11 Dose: Not Given Temazepam (Restoril) 7.5 mg PO ONETIME ONE Stop: 04/13/17 01:09 Last Admin: 04/13/17 04:22 Dose: Not Given Trazodone HCl (Trazodone) 100 mg PO BEDTIME [facility] Last Admin: 04/16/17 21:39 Dose: 100 mg - Exam Quality Assessment: Supplemental Oxygen, Urine Catheter, DVT Prophylaxis General: Alert, Oriented, Cooperative, No Acute Distress HEENT: Pupils Equal, Pupils Reactive, EOMI Neck: Trachea Midline, No JVD Lungs: Normal Respiratory Effort Cardiovascular: Regular Rate, Regular Rhythm GI/Abdominal Exam: Normal Bowel Sounds, Soft, Non-Tender, No Organomegaly, No Distention (Male) Exam: Deferred Back Exam: Normal Inspection Extremities: Normal Inspection Skin: Warm Neurological: No New Focal Deficit, Normal Speech Psy/Mental Status: Alert, Normal Affect, Normal Mood - Problem List Review Problem List Initiated/Reviewed/Updated: Yes - My Orders Last 24 Hours: My Active Orders 04/20/17 20:03 Temazepam [Restoril] 15 mg PO BEDTIME PRN 04/21/17 04:52 Up to Chair [RC] ASDIRECTED 04/21/17 12:00 hydrALAZINE [Apresoline] 20 mg IVPUSH Q6H PRN 04/21/17 13:00 Lactated Ringers [Ringers, Lactated] 1,000 ml IV ASDIRECTED 04/22/17 05:00 BMP [BASIC METABOLIC PANEL,BMP] [CHEM] DAILY CBC WITH AUTO DIFF [HEME] DAILY CRP [C-REACTIVE PROTEIN] [CHEM] DAILY MAGNESIUM [CHEM] DAILY 04/22/17 14:00 Levofloxacin [Levaquin] 500 mg PO Q24H 04/23/17 05:00 BMP [BASIC METABOLIC PANEL,BMP] [CHEM] DAILY CBC WITH AUTO DIFF [HEME] DAILY CRP [C-REACTIVE PROTEIN] [CHEM] DAILY MAGNESIUM [CHEM] DAILY 04/24/17 05:00 BMP [BASIC METABOLIC PANEL,BMP] [CHEM] DAILY CBC WITH AUTO DIFF [HEME] DAILY CRP [C-REACTIVE PROTEIN] [CHEM] DAILY MAGNESIUM [CHEM] DAILY 04/24/17 12:00 Losartan [Cozaar] 50 mg PO DAILY@1200 - Plan Plan:: I/P: Acute: Subdural Hematoma, Stable -Fell today hitting head -Vomited on EMS arrival, Denies nausea, headache, or blurred vison -C/o dizzyness and worsening weakness -Risk factors: Unsteady Gait, on Blood thinners (on ASA and xarelto), Multiple Sedating and Anti-cholinergic drugs -Home Meds as noted on ED notes: Trazodone 100 mg po Daily, Ativan 1 mg po TID PRN , Antivert ? mg po PRN, and Baclofen 10 mg po BID (All meds cause memory impairment or affect level of alertness); Bethanichol recently added to his regimen (has anti-cholinergic effects) -CT on 04/12/16 - Layering along falx cerebri measuring 1mm maximal thickness -Repeat CT scan Monday -Routine Neuro checks -Hold blood thinners for now; may restart after repeat CT scan -Continue to monitor Abnormal CTA of neck with distal 90% blockage in the AFUA; will refer to int card or vas surgery as consult for possible CEA cf MOISE Influenza A positive started on Tamiflu-->completed AUTI--changed to Levoquin, start oral route ARF--will start hydration, LR at 100-->75, 12 hours. Leukopenia--->infectious cause, improving with current therapy. Generalized Weakness -Acute on chronic -Likely contributed to fall as above -Chronic left sided spasticity and weakness -UA negative -Continue PT/OT -Has had difficulty with ADLs at home -Friend who assists him would like him placed -Was sent to rehabilitation after last hospitalization for 6 days in [place] -He is receptive to SNF placement or assisted living *Polypharmacy -Both patient and friend are concerned with recent lethargy and weakness -Pharmacy to review -Recommended f/u with PCP for overall health management Anemia -Monitor Depression -Acute on Chronic -He takes Celexa 20 mg po daily -His symptom is aggravated by his current situational status; he felt like nobody is willing to help him figure out his complaints -Patient was informed on his last visit to see a Neurology in [place] but it never happened. Psychosis, NOS -start risperdal 0.5 mg daily-->stopped; topamax BID is better tolerated. Insomnia-Trazadone, home dose Anxiety-Ativan IV prn Subdural hematoma s/p fall; Xarelto for A Fib currently held Urinary retention, follow PV residual; unable to pass straight cath; maldonado Chronic: A-fib HR slow RVR HLD HTN Asthma Constipation Heart Failure Stage III renal insufficiency Anxiety Depression CVA in 2013 Plan: He is other frey clinically stable Changed PCN to Levoquin based on sensitivity. Continue PT/OT Routine AM labs High Fall Risk Precautions Other orders as indicated above DVT/PE prophylaxis: PRAFUL hose and ambulation -consider SCds Repeat CT of head w/o contrast Code status: DNR/DNI; PCP: Dr. Chang at [facility] here in [facility] consult for d/c placement LOS>96 hours with resolving subdural hematoma with AMS resolving slowly; acute infectious process: viral/bacterial sources Possible DC to [place], placement is pending
[2017-04-21] MEDS: Levofloxacin/Dextrose 5%-Water 500 MG in Premix Bag 1 BAG IV SCH (14:16)
[2017-04-21] MEDS: Ondansetron 4 MG/2 ML SDV IV PRN (16:41)
[2017-04-21] MEDS: risperiDONE 0.5 MG Tab PO SCH (18:41)
[2017-04-21] MEDS: Losartan 100 MG Tab PO SCH (19:33)
[2017-04-21] MEDS: Rosuvastatin 10 MG Tab PO SCH (20:13)
[2017-04-21] MEDS: amLODIPine 5 MG Tab PO SCH (20:15)
[2017-04-22] MEDS: Ondansetron 4 MG/2 ML SDV IV PRN (00:41)
[2017-04-22] MEDS: Temazepam 15 MG Cap PO PRN (00:42)
[2017-04-22] MEDS: Cholecalciferol (Vitamin D3) 1,000 Unit Tab PO SCH (09:05)
[2017-04-22] MEDS: Citalopram 20 MG Tab PO SCH (09:05)
[2017-04-22] MEDS: Tamsulosin 0.4 MG Cap.ER PO SCH ×2 (09:05→20:04)
[2017-04-22] MEDS: Multivitamins,Therapeutic Tab PO SCH (09:05)
[2017-04-22] MEDS: Fish Oil/Omega-3 Fatty Acids 1 Gm Cap PO SCH (09:05)
[2017-04-22] MEDS: Saccharomyces Boulardii (Probiotic) 250 MG Cap PO SCH ×2 (09:05→20:05)
[2017-04-22] MEDS: Ferrous Sulfate 325 MG Tab PO SCH (09:06)
[2017-04-22] MEDS: Baclofen 10 MG Tab PO SCH ×4 (09:06→20:05)
[2017-04-22] MEDS: Allopurinol 100 MG Tab PO SCH (09:06)
[2017-04-22] MEDS: Topiramate 25 MG Tab PO SCH ×2 (09:06→20:08)
--- NOTE | 2017-04-22 09:48 | CR ---
Right humerus: 2 views of the right humerus were obtained. Comparison: No prior humerus exam. No fracture or other abnormality is appreciated. Impression: 1. No abnormality is appreciated on 2 view right humerus study. Diagnostic code #1
--- NOTE | 2017-04-22 09:48 | CR ---
Right shoulder: 3 views of the right shoulder were obtained. Glenohumeral and acromioclavicular joints appear unremarkable. No fracture or other abnormality is seen. Impression: 1. No abnormality is identified on 3 view right shoulder study. Diagnostic code #1
[2017-04-22] MEDS ORDERED: Temazepam 7.5 MG Cap PO PRN (12:05)
[2017-04-22] MEDS: Levofloxacin 500 MG Tab PO SCH (13:22)
--- NOTE | 2017-04-22 14:40 | PCM.PN ---
- General Info Date of Service: 04/22/17 Functional Status: Reports: Pain Controlled, Tolerating Diet - Review of Systems General: Reports: Weakness HEENT: Reports: No Symptoms Pulmonary: Reports: No Symptoms Cardiovascular: Reports: No Symptoms Gastrointestinal: Reports: No Symptoms Genitourinary: Reports: No Symptoms Musculoskeletal: Reports: No Symptoms Skin: Reports: No Symptoms Neurological: Reports: No Symptoms Psychiatric: Reports: No Symptoms - Patient Data Vitals - Most Recent: Last Vital Signs Temp 36.4 C 04/22/17 11:00 Pulse 59 L 04/22/17 11:00 Resp 16 04/22/17 11:00 BP 109/56 L 04/22/17 11:00 Pulse Ox 99 04/22/17 11:00 Weight - Most Recent: 80.876 kg I&O - Last 24 Hours: Intake & Output 04/21/17 04/22/17 04/22/17 22:59 06:59 14:59 Intake Total 1550 1320 Output Total 1500 1250 Balance 50 70 Lab Results Last 24 Hours: Laboratory Results - last 24 hr 04/22/17 04/22/17 Range/Units 06:25 06:25 WBC 2.86 L (4.23-9.07) K/mm3 RBC 3.31 L (4.63-6.08) M/mm3 Hgb 9.9 L (13.7-17.5) gm/L Hct 31.1 L (40.1-51.0) % MCV 94.0 H (79.0-92.2) fl MCH 29.9 (25.7-32.2) pg MCHC 31.8 L (32.2-35.5) g/dl RDW Std Deviation 44.2 H (35.1-43.9) fL Plt Count 167 (163-337) K/mm3 MPV 9.1 L (9.4-12.3) fl Neut % (Auto) 64.7 (34.0-67.9) % Lymph % (Auto) 15.4 L (21.8-53.1) % [place] % (Auto) 14.0 H (5.3-12.2) % Eos % (Auto) 4.5 (0.8-7.0) Baso % (Auto) 0.7 (0.1-1.2) % Neut # (Auto) 1.85 (1.78-5.38) K/mm3 Lymph # (Auto) 0.44 L (1.32-3.57) K/mm3 [place] # (Auto) 0.40 (0.30-0.82) K/mm3 Eos # (Auto) 0.13 (0.04-0.54) K/mm3 Baso # (Auto) 0.02 (0.01-0.08) K/mm3 Manual Slide Review Abnormal smear Sodium 141 (136-145) mEq/L Potassium 4.4 (3.5-5.1) mEq/L Chloride 108 H (98-107) mEq/L Carbon Dioxide 24 (21-32) mEq/L Anion Gap 13.4 (5-15) BUN 23 H (7-18) mg/dL Creatinine 1.9 H (0.7-1.3) mg/dL Est Cr Clr Drug Dosing 43.68 mL/min Estimated GFR (MDRD) 36 (>60) mL/min BUN/Creatinine Ratio 12.1 L (14-18) Glucose 93 (80-115) mg/dL Calcium 8.5 (8.5-10.1) mg/dL Magnesium 2.3 (1.8-2.4) mg/dl C-Reactive Protein < 0.2 (<1.0) mg/dL Gino Results Last 24 Hours: Microbiology 04/14/17 10:32 Aerobic Blood Culture - Final Blood - Venous NO GROWTH AFTER 7 DAYS Anaerobic Blood Culture - Final NO GROWTH AFTER 7 DAYS 04/14/17 10:32 Aerobic Blood Culture - Final Blood - Venous - Lab Draw NO GROWTH AFTER 7 DAYS Anaerobic Blood Culture - Final NO GROWTH AFTER 7 DAYS Med Orders - Current: Current Medications Acetaminophen (Tylenol) 650 mg PO Q4H PRN PRN Reason: Pain (Mild 1-3)/fever Last Admin: 04/14/17 09:58 Dose: 650 mg Albuterol (Proventil Neb Soln) 2.5 mg NEB Q4HRRT PRN PRN Reason: Wheezing/SOB Last Admin: 04/16/17 12:48 Dose: 2.5 mg Allopurinol (Zyloprim) 100 mg PO DAILY ILYA Last Admin: 04/22/17 09:06 Dose: 100 mg Amlodipine Besylate (Norvasc) 2.5 mg PO BEDTIME ILYA Last Admin: 04/21/17 20:15 Dose: 2.5 mg Baclofen (Lioresal) 30 mg PO QID [facility] Last Admin: 04/22/17 13:23 Dose: 30 mg Bethanechol Chloride (Urecholine) 25 mg PO TID [facility] Last Admin: 04/22/17 08:59 Dose: 25 mg Bisacodyl (Dulcolax) 5 mg PO DAILY PRN PRN Reason: Constipation Last Admin: 04/18/17 06:48 Dose: 5 mg Bisacodyl (Dulcolax) 10 mg RECTAL DAILY PRN PRN Reason: Constipation Last Admin: 04/19/17 10:30 Dose: 10 mg Cholecalciferol (Vitamin D3) 1,000 units PO DAILY [facility] Last Admin: 04/22/17 09:05 Dose: 1,000 units Citalopram Hydrobromide (Celexa) 20 mg PO DAILY [facility] Last Admin: 04/22/17 09:05 Dose: 20 mg Docusate Sodium (Colace) 100 mg PO BID PRN PRN Reason: Constipation Last Admin: 04/18/17 06:48 Dose: 100 mg Ferrous Sulfate (Ferrous Sulfate) 325 mg PO DAILY [facility] Last Admin: 04/22/17 09:06 Dose: 325 mg Fish Oil (Fish Oil) 1 gm PO DAILY [facility] Last Admin: 04/22/17 09:05 Dose: 1 gm Haloperidol Lactate (Haldol) 1 mg IM Q4H PRN PRN Reason: Anxiety Hydralazine HCl (Apresoline) 20 mg IVPUSH Q6H PRN PRN Reason: Hypertension Levofloxacin (Levaquin) 500 mg PO Q24H [facility] Last Admin: 04/22/17 13:22 Dose: 500 mg Lorazepam (Ativan) 0.5 mg IVPUSH Q4H PRN PRN Reason: Anxiety Last Admin: 04/20/17 22:02 Dose: 0.5 mg Losartan Potassium (Cozaar) 50 mg PO DAILY@1200 ILYA Magnesium Hydroxide (Milk Of Magnesia) 30 ml PO DAILY PRN PRN Reason: Constipation Last Admin: 04/18/17 09:02 Dose: 30 ml Metoprolol Tartrate (Lopressor) 5 mg IVPUSH Q4H PRN PRN Reason: Tachycardia Multivitamins (Thera) 1 each PO DAILY [facility] Last Admin: 04/22/17 09:05 Dose: 1 each Ondansetron HCl (Zofran) 4 mg IV Q6H PRN PRN Reason: Nausea/Vomiting Last Admin: 04/22/17 00:41 Dose: 4 mg Polyethylene Glycol (Miralax) 17 gm PO DAILY PRN PRN Reason: Constipation Risperidone (Risperidal) 0.5 mg PO DAILY@1900 [facility] Last Admin: 04/21/17 18:41 Dose: 0.5 mg Rosuvastatin Calcium (Crestor) 40 mg PO BEDTIME [facility] Last Admin: 04/21/17 20:13 Dose: 40 mg Saccharomyces Boulardii (Florastor) 250 mg PO BID [facility] Last Admin: 04/22/17 09:05 Dose: 250 mg Senna/Docusate Sodium (Senna Plus) 1 tab PO BID PRN PRN Reason: Constipation Last Admin: 04/15/17 16:24 Dose: 1 tab Sodium Chloride (Saline Flush) 10 ml FLUSH ASDIRECTED PRN PRN Reason: Keep Vein Open Last Admin: 04/12/17 20:25 Dose: 10 ml Tamsulosin HCl (Flomax) 0.4 mg PO BID [facility] Last Admin: 04/22/17 09:05 Dose: 0.4 mg Temazepam (Restoril) 7.5 mg PO BEDTIME PRN PRN Reason: Insomnia Topiramate (Topamax) 25 mg PO BID [facility] Last Admin: 04/22/17 09:06 Dose: 25 mg Discontinued Medications Albuterol/Ipratropium (Duoneb 3.0-0.5 Mg/3 Ml) 3 ml NEB Q4H PRN PRN Reason: Shortness Of Breath/wheezing Last Admin: 04/16/17 01:01 Dose: 3 ml Albuterol/Ipratropium (Duoneb 3.0-0.5 Mg/3 Ml) 3 ml NEB QIDRT [facility] Last Admin: 04/21/17 09:45 Dose: Not Given Amlodipine Besylate (Norvasc) 2.5 mg PO DAILY [facility] Last Admin: 04/14/17 09:00 Dose: 2.5 mg Hydralazine HCl (Apresoline) 10 mg IVPUSH Q6H PRN PRN Reason: Hypertension Last Admin: 04/13/17 12:08 Dose: 10 mg Hydralazine HCl (Apresoline) 20 mg IVPUSH Q4H PRN PRN Reason: Hypertension Last Admin: 04/18/17 09:03 Dose: 20 mg Sodium Chloride (Normal Saline) 1,000 mls @ 1,000 mls/hr IV .BOLUS ILYA Last Admin: 04/12/17 20:24 Dose: 1,000 mls/hr Sodium Chloride (Normal Saline) 250 mls @ 999 mls/hr IV ONETIME ONE Stop: 04/14/17 13:46 Last Admin: 04/14/17 13:38 Dose: 999 mls/hr Sodium Chloride (Normal Saline) Confirm Administered Dose 250 mls @ as directed .ROUTE .STK-MED ONE Stop: 04/14/17 13:30 Last Admin: 04/14/17 13:38 Dose: Not Given Ceftriaxone Sodium 2 gm/ (Sodium Chloride) 100 mls @ 200 mls/hr IV Q24H [facility] Ceftriaxone Sodium 2 gm/ (Dextrose/Water) 100 mls @ 200 mls/hr IV Q24H [facility] Last Admin: 04/16/17 12:18 Dose: 200 mls/hr Dextrose/Sodium Chloride (Dextrose 5%-Normal Saline) 1,000 mls @ 100 mls/hr IV ASDIRECTED [facility] Last Admin: 04/15/17 15:18 Dose: 100 mls/hr Sodium Chloride (Sodium Chloride 0.45%) 1,000 mls @ 100 mls/hr IV ASDIRECTED [facility] Last Admin: 04/16/17 23:40 Dose: 100 mls/hr Penicillin G Potassium 5 (millunits/ Sodium Chloride) 100 mls @ 55 mls/hr IV Q6H [facility] Last Admin: 04/17/17 12:27 Dose: Not Given Penicillin G Potassium 5 (millunits/ Dextrose/Water) 100 mls @ 55 mls/hr IV Q6H [facility] Last Admin: 04/18/17 11:16 Dose: 55 mls/hr Sodium Chloride (Normal Saline) 100 mls @ 60 mls/hr IV ASDIRECTED [facility] Stop: 04/18/17 12:00 Last Admin: 04/18/17 10:30 Dose: 60 mls/hr Levofloxacin/Dextrose 500 mg/ (Premix) 100 mls @ 100 mls/hr IV Q24H [facility] Stop: 04/21/17 16:00 Last Admin: 04/21/17 14:16 Dose: 100 mls/hr Lactated Ringer's (Ringers, Lactated) 1,000 mls @ 100 mls/hr IV ASDIRECTED [facility] Stop: 04/21/17 00:15 Lactated Ringer's (Ringers, Lactated) 1,000 mls @ 75 mls/hr IV ASDIRECTED [facility] Stop: 04/21/17 06:16 Lactated Ringer's (Ringers, Lactated) 1,000 mls @ 100 mls/hr IV ASDIRECTED [facility] Stop: 04/21/17 21:00 Last Admin: 04/21/17 12:39 Dose: 100 mls/hr Influenza Virus Vaccine (Pharmacy To Dose - Influenza Vaccine) 1 each IM ONETIME ONE Stop: 04/12/17 23:45 Influenza Virus Vaccine (Flulaval Quad [id number]) 60 mcg IM .ONCE ONE Stop: 04/13/17 10:01 Iopamidol (Isovue-370 (76%)) 100 ml IVPUSH ONETIME ONE Stop: 04/18/17 10:04 Last Admin: 04/18/17 10:30 Dose: 100 ml Lidocaine HCl (Xylocaine 2% Jelly) 10 ml MUCMEM STAT ONE Stop: 04/15/17 14:27 Last Admin: 04/15/17 14:56 Dose: 10 ml Lidocaine HCl (Xylocaine 2% Jelly) 10 ml MUCMEM ONETIME ONE Stop: 04/15/17 14:57 Last Admin: 04/15/17 15:12 Dose: 10 ml Lorazepam (Ativan) 0.5 mg IVPUSH ONETIME ONE Stop: 04/13/17 00:45 Last Admin: 04/13/17 01:01 Dose: 0.5 mg Lorazepam (Ativan) 0.5 mg IVPUSH Q4H PRN; Protocol PRN Reason: Anxiety Last Admin: 04/15/17 23:12 Dose: 0.5 mg Lorazepam (Ativan) 1 mg IVPUSH Q4H PRN PRN Reason: Anxiety Last Admin: 04/16/17 05:26 Dose: 1 mg Losartan Potassium (Cozaar) 50 mg PO DAILY [facility] Last Admin: 04/14/17 09:01 Dose: 50 mg Losartan Potassium (Cozaar) 50 mg PO DAILY@1200 [facility] Last Admin: 04/21/17 19:33 Dose: Not Given Magnesium Sulfate (Pharmacy To Dose - Magnesium Replacement) 0 dose .XX ASDIRECTED PRN PRN Reason: RX TO WATCH MAG LEVELS Magnesium Sulfate (Pharmacy To Dose - Magnesium Replacement) 1 dose .XX ASDIRECTED [facility] Metoprolol Tartrate (Lopressor) 5 mg IVPUSH Q4H PRN PRN Reason: Tachycardia Ondansetron HCl (Zofran Odt) 4 mg PO Q6H PRN PRN Reason: nausea, able to take PO Last Admin: 04/19/17 10:35 Dose: 4 mg Oseltamivir Phosphate (Tamiflu) 30 mg PO DAILY [facility] Last Admin: 04/16/17 12:28 Dose: Not Given Oseltamivir Phosphate (Tamiflu) 30 mg PO BID [facility] Stop: 04/19/17 22:00 Last Admin: 04/19/17 22:07 Dose: 30 mg Potassium Chloride (Pharmacy To Dose - Potassium Replacement) 0 dose .XX ASDIRECTED PRN PRN Reason: RX TO WATCH K LEVELS Potassium Chloride (Pharmacy To Dose - Potassium Replacement) 1 dose .XX ASDIRECTED [facility] Risperidone (Risperidal) 0.5 mg PO BEDTIME [facility] Last Admin: 04/14/17 20:31 Dose: 0.5 mg Risperidone (Risperidal) 0.25 mg PO DAILY@1900 [facility] Rosuvastatin Calcium (Crestor) 40 mg PO DAILY [facility] Last Admin: 04/15/17 10:16 Dose: Not Given Sodium Chloride (Saline Flush) 10 ml FLUSH ONETIME ONE Stop: 04/18/17 10:04 Last Admin: 04/18/17 10:30 Dose: 10 ml Temazepam (Restoril) 7.5 mg PO ONETIME ONE Stop: 04/13/17 00:44 Last Admin: 04/13/17 01:11 Dose: Not Given Temazepam (Restoril) 7.5 mg PO ONETIME ONE Stop: 04/13/17 01:09 Last Admin: 04/13/17 04:22 Dose: Not Given Temazepam (Restoril) 15 mg PO BEDTIME PRN PRN Reason: Sleep Last Admin: 04/22/17 00:42 Dose: 15 mg Trazodone HCl (Trazodone) 100 mg PO BEDTIME [facility] Last Admin: 04/16/17 21:39 Dose: 100 mg - Exam Quality Assessment: Supplemental Oxygen, Urine Catheter, DVT Prophylaxis General: Alert, Oriented, Cooperative, No Acute Distress HEENT: Pupils Equal, Pupils Reactive, EOMI Neck: Trachea Midline, No JVD Lungs: Normal Respiratory Effort Cardiovascular: Regular Rate, Regular Rhythm GI/Abdominal Exam: Normal Bowel Sounds, Soft, Non-Tender, No Organomegaly (Male) Exam: Deferred Back Exam: Normal Inspection Extremities: Normal Inspection Skin: Warm Neurological: No New Focal Deficit Psy/Mental Status: Alert, Normal Affect, Normal Mood - Problem List Review Problem List Initiated/Reviewed/Updated: Yes - My Orders Last 24 Hours: My Active Orders 04/22/17 12:05 Temazepam [Restoril] 7.5 mg PO BEDTIME PRN 04/22/17 14:00 Levofloxacin [Levaquin] 500 mg PO Q24H 04/23/17 05:00 BMP [BASIC METABOLIC PANEL,BMP] [CHEM] DAILY CBC WITH AUTO DIFF [HEME] DAILY CRP [C-REACTIVE PROTEIN] [CHEM] DAILY MAGNESIUM [CHEM] DAILY 04/24/17 05:00 BMP [BASIC METABOLIC PANEL,BMP] [CHEM] DAILY CBC WITH AUTO DIFF [HEME] DAILY CRP [C-REACTIVE PROTEIN] [CHEM] DAILY MAGNESIUM [CHEM] DAILY 04/24/17 12:00 Losartan [Cozaar] 50 mg PO DAILY@1200 - Plan Plan:: I/P: Acute: Subdural Hematoma, Stable -Fell today hitting head -Vomited on EMS arrival, Denies nausea, headache, or blurred vison -C/o dizzyness and worsening weakness -Risk factors: Unsteady Gait, on Blood thinners (on ASA and xarelto), Multiple Sedating and Anti-cholinergic drugs -Home Meds as noted on ED notes: Trazodone 100 mg po Daily, Ativan 1 mg po TID PRN , Antivert ? mg po PRN, and Baclofen 10 mg po BID (All meds cause memory impairment or affect level of alertness); Bethanichol recently added to his regimen (has anti-cholinergic effects) -CT on 04/12/16 - Layering along falx cerebri measuring 1mm maximal thickness -Repeat CT scan Monday -Routine Neuro checks -Hold blood thinners for now; may restart after repeat CT scan -Continue to monitor Abnormal CTA of neck with distal 90% blockage in the AFUA; will refer to int card or vas surgery as consult for possible CEA cf MOISE Influenza A positive started on Tamiflu-->completed AUTI--changed to Levoquin, start oral route ARF--will start hydration, LR at 100-->75, 12 hours. Leukopenia--->infectious cause, improving with current therapy. Generalized Weakness -Acute on chronic -Likely contributed to fall as above -Chronic left sided spasticity and weakness -UA negative -Continue PT/OT -Has had difficulty with ADLs at home -Friend who assists him would like him placed -Was sent to rehabilitation after last hospitalization for 6 days in [place] -He is receptive to SNF placement or assisted living *Polypharmacy -Both patient and friend are concerned with recent lethargy and weakness -Pharmacy to review -Recommended f/u with PCP for overall health management Anemia -Monitor Depression -Acute on Chronic -He takes Celexa 20 mg po daily -His symptom is aggravated by his current situational status; he felt like nobody is willing to help him figure out his complaints -Patient was informed on his last visit to see a Neurology in [place] but it never happened. Psychosis, NOS -start risperdal 0.5 mg daily-->stopped; topamax BID is better tolerated. Insomnia-Trazadone, home dose Anxiety-Ativan IV prn Subdural hematoma s/p fall; Xarelto for A Fib currently held Urinary retention, follow PV residual; unable to pass straight cath; maldonado Chronic: A-fib HR slow RVR HLD HTN Asthma Constipation Heart Failure Stage III renal insufficiency Anxiety Depression CVA in 2012 Plan: He is other frey clinically stable Changed PCN to Levoquin based on sensitivity. Continue PT/OT Routine AM labs High Fall Risk Precautions Other orders as indicated above DVT/PE prophylaxis: PRAFUL hose and ambulation -consider SCds Repeat CT of head w/o contrast Code status: DNR/DNI; PCP: Dr. Chang at [facility] here in [facility] consult for d/c placement LOS>96 hours with resolving subdural hematoma with AMS resolving slowly; acute infectious process: viral/bacterial sources DC to SNF, 04/24/17.
[2017-04-22] MEDS: risperiDONE 0.5 MG Tab PO SCH (18:12)
[2017-04-22] MEDS: Rosuvastatin 10 MG Tab PO SCH (20:03)
[2017-04-22] MEDS: amLODIPine 5 MG Tab PO SCH (20:06)
[2017-04-23] MEDS: Topiramate 25 MG Tab PO SCH ×2 (08:25→20:27)
[2017-04-23] MEDS: Tamsulosin 0.4 MG Cap.ER PO SCH ×2 (08:25→20:26)
[2017-04-23] MEDS: Baclofen 10 MG Tab PO SCH ×4 (08:25→20:26)
[2017-04-23] MEDS: Multivitamins,Therapeutic Tab PO SCH (08:25)
[2017-04-23] MEDS: Citalopram 20 MG Tab PO SCH (08:25)
[2017-04-23] MEDS: Ferrous Sulfate 325 MG Tab PO SCH (08:25)
[2017-04-23] MEDS: Saccharomyces Boulardii (Probiotic) 250 MG Cap PO SCH ×2 (08:25→20:26)
[2017-04-23] MEDS: Allopurinol 100 MG Tab PO SCH (08:26)
[2017-04-23] MEDS: Fish Oil/Omega-3 Fatty Acids 1 Gm Cap PO SCH (08:26)
[2017-04-23] MEDS: Cholecalciferol (Vitamin D3) 1,000 Unit Tab PO SCH (08:26)
--- NOTE | 2017-04-23 09:41 | PCM.PN ---
- General Info Date of Service: 04/23/17 Functional Status: Reports: Tolerating Diet, Urinating - Review of Systems General: Reports: No Symptoms HEENT: Reports: No Symptoms Pulmonary: Reports: No Symptoms Cardiovascular: Reports: No Symptoms Gastrointestinal: Reports: No Symptoms Genitourinary: Reports: No Symptoms Musculoskeletal: Reports: No Symptoms Skin: Reports: No Symptoms Neurological: Reports: No Symptoms Psychiatric: Reports: No Symptoms - Patient Data Vitals - Most Recent: Last Vital Signs Temp 36.4 C 04/23/17 08:12 Pulse 57 L 04/23/17 08:12 Resp 16 04/23/17 08:12 BP 123/68 04/23/17 08:12 Pulse Ox 97 04/23/17 08:12 Weight - Most Recent: 81.057 kg I&O - Last 24 Hours: Intake & Output 04/22/17 04/23/17 04/23/17 22:59 06:59 14:59 Intake Total 570 800 Output Total 1050 850 Balance -480 -50 Lab Results Last 24 Hours: Laboratory Results - last 24 hr 04/23/17 04/23/17 Range/Units 05:53 05:53 WBC 3.84 L (4.23-9.07) K/mm3 RBC 3.38 L (4.63-6.08) M/mm3 Hgb 10.1 L (13.7-17.5) gm/L Hct 31.8 L (40.1-51.0) % MCV 94.1 H (79.0-92.2) fl MCH 29.9 (25.7-32.2) pg MCHC 31.8 L (32.2-35.5) g/dl RDW Std Deviation 44.0 H (35.1-43.9) fL Plt Count 187 (163-337) K/mm3 MPV 9.2 L (9.4-12.3) fl Neut % (Auto) 65.2 (34.0-67.9) % Lymph % (Auto) 14.8 L (21.8-53.1) % [place] % (Auto) 15.1 H (5.3-12.2) % Eos % (Auto) 3.6 (0.8-7.0) Baso % (Auto) 0.5 (0.1-1.2) % Neut # (Auto) 2.50 (1.78-5.38) K/mm3 Lymph # (Auto) 0.57 L (1.32-3.57) K/mm3 [place] # (Auto) 0.58 (0.30-0.82) K/mm3 Eos # (Auto) 0.14 (0.04-0.54) K/mm3 Baso # (Auto) 0.02 (0.01-0.08) K/mm3 Manual Slide Review Abnormal smear Sodium 141 (136-145) mEq/L Potassium 4.5 (3.5-5.1) mEq/L Chloride 108 H (98-107) mEq/L Carbon Dioxide 24 (21-32) mEq/L Anion Gap 13.5 (5-15) BUN 29 H (7-18) mg/dL Creatinine 1.9 H (0.7-1.3) mg/dL Est Cr Clr Drug Dosing 43.68 mL/min Estimated GFR (MDRD) 36 (>60) mL/min BUN/Creatinine Ratio 15.3 (14-18) Glucose 83 (80-115) mg/dL Calcium 8.7 (8.5-10.1) mg/dL Magnesium 2.2 (1.8-2.4) mg/dl C-Reactive Protein < 0.2 (<1.0) mg/dL Med Orders - Current: Current Medications Acetaminophen (Tylenol) 650 mg PO Q4H PRN PRN Reason: Pain (Mild 1-3)/fever Last Admin: 04/14/17 09:58 Dose: 650 mg Albuterol (Proventil Neb Soln) 2.5 mg NEB Q4HRRT PRN PRN Reason: Wheezing/SOB Last Admin: 04/16/17 12:48 Dose: 2.5 mg Allopurinol (Zyloprim) 100 mg PO DAILY [facility] Last Admin: 04/23/17 08:26 Dose: 100 mg Amlodipine Besylate (Norvasc) 2.5 mg PO BEDTIME [facility] Last Admin: 04/22/17 20:06 Dose: 2.5 mg Baclofen (Lioresal) 30 mg PO QID [facility] Last Admin: 04/23/17 08:25 Dose: 30 mg Bethanechol Chloride (Urecholine) 25 mg PO TID [facility] Last Admin: 04/23/17 08:24 Dose: 25 mg Bisacodyl (Dulcolax) 5 mg PO DAILY PRN PRN Reason: Constipation Last Admin: 04/18/17 06:48 Dose: 5 mg Bisacodyl (Dulcolax) 10 mg RECTAL DAILY PRN PRN Reason: Constipation Last Admin: 04/19/17 10:30 Dose: 10 mg Cholecalciferol (Vitamin D3) 1,000 units PO DAILY [facility] Last Admin: 04/23/17 08:26 Dose: 1,000 units Citalopram Hydrobromide (Celexa) 20 mg PO DAILY [facility] Last Admin: 04/23/17 08:25 Dose: 20 mg Docusate Sodium (Colace) 100 mg PO BID PRN PRN Reason: Constipation Last Admin: 04/18/17 06:48 Dose: 100 mg Ferrous Sulfate (Ferrous Sulfate) 325 mg PO DAILY [facility] Last Admin: 04/23/17 08:25 Dose: 325 mg Fish Oil (Fish Oil) 1 gm PO DAILY [facility] Last Admin: 04/23/17 08:26 Dose: 1 gm Haloperidol Lactate (Haldol) 1 mg IM Q4H PRN PRN Reason: Anxiety Hydralazine HCl (Apresoline) 20 mg IVPUSH Q6H PRN PRN Reason: Hypertension Levofloxacin (Levaquin) 500 mg PO Q24H [facility] Last Admin: 04/22/17 13:22 Dose: 500 mg Lorazepam (Ativan) 0.5 mg IVPUSH Q4H PRN PRN Reason: Anxiety Last Admin: 04/20/17 22:02 Dose: 0.5 mg Losartan Potassium (Cozaar) 50 mg PO DAILY@1200 [facility] Magnesium Hydroxide (Milk Of Magnesia) 30 ml PO DAILY PRN PRN Reason: Constipation Last Admin: 04/18/17 09:02 Dose: 30 ml Metoprolol Tartrate (Lopressor) 5 mg IVPUSH Q4H PRN PRN Reason: Tachycardia Multivitamins (Thera) 1 each PO DAILY [facility] Last Admin: 04/23/17 08:25 Dose: 1 each Ondansetron HCl (Zofran) 4 mg IV Q6H PRN PRN Reason: Nausea/Vomiting Last Admin: 04/22/17 00:41 Dose: 4 mg Polyethylene Glycol (Miralax) 17 gm PO DAILY PRN PRN Reason: Constipation Risperidone (Risperidal) 0.5 mg PO DAILY@1900 [facility] Last Admin: 04/22/17 18:12 Dose: 0.5 mg Rosuvastatin Calcium (Crestor) 40 mg PO BEDTIME [facility] Last Admin: 04/22/17 20:03 Dose: 40 mg Saccharomyces Boulardii (Florastor) 250 mg PO BID [facility] Last Admin: 04/23/17 08:25 Dose: 250 mg Senna/Docusate Sodium (Senna Plus) 1 tab PO BID PRN PRN Reason: Constipation Last Admin: 04/15/17 16:24 Dose: 1 tab Sodium Chloride (Saline Flush) 10 ml FLUSH ASDIRECTED PRN PRN Reason: Keep Vein Open Last Admin: 04/12/17 20:25 Dose: 10 ml Tamsulosin HCl (Flomax) 0.4 mg PO BID [facility] Last Admin: 04/23/17 08:25 Dose: 0.4 mg Temazepam (Restoril) 7.5 mg PO BEDTIME PRN PRN Reason: Insomnia Topiramate (Topamax) 25 mg PO BID [facility] Last Admin: 04/23/17 08:25 Dose: 25 mg Discontinued Medications Albuterol/Ipratropium (Duoneb 3.0-0.5 Mg/3 Ml) 3 ml NEB Q4H PRN PRN Reason: Shortness Of Breath/wheezing Last Admin: 04/16/17 01:01 Dose: 3 ml Albuterol/Ipratropium (Duoneb 3.0-0.5 Mg/3 Ml) 3 ml NEB QIDRT [facility] Last Admin: 04/21/17 09:45 Dose: Not Given Amlodipine Besylate (Norvasc) 2.5 mg PO DAILY [facility] Last Admin: 04/14/17 09:00 Dose: 2.5 mg Hydralazine HCl (Apresoline) 10 mg IVPUSH Q6H PRN PRN Reason: Hypertension Last Admin: 04/13/17 12:08 Dose: 10 mg Hydralazine HCl (Apresoline) 20 mg IVPUSH Q4H PRN PRN Reason: Hypertension Last Admin: 04/18/17 09:03 Dose: 20 mg Sodium Chloride (Normal Saline) 1,000 mls @ 1,000 mls/hr IV .BOLUS [facility] Last Admin: 04/12/17 20:24 Dose: 1,000 mls/hr Sodium Chloride (Normal Saline) 250 mls @ 999 mls/hr IV ONETIME ONE Stop: 04/14/17 13:46 Last Admin: 04/14/17 13:38 Dose: 999 mls/hr Sodium Chloride (Normal Saline) Confirm Administered Dose 250 mls @ as directed .ROUTE .K-MED ONE Stop: 04/14/17 13:30 Last Admin: 04/14/17 13:38 Dose: Not Given Ceftriaxone Sodium 2 gm/ (Sodium Chloride) 100 mls @ 200 mls/hr IV Q24H [facility] Ceftriaxone Sodium 2 gm/ (Dextrose/Water) 100 mls @ 200 mls/hr IV Q24H [facility] Last Admin: 04/16/17 12:18 Dose: 200 mls/hr Dextrose/Sodium Chloride (Dextrose 5%-Normal Saline) 1,000 mls @ 100 mls/hr IV ASDIRECTED [facility] Last Admin: 04/15/17 15:18 Dose: 100 mls/hr Sodium Chloride (Sodium Chloride 0.45%) 1,000 mls @ 100 mls/hr IV ASDIRECTED [facility] Last Admin: 04/16/17 23:40 Dose: 100 mls/hr Penicillin G Potassium 5 (millunits/ Sodium Chloride) 100 mls @ 55 mls/hr IV Q6H [facility] Last Admin: 04/17/17 12:27 Dose: Not Given Penicillin G Potassium 5 (millunits/ Dextrose/Water) 100 mls @ 55 mls/hr IV Q6H [facility] Last Admin: 04/18/17 11:16 Dose: 55 mls/hr Sodium Chloride (Normal Saline) 100 mls @ 60 mls/hr IV ASDIRECTED [facility] Stop: 04/18/17 12:00 Last Admin: 04/18/17 10:30 Dose: 60 mls/hr Levofloxacin/Dextrose 500 mg/ (Premix) 100 mls @ 100 mls/hr IV Q24H [facility] Stop: 04/21/17 16:00 Last Admin: 04/21/17 14:16 Dose: 100 mls/hr Lactated Ringer's (Ringers, Lactated) 1,000 mls @ 100 mls/hr IV ASDIRECTED [facility] Stop: 04/21/17 00:15 Lactated Ringer's (Ringers, Lactated) 1,000 mls @ 75 mls/hr IV ASDIRECTED [facility] Stop: 04/21/17 06:16 Lactated Ringer's (Ringers, Lactated) 1,000 mls @ 100 mls/hr IV ASDIRECTED [facility] Stop: 04/21/17 21:00 Last Admin: 04/21/17 12:39 Dose: 100 mls/hr Influenza Virus Vaccine (Pharmacy To Dose - Influenza Vaccine) 1 each IM ONETIME ONE Stop: 04/12/17 23:45 Influenza Virus Vaccine (Flulaval Quad [id number]) 60 mcg IM .ONCE ONE Stop: 04/13/17 10:01 Iopamidol (Isovue-370 (76%)) 100 ml IVPUSH ONETIME ONE Stop: 04/18/17 10:04 Last Admin: 04/18/17 10:30 Dose: 100 ml Lidocaine HCl (Xylocaine 2% Jelly) 10 ml MUCMEM STAT ONE Stop: 04/15/17 14:27 Last Admin: 04/15/17 14:56 Dose: 10 ml Lidocaine HCl (Xylocaine 2% Jelly) 10 ml MUCMEM ONETIME ONE Stop: 04/15/17 14:57 Last Admin: 04/15/17 15:12 Dose: 10 ml Lorazepam (Ativan) 0.5 mg IVPUSH ONETIME ONE Stop: 04/13/17 00:45 Last Admin: 04/13/17 01:01 Dose: 0.5 mg Lorazepam (Ativan) 0.5 mg IVPUSH Q4H PRN; Protocol PRN Reason: Anxiety Last Admin: 04/15/17 23:12 Dose: 0.5 mg Lorazepam (Ativan) 1 mg IVPUSH Q4H PRN PRN Reason: Anxiety Last Admin: 04/16/17 05:26 Dose: 1 mg Losartan Potassium (Cozaar) 50 mg PO DAILY [facility] Last Admin: 04/14/17 09:01 Dose: 50 mg Losartan Potassium (Cozaar) 50 mg PO DAILY@1200 [facility] Last Admin: 04/21/17 19:33 Dose: Not Given Magnesium Sulfate (Pharmacy To Dose - Magnesium Replacement) 0 dose .XX ASDIRECTED PRN PRN Reason: RX TO WATCH MAG LEVELS Magnesium Sulfate (Pharmacy To Dose - Magnesium Replacement) 1 dose .XX ASDIRECTED [facility] Metoprolol Tartrate (Lopressor) 5 mg IVPUSH Q4H PRN PRN Reason: Tachycardia Ondansetron HCl (Zofran Odt) 4 mg PO Q6H PRN PRN Reason: nausea, able to take PO Last Admin: 04/19/17 10:35 Dose: 4 mg Oseltamivir Phosphate (Tamiflu) 30 mg PO DAILY [facility] Last Admin: 04/16/17 12:28 Dose: Not Given Oseltamivir Phosphate (Tamiflu) 30 mg PO BID [facility] Stop: 04/19/17 22:00 Last Admin: 04/19/17 22:07 Dose: 30 mg Potassium Chloride (Pharmacy To Dose - Potassium Replacement) 0 dose .XX ASDIRECTED PRN PRN Reason: RX TO WATCH K LEVELS Potassium Chloride (Pharmacy To Dose - Potassium Replacement) 1 dose .XX ASDIRECTED [facility] Risperidone (Risperidal) 0.5 mg PO BEDTIME [facility] Last Admin: 04/14/17 20:31 Dose: 0.5 mg Risperidone (Risperidal) 0.25 mg PO DAILY@1900 [facility] Rosuvastatin Calcium (Crestor) 40 mg PO DAILY [facility] Last Admin: 04/15/17 10:16 Dose: Not Given Sodium Chloride (Saline Flush) 10 ml FLUSH ONETIME ONE Stop: 04/18/17 10:04 Last Admin: 04/18/17 10:30 Dose: 10 ml Temazepam (Restoril) 7.5 mg PO ONETIME ONE Stop: 04/13/17 00:44 Last Admin: 04/13/17 01:11 Dose: Not Given Temazepam (Restoril) 7.5 mg PO ONETIME ONE Stop: 04/13/17 01:09 Last Admin: 04/13/17 04:22 Dose: Not Given Temazepam (Restoril) 15 mg PO BEDTIME PRN PRN Reason: Sleep Last Admin: 04/22/17 00:42 Dose: 15 mg Trazodone HCl (Trazodone) 100 mg PO BEDTIME [facility] Last Admin: 04/16/17 21:39 Dose: 100 mg - Exam Quality Assessment: Supplemental Oxygen, DVT Prophylaxis General: Alert, Oriented, Cooperative, No Acute Distress HEENT: Pupils Equal, Pupils Reactive, EOMI Neck: Supple, Trachea Midline, No JVD Lungs: Normal Respiratory Effort Cardiovascular: Regular Rate, Regular Rhythm GI/Abdominal Exam: Normal Bowel Sounds, Soft, Non-Tender, No Organomegaly, No Distention (Male) Exam: Deferred Back Exam: Normal Inspection Extremities: Normal Inspection Skin: Warm Neurological: No New Focal Deficit Psy/Mental Status: Alert - Problem List Review Problem List Initiated/Reviewed/Updated: Yes - My Orders Last 24 Hours: My Active Orders 04/22/17 12:05 Temazepam [Restoril] 7.5 mg PO BEDTIME PRN 04/22/17 14:00 Levofloxacin [Levaquin] 500 mg PO Q24H 04/22/17 20:48 Admission Status [Patient Status] [ADT] Routine 04/24/17 05:00 BMP [BASIC METABOLIC PANEL,BMP] [CHEM] DAILY CBC WITH AUTO DIFF [HEME] DAILY CRP [C-REACTIVE PROTEIN] [CHEM] DAILY MAGNESIUM [CHEM] DAILY 04/24/17 12:00 Losartan [Cozaar] 50 mg PO DAILY@1200 - Plan Plan:: I/P: Acute: Subdural Hematoma, Stable -Fell today hitting head -Vomited on EMS arrival, Denies nausea, headache, or blurred vison -C/o dizzyness and worsening weakness -Risk factors: Unsteady Gait, on Blood thinners (on ASA and xarelto), Multiple Sedating and Anti-cholinergic drugs -Home Meds as noted on ED notes: Trazodone 100 mg po Daily, Ativan 1 mg po TID PRN , Antivert ? mg po PRN, and Baclofen 10 mg po BID (All meds cause memory impairment or affect level of alertness); Bethanichol recently added to his regimen (has anti-cholinergic effects) -CT on 04/12/16 - Layering along falx cerebri measuring 1mm maximal thickness -Repeat CT scan Monday -Routine Neuro checks -Hold blood thinners for now; may restart after repeat CT scan -Continue to monitor Abnormal CTA of neck with distal 90% blockage in the AFUA; will refer to int card or vas surgery as consult for possible CEA cf MOISE Influenza A positive started on Tamiflu-->completed AUTI--changed to Levoquin, start oral route ARF--will start hydration, LR at 100-->75, 12 hours. Leukopenia--->infectious cause, improving with current therapy. Generalized Weakness -Acute on chronic -Likely contributed to fall as above -Chronic left sided spasticity and weakness -UA negative -Continue PT/OT -Has had difficulty with ADLs at home -Friend who assists him would like him placed -Was sent to rehabilitation after last hospitalization for 6 days in [place] -He is receptive to SNF placement or assisted living *Polypharmacy -Both patient and friend are concerned with recent lethargy and weakness -Pharmacy to review -Recommended f/u with PCP for overall health management Anemia -Monitor Depression -Acute on Chronic -He takes Celexa 20 mg po daily -His symptom is aggravated by his current situational status; he felt like nobody is willing to help him figure out his complaints -Patient was informed on his last visit to see a Neurology in [place] but it never happened. Psychosis, NOS -start risperdal 0.5 mg daily-->stopped; topamax BID is better tolerated. Insomnia-Trazadone, home dose Anxiety-Ativan IV prn Subdural hematoma s/p fall; Xarelto for A Fib currently held Urinary retention, follow PV residual; unable to pass straight cath; maldonado Chronic: A-fib HR slow RVR HLD HTN Asthma Constipation Heart Failure Stage III renal insufficiency Anxiety Depression CVA in 2012 Plan: He is other frey clinically stable Changed PCN to Levoquin based on sensitivity. Continue PT/OT Routine AM labs High Fall Risk Precautions Other orders as indicated above DVT/PE prophylaxis: PRAFUL hose and ambulation -consider SCds Repeat CT of head w/o contrast Code status: DNR/DNI; PCP: Dr. Chang at [facility] here in [place] consult for d/c placement LOS>96 hours with resolving subdural hematoma with AMS resolving slowly; acute infectious process: viral/bacterial sources DC to SNF, 04/24/17.
[2017-04-23] MEDS: Levofloxacin 500 MG Tab PO SCH (13:12)
[2017-04-23] MEDS: risperiDONE 0.5 MG Tab PO SCH ×2 (17:26→18:29)
[2017-04-23] MEDS: Rosuvastatin 10 MG Tab PO SCH (20:26)
[2017-04-23] MEDS: amLODIPine 5 MG Tab PO SCH (20:28)
--- NOTE | 2017-04-24 06:59 | PCM.DCSUM1 ---
Discharge Summary - Hospital Course Free Text/Narrative:: Juan Jose Layton is a 62 yo male, who is well-known to the service, who presents to our ED today after a fall. He reportedly got weak and fell, hitting the back of his head on the ground but denies loss of consciousness. He denies a headache. He is on Xarelto for chronic A. fib and has a history of CVA with left-sided arm weakness. He does use a cane and walker to get around. He cannot get off the floor and called neighbor to come help. He denies neck pain , chest pain, shortness of breath, and abdominal pain. He did vomit when EMS came to pick him up and they gave him Zofran 4 mg through IV. On ED arrival temp is 99.7. Pulse 76. Respirations 20. BP 124/84. Pulse ox 92%. 12-lead EKG was obtained which shows atrial fibrillation. There is very minimal ST elevation in the anterior leads. Labs are obtained: 30 mL 4.01. Hemoglobin low at 9.3. Hematocrit 28.0. He is macrocytic. Pulses are low 118, 000. Neutrophil is her elevated at 84.9%. Sodium was low at 133. Potassium normal at 4.7. Chloride 101. From an accident low at 20. Anion gap high at 16.7. BUN 29. Creatinine 1.8. EGFR is 38. Glucose is 111. Calcium 8.6. Total bilirubin 0.4. AST is 36, ALT 40, alkaline phosphatase 65. Troponin was negative at 0.035. Albumin was low 1.3. UA is pending. CT is obtained and interpreted by Vrad as "acute subdural hematoma layering along the falx cerebri measuring 1 mm in maximal thickness. Age-related involutional changes and chronic microvascular ischemic disease are noted. Chronic infarct involving the inferior right cerebellum. Chronic infarct involving the right varma radiata extending into the basal ganglia. No evidence for acute transcortical infarct. No mass effect or midline shift. No acute intraparenchymal hemorrhage. The basal cisterns are patent. He is given a 1 L fluid bolus. 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 fib, essential hypertension, cervical disc disorder with myelopathy of the cervicothoracic region, gout, HLD, bilateral carotid artery disease, chronic renal impairment- stage III, anxiety, depression, social phobia with difficulty leaving house, urinary retention with catheter removal 1 week ago, anemia, and mitral valve sclerosis. He is a former smoker. His subsequent admitted to the medical floor. He is a DNR\\DNI. His PCP is Dr. Frost at [facility] in [place]. - Discharge Data Discharge Date: 04/24/17 (admit date 04/12/17) Discharge Disposition: DC/Tfer to SNF 03 Condition: Stable - Discharge Diagnosis/Problem(s) (1) Vertigo SNOMED Code(s): 114035516 ICD Code: R42 - DIZZINESS AND GIDDINESS Status: Acute Priority: Medium Current Visit: Yes (2) Subdural hematoma SNOMED Code(s): 06211716 ICD Code: I62.00 - NONTRAUMATIC SUBDURAL HEMORRHAGE, UNSPECIFIED Status: Resolved Priority: High Current Visit: Yes (3) CVA (cerebral vascular accident) SNOMED Code(s): 557152567 ICD Code: I63.9 - CEREBRAL INFARCTION, UNSPECIFIED Status: Acute Priority : Low Current Visit: Yes Qualifiers: CVA mechanism: unspecified Qualified Code(s): I63.9 - Cerebral infarction, unspecified (4) Mitral valve disease SNOMED Code(s): 81022376 ICD Code: I05.9 - RHEUMATIC MITRAL VALVE DISEASE, UNSPECIFIED Status: Chronic Priority: Medium Current Visit: Yes (5) Carotid stenosis Status: Chronic Priority: Medium Current Visit: Yes (6) Muscle spasm SNOMED Code(s): 57063298 ICD Code: M62.838 - OTHER MUSCLE SPASM Status: Chronic Priority: Medium Current Visit: Yes (7) Atrial fibrillation SNOMED Code(s): 14437625 ICD Code: I48.91 - UNSPECIFIED ATRIAL FIBRILLATION Status: Chronic Priority: Medium Current Visit: Yes Qualifiers: Atrial fibrillation type: paroxysmal Qualified Code(s): I48.0 - Paroxysmal atrial fibrillation (8) Chronic renal insufficiency, stage III (moderate) SNOMED Code(s): 659638459 ICD Code: N18.3 - CHRONIC KIDNEY DISEASE, STAGE 3 (MODERATE) Status: Chronic Priority: Medium Current Visit: Yes (9) Urinary retention SNOMED Code(s): 179322216 ICD Code: R33.9 - RETENTION OF URINE, UNSPECIFIED Status: Chronic Priority: Medium Current Visit: Yes (10) Generalized anxiety disorder SNOMED Code(s): 90665312 ICD Code: F41.1 - GENERALIZED ANXIETY DISORDER Status: Chronic Priority: Medium Current Visit: Yes (11) Anemia SNOMED Code(s): 351471021 ICD Code: D64.9 - ANEMIA, UNSPECIFIED Status: Acute Priority: Medium Current Visit: Yes Qualifiers: Anemia type: iron deficiency Iron deficiency anemia type: unspecified iron deficiency Qualified Code(s): D50.9 - Iron deficiency anemia, unspecified (12) Fall SNOMED Code(s): 1995318 ICD Code: W19.XXXA - UNSPECIFIED FALL, INITIAL ENCOUNTER Status: Acute Current Visit: Yes Qualifiers: Encounter type: initial encounter Qualified Code(s): W19.XXXA - Unspecified fall, initial encounter - Patient Summary/Data Operative Procedure(s) Performed: None Complications: None Consults: Consultations 04/12/17 22:46 Consult to Case Management [CONS] Routine Consult to Acid Purification Equipment Operator [CONS] Routine OT Evaluation and Treatment [CONS] Routine PT Evaluation and Treatment [CONS] Routine 04/13/17 11:07 Consult to Speech Language Pathology [UX CONSULTANT Evaluation and Treatment] [CONS] Routine 04/13/17 11:08 Consult to Physical Therapy [PT Evaluation and Treatment] [CONS] Routine 04/13/17 12:54 Consult to Physician [CONS] Routine 04/14/17 08:05 Consult to Spiritual Care [CONS] Routine 04/16/17 08:18 Consult to Speech Language Pathology [UX CONSULTANT Evaluation and Treatment] [CONS] Routine 04/18/17 13:05 Consult to Physical Therapy [PT Evaluation and Treatment] [CONS] Routine Labs Pending at D/C: None Recommended Follow-up Testing/Procedures: Patient DC instructions: Referred to Neurology at [facility] in [place]. Clinicals faxed to them with report and they will call Juan Jose to set up appointment after they review the clinicals. Speech Therapy: Further skilled speech therapy recommended at this time. Recommend 24/7 supervision at this time d/t intermittent cognitive impairments. Recommend neuro evaluation. Oral intake NDD4 (regular solids) and thin liquids; medications whole with thin liquids. Physical, speech and occupational therapy to evaluate and treat. Recommend consult with cardiovascular surgery for carotid stenosis and mitral valve disease evaluation Follow up with PCP, Dr. Frost within one week of discharge Planned Operative Procedure(s) after DC: None Hospital Course: I/P: Acute: Subdural Hematoma, Stable to resolved -Fell hitting head on day of admission; Vomited on EMS arrival, Denies nausea , headache, or blurred vison; C/o dizzyness and worsening weakness -Risk factors: Unsteady Gait, on Blood thinners (on ASA and xarelto), Multiple Sedating and Anti-cholinergic drugs, hx of recent CVA -Home Meds as noted on ED notes: Trazodone 100 mg po Daily, Ativan 1 mg po TID PRN , Antivert ? mg po PRN, and Baclofen 10 mg po BID (All meds cause memory impairment or affect level of alertness); Bethanichol recently added to his regimen (has anti-cholinergic effects) -CT on 04/12/16 - Layering along falx cerebri measuring 1mm maximal thickness , subdural hematoma -Repeat CT scan with near complete resolution of subdural -Routine Neuro checks -Restart Xarelto daily -Continue to monitor Carotid artery stenosis- Abnormal CTA of neck with distal 90% blockage in the AFUA; will refer to int card or vas surgery as consult for possible CEA cf MOISE -also with 67% stenosis of left carotid bulb - Follow up with CV surgery as outpatient Mitral valve disease -Severe mitral annular calcifications and MV is degenerative, thickenend and iwth restricted motion noted on echocardiogram -EF of 65% Influenza A positive---resolved - started on Tamiflu-->completed course - RT/Nebs PN Strep A pharyngitis -Confirmed on strep screen -PCN abx treatment, florastor AUTI -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 -Sensitive to Levaquin, IV transitioned to PO- completed course of therapy. Acute on chronic kidney disease - has been hydrated with IVF during his stay with some improvements -Creatinine 2.0-1.9- stable Generalized Weakness -Acute on chronic- likely due to prior basal ganglion infarct -Contributed to fall as above; Chronic left sided spasticity and weaknes -Continue PT/OT/ST -Has had difficulty with ADLs at home; Friend who assists him would like him placed; Was sent to rehabilitation after last hospitalization for 6 days in [facility] for assist with placement- He is receptive to SNF placement or assisted living; plans to DC to SNF today Polypharmacy -Both patient and friend are concerned with recent lethargy and weakness -Pharmacy to review -Recommended f/u with PCP for overall health management Anemia -Monitor--stable Depression -Acute on Chronic -He takes Celexa 20 mg po daily -His symptom is aggravated by his current situational status; he felt like nobody is willing to help him figure out his complaints -Patient was informed on his last visit to see a Neurology in [place] but it never happened. Psychosis, NOS -start risperdal 0.5 mg daily; topamax BID is better tolerated. Insomnia-Trazadone, home dose--DC's after starting risperdal and topamax Anxiety-Ativan IV prn--cont home celexa; stable Urinary retention, follow PV residual; unable to pass straight cath; maldonado -Follow up with Urology as outpatient Chronic: A-fib HR slow RVR-- xarelto HLD HTN- stable, meds adjusted Asthma Constipation Heart Failure Stage III renal insufficiency, stable Anxiety Depression CVA in 2012 Plan: He is other frey clinically stable Changed PCN to Levaquin based on sensitivity. Continue PT/OT Routine AM labs High Fall Risk Precautions Other orders as indicated above DVT/PE prophylaxis: PRAFUL hose and ambulation, restarted xarelto Repeat CT of head w/o contrast--- near complete resolution of subdural Code status: DNR/DNI; PCP: Dr. Frost at [facility] here in [facility] consult for d/c placement--LOS>96 hours with resolving subdural hematoma with AMS resolving slowly; acute infectious process: viral/bacterial sources DC to SNF, 04/24/17. - Patient Instructions Diet: Heart Healthy Diet, Drink 8-10+ Glasses/Day Activity: As Tolerated (PT/OT to continue) Driving: Do Not Drive Showering/Bathing: May Shower Notify Provider of: Fever, Increased Pain, Nausea and/or Vomiting - Discharge Plan Prescriptions/Med Rec: Losartan [Cozaar] 50 mg PO DAILY@1200 #30 tablet risperiDONE [RisperiDAL] 0.5 mg PO DAILY@1900 #30 tablet Topiramate [Topamax] 25 mg PO BID #60 tablet Home Medications: Home Meds Allopurinol [Zyloprim] 100 mg PO DAILY 05/31/17 [History] Citalopram Hydrobromide [Celexa] 20 mg PO DAILY 08/24/16 [History] Baclofen 30 mg PO QID 03/24/17 [History] Bethanechol [Urecholine] 25 mg PO TID 04/12/17 [History] Rivaroxaban [Xarelto] 20 mg PO DAILY 04/12/17 [History] Rosuvastatin [Crestor] 40 mg PO DAILY 04/12/17 [History] Tamsulosin [Flomax] 0.4 mg PO BID 04/12/17 [History] Cholecalciferol (Vitamin D3) [D3 Dots] 1,000 units PO DAILY 04/13/17 [History] Ferrous Sulfate [Iron] 325 mg PO DAILY 04/13/17 [History] Multivitamin [Multi-Vitamin Daily] 1 tab PO DAILY 04/13/17 [History] [place]-3/DHA/Epa/Fish Oil [Fish Oil 1,000 mg Softgel] 1,000 mg PO DAILY 04/13/17 [History] Acetaminophen [Tylenol] 650 mg PO Q4H PRN tablet 04/24/17 [Rx] Bisacodyl [Dulcolax] 5 mg PO DAILY PRN tablet 04/24/17 [Rx] Bisacodyl [Dulcolax] 10 mg RECTAL DAILY PRN supp 04/24/17 [Rx] Docusate Sodium [Colace] 100 mg PO BID PRN cap 04/24/17 [Rx] Losartan [Cozaar] 50 mg PO DAILY@1200 #30 tablet 04/24/17 [Rx] Topiramate [Topamax] 25 mg PO BID #60 tablet 04/24/17 [Rx] risperiDONE [RisperiDAL] 0.5 mg PO DAILY@1900 #30 tablet 04/24/17 [Rx] Patient Handouts: Fall Prevention in the Home, [id number], Stroke Prevention , Urinary Tract Infection, Adult, Chronic Kidney Disease, [id number], Ischemic Stroke Treated Without Warfarin Forms: ED Department Discharge Referrals: Farhat Head MD [Primary Care Provider] - - Discharge Summary/Plan Comment DC Time >30 min.: Yes (45 min) - General Info Date of Service: 04/24/17 Admission Dx/Problem (Free Text: Admission Diagnosis/Problem Admission Diagnosis/Problem Subdural hematoma Doing well. No c/o this morning. Plans for DC to SNF today. Functional Status: Reports: Pain Controlled, Tolerating Diet, Ambulating, Urinating - Review of Systems General: Reports: Weakness HEENT: Reports: No Symptoms. Denies: Sore Throat (resolved) Pulmonary: Reports: No Symptoms. Denies: Cough (resolved) Cardiovascular: Reports: No Symptoms Gastrointestinal: Reports: No Symptoms. Denies: Nausea, Vomiting Neurological: Reports: Difficulty Walking, Weakness. Denies: Dizziness, Headache Psychiatric: Reports: Anxiety - Patient Data Vitals - Most Recent: Last Vital Signs Temp 97.9 F 04/24/17 03:01 Pulse 52 L 04/24/17 03:01 Resp 15 04/24/17 03:01 BP 116/77 04/24/17 03:01 Pulse Ox 99 04/24/17 03:01 Weight - Most Recent: 177 lb 9.6 oz I&O - Last 24 hours: Intake & Output 04/23/17 04/23/17 04/24/17 14:59 22:59 06:59 Intake Total 0 600 250 Output Total 1200 750 Balance 0 -600 -500 Lab Results - Last 24 hrs: Laboratory Results - last 24 hr 04/23/17 04/23/17 04/24/17 Range/Units 05:53 05:53 05:46 WBC 3.84 L 4.78 (4.23-9.07) K/mm3 RBC 3.38 L 3.45 L (4.63-6.08) M/mm3 Hgb 10.1 L 10.3 L (13.7-17.5) gm/L Hct 31.8 L 32.1 L (40.1-51.0) % MCV 94.1 H 93.0 H (79.0-92.2) fl MCH 29.9 29.9 (25.7-32.2) pg MCHC 31.8 L 32.1 L (32.2-35.5) g/dl RDW Std Deviation 44.0 H 44.4 H (35.1-43.9) fL Plt Count 187 200 (163-337) K/mm3 MPV 9.2 L 9.1 L (9.4-12.3) fl Neut % (Auto) 65.2 74.3 H (34.0-67.9) % Lymph % (Auto) 14.8 L 11.3 L (21.8-53.1) % Bowman % (Auto) 15.1 H 10.5 (5.3-12.2) % Eos % (Auto) 3.6 2.7 (0.8-7.0) Baso % (Auto) 0.5 0.2 (0.1-1.2) % Neut # (Auto) 2.50 3.55 (1.78-5.38) K/mm3 Lymph # (Auto) 0.57 L 0.54 L (1.32-3.57) K/mm3 Bowman # (Auto) 0.58 0.50 (0.30-0.82) K/mm3 Eos # (Auto) 0.14 0.13 (0.04-0.54) K/mm3 Baso # (Auto) 0.02 0.01 (0.01-0.08) K/mm3 Manual Slide Review Abnormal smear Sodium 141 (136-145) mEq/L Potassium 4.5 (3.5-5.1) mEq/L Chloride 108 H (98-107) mEq/L Carbon Dioxide 24 (21-32) mEq/L Anion Gap 13.5 (5-15) BUN 29 H (7-18) mg/dL Creatinine 1.9 H (0.7-1.3) mg/dL Est Cr Clr Drug Dosing 43.68 mL/min Estimated GFR (MDRD) 36 (>60) mL/min BUN/Creatinine Ratio 15.3 (14-18) Glucose 83 (80-115) mg/dL Calcium 8.7 (8.5-10.1) mg/dL Magnesium 2.2 (1.8-2.4) mg/dl C-Reactive Protein < 0.2 (<1.0) mg/dL Med Orders - Current: Current Medications Acetaminophen (Tylenol) 650 mg PO Q4H PRN PRN Reason: Pain (Mild 1-3)/fever Last Admin: 04/14/17 09:58 Dose: 650 mg Albuterol (Proventil Neb Soln) 2.5 mg NEB Q4HRRT PRN PRN Reason: Wheezing/SOB Last Admin: 04/16/17 12:48 Dose: 2.5 mg Allopurinol (Zyloprim) 100 mg PO DAILY [facility] Last Admin: 04/23/17 08:26 Dose: 100 mg Amlodipine Besylate (Norvasc) 2.5 mg PO BEDTIME [facility] Last Admin: 04/23/17 20:28 Dose: 2.5 mg Baclofen (Lioresal) 30 mg PO QID [facility] Last Admin: 04/23/17 20:26 Dose: 30 mg Bethanechol Chloride (Urecholine) 25 mg PO TID [facility] Last Admin: 04/23/17 20:27 Dose: 25 mg Bisacodyl (Dulcolax) 5 mg PO DAILY PRN PRN Reason: Constipation Last Admin: 04/18/17 06:48 Dose: 5 mg Bisacodyl (Dulcolax) 10 mg RECTAL DAILY PRN PRN Reason: Constipation Last Admin: 04/19/17 10:30 Dose: 10 mg Cholecalciferol (Vitamin D3) 1,000 units PO DAILY [facility] Last Admin: 04/23/17 08:26 Dose: 1,000 units Citalopram Hydrobromide (Celexa) 20 mg PO DAILY [facility] Last Admin: 04/23/17 08:25 Dose: 20 mg Docusate Sodium (Colace) 100 mg PO BID PRN PRN Reason: Constipation Last Admin: 04/18/17 06:48 Dose: 100 mg Ferrous Sulfate (Ferrous Sulfate) 325 mg PO DAILY [facility] Last Admin: 04/23/17 08:25 Dose: 325 mg Fish Oil (Fish Oil) 1 gm PO DAILY [facility] Last Admin: 04/23/17 08:26 Dose: 1 gm Haloperidol Lactate (Haldol) 1 mg IM Q4H PRN PRN Reason: Anxiety Hydralazine HCl (Apresoline) 20 mg IVPUSH Q6H PRN PRN Reason: Hypertension Levofloxacin (Levaquin) 500 mg PO Q24H [facility] Last Admin: 04/23/17 13:12 Dose: 500 mg Lorazepam (Ativan) 0.5 mg IVPUSH Q4H PRN PRN Reason: Anxiety Last Admin: 04/20/17 22:02 Dose: 0.5 mg Losartan Potassium (Cozaar) 50 mg PO DAILY@1200 ILYA Magnesium Hydroxide (Milk Of Magnesia) 30 ml PO DAILY PRN PRN Reason: Constipation Last Admin: 04/18/17 09:02 Dose: 30 ml Metoprolol Tartrate (Lopressor) 5 mg IVPUSH Q4H PRN PRN Reason: Tachycardia Multivitamins (Thera) 1 each PO DAILY [facility] Last Admin: 04/23/17 08:25 Dose: 1 each Ondansetron HCl (Zofran) 4 mg IV Q6H PRN PRN Reason: Nausea/Vomiting Last Admin: 04/22/17 00:41 Dose: 4 mg Polyethylene Glycol (Miralax) 17 gm PO DAILY PRN PRN Reason: Constipation Risperidone (Risperidal) 0.5 mg PO DAILY@1900 [facility] Last Admin: 04/23/17 18:29 Dose: Not Given Rosuvastatin Calcium (Crestor) 40 mg PO BEDTIME [facility] Last Admin: 04/23/17 20:26 Dose: 40 mg Saccharomyces Boulardii (Florastor) 250 mg PO BID [facility] Last Admin: 04/23/17 20:26 Dose: 250 mg Senna/Docusate Sodium (Senna Plus) 1 tab PO BID PRN PRN Reason: Constipation Last Admin: 04/15/17 16:24 Dose: 1 tab Sodium Chloride (Saline Flush) 10 ml FLUSH ASDIRECTED PRN PRN Reason: Keep Vein Open Last Admin: 04/12/17 20:25 Dose: 10 ml Tamsulosin HCl (Flomax) 0.4 mg PO BID [facility] Last Admin: 04/23/17 20:26 Dose: 0.4 mg Temazepam (Restoril) 7.5 mg PO BEDTIME PRN PRN Reason: Insomnia Topiramate (Topamax) 25 mg PO BID [facility] Last Admin: 04/23/17 20:27 Dose: 25 mg Discontinued Medications Albuterol/Ipratropium (Duoneb 3.0-0.5 Mg/3 Ml) 3 ml NEB Q4H PRN PRN Reason: Shortness Of Breath/wheezing Last Admin: 04/16/17 01:01 Dose: 3 ml Albuterol/Ipratropium (Duoneb 3.0-0.5 Mg/3 Ml) 3 ml NEB QIDRT [facility] Last Admin: 04/21/17 09:45 Dose: Not Given Amlodipine Besylate (Norvasc) 2.5 mg PO DAILY [facility] Last Admin: 04/14/17 09:00 Dose: 2.5 mg Hydralazine HCl (Apresoline) 10 mg IVPUSH Q6H PRN PRN Reason: Hypertension Last Admin: 04/13/17 12:08 Dose: 10 mg Hydralazine HCl (Apresoline) 20 mg IVPUSH Q4H PRN PRN Reason: Hypertension Last Admin: 04/18/17 09:03 Dose: 20 mg Sodium Chloride (Normal Saline) 1,000 mls @ 1,000 mls/hr IV .BOLUS ILYA Last Admin: 04/12/17 20:24 Dose: 1,000 mls/hr Sodium Chloride (Normal Saline) 250 mls @ 999 mls/hr IV ONETIME ONE Stop: 04/14/17 13:46 Last Admin: 04/14/17 13:38 Dose: 999 mls/hr Sodium Chloride (Normal Saline) Confirm Administered Dose 250 mls @ as directed .ROUTE .STK-MED ONE Stop: 04/14/17 13:30 Last Admin: 04/14/17 13:38 Dose: Not Given Ceftriaxone Sodium 2 gm/ (Sodium Chloride) 100 mls @ 200 mls/hr IV Q24H [facility] Ceftriaxone Sodium 2 gm/ (Dextrose/Water) 100 mls @ 200 mls/hr IV Q24H [facility] Last Admin: 04/16/17 12:18 Dose: 200 mls/hr Dextrose/Sodium Chloride (Dextrose 5%-Normal Saline) 1,000 mls @ 100 mls/hr IV ASDIRECTED [facility] Last Admin: 04/15/17 15:18 Dose: 100 mls/hr Sodium Chloride (Sodium Chloride 0.45%) 1,000 mls @ 100 mls/hr IV ASDIRECTED [facility] Last Admin: 04/16/17 23:40 Dose: 100 mls/hr Penicillin G Potassium 5 (millunits/ Sodium Chloride) 100 mls @ 55 mls/hr IV Q6H [facility] Last Admin: 04/17/17 12:27 Dose: Not Given Penicillin G Potassium 5 (millunits/ Dextrose/Water) 100 mls @ 55 mls/hr IV Q6H [facility] Last Admin: 04/18/17 11:16 Dose: 55 mls/hr Sodium Chloride (Normal Saline) 100 mls @ 60 mls/hr IV ASDIRECTED [facility] Stop: 04/18/17 12:00 Last Admin: 04/18/17 10:30 Dose: 60 mls/hr Levofloxacin/Dextrose 500 mg/ (Premix) 100 mls @ 100 mls/hr IV Q24H [facility] Stop: 04/21/17 16:00 Last Admin: 04/21/17 14:16 Dose: 100 mls/hr Lactated Ringer's (Ringers, Lactated) 1,000 mls @ 100 mls/hr IV ASDIRECTED [facility] Stop: 04/21/17 00:15 Lactated Ringer's (Ringers, Lactated) 1,000 mls @ 75 mls/hr IV ASDIRECTED [facility] Stop: 04/21/17 06:16 Lactated Ringer's (Ringers, Lactated) 1,000 mls @ 100 mls/hr IV ASDIRECTED [facility] Stop: 04/21/17 21:00 Last Admin: 04/21/17 12:39 Dose: 100 mls/hr Influenza Virus Vaccine (Pharmacy To Dose - Influenza Vaccine) 1 each IM ONETIME ONE Stop: 04/12/17 23:45 Influenza Virus Vaccine (Flulaval Quad [id number]) 60 mcg IM .ONCE ONE Stop: 04/13/17 10:01 Iopamidol (Isovue-370 (76%)) 100 ml IVPUSH ONETIME ONE Stop: 04/18/17 10:04 Last Admin: 04/18/17 10:30 Dose: 100 ml Lidocaine HCl (Xylocaine 2% Jelly) 10 ml MUCMEM STAT ONE Stop: 04/15/17 14:27 Last Admin: 04/15/17 14:56 Dose: 10 ml Lidocaine HCl (Xylocaine 2% Jelly) 10 ml MUCMEM ONETIME ONE Stop: 04/15/17 14:57 Last Admin: 04/15/17 15:12 Dose: 10 ml Lorazepam (Ativan) 0.5 mg IVPUSH ONETIME ONE Stop: 04/13/17 00:45 Last Admin: 04/13/17 01:01 Dose: 0.5 mg Lorazepam (Ativan) 0.5 mg IVPUSH Q4H PRN; Protocol PRN Reason: Anxiety Last Admin: 04/15/17 23:12 Dose: 0.5 mg Lorazepam (Ativan) 1 mg IVPUSH Q4H PRN PRN Reason: Anxiety Last Admin: 04/16/17 05:26 Dose: 1 mg Losartan Potassium (Cozaar) 50 mg PO DAILY [facility] Last Admin: 04/14/17 09:01 Dose: 50 mg Losartan Potassium (Cozaar) 50 mg PO DAILY@1200 [facility] Last Admin: 04/21/17 19:33 Dose: Not Given Magnesium Sulfate (Pharmacy To Dose - Magnesium Replacement) 0 dose .XX ASDIRECTED PRN PRN Reason: RX TO WATCH MAG LEVELS Magnesium Sulfate (Pharmacy To Dose - Magnesium Replacement) 1 dose .XX ASDIRECTED [facility] Metoprolol Tartrate (Lopressor) 5 mg IVPUSH Q4H PRN PRN Reason: Tachycardia Ondansetron HCl (Zofran Odt) 4 mg PO Q6H PRN PRN Reason: nausea, able to take PO Last Admin: 04/19/17 10:35 Dose: 4 mg Oseltamivir Phosphate (Tamiflu) 30 mg PO DAILY [facility] Last Admin: 04/16/17 12:28 Dose: Not Given Oseltamivir Phosphate (Tamiflu) 30 mg PO BID [facility] Stop: 04/19/17 22:00 Last Admin: 04/19/17 22:07 Dose: 30 mg Potassium Chloride (Pharmacy To Dose - Potassium Replacement) 0 dose .XX ASDIRECTED PRN PRN Reason: RX TO WATCH K LEVELS Potassium Chloride (Pharmacy To Dose - Potassium Replacement) 1 dose .XX ASDIRECTED [facility] Risperidone (Risperidal) 0.5 mg PO BEDTIME [facility] Last Admin: 04/14/17 20:31 Dose: 0.5 mg Risperidone (Risperidal) 0.25 mg PO DAILY@1900 [facility] Rosuvastatin Calcium (Crestor) 40 mg PO DAILY [facility] Last Admin: 04/15/17 10:16 Dose: Not Given Sodium Chloride (Saline Flush) 10 ml FLUSH ONETIME ONE Stop: 04/18/17 10:04 Last Admin: 04/18/17 10:30 Dose: 10 ml Temazepam (Restoril) 7.5 mg PO ONETIME ONE Stop: 04/13/17 00:44 Last Admin: 04/13/17 01:11 Dose: Not Given Temazepam (Restoril) 7.5 mg PO ONETIME ONE Stop: 04/13/17 01:09 Last Admin: 04/13/17 04:22 Dose: Not Given Temazepam (Restoril) 15 mg PO BEDTIME PRN PRN Reason: Sleep Last Admin: 04/22/17 00:42 Dose: 15 mg Trazodone HCl (Trazodone) 100 mg PO BEDTIME [facility] Last Admin: 04/16/17 21:39 Dose: 100 mg - Exam Quality Assessment: Reports: DVT Prophylaxis General: Reports: Alert, Cooperative, No Acute Distress HEENT: Reports: Pupils Equal, EOMI, Mucous Membr. Moist/[place] Neck: Reports: Supple Lungs: Reports: Clear to Auscultation, Normal Respiratory Effort Cardiovascular: Reports: Irregular Rhythm GI/Abdominal Exam: Normal Bowel Sounds, Soft, Non-Tender (Male) Exam: Deferred Rectal (Males) Exam: Deferred Extremities: No Pedal Edema, Normal Capillary Refill Neurological: Reports: No New Focal Deficit Psy/Mental Status: Reports: Alert, Normal Affect, Normal Mood, Anxious (at times ) *Q Meaningful Use (DIS) - VTE *Q VTE Criteria *Q: - Stroke *Q Stroke Criteria *Q: - AMI *Q AMI Criteria *Q:
[2017-04-24] MEDS: Baclofen 10 MG Tab PO SCH (08:05)
[2017-04-24] MEDS: Saccharomyces Boulardii (Probiotic) 250 MG Cap PO SCH (08:05)
[2017-04-24] MEDS: Cholecalciferol (Vitamin D3) 1,000 Unit Tab PO SCH (08:06)
[2017-04-24] MEDS: Allopurinol 100 MG Tab PO SCH (08:06)
[2017-04-24] MEDS: Fish Oil/Omega-3 Fatty Acids 1 Gm Cap PO SCH (08:06)
[2017-04-24] MEDS: Multivitamins,Therapeutic Tab PO SCH (08:06)
[2017-04-24] MEDS: Ferrous Sulfate 325 MG Tab PO SCH (08:06)
[2017-04-24] MEDS: Citalopram 20 MG Tab PO SCH (08:06)
[2017-04-24] MEDS: Tamsulosin 0.4 MG Cap.ER PO SCH (08:06)
[2017-04-24] MEDS: Topiramate 25 MG Tab PO SCH (08:07)
[2017-04-24 08:50] VITALS: BP 123/77
[2017-04-24] MEDS ORDERED: FLU Vacc QS 2017-18 (6mos UP)/PF 60 MCG/0.5 ML Syringe IM ONE (09:10)
[2017-04-24] MEDS ORDERED: Losartan 100 MG Tab PO SCH (12:00)
== END 2017-04-24 10:27 | DRG 55 ==
LOC: JD.ED 19:54 → JD.MS 21:58
PROVIDERS: ADMIT Internal Medicine; ATTEND Internal Medicine Cardiovascular Disease
PROC: 3E0234Z Introduction of Serum, Toxoid and Vaccine into Muscle, Percutaneous Approach (ICD-10-PCS; principal; 2017-04-24)
DX: S06.5X0A Traumatic subdural hemorrhage without loss of consciousness, initial encounter (principal); W19.XXXA Unspecified fall, initial encounter; E86.0 Dehydration; I69.354 Hemiplegia and hemiparesis following cerebral infarction affecting left non-dominant side; I48.0 Paroxysmal atrial fibrillation; E78.00 Pure hypercholesterolemia, unspecified; E11.22 Type 2 diabetes mellitus with diabetic chronic kidney disease; N18.3 Chronic kidney disease, stage 3 (moderate); R33.9 Retention of urine, unspecified; F32.9 Major depressive disorder, single episode, unspecified; F41.1 Generalized anxiety disorder; Z87.891 Personal history of nicotine dependence; F29 Unspecified psychosis not due to a substance or known physiological condition; D64.9 Anemia, unspecified; I13.0 Hypertensive heart and chronic kidney disease with heart failure and stage 1 through stage 4 chronic kidney disease, or unspecified chronic kidney disease; I50.9 Heart failure, unspecified; R26.9 Unspecified abnormalities of gait and mobility; R53.1 Weakness; Z23 Encounter for immunization; J45.909 Unspecified asthma, uncomplicated; R44.1 Visual hallucinations; Z66 Do not resuscitate; G47.00 Insomnia, unspecified; K59.00 Constipation, unspecified; N39.0 Urinary tract infection, site not specified; J10.1 Influenza due to other identified influenza virus with other respiratory manifestations; N17.9 Acute kidney failure, unspecified; R42 Dizziness and giddiness; I05.9 Rheumatic mitral valve disease, unspecified; M62.838 Other muscle spasm; I65.21 Occlusion and stenosis of right carotid artery; Z79.01 Long term (current) use of anticoagulants; Z79.899 Other long term (current) drug therapy
CPT/HCPCS: 36415; 51702; 51798; 70450; 70450-26; 70498; 70498-26; 71046; 71046-26; 73030-26-RT; 73030-RT; 73060-26-RT; 73060-RT; 73090-26-LT; 73090-LT; 80048; 80053; 80061; 81001; 82607; 82746; 83605; 83735; 83880; 84443; 84484; 85025; 86140; 86592; 86738; 87040; 87086; 87088; 87186; 87430; 87804; 90686; 92507-GN; 92610-GN; 93005; 93306; 94640; 94761; 96125-GN; 96360; 97110-GO; 97110-GP; 97112-GP; 97116-GP; 97124-GO; 97140-GO; 97162-GP; 97166-GO; 97167-GO; 97530-GO; 97530-GP; 99285-25; A9270-GY; G0008; J0360; J0696; J1956; J2060; J2405; J2540; J7030; J7040; J7042; J7050; J7060; J7120; Q9967